=== PATIENT | male | born 1970 | race Caucasian/White ===

== ENCOUNTER 2020-03-15 07:17 | Emergency (ER) | payer OTHER, SELFPAY ==
[2020-03-15 07:25] VITALS: BP 174/87; PULSE 82; RESP 18; TEMP 36.9; O2SAT 99; BMI 28.2
--- NOTE | 2020-03-15 07:31 | ED_ITS ---
HPI - General Adult General Chief complaint: General Medical Stated complaint: rash, flank pain Time Seen by Provider: 03/15/20 07:31 Source: patient Mode of arrival: ambulatory Limitations: other (unsure of actual diagnosis) History of Present Illness HPI narrative: 49 yo male with multiple medical problems has had hemorrhagic blistering rash for the past 3 weeks notes he did improve with steroids but feels he has new blisters - unsure of what he was diagnosed with but was treated at [facility], here stating rash seems to be coming back and he is in pain Location: chest, back, abdomen, left, right, upper extremity and lower extremity Radiation: non-radiation Severity: severe Quality: burning Pain Consistency: constant Relieving factors: none Exacerbating factors: medication (felt like he got better with prednisone) Associated symptoms: denies other symptoms Treatments prior to arrival: other (has mupirocin and betamethasone) Related Data Allergies Allergy/AdvReac Type Severity Reaction Status Date / Time nitroglycerin [NITROGLYCERIN] Allergy Intermediate VOMITING Verified 03/15/20 07:19 cranberry [Cranberry] Allergy Mild RASH Verified 03/15/20 07:19 Penicillins Allergy Mild RASH Verified 03/15/20 07:19 penicillin V Allergy Unknown Rash/vomitt Verified 02/23/13 00:00 ing Review of Systems Review of Systems: Constitutional : No Fever, No Chills ENT/Mouth : No sore throat, No Rhinorrhea Eyes: No Eye Pain, No Swelling, No Redness Cardiovascular : No Chest Pain, No SOB Respiratory : No Cough, No Sputum Gastrointestinal : No Nausea, No Vomiting, No Diarrhea, No abdominal Pain Genitourinary : No Dysuria, No Hematuria Musculoskeletal : No joint pain, No Myalgias, No Joint Swelling Skin : positive Skin Lesions, positive skin rash Neuro : No Weakness, No Numbness, No Headache Psych : No Anxiety, No Depression Heme/Lymph: No Bruising, No Bleeding,No Lymphadenopathy Endocrine : No Polyuria, No Polydipsia All other systems reviewed and are negative [facility] Past Medical History Medical History (Updated 03/15/20 @ 07:33 by Deanna Garibay DO) CHF (congestive heart failure) Diabetes Heart attack HTN (hypertension) Hyperlipidemia Kidney disease Pulmonary emboli PVD (peripheral vascular disease) Surgical History Hx of right BKA S/P triple vessel bypass Social History Social History Smoking Status: Never smoker Use of substances other than those prescribed or required for medical reasons: No Advance Directives: Yes Advance Directives Information Provided: Yes Advance Directives on File: No Physical Exam Vital Signs and I&O and Narrative: Vital Signs and I&O: Vital Signs Temp 98.5 F 03/15/20 07:25 Pulse 82 03/15/20 07:25 Resp 18 03/15/20 07:25 BP 174/87 H 03/15/20 07:25 Pulse Ox 99 03/15/20 07:25 Intake & Output 03/14/20 03/15/20 03/15/20 18:59 06:59 18:59 Weight 99.79 kg Body Mass Index 28.2 Appearance: Alert. Oriented X3. No acute distress. Eyes: Pupils equal, round and reactive to light. ENT: Pharynx normal. Neck: Normal inspection. Neck supple. CVS: Normal heart rate and rhythm. Pulses normal. port a cath site is dirty, tegaderm is falling off, no erythema or drainage, no fluctuance Respiratory: No respiratory distress. Breath sounds normal. Abdomen: Soft and nontender. Skin: Skin warm and dry. Normal skin color. Normal skin turgor. on extremities there are areas that are flat and pink - sites where blisters ruptured, on RUE I see new hemorrhagic blisters but only a handful otherwise similar areas where blisters are ruptures, one area seen on his back, no overt erythema/drainage/signs of cellulitis or abscess Extremities: No lower extremity edema. No lower extremity edema. Neuro: Oriented X 3. No motor deficit. No sensory deficit. 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 Medical Decision Making MDM Narrative Medical decision making narrative: 49 yo male with multiple medical problems here with bullous rash that he states was worked up at [facility] he states more lesions are coming on his R arm and back - they are in various stages, pharynx is normal states he was given oral steroids and it seemed to be better, was told it was a reaction to a medication but he cannot provide any further history, he has a dermatology appointment on Friday, will obtain records from [facility] for a better history, the patient is asking for pain medications I am a burn patient. He also has a port a cath that is very dirty and unkempt RN at bedside to change and clean area. dispo per results and records
--- NOTE | 2020-03-15 07:54 | PC.NURSE ---
pt has dialysis port site right chest as well as another access site in mid chest. no dressing was covering dialysis port and dressing covering access site mid chest visibly soiled, pt states has not been changed in some time. both sites cleaned and new dressings applied. pt educated to contact providers if site not in use. informed dressing should be changed every 7 days.
[2020-03-15] MEDS: oxyCODONE HCl Immed Release 5 MG TABLET 10 MG PO (08:00)
[2020-03-15 10:05] VITALS: BP 149/67; PULSE 88; RESP 14; TEMP 36.6; O2SAT 97
== END 2020-03-15 10:41 | disposition left against medical advice (07) ==
PROVIDERS: Emergency Provider Emergency Medicine; PCP Internal Medicine
DX: L12.0 Bullous pemphigoid (principal); E11.9 Type 2 diabetes mellitus without complications; I11.0 Hypertensive heart disease with heart failure; I50.9 Heart failure, unspecified; Z89.519 Acquired absence of unspecified leg below knee
CPT/HCPCS: 99283; 99284

== ENCOUNTER 2020-05-12 15:15 | Inpatient (IN) | payer OTHER, SELFPAY ==
--- NOTE | 2020-05-12 15:16 | XR_ITS ---
EXAMINATION: XR CHEST CLINICAL INFORMATION: Stroke protocol, weakness COMPARISON: Chest radiographs 01/09/2020, 06/21/2019 TECHNIQUE: Portable upright AP view of the chest was obtained. FINDINGS: There are postoperative changes with mediastinal clips, left atrial appendage clip, sternotomy wires, and zero profile implants lower cervical spine. There is enlarged cardiopericardial silhouette similar to prior studies. The vascularity is normal. There is no airspace consolidation or groundglass opacity or effusion. Right internal jugular central line tip is at distal SVC. XR/XR chest 1V IMPRESSION: No acute intrathoracic disease.
--- NOTE | 2020-05-12 15:16 | ECG_ITS ---
Test Reason : STROKE PROTOCOL Blood Pressure : / mmHG Vent. Rate : 085 BPM Atrial Rate : 085 BPM P-R Int : 160 ms QRS Dur : 086 ms QT Int : 392 ms P-R-T Axes : 059 006 123 degrees QTc Int : 466 ms Sinus rhythm with occasional Premature ventricular complexes Inferior infarct , age undetermined Possible Anterior infarct , age undetermined Abnormal ECG When compared to the previous EKG of No significant changes seen Referred By: Lane Rangel Electronically Signed By:SHARON MENDIOLA MD
--- NOTE | 2020-05-12 15:16 | CT_ITS ---
EXAMINATION: CT HEAD WITHOUT CONTRAST (STROKE PROTOCOL) CLINICAL INFORMATION: Stroke protocol. Weakness COMPARISON: None TECHNIQUE: Contiguous axial imaging was performed from the skull base to vertex without intravenous administration of contrast. This CT examination was performed using dose optimization techniques as appropriate, variously including the following: *Automated exposure control *Adjustment of mA and/or kV according to patient size (this includes techniques or standardized protocols for targeted exams where dose is matched to indication/reason for exam; i.e. extremities or head) *Use of iterative reconstruction technique DLP: 866 mGy-cm FINDINGS: There is no intracranial hemorrhage, hematoma, or extra-axial fluid collection. The lateral ventricles are symmetrical and mildly prominent however there is no hydrocephalus, edema, or mass effect. The cross-white matter differentiation appears symmetric. There is no acute infarct or mass lesion. The calvarium appears intact. There is no pneumocephalus or orbital emphysema. The visualized sinuses and middle ears and mastoid air cells show no significant mucosal thickening. There are no air-fluid levels. CT/CT head for stroke IMPRESSION: No acute intracranial process seen. This critical result was discussed with Dr. Dru Rangel in ER at 3:30 hours . It was ascertained that the content and urgency of the report was understood at the time of direct communication.
--- NOTE | 2020-05-12 15:18 | CT_ITS ---
EXAMINATION: CT ANGIOGRAM NECK WITH CONTRAST CT ANGIOGRAM BRAIN WITH CONTRAST CLINICAL INFORMATION: Question large vessel occlusion. COMPARISON: Head CT performed earlier the same day. TECHNIQUE: Test bolus sequences followed by intravenous administration 70 mL of Omnipaque 350. Helical imaging was performed in the axial plane from the thoracic inlet to the skull vertex. Delayed postcontrast imaging of the head was also performed. The data was processed at the registered vascular technologist (rvt) workstation for generation of MIP sequences. Angled MIPs and volume rendered reformatted images were also generated at an offline 3D workstation under concurrent supervision. Stenoses are assessed in accordance with NASCET criteria unless otherwise indicated. This CT examination was performed using dose optimization techniques as appropriate, variously including the following: *Automated exposure control *Adjustment of mA and/or kV according to patient size (this includes techniques or standardized protocols for targeted exams where dose is matched to indication/reason for exam; i.e. extremities or head) *Use of iterative reconstruction technique FINDINGS: BRAIN: [There is no intracranial hemorrhage, hydrocephalus, extra-axial surface collection, midline shift, or other herniation pattern. Morgan to white matter differentiation is diffusely maintained without evidence of an evolved acute territorial infarct. The basilar cisterns are preserved. No significant soft tissue abnormality. No acute osseous abnormality. The paranasal sinuses and the mastoid air cells are well aerated.] CERVICAL SOFT TISSUES AND LUNG APICES: Operative changes following ACDF at C6-C7 and C7-T1 as well as interbody graft placement at C5-C6. There is multilevel cervical spondylosis. Imaged median sternotomy wires. Imaged upper lungs are clear. No significant soft tissue findings are appreciated within the neck. NECK CTA: [There is a classic 3 vessel configuration of the aortic arch. Proximal arch vessels are non-stenotic. The vertebral arteries are codominant. No significant ostial stenosis is visualized on either side. Both vertebral arteries are widely patent throughout their extracranial cervical course. Both common and internal carotid arteries are normal in course and caliber.] BRAIN CTA: Atherosclerotic calcification results in mild to moderate stenoses of the intradural vertebral arteries bilaterally. There is evidence is chronic calcification throughout the carotid siphons bilaterally without significant stenosis. No focal flow-limiting stenosis nor discrete proximal large artery occlusion. No aneurysm. Timing of the contrast bolus allows assessment of the major dural venous sinuses, which all opacify normally] CT/CT angio head neck stroke IMPRESSION: No acute intracranial findings. No acute arterial occlusions and no significant arterial stenoses within the head or neck. Stroke protocol was discussed with Dr. Rangel at 3:52 PM on 05/12/2020
--- NOTE | 2020-05-12 15:33 | ED.WEAKNESS ---
HPI - Weakness General Chief complaint: Stroke Stated complaint: STROKE ALERT LKWT ABT 1450 Time Seen by Provider: 05/12/20 15:16 Source: patient Mode of arrival: EMS Limitations: no limitations History of Present Illness HPI Narrative: 30 minutes of dense left hemiparesis. Patient without prior strokes Complaint: focal weakness Onset (ago): minute(s) Duration: constant Location: LUE, left hand and LLE Relieving factors: none Exacerbating factors: none Related Data Previous Rx's Medication Instructions Recorded prednisone 40 mg PO DAILY 5 Days #10 tab 03/15/20 Allergies Allergy/AdvReac Type Severity Reaction Status Date / Time nitroglycerin [NITROGLYCERIN] Allergy Intermediate VOMITING Verified 03/15/20 07:19 cranberry [Cranberry] Allergy Mild RASH Verified 03/15/20 07:19 Penicillins Allergy Mild RASH Verified 03/15/20 07:19 penicillin V Allergy Unknown Rash/vomitt Verified 02/23/13 00:00 ing Review of Systems Constitutional: Constitutional: Reports no additional constitutional complaints Eyes: Eyes: Reports no additional eye complaints ENT: Denies dizziness Cardiovascular: Cardiovascular: Reports no additional cardiovascular complaints Respiratory: Respiratory: Reports as per HPI Gastrointestinal: Gastrointestinal: Reports no additional gastrointestinal complaints Musculoskeletal: Musculoskeletal: Reports no additional musculoskeletal complaints Integumentary/Breasts: Skin/Breast: Denies rash Neurologic: Reports system reviewed and no additional complaints, except as documented, Denies dizziness and Denies Sensory deficit (Neuro) Psychiatric: Psychiatric: Denies anxiety [facility] Past Medical History Medical History CHF (congestive heart failure) Diabetes Heart attack HTN (hypertension) Hyperlipidemia Kidney disease Pulmonary emboli PVD (peripheral vascular disease) Surgical History Hx of right BKA S/P triple vessel bypass Social History Social History Smoking Status: Never smoker Advance Directives: No Advance Directives Information Provided: Yes Physical Exam Vital Signs: Vital Signs: Last Vital Signs Temp 97.8 F 05/12/20 15:52 Pulse 85 05/12/20 15:52 Resp 18 05/12/20 15:52 BP 181/79 H 05/12/20 15:52 Pulse Ox 97 05/12/20 15:52 Body Mass Index 35.3 Const: Other: chronically ill male with right BKA Nutritional Appearance: average body habitus Orientation/consciousness: oriented to person and patient oriented x3 Limitations: no limitations HENMT: Head: Yes normal to inspection Ears: external ears normal General nose exam: Normal external nose present Mouth: Normal oral and palatal mucosa present and oropharynx normal Throat: Yes posterior oropharynx normal Eyes: General: appearance normal, both eyes and all related structures Neck: Other: supple Neck: Yes normal visual inspection Chest: Chest palpation & inspection: normal inspection of the chest Resp: Auscultation: clear to auscultation bilaterally Cardio: Jugular venous distension: no JVD Rate: regular rate Rhythm: regular rhythm Heart sounds: S1 normal heart sound present and S2 normal heart sound present GI: Inspection: Yes normal to inspection Palpation (GI): Soft to palpation, nontender and No hepatosplenomegaly present Auscultation: normal bowel sounds : General: Yes no CVA tenderness Back/Spine/Pelvis: Back: no CVA tenderness Skin: General skin exam: no rashes or lesions noted Neuro: Other: left facial, and dense left hemiparesis General: oriented to person and patient oriented x3 Sensory Exam: No Sensory deficit (Neuro) Extrem: General: Yes normal to inspection Psych: Appearance: grossly normal NIH Stroke Scale Level of Consciousness: Alert Level of Consciousness Questions: Answers both questions correctly Level of Consciousness Commands: Performs both tasks correctly Best Gaze: Normal Visual: No visual loss Facial Palsy: Minor paralyis Motor Arm (Right): No drift Motor Arm (Left): Some effort against gravity Motor Leg (Right): No drift Motor Leg (Left): No effort against gravity Limb Ataxia: Absent Sensory: Normal Best Language: No aphasia Dysarthia: Normal Extinction and Inattention: No abnormality Score: 6 Course Course Course Narrative: Head CT noncontrast was negative Reevaluation(s) Reevaluation #1: discussed with Justice, will admit no LVO for intervention MDM - Weakness MDM Narrative Medical decision making narrative: patient with dense left zhane with no LVO will admit Lab Data Labs: Lab Results 05/12/20 Range/Units 15:39 POC Glucose 145 H (60-115) mg/dL Imaging Data CT scan - head: Radiologist's impression: no acute changes ct angio head and neck: Radiologist's impression: No LVO ECG Data Attestation: I personally reviewed and interpreted this ECG as follows: Interpretation: sinus 85, old anterior wall with pvc no acute ischemia Critical Care Time Critical Care Time Critical Care Time: Yes Total Critical Care Time: 35 Attestation: I spent 35 minutes of critical care, with interventions, assessments, speaking to patient, consultants, and family. Discharge Plan Discharge Clinical Impression: Cerebrovascular accident Patient Disposition: Admitted As Inpatient Prescriptions: No Action prednisone 20 mg tablet 40 mg PO DAILY 5 Days Qty: 10 RF: 0
[2020-05-12] MEDS: iohexoL 350 MG/ML 100 ML INFUS..BTL IV (15:46)
[2020-05-12 15:49] LABS: Glucose, Whole Blood 145 mg/dL (60-115)
[2020-05-12 15:52] VITALS: BP 172/84; BP 181/79; PULSE 85; PULSE 88; RESP 18; TEMP 36.6; O2SAT 97; O2SAT 98; BMI 35.3
[2020-05-12 16:12] LABS: Hematocrit 26.8 % (42-52); Imm Gran Abs Auto 0.04 X10*3/uL (0.00-0.03); Imm Gran Pct Auto 0.5 % (0.0-0.4); Lymphocytes Absolute Auto 0.3 X10*3/uL (1.2-4.9); Lymphocytes Percent Auto 3.5 % (20-40); MANUAL DIFF FLAG NO; Mean Corpuscular HGB Conc 33.6 g/dl (31.0-36.0); Mean Corpuscular Volume 89.3 fL (80-98); Mean Platelet Volume 11.1 fL (9.4-12.4); Monocytes Absolute Auto 0.4 X10*3/uL (0.1-1.2); Monocytes Percent Auto 4.5 % (2-11); Neutrophils Absolute Auto 7.7 X10*3/uL (2.0-8.3); Neutrophils Percent Auto 91.5 % (45-73); Platelet Count 188 X10*3/uL (160-400); Red Cell Distribution Width 16.8 % (11.0-16.0); SCAN SMEAR FLAG 1; White Blood Count 8.4 X10*3/uL (4.8-10.8)
[2020-05-12 16:19] LABS: INTERNATIONAL NORM RATIO 1.1 (0.9-1.1)
[2020-05-12 16:21] LABS: Partial Thromboplastin Time 43.9 SEC (24.1-38.0)
[2020-05-12] MEDS: HYDROmorphone HCl 2 MG/ML VIAL IVPUSH (16:23)
[2020-05-12 16:41] LABS: Alanine Aminotransferase 43 U/L (0-40); Alkaline Phosphatase 69 U/L (39-117); Anion Gap 14 (12-20); Aspartate Amino Transferase 33 U/L (5-37); Bilirubin Direct 0.2 mg/dL (0.0-0.5); Bilirubin Total 0.6 mg/dL (0.0-1.0); Blood Urea Nitrogen 113 mg/dL (9-16); Calcium 7.2 mg/dL (8.4-10.2); Carbon Dioxide 21 mmol/L (22-29); Chloride 105 mmol/L (96-108); Creatinine Clr Calc Pharmacy 32.8; Estimated Glomerular Filt Rate 17; Glucose Random 151 mg/dL (60-115); Potassium 4.4 mmol/l (3.3-5.1); Sodium 136 mmol/L (135-145); Total Protein 4.4 g/dL (6.5-8.0)
[2020-05-12 16:43] LABS: Stroke Lab Use COMPLETE
--- NOTE | 2020-05-12 16:45 | MHC.STROKE ---
1509 [facility] PRE-NOTIFIED STROKE ALERT ONSET 1545, LEFT HEMIPARESIS. NIHSS = 6, DIRECT TO CT FOR CT HEAD AND CTA HEAD/NECK. PATIENT ON ELIQUIS THEREFORE EXCLUDED FROM TPA (ALTEPLASE). CTA DID NOT REVEAL A LVO (LARGE VESSEL OCCLUSION). ? HYPERTENSIVE SMALL RIGHT CORTICAL STROKE. HE PASSED SWALLOW SCREEN, HE IS TAKING HIS ELIQUIS AND ASPIRIN. HE HAS MULTIPLE STROKE RISK FACTORS. I DID PROVIDE STROKE EDUCATION AND GAVE HIM THE STROKE BOOKLET, HE IS EXTREMELY DISCOURAGED. MRI, LIPID PANEL, LAST ECHO NOVEMBER 2019 (HE MAY NOT REQUIRE THIS). I WILL CONTINUE TO FOLLOW. NEUROLOGY CONSULT PENDING.
[2020-05-12 16:48] LABS: Troponin-I High Sensitivity 52.2 ng/L (<3.5-35.0)
[2020-05-12] MEDS: HYDROmorphone HCl 0.5 MG/0.5 ML SYRINGE IVPUSH ×2 (18:27→22:34)
--- NOTE | 2020-05-12 18:50 | P.EN_ITS ---
Event Note Date of Service: 05/12/20 Event Note: 49 y o m with significant medical problem presented with left- sided weakness that started around known today, patient was brought to ER,, in the ER CT head was negative, patient was within window. tPA was not given because patient was on Eliquis at home patient seen and examined at bedside on exam alert abdomen soft CVS rate and rhythm regular left upper extremity and left lower extremity weakness admitted left-sided weakness likely acute CVA monitor on telemetry, neuro check MRI brain, neurology consult, will start on aspirin and statin Patient seen and examined with the midlevel agree with H&P assessment and plan
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
[2020-05-12 19:48] LABS: COVID-19 Test Negative (Negative); IDNOW Serial# 9DD0AD1C
[2020-05-12 20:14] LABS: Troponin-I High Sensitivity 49.8 ng/L (<3.5-35.0)
[2020-05-12 20:20] VITALS: BP 166/87; PULSE 79; RESP 13; TEMP 36.6; O2SAT 100
--- NOTE | 2020-05-12 20:57 | PC.NURSE ---
CALLED AND ATTEMPTED TO GIVE REPORT. NURSE WILL CALL BACK FOR REPORT.
[2020-05-12 21:30] VITALS: BP 182/90; PULSE 80; RESP 19; TEMP 36; O2SAT 100
[2020-05-12 22:30] LABS: Glucose, Whole Blood 88 mg/dL (60-115)
[2020-05-12] MEDS: 0.9 % Sodium Chloride Flush 3 ML SYRINGE IVFLUSH (22:35)
[2020-05-12] MEDS: Apixaban 2.5 MG TABLET PO (22:35)
[2020-05-12] MEDS: Bumetanide 1 MG TABLET PO (22:35)
[2020-05-12] MEDS: Atorvastatin Calcium 80 MG TABLET PO (22:35)
[2020-05-12 23:58] VITALS: PULSE 77; RESP 18; TEMP 36.5; O2SAT 100
[2020-05-13] VITALS (8 sets, daily range): BP systolic 135–189; BP diastolic 70–96; PULSE 80–90; RESP 18–20; TEMP 36.3–37.2; O2SAT 99–100
[2020-05-13] MEDS: HYDROmorphone HCl 0.5 MG/0.5 ML SYRINGE IVPUSH ×2 (03:07→08:15)
[2020-05-13] MEDS: Omeprazole 20 MG CAPSULE.DR PO (06:21)
[2020-05-13 07:07] LABS: MANUAL DIFF FLAG NO
[2020-05-13 07:17] LABS: Eosinophils Absolute Auto 0.2 X10*3/uL (0.0-0.4); Eosinophils Percent Auto 1.7 % (0-4); Hematocrit 24.3 % (42-52); Hemoglobin 8.3 g/dl (14.0-18.0); Imm Gran Abs Auto 0.06 X10*3/uL (0.00-0.03); Imm Gran Pct Auto 0.7 % (0.0-0.4); Lymphocytes Absolute Auto 1.5 X10*3/uL (1.2-4.9); Lymphocytes Percent Auto 16.2 % (20-40); Mean Corpuscular HGB Conc 34.2 g/dl (31.0-36.0); Mean Corpuscular Hemoglobin 30.5 pg (27.0-33.0); Mean Corpuscular Volume 89.3 fL (80-98); Mean Platelet Volume 11.5 fL (9.4-12.4); Monocytes Absolute Auto 0.8 X10*3/uL (0.1-1.2); Monocytes Percent Auto 8.4 % (2-11); Neutrophils Absolute Auto 6.7 X10*3/uL (2.0-8.3); Platelet Count 175 X10*3/uL (160-400); Red Blood Count 2.72 X10*6/uL (4.60-5.80); Red Cell Distribution Width 16.7 % (11.0-16.0); White Blood Count 9.2 X10*3/uL (4.8-10.8)
[2020-05-13 07:28] LABS: Glucose, Whole Blood 128 mg/dL (60-115)
[2020-05-13 07:57] LABS: Anion Gap 15 (12-20); Blood Urea Nitrogen 101 mg/dL (9-16); Carbon Dioxide 22 mmol/L (22-29); Chloride 105 mmol/L (96-108); Cholesterol 163 mg/dL; Creatinine Clr Calc Pharmacy 33.1; Estimated Glomerular Filt Rate 17; Glucose Random 146 mg/dL (60-115); HDL Cholesterol 51 mg/dL; LDL Cholesterol Calculated 94 mg/dl; Sodium 138 mmol/L (135-145); Triglycerides 91 mg/dL
[2020-05-13] MEDS: predniSONE 20 MG TABLET 60 MG PO (08:15)
[2020-05-13] MEDS: Apixaban 2.5 MG TABLET PO ×2 (08:16→20:23)
[2020-05-13] MEDS: Bumetanide 1 MG TABLET PO ×2 (08:16→20:25)
[2020-05-13] MEDS: Calcium + Vitamin D 250 MG TABLET 500 MG PO ×2 (08:16→20:23)
[2020-05-13 08:20] LABS: Calcium 7.1 mg/dL (8.4-10.2)
[2020-05-13] MEDS: Multivitamin TABLET 1 TAB PO (08:23)
[2020-05-13] MEDS: Insulin Glargine,Hum.rec.anlog 100 UNIT/ML 10 ML VIAL 30 UNIT SUBCUT ×2 (10:03→21:47)
[2020-05-13] MEDS: 0.9 % Sodium Chloride Flush 3 ML SYRINGE IVFLUSH ×2 (10:05→16:08)
[2020-05-13 11:41] LABS: Glucose, Whole Blood 188 mg/dL (60-115)
[2020-05-13] MEDS: Insulin Lispro 100 UNIT/ML 3 ML VIAL SUBCUT ×3 (11:55→21:48)
[2020-05-13] MEDS: HYDROmorphone HCl 0.5 MG/0.5 ML SYRINGE 1 MG IVPUSH ×3 (12:02→20:18)
--- NOTE | 2020-05-13 12:35 | HO.PM.IMPN ---
Subjective Subjective Date of Service: 05/13/20 Interval History: Patient seen and examined at bedside patient still reporting left-sided weakness Constitutional Constitutional: Denies chills and Denies fever(s) Cardiovascular Cardiovascular: Denies chest pain Respiratory Respiratory: Denies cough Gastrointestinal Gastrointestinal: Denies abdominal pain Physical Exam Vital Signs: Vital Signs: Last Vital Signs Temp 98.9 F 05/13/20 11:21 Pulse 80 05/13/20 11:21 Resp 20 05/13/20 11:21 BP 186/86 H 05/13/20 11:21 Pulse Ox 100 05/13/20 11:21 Body Mass Index 35.3 Const: General: no acute distress, alert, awake and Cushingoid facies Nutritional Appearance: well nourished Orientation/consciousness: patient oriented x3 HENMT: Head: Yes normocephalic and Yes atraumatic Eyes: Sclerae: sclerae normal Pupils: Equal, round and reactive pupils present Chest: Other: port present Chest palpation & inspection: normal inspection of the chest Resp: Effort & Inspection: normal respiratory effort and no respiratory distress Cardio: Rate: regular rate Rhythm: regular rhythm GI: Palpation (GI): Soft to palpation and nontender Skin: General skin exam: no rashes or lesions noted Neuro: Other: hemiparesis left side General: patient oriented x3 Cranial nerves: Yes CN's II-XII intact bilaterally, Yes Equal, round and reactive pupils present and Yes Bilaterally intact EOM present Extrem: Other: s/p Right BKA; left lower extremity edema; skin breakdown -stump right leg; RUE fistula with palpable thrill Objective Data Current Medications Generic Name Dose Route Start Last Admin Trade Name Anaya PRN Reason Stop Dose Admin Acetaminophen 650 mg 05/12/20 21:22 Acetaminophen 325 Mg Tablet PO Q6H PRN Pain, Mild (Pain Scale 1-3) Apixaban 2.5 mg 05/12/20 21:22 05/13/20 08:16 Apixaban 2.5 Mg Tablet PO 2.5 mg BID RENU Administration Atorvastatin Calcium 80 mg 05/12/20 21:22 05/12/20 22:35 Atorvastatin Calcium 80 Mg Tablet PO 80 mg BEDTIME RENU Administration Bumetanide 1 mg 05/12/20 21:22 05/13/20 08:16 Bumetanide 1 Mg Tablet PO 1 mg BID RENU Administration Protocol Calcium Carbonate/Cholecalciferol 500 mg 05/13/20 09:00 05/13/20 08:16 Calcium + Vitamin D 250 Mg Tablet PO 500 mg BID RENU Administration Docusate Sodium 100 mg 05/12/20 21:22 Docusate Sodium 100 Mg Capsule PO DAILY PRN Constipation Doxycycline Hyclate 100 mg 05/13/20 09:00 05/13/20 08:16 Doxycycline Hyclate 100 Mg Tablet PO 100 mg BID RENU Administration Hydromorphone HCl 1 mg 05/13/20 08:19 05/13/20 12:02 Hydromorphone Hcl 0.5 Mg/0.5 Ml Syringe IVPUSH 1 mg Q4H PRN Administration Pain, Severe (Pain Scale 7-10) Insulin Glargine 30 unit 05/12/20 21:22 05/13/20 10:03 Insulin Glargine,Hum.Rec.Anlog 100 Unit/Ml 10 Ml Vial SUBCUT 30 unit BID RENU Administration Insulin Human Lispro 0 unit 05/12/20 21:00 05/13/20 11:55 Insulin Lispro 100 Unit/Ml 3 Ml Vial SUBCUT 2 unit QIDACHS RENU Administration Protocol Multivitamins/Vitamin C 1 tab 05/13/20 09:00 05/13/20 08:23 Multivitamin Tablet PO 1 tab DAILY RENU Administration Omeprazole 20 mg 05/13/20 06:30 05/13/20 06:21 Omeprazole 20 Mg Capsule.Dr PO 20 mg DAILY@0630 RENU Administration Ondansetron HCl 4 mg 05/12/20 21:22 Ondansetron Hcl 4 Mg/2 Ml Vial IVPUSH Q8H PRN Nausea and Vomiting Pharmacy Consult 1 each 05/12/20 16:13 Consult Rx Perform Med Rec MISCELLANE ONCE PRN Consult order Prednisone 60 mg 05/13/20 09:00 05/13/20 08:15 Prednisone 20 Mg Tablet PO 60 mg DAILY RENU Administration Sevelamer HCl 800 mg 05/12/20 21:22 05/13/20 10:05 Sevelamer Hcl 800 Mg Tablet PO 800 mg TID RENU Administration Sodium Chloride 3 ml 05/13/20 00:00 05/13/20 10:05 0.9 % Sodium Chloride Flush 3 Ml Syringe [facility] Administration Labs CBC & Chem 7: 05/13/20 06:31 05/13/20 06:31 Assessment and Plan (1) Cerebrovascular accident: Status: Acute (2) Diabetes: Status: Acute (3) Kidney disease: Problem details: no longer on HD Status: Acute Assessment and Plan: This is a 49-year-old male with history of CAD, CKD, HFpEF, diabetes, anemia, hypertension who presents to the emergency department with left-sided weakness being admitted for probable stroke Left-sided weakness Arrived within the window but anticoagulated with Eliquis therefore excluded from tPA Brain CT, head and neck CTA unremarkable Admit to telemetry for close monitoring, neuro checks Neuro consult pending Brain MRI pending PT/OT evaluation Continue statin Diabetes Continue Lantus continue SSI, monitor POC CKD No longer on dialysis monitor kidney functions GERD Continue PPI HFpEF Continue bumetanide Hypertension Hold Norvasc, BB CAD troponin with flat trend continue statin, start asa, . AC with eliquis Bullous pemphigoid Continue prednisone, doxycycline patient is following extracorporeal circulation specialist as outpatient History of DVT, PE, vascular disease Continue Eliquis DVT prophylaxis-Eliquis
--- NOTE | 2020-05-13 13:35 | MR_ITS ---
MRI OF THE BRAIN WITHOUT IV CONTRAST INDICATION: Left-sided weakness. COMPARISON: CTA head and neck May 12, 2020 TECHNIQUE: Multiplanar multisequence MR imaging of the brain was obtained without IV contrast. FINDINGS: There is no hydrocephalus, extra-axial surface collection, or herniation. There is global cerebral volume loss and there is mild chronic microangiopathy. The major flow voids at the skull base are preserved. There is no acute infarct on diffusion-weighted imaging. There is no intracranial hemorrhage on the gradient recalled echo acquisition. The midline structures are normal. The cerebellar tonsils are normally positioned. The cerebellum and brainstem are normal. The craniocervical junction is normal. Osseous marrow signal intensity is homogenous. The visualized soft tissues are unremarkable. MR/MR head/brain wo con IMPRESSION: - There are no acute territorial infarcts. No definite small infarcts though assessment is limited by artifact. - There is global cerebral volume loss and there is mild chronic microangiopathy.
[2020-05-13] MEDS: Aspirin 81 MG TAB.CHEW PO (13:44)
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
[2020-05-13 15:53] LABS: Glucose, Whole Blood 343 mg/dL (60-115)
--- NOTE | 2020-05-13 16:16 | MHC.CM.PN ---
PT REPORTS HE LIVES AT HOME WITH HIS AND ADULT SON. PT REPORTS HE IS STILL ACTIVE WITH [facility] BUT NO LONGER GOES TO IN [place]. PT REPORTS NAASTASIA SAUNDERS IS HIS PCP AND PT HAS A HCP ON FILE. CURRENT DC PLAN IS HOME WITH RESUMPTION OF SERVICES. TRANSPORT TBD PENDING PT TRISTANAL
[2020-05-13] MEDS: Acetaminophen 325 MG TABLET 650 MG PO (16:20)
--- NOTE | 2020-05-13 16:52 | PC.NURSE ---
pt sitting at the edge of the bed using urinal,able to back to bed by himself, RN assisted pt to get his underwears off. Pt able to turn himself from side to side. Pt able to move himself up in the bed . Pt able to wash his hands with wet cloth. Reported pain to the skin all over his body, c/o headache.
[2020-05-13] MEDS: Atorvastatin Calcium 80 MG TABLET PO (20:23)
[2020-05-13 20:54] LABS: Glucose, Whole Blood 399 mg/dL (60-115)
[2020-05-14] VITALS (10 sets, daily range): BP systolic 174–204; BP diastolic 64–106; PULSE 72–98; RESP 18–20; TEMP 36.3–36.8; O2SAT 98–100
[2020-05-14] MEDS: 0.9 % Sodium Chloride Flush 3 ML SYRINGE IVFLUSH ×3 (00:28→16:55)
[2020-05-14] MEDS: HYDROmorphone HCl 0.5 MG/0.5 ML SYRINGE 1 MG IVPUSH ×6 (00:28→21:10)
[2020-05-14] MEDS: Omeprazole 20 MG CAPSULE.DR PO (05:58)
[2020-05-14 07:04] LABS: Anion Gap 15 (12-20); Blood Urea Nitrogen 102 mg/dL (9-16); Calcium 7.1 mg/dL (8.4-10.2); Carbon Dioxide 20 mmol/L (22-29); Chloride 104 mmol/L (96-108); Estimated Glomerular Filt Rate 17; Glucose Random 241 mg/dL (60-115); Potassium 4.2 mmol/l (3.3-5.1); Sodium 135 mmol/L (135-145)
[2020-05-14 07:42] LABS: Glucose, Whole Blood 223 mg/dL (60-115)
[2020-05-14] MEDS: Insulin Lispro 100 UNIT/ML 3 ML VIAL SUBCUT ×4 (08:10→21:09)
[2020-05-14] MEDS: Insulin Glargine,Hum.rec.anlog 100 UNIT/ML 10 ML VIAL 32 UNIT SUBCUT ×2 (08:10→21:09)
[2020-05-14] MEDS: Bumetanide 1 MG TABLET PO ×2 (08:10→21:07)
[2020-05-14] MEDS: predniSONE 20 MG TABLET 60 MG PO (08:11)
[2020-05-14] MEDS: Aspirin 81 MG TAB.CHEW PO (08:11)
[2020-05-14] MEDS: Apixaban 2.5 MG TABLET PO ×2 (08:11→21:08)
[2020-05-14] MEDS: Calcium + Vitamin D 250 MG TABLET 500 MG PO ×2 (08:11→21:08)
[2020-05-14] MEDS: Multivitamin TABLET 1 TAB PO (08:11)
[2020-05-14 11:41] LABS: Glucose, Whole Blood 234 mg/dL (60-115)
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
--- NOTE | 2020-05-14 13:35 | HO.PM.IMPN ---
Subjective Subjective Date of Service: 05/14/20 Interval History: Ongoing LUE/LLE weakness though somewhat improved C/o severe pain of pemiphoid lesions for which he is on prednisone. States only IV Dilaudid relieves the pain. Denies chest pain/dyspnea/edema Physical Exam Vital Signs: Vital Signs: Last Vital Signs Temp 98.0 F 05/14/20 11:31 Pulse 89 05/14/20 11:31 Resp 20 05/14/20 12:34 BP 176/89 H 05/14/20 11:31 Pulse Ox 100 05/14/20 11:31 Body Mass Index 35.3 Gen: in no acute distress HEENT: sclera anicteric, moist mucus membranes Neck: supple Lungs: clear to auscultation bilaterally Heart: regular rate and rhythm, no murmurs Abd: soft, non-tender, non-distended Ext: s/p RLE BKA; RUE palpable thrill Skin: warm/well-perfused, multiple healing bullae Neuro: alert and oriented x3, LUE 4/5 strength, LLE 3-4/5 strength Psych: appropriate affect Objective Data Current Medications Generic Name Dose Route Start Last Admin Trade Name Freq PRN Reason Stop Dose Admin Acetaminophen 650 mg 05/12/20 21:22 05/13/20 16:20 Acetaminophen 325 Mg Tablet PO 650 mg Q6H PRN Administration Pain, Mild (Pain Scale 1-3) Apixaban 2.5 mg 05/12/20 21:22 05/14/20 08:11 Apixaban 2.5 Mg Tablet PO 2.5 mg BID RENU Administration Aspirin 81 mg 05/13/20 12:35 05/14/20 08:11 Aspirin 81 Mg Tab.Chew PO 81 mg DAILY RENU Administration Atorvastatin Calcium 80 mg 05/12/20 21:22 05/13/20 20:23 Atorvastatin Calcium 80 Mg Tablet PO 80 mg BEDTIME RENU Administration Bumetanide 1 mg 05/12/20 21:22 05/14/20 08:10 Bumetanide 1 Mg Tablet PO 1 mg BID RENU Administration Protocol Calcium Carbonate/Cholecalciferol 500 mg 05/13/20 09:00 05/14/20 08:11 Calcium + Vitamin D 250 Mg Tablet PO 500 mg BID RENU Administration Docusate Sodium 100 mg 05/12/20 21:22 Docusate Sodium 100 Mg Capsule PO DAILY PRN Constipation Doxycycline Hyclate 100 mg 05/13/20 09:00 05/14/20 08:11 Doxycycline Hyclate 100 Mg Tablet PO 100 mg BID RENU Administration Gabapentin 300 mg 05/14/20 21:00 Gabapentin 300 Mg Capsule PO BEDTIME RENU Hydromorphone HCl 1 mg 05/13/20 08:19 05/14/20 12:34 Hydromorphone Hcl 0.5 Mg/0.5 Ml Syringe IVPUSH 1 mg Q4H PRN Administration Pain, Severe (Pain Scale 7-10) Hydromorphone HCl 4 mg 05/14/20 11:29 Hydromorphone Hcl 4 Mg Tablet PO Q6H PRN moderate pain Insulin Glargine 32 unit 05/14/20 09:00 05/14/20 08:10 Insulin Glargine,Hum.Rec.Anlog 100 Unit/Ml 10 Ml Vial SUBCUT 32 unit BID RENU Administration Insulin Human Lispro 0 unit 05/12/20 21:00 05/14/20 11:51 Insulin Lispro 100 Unit/Ml 3 Ml Vial SUBCUT 4 unit QIDACHS [facility] Administration Protocol Multivitamins/Vitamin C 1 tab 05/13/20 09:00 05/14/20 08:11 Multivitamin Tablet PO 1 tab DAILY [facility] Administration Omeprazole 20 mg 05/13/20 06:30 05/14/20 05:58 Omeprazole 20 Mg Capsule.Dr PO 20 mg DAILY@0630 [facility] Administration Ondansetron HCl 4 mg 05/12/20 21:22 Ondansetron Hcl 4 Mg/2 Ml Vial IVPUSH Q8H PRN Nausea and Vomiting Pharmacy Consult 1 each 05/12/20 16:13 Consult Rx Perform Med Rec MISCELLANE ONCE PRN Consult order Prednisone 60 mg 05/13/20 09:00 05/14/20 08:11 Prednisone 20 Mg Tablet PO 60 mg DAILY [facility] Administration Sevelamer HCl 800 mg 05/12/20 21:22 05/14/20 08:11 Sevelamer Hcl 800 Mg Tablet PO 800 mg TID [facility] Administration Sodium Chloride 3 ml 05/13/20 00:00 05/14/20 08:09 0.9 % Sodium Chloride Flush 3 Ml Syringe IVFLUSH 3 ml QSHIFT [facility] Administration Labs CBC & Chem 7: 05/13/20 06:31 05/14/20 05:57 Labs: Laboratory Results - last 24 hr 05/13/20 05/13/20 05/14/20 15:38 20:37 05:57 Sodium 135 Potassium 4.2 Chloride 104 Carbon Dioxide 20 L Anion Gap 15 BUN 102 H* Creatinine 3.83 H Estim Creat Clear Calc 32.0 Estimated GFR 17 POC Glucose 343 H 399 H* Random Glucose 241 H D Calcium 7.1 L 05/14/20 05/14/20 07:39 11:33 Sodium Potassium Chloride Carbon Dioxide Anion Gap BUN Creatinine Estim Creat Clear Calc Estimated GFR POC Glucose 223 H 234 H Random Glucose Calcium Assessment and Plan (1) Cerebrovascular accident: Problem details: Clinical symptoms suggestive of right hemisphere ischemic event, however, MRI shows no acute stroke or chronic stroke and CTA is normal Status: Acute (2) Diabetes: Status: Acute (3) Kidney disease: Problem details: no longer on HD Status: Acute Assessment and Plan: hospital d#3 49yo M with CAD, CKD, HFpEF, DM2, anemia, HTN admitted for L-sided weakness thought to be acute CVA # L-sided weakness, possible R MCA CVA - CT and MRI negative - per Neuro consider increasing Eliquis dose to 5 mg bid; will discuss with Nephrology. ASA started - appreciate PT evaluation, awaiting OT evaluation - continue statin # HFpEF, chronic - continue bumetanide # DM2 - increase Lantus, continue correction-dose Humalog # CKD - Nephrology consult # CAD - continue statin, resume B-elizabet # HTN - resume metoprolol # GERD - continue PPI # bullous pemphigoid - sees Dr Adkins as outpt; continue prednisone + doxycycline. PO + IV hydromorphone for pain, add gabapentin as well to try to decrease opioid requirement # hx of VTE - continue apixaban; consider 5 mg bid dosing as above # dispo - likely STR
[2020-05-14 16:12] LABS: Glucose, Whole Blood 267 mg/dL (60-115)
[2020-05-14 19:55] LABS: Glucose, Whole Blood 259 mg/dL (60-115)
[2020-05-14] MEDS: Atorvastatin Calcium 80 MG TABLET PO (21:08)
[2020-05-14] MEDS: Gabapentin 300 MG CAPSULE PO (21:08)
[2020-05-14] MEDS: hydrALAZINE HCl 20 MG/ML VIAL 5 MG IVPUSH (21:25)
[2020-05-15] VITALS (9 sets, daily range): BP systolic 178–184; BP diastolic 74–98; PULSE 73–102; RESP 18–20; TEMP 36.4–37.3; O2SAT 98–100; BMI 35.3
[2020-05-15] MEDS: 0.9 % Sodium Chloride Flush 3 ML SYRINGE IVFLUSH ×4 (00:14→23:37)
[2020-05-15] MEDS: ondansetron HCL 4 MG/2 ML VIAL IVPUSH ×3 (01:36→18:17)
[2020-05-15] MEDS: HYDROmorphone HCl 0.5 MG/0.5 ML SYRINGE 1 MG IVPUSH ×6 (01:36→22:37)
[2020-05-15] MEDS: Omeprazole 20 MG CAPSULE.DR PO (05:38)
[2020-05-15 06:04] LABS: Basophils Percent Auto 0.1 % (0-2); Eosinophils Percent Auto 0.3 % (0-4); Hematocrit 25.1 % (42-52); Hemoglobin 8.3 g/dl (14.0-18.0); Imm Gran Abs Auto 0.09 X10*3/uL (0.00-0.03); Imm Gran Pct Auto 0.8 % (0.0-0.4); Lymphocytes Absolute Auto 0.6 X10*3/uL (1.2-4.9); Lymphocytes Percent Auto 4.8 % (20-40); MANUAL DIFF FLAG SCAN; Mean Corpuscular HGB Conc 33.1 g/dl (31.0-36.0); Mean Corpuscular Hemoglobin 29.2 pg (27.0-33.0); Mean Corpuscular Volume 88.4 fL (80-98); Mean Platelet Volume 11.7 fL (9.4-12.4); Monocytes Absolute Auto 0.6 X10*3/uL (0.1-1.2); Monocytes Percent Auto 5.3 % (2-11); Neutrophils Absolute Auto 10.1 X10*3/uL (2.0-8.3); Neutrophils Percent Auto 88.7 % (45-73); Platelet Count 179 X10*3/uL (160-400); Red Blood Count 2.84 X10*6/uL (4.60-5.80); Red Cell Distribution Width 15.9 % (11.0-16.0); SCAN SMEAR FLAG 1; White Blood Count 11.4 X10*3/uL (4.8-10.8)
[2020-05-15 06:38] LABS: SLIDE REVIEW VERIFIED
[2020-05-15 07:01] LABS: Anion Gap 16 (12-20); Blood Urea Nitrogen 109 mg/dL (9-16); Calcium 7.8 mg/dL (8.4-10.2); Carbon Dioxide 21 mmol/L (22-29); Chloride 104 mmol/L (96-108); Creatinine Clr Calc Pharmacy 30.6; Estimated Glomerular Filt Rate 16; Glucose Random 174 mg/dL (60-115); Potassium 4.4 mmol/l (3.3-5.1); Sodium 137 mmol/L (135-145)
[2020-05-15 07:43] LABS: Estimated Average Glucose 160 mg/dL; Hemoglobin A1C 130.4467 umol/L; Hemoglobin A1c % 7.2 %
[2020-05-15 07:46] LABS: Glucose, Whole Blood 168 mg/dL (60-115)
[2020-05-15 08:32] LABS: Prothrombin Time Whole Bld POC 12.2 sec (11.1-13.5)
[2020-05-15] MEDS: Multivitamin TABLET 1 TAB PO (09:55)
[2020-05-15] MEDS: predniSONE 20 MG TABLET 60 MG PO (09:55)
[2020-05-15] MEDS: Aspirin 81 MG TAB.CHEW PO (09:55)
[2020-05-15] MEDS: Calcium + Vitamin D 250 MG TABLET 500 MG PO ×2 (09:55→21:15)
[2020-05-15] MEDS: Metoprolol Succinate ER 50 MG TAB.ER.24H 150 MG PO (09:55)
[2020-05-15] MEDS: Apixaban 5 MG TABLET PO (09:55)
[2020-05-15] MEDS: Insulin Glargine,Hum.rec.anlog 100 UNIT/ML 10 ML VIAL 32 UNIT SUBCUT ×2 (09:56→21:13)
[2020-05-15] MEDS: Insulin Lispro 100 UNIT/ML 3 ML VIAL SUBCUT ×4 (09:56→21:14)
--- NOTE | 2020-05-15 11:18 | MHC.CM.PN ---
Goal for dc is home with resumption of [facility] VS STR, pending PT eval. CM will continue to follow for dc planning
[2020-05-15 11:32] LABS: Glucose, Whole Blood 206 mg/dL (60-115)
--- NOTE | 2020-05-15 12:19 | PM.PNNEP ---
Subjective Subjective Date of Service: 05/15/20 Interval history: Says he is doing better Able to move left extremties Physical Exam Vital Signs: Vital Signs: Last Vital Signs Temp 97.9 F 05/15/20 11:53 Pulse 86 05/15/20 11:53 Resp 20 05/15/20 11:53 BP 180/74 H 05/15/20 11:53 Pulse Ox 100 05/15/20 11:53 Body Mass Index 35.3 Const: General: no acute distress HENMT: Head: Yes normal to inspection Neck: Neck: Yes supple Resp: Auscultation: clear to auscultation bilaterally Cardio: Heart sounds: no gallops and no rubs GI: Auscultation: normal bowel sounds Skin: General skin exam: no rashes or lesions noted Neuro: Motor exam (neuro): No Asterixis during motor activity present Assessment & Plan Assessment and plan (1) Chronic kidney disease (CKD) stage G5/A2, glomerular filtration rate (GFR) less than or equal to 15 mL/min/1.73 square meter and albuminuria creatinine ratio between 30-299 mg/g: Problem details: Pt has very borderline GFR, BUN over 100 and creat 3.8. He had CTA as part of workup for new neuro findings which was neg along with an MRI. Would resume [facility] No overt s/s of uremia and no indication to start HD today HTN- resume Norvasc 5 mg Q D PT and DC planning Status: Acute Time Spent With Patient Time: Total time spent is greater than 50% in coordination of care (as documented) at patient's floor/unit and/or counseling patient:
--- NOTE | 2020-05-15 16:15 | P.PNIM_ITS ---
Subjective Subjective Date of Service: 05/15/20 Interval History: L-sided weakness improved Still c/o severe burning pain of pemphigoid lesions, improved with IV hydromorphone Physical Exam Vital Signs: Vital Signs: Last Vital Signs Temp 97.9 F 05/15/20 11:53 Pulse 86 05/15/20 14:46 Resp 20 05/15/20 11:53 BP 180/74 H 05/15/20 14:46 Pulse Ox 100 05/15/20 14:46 Body Mass Index 35.3 Gen: in no acute distress HEENT: sclera anicteric, moist mucus membranes Neck: supple Lungs: clear to auscultation bilaterally Heart: regular rate and rhythm, no murmurs Abd: soft, non-tender, non-distended Ext: s/p RLE BKA; RUE palpable thrill Skin: warm/well-perfused, multiple healing bullae Neuro: alert and oriented x3, LUE 4+/5 strength, LLE 4/5 strength Psych: appropriate affect Objective Data Current Medications Generic Name Dose Route Start Last Admin Trade Name Randolphq PRN Reason Stop Dose Admin Acetaminophen 650 mg 05/12/20 21:22 05/13/20 16:20 Acetaminophen 325 Mg Tablet PO 650 mg Q6H PRN Administration Pain, Mild (Pain Scale 1-3) Apixaban 2.5 mg 05/15/20 21:00 Apixaban 2.5 Mg Tablet PO BEDTIME RENU Apixaban 5 mg 05/15/20 09:00 05/15/20 09:55 Apixaban 5 Mg Tablet PO 5 mg DAILY@0900 RENU Administration Aspirin 81 mg 05/13/20 12:35 05/15/20 09:55 Aspirin 81 Mg Tab.Chew PO 81 mg DAILY RENU Administration Atorvastatin Calcium 80 mg 05/12/20 21:22 05/14/20 21:08 Atorvastatin Calcium 80 Mg Tablet PO 80 mg BEDTIME RENU Administration Bumetanide 1 mg 05/12/20 21:22 05/14/20 21:07 Bumetanide 1 Mg Tablet PO 1 mg BID RENU Administration Protocol Calcium Carbonate/Cholecalciferol 500 mg 05/13/20 09:00 05/15/20 09:55 Calcium + Vitamin D 250 Mg Tablet PO 500 mg BID RENU Administration Docusate Sodium 100 mg 05/12/20 21:22 Docusate Sodium 100 Mg Capsule PO DAILY PRN Constipation Doxycycline Hyclate 100 mg 05/13/20 09:00 05/15/20 09:55 Doxycycline Hyclate 100 Mg Tablet PO 100 mg BID RENU Administration Gabapentin 300 mg 05/14/20 21:00 05/14/20 21:08 Gabapentin 300 Mg Capsule PO 300 mg BEDTIME RENU Administration Hydromorphone HCl 1 mg 05/13/20 08:19 05/15/20 14:18 Hydromorphone Hcl 0.5 Mg/0.5 Ml Syringe IVPUSH 1 mg Q4H PRN Administration Pain, Severe (Pain Scale 7-10) Hydromorphone HCl 4 mg 05/14/20 11:29 Hydromorphone Hcl 4 Mg Tablet PO Q6H PRN moderate pain Insulin Glargine 32 unit 05/14/20 09:00 05/15/20 09:56 Insulin Glargine,Hum.Rec.Anlog 100 Unit/Ml 10 Ml Vial SUBCUT 32 unit BID RENU Administration Insulin Human Lispro 0 unit 05/12/20 21:00 05/15/20 13:15 Insulin Lispro 100 Unit/Ml 3 Ml Vial SUBCUT 5 unit QIDACHS [facility] Administration Protocol Metoprolol Succinate 150 mg 05/15/20 09:00 05/15/20 09:55 Metoprolol Succinate Er 50 Mg Tab.Er.24h PO 150 mg DAILY RENU Administration Protocol Multivitamins/Vitamin C 1 tab 05/13/20 09:00 05/15/20 09:55 Multivitamin Tablet PO 1 tab DAILY RENU Administration Omeprazole 20 mg 05/13/20 06:30 05/15/20 05:38 Omeprazole 20 Mg Capsule.Dr PO 20 mg DAILY@0630 RENU Administration Ondansetron HCl 4 mg 05/12/20 21:22 05/15/20 09:54 Ondansetron Hcl 4 Mg/2 Ml Vial IVPUSH 4 mg Q8H PRN Administration Nausea and Vomiting Pharmacy Consult 1 each 05/12/20 16:13 Consult Rx Perform Med Rec MISCELLANE ONCE PRN Consult order Prednisone 60 mg 05/13/20 09:00 05/15/20 09:55 Prednisone 20 Mg Tablet PO 60 mg DAILY RENU Administration Sevelamer HCl 800 mg 05/12/20 21:22 05/15/20 14:18 Sevelamer Hcl 800 Mg Tablet PO 800 mg TID RENU Administration Sodium Chloride 3 ml 05/13/20 00:00 05/15/20 10:01 0.9 % Sodium Chloride Flush 3 Ml Syringe IVFLUSH 3 ml QSHIFT RENU Administration Labs CBC & Chem 7: 05/15/20 05:38 05/15/20 05:38 Labs: Laboratory Results - last 24 hr 05/12/20 05/14/20 05/15/20 15:38 19:48 05:38 WBC RBC Hgb Hct MCV MCH MCHC RDW Plt Count MPV Immature Gran % (Auto) Neut % (Auto) Lymph % (Auto) Tucker % (Auto) Eos % (Auto) Baso % (Auto) Lymph # (Auto) Tucker # (Auto) Eos # (Auto) Baso # (Auto) Abs Immat Gran (auto) Absolute Neuts (auto) Absolute Nucleated RBC Nucleated RBC % (auto) Smear Tech's Comments Whole Blood PT 12.2 Whole Blood INR 1.0 Sodium 137 Potassium 4.4 Chloride 104 Carbon Dioxide 21 L Anion Gap 16 BUN 109 H* Creatinine 4.00 H* Estim Creat Clear Calc 30.6 Estimated GFR 16 POC Glucose 259 H Random Glucose 174 H Estimat Average Glucose Hemoglobin A1c % Calcium 7.8 L D 05/15/20 05/15/20 05/15/20 05:38 05:38 07:29 WBC 11.4 H RBC 2.84 L Hgb 8.3 L Hct 25.1 L MCV 88.4 MCH 29.2 MCHC 33.1 RDW 15.9 Plt Count 179 MPV 11.7 Immature Gran % (Auto) 0.8 H Neut % (Auto) 88.7 H Lymph % (Auto) 4.8 L Tucker % (Auto) 5.3 Eos % (Auto) 0.3 Baso % (Auto) 0.1 Lymph # (Auto) 0.6 L Tucker # (Auto) 0.6 Eos # (Auto) 0.0 Baso # (Auto) 0.0 Abs Immat Gran (auto) 0.09 H Absolute Neuts (auto) 10.1 H Absolute Nucleated RBC 0.000 Nucleated RBC % (auto) 0.0 Smear Tech's Comments VERIFIED Whole Blood PT Whole Blood INR Sodium Potassium Chloride Carbon Dioxide Anion Gap BUN Creatinine Estim Creat Clear Calc Estimated GFR POC Glucose 168 H Random Glucose Estimat Average Glucose 160 Hemoglobin A1c % 7.2 Calcium 12/07/20 11:20 WBC RBC Hgb Hct MCV MCH MCHC RDW Plt Count MPV Immature Gran % (Auto) Neut % (Auto) Lymph % (Auto) Tucker % (Auto) Eos % (Auto) Baso % (Auto) Lymph # (Auto) Tucker # (Auto) Eos # (Auto) Baso # (Auto) Abs Immat Gran (auto) Absolute Neuts (auto) Absolute Nucleated RBC Nucleated RBC % (auto) Smear Tech's Comments Whole Blood PT Whole Blood INR Sodium Potassium Chloride Carbon Dioxide Anion Gap BUN Creatinine Estim Creat Clear Calc Estimated GFR POC Glucose 206 H Random Glucose Estimat Average Glucose Hemoglobin A1c % Calcium Assessment and Plan (1) Cerebrovascular accident: Problem details: Clinical symptoms suggestive of right hemisphere ischemic event, however, MRI shows no acute stroke or chronic stroke and CTA is normal Status: Acute (2) Diabetes: Status: Acute (3) Kidney disease: Problem details: no longer on HD Status: Acute Assessment and Plan: hospital d#4 49yo M with CAD, CKD, HFpEF, DM2, anemia, HTN admitted for L-sided weakness thought to be acute CVA # L-sided weakness consistent with R MCA CVA though CT/MRI negative - increased apixaban to 5mg qam, 2.5mg qpm; on ASA - high-intensity statin - PT/OT # HFpEF, chronic - continue bumetanide # DM2, A1c 7.2 - Lantus/Humalog, check fructosamine # CKD, near-ESRD - Nephrology following, Cr rising and recently got IV contrast for CTA; monitor # CAD - continue statin, resumed B-elizabet # pAF - continue B-elizabet, apixaban # HTN - resume metoprolol + amlodipine # GERD - continue PPI # bullous pemphigoid - sees Dr Adkins as outpt; continue prednisone + doxycycline. continue gabapentin, hydromorphone for pain contrl # hx of VTE - apixaban # dispo - STR recommended but pt would like to go home with [facility]
[2020-05-15 16:26] LABS: Glucose, Whole Blood 170 mg/dL (60-115)
[2020-05-15] MEDS: amLODIPine Besylate 5 MG TABLET PO (16:34)
[2020-05-15 21:00] LABS: Glucose, Whole Blood 186 mg/dL (60-115)
[2020-05-15] MEDS: Bumetanide 1 MG TABLET PO (21:14)
[2020-05-15] MEDS: Gabapentin 300 MG CAPSULE PO (21:15)
[2020-05-15] MEDS: Atorvastatin Calcium 80 MG TABLET PO (21:15)
[2020-05-15] MEDS: Apixaban 2.5 MG TABLET PO (21:15)
[2020-05-16] VITALS (7 sets, daily range): BP systolic 153–196; BP diastolic 68–86; PULSE 77–88; RESP 18–20; TEMP 36.2–36.8; O2SAT 100
[2020-05-16] MEDS: HYDROmorphone HCl 0.5 MG/0.5 ML SYRINGE 1 MG IVPUSH ×4 (02:43→15:13)
[2020-05-16] MEDS: Omeprazole 20 MG CAPSULE.DR PO (06:16)
[2020-05-16] MEDS: ondansetron HCL 4 MG/2 ML VIAL IVPUSH ×2 (06:46→15:13)
[2020-05-16 07:22] LABS: Anion Gap 13 (12-20); Blood Urea Nitrogen 110 mg/dL (9-16); Calcium 7.7 mg/dL (8.4-10.2); Carbon Dioxide 22 mmol/L (22-29); Chloride 106 mmol/L (96-108); Creatinine Clr Calc Pharmacy 31.6; Estimated Glomerular Filt Rate 17; Glucose Random 107 mg/dL (60-115); Potassium 4.4 mmol/l (3.3-5.1); Sodium 137 mmol/L (135-145)
[2020-05-16 08:03] LABS: Glucose, Whole Blood 100 mg/dL (60-115)
--- NOTE | 2020-05-16 08:09 | P.CDIC_ITS ---
CDI Concurrent Query Service Date: 05/16/20 Documentation Clarification: Please clarify if you are treating a proba ble/suspected/likely or confirmed: Specifics: Chronic kidney disease stage 1 - 5 or other Acute on chronic kidney disease stage 1 - 5 or other Please specify if known Provider Response: Other Other Diagnosis: acute on chronic CKD5 PLEASE DO NOT DELETE/MODIFY EXISTING CONTENT Additional information is needed in order to code to the highest accuracy and appropriate Severity of Illness (SOI). Please clarify the information noted below in your progress notes and discharge summary. Risk Factors/Clinical Indicators/Treatments Nephrology 05/15 -CKD stage G5/A2 BUN 113 - 110 CR. 3.73 - 4.00 GRF 17 16 PN: 05/15 - creatinine is rising recently got IV contrast for CT. no indications to start HD today, near ESRD. CDS: Ivonne Huston CCS, CDIS Contact Number: [phone] Please Review the information above and exercise your independent professional judgment in responding to the query. If you concur, pleas document in the PROGRESS NOTES and DISCHARGE SUMMARY. If you do not agree with the query, please document in the query above. THIS QUERY IS PART OF THE PERMANENT MEDICAL RECORD
[2020-05-16] MEDS: Calcium + Vitamin D 250 MG TABLET 500 MG PO (08:10)
[2020-05-16] MEDS: Metoprolol Succinate ER 50 MG TAB.ER.24H 150 MG PO (08:10)
[2020-05-16] MEDS: predniSONE 20 MG TABLET 60 MG PO (08:11)
[2020-05-16] MEDS: Apixaban 5 MG TABLET PO (08:11)
[2020-05-16] MEDS: Insulin Glargine,Hum.rec.anlog 100 UNIT/ML 10 ML VIAL 32 UNIT SUBCUT (08:11)
[2020-05-16] MEDS: Multivitamin TABLET 1 TAB PO (08:11)
[2020-05-16] MEDS: Bumetanide 1 MG TABLET PO (08:11)
[2020-05-16] MEDS: amLODIPine Besylate 5 MG TABLET PO (08:11)
[2020-05-16] MEDS: Aspirin 81 MG TAB.CHEW PO (08:11)
[2020-05-16] MEDS: 0.9 % Sodium Chloride Flush 3 ML SYRINGE IVFLUSH ×2 (08:13→15:16)
[2020-05-16] MEDS: amLODIPine Besylate 5 MG TABLET 10 MG PO (10:59)
--- NOTE | 2020-05-16 11:00 | MHC.CM.PN ---
Per ROUNDS discussion, Patient is medically cleared for dc. PT is recommending Acute Rehab, but Patient is adamant about returning home (MD aware).Patient was active with [facility], who has been updated and made aware of today's dc. Second IMM addressed. Patient is aware of and pleased with the dc plan to go home with home PT through [facility].
[2020-05-16 11:33] LABS: Glucose, Whole Blood 85 mg/dL (60-115)
--- NOTE | 2020-05-16 15:11 | P.DS_ITS ---
DS: Providers Provider Date of admission: 05/12/20 18:05 Primary care physician: Rahul Chan MD Consults: 05/12/20 21:22 Consult to Neurology Routine Consulting Provider: Kenneth Rendon Reason for consultation: left side weakness 05/14/20 07:36 Consult to Nephrology Routine Consulting Provider: [facility] Reason for consultation: NEGRO/CKD DS: Diagnosis Discharge Diagnosis (1) Cerebrovascular accident: Status: Acute Problem details: Clinical symptoms suggestive of right hemisphere ischemic event, however, MRI shows no acute stroke or chronic stroke and CTA is normal (2) Acute on chronic kidney failure: Status: Acute (3) Chronic kidney disease (CKD) stage G5/A2, glomerular filtration rate (GFR) less than or equal to 15 mL/min/1.73 square meter and albuminuria creatinine ratio between 30-299 mg/g: Status: Acute (4) Hemiparesis: Status: Acute (5) Bullous pemphigoid: Status: Acute DS: Medications Discharge Medications Home Medications: Home Medications Medication Instructions Recorded Confirmed Lantus Solostar U-100 Insulin 30 unit SUBCUT BID 05/12/20 05/12/20 amlodipine 5 mg PO BID 05/12/20 05/12/20 atorvastatin [Lipitor] 80 mg PO BEDTIME 05/12/20 05/12/20 bumetanide 1 mg PO BID 05/12/20 05/12/20 calcium citrate-vitamin D3 2 tab PO BID 05/12/20 05/12/20 [Calcium Citrate + D] docusate sodium [Colace] 100 mg PO DAILY 05/12/20 05/12/20 doxycycline hyclate 100 mg PO BID 05/12/20 05/12/20 insulin aspart U-100 [Novolog 15 unit SUBCUT TID 05/12/20 05/12/20 Flexpen U-100 Insulin] metoprolol succinate 150 mg PO DAILY 05/12/20 05/12/20 multivitamin 1 tab PO DAILY 05/12/20 05/12/20 pantoprazole 40 mg PO DAILY 05/12/20 05/12/20 prednisone 60 mg PO DAILY 05/12/20 05/12/20 sevelamer HCl 800 mg PO TID 05/12/20 05/12/20 Previous Rx's Medication Instructions Recorded apixaban [Eliquis] 2.5 mg PO BEDTIME #30 tab 05/16/20 apixaban [Eliquis] 5 mg PO DAILY@0900 #30 tab 05/16/20 aspirin 81 mg PO DAILY #30 tab 05/16/20 gabapentin 300 mg PO BEDTIME #30 cap 05/16/20 DS: Summary Hospital Course Hospital Course: from admission history and physical by hospitalist BRADLEY Schmitt, 05/12/20: This is a 49-year-old male with history of CAD, diabetes, CKD among others who presents to the emergency department with left-sided weakness. He began having weakness of his left lower extremity and tried to stand up was unable to ambulate and fell. He was unable to get up off the ground. His weakness progressed to include his left upper extremity as well. He called 911 and was brought to the emergency department for evaluation. He was noted to have left-sided hemiparesis. Brain CT and head and neck CTA were unremarkable. Patient visual disturbance, difficulty swallowing, speech difficulty. Because the patient anticoagulated at baseline with Eliquis he was not a candidate for tPA. For this reason the decision was made to admit him to the hospital service for further workup. His left-sided weakness was thought to be consistent with right MCA CVA, though CT and MRI were negative. Neurology was consulted and recommended increasing apixaban dosing in consultation with Nephrology; apixaban was increased to 5 mg qam plus 2.5 mg qpm; he was also started on aspirin. He is already on a high- intensity statin. Left-sided weakness gradually improved during hospitalization. PT and OT were consulted. Acute rehabilitation was recommended but declined by the patient, so he was discharged home with VNA including PT/OT services. He had very mild worsening of his CKD5 in the context of contrast for a CTA study, but his serum creatinine improved to baseline with holding his diuretic; this was restarted and he will follow up closely with his bullet assembly press setter operator upon discharge. Notably, he is on prednisone for bullous pemphigoid and will follow up with his staff internist office based only upon discharge for tapering and consideration of other therapeutics for this condition. He was given gabapentin as an adjunct to hydromorphone previously prescribed from his hosp italization at [facility] for analgesia from the pain associated with the skin lesions. Time Spent with Patient Time attestation: Total time spent providing and/or coordinating discharge services: 35 Quality: Stroke Pt Provided Written Stroke Discharge Instructions: Patient given written information Physical Exam Vital Signs: Vital Signs: Last Vital Signs Temp 97.7 F 05/16/20 12:00 Pulse 78 05/16/20 12:00 Resp 20 05/16/20 12:00 BP 196/86 H 05/16/20 12:00 Pulse Ox 100 05/16/20 12:00 Body Mass Index 35.3 Gen: in no acute distress HEENT: sclera anicteric, moist mucus membranes Neck: supple Lungs: clear to auscultation bilaterally Heart: regular rate and rhythm, no murmurs Abd: soft, non-tender, non-distended Ext: s/p RLE BKA; RUE palpable thrill Skin: warm/well-perfused, multiple healing bullae Neuro: alert and oriented x3, LUE 4+/5 strength, LLE 4/5 strength Psych: appropriate affect DS: Data Data Completed and Pending Labs on day of discharge: Laboratory Results WBC 11.4 X10*3/uL (4.8-10.8) H 05/15/20 05:38 RBC 2.84 X10*6/uL (4.60-5.80) L 05/15/20 05:38 Hgb 8.3 g/dl (14.0-18.0) L 05/15/20 05:38 Hct 25.1 % (42-52) L 05/15/20 05:38 MCV 88.4 fL (80-98) 05/15/20 05:38 MCH 29.2 pg (27.0-33.0) 05/15/20 05:38 MCHC 33.1 g/dl (31.0-36.0) 05/15/20 05:38 RDW 15.9 % (11.0-16.0) 05/15/20 05:38 Plt Count 179 X10*3/uL (160-400) 05/15/20 05:38 MPV 11.7 fL (9.4-12.4) 05/15/20 05:38 Immature Gran % (Auto) 0.8 % (0.0-0.4) H 05/15/20 05:38 Neut % (Auto) 88.7 % (45-73) H 05/15/20 05:38 Lymph % (Auto) 4.8 % (20-40) L 05/15/20 05:38 [place] % (Auto) 5.3 % (2-11) 05/15/20 05:38 Eos % (Auto) 0.3 % (0-4) 05/15/20 05:38 Baso % (Auto) 0.1 % (0-2) 05/15/20 05:38 Lymph # (Auto) 0.6 X10*3/uL (1.2-4.9) L 05/15/20 05:38 [place] # (Auto) 0.6 X10*3/uL (0.1-1.2) 05/15/20 05:38 Eos # (Auto) 0.0 X10*3/uL (0.0-0.4) 05/15/20 05:38 Baso # (Auto) 0.0 X10*3/uL (0.0-0.2) 05/15/20 05:38 Abs Immat Gran (auto) 0.09 X10*3/uL (0.00-0.03) H 05/15/20 05:38 Absolute Neuts (auto) 10.1 X10*3/uL (2.0-8.3) H 05/15/20 05:38 Absolute Nucleated RBC 0.000 X10*3/uL (0.0-0.012) 05/15/20 05:38 Nucleated RBC % (auto) 0.0 /100WBC (0.0-0.2) 05/15/20 05:38 Smear Tech's Comments VERIFIED 05/15/20 05:38 PT 13.0 SEC (10.8-13.0) 05/12/20 16:04 Whole Blood PT 12.2 sec (11.1-13.5) 05/12/20 15:38 INR 1.1 (0.9-1.1) 05/12/20 16:04 Whole Blood INR 1.0 (0.9-1.1) 05/12/20 15:38 APTT 43.9 SEC (24.1-38.0) H 05/12/20 16:04 Sodium 137 mmol/L (135-145) 05/16/20 06:30 Potassium 4.4 mmol/l (3.3-5.1) 05/16/20 06:30 Chloride 106 mmol/L (96-108) 05/16/20 06:30 Carbon Dioxide 22 mmol/L (22-29) 05/16/20 06:30 Anion Gap 13 (12-20) 05/16/20 06:30 BUN 110 mg/dL (9-16) H* 05/16/20 06:30 Creatinine 3.87 mg/dL (0.5-1.4) H 05/16/20 06:30 Estim Creat Clear Calc 31.6 05/16/20 06:30 Estimated GFR 17 05/16/20 06:30 POC Glucose 85 mg/dL (60-115) 05/16/20 11:24 Random Glucose 107 mg/dL (60-115) D 05/16/20 06:30 Estimat Average Glucose 160 mg/dL 05/15/20 05:38 Hemoglobin A1c % 7.2 % 05/15/20 05:38 Calcium 7.7 mg/dL (8.4-10.2) L 05/16/20 06:30 Total Bilirubin 0.6 mg/dL (0.0-1.0) 05/12/20 16:04 Direct Bilirubin 0.2 mg/dL (0.0-0.5) 05/12/20 16:04 AST 33 U/L (5-37) 05/12/20 16:04 ALT 43 U/L (0-40) H 05/12/20 16:04 Alkaline Phosphatase 69 U/L (39-117) 05/12/20 16:04 Total Creatine Kinase 163 U/L (38-174) 05/12/20 16:04 Troponin I High Sens 49.8 ng/L (<3.5-35.0) H 05/12/20 19:26 Total Protein 4.4 g/dL (6.5-8.0) L 05/12/20 16:04 Albumin 3.0 g/dL (3.5-5.0) L 05/12/20 16:04 Triglycerides 91 mg/dL 05/13/20 06:31 Cholesterol 163 mg/dL 05/13/20 06:31 LDL Cholesterol, Calc 94 mg/dl 05/13/20 06:31 HDL Cholesterol 51 mg/dL 12/05/20 06:31 COVID-19 ([facility]ILCAR) Negative (Negative) 05/12/20 19:26 COVID-19 Clin Com See Note 05/12/20 19:26 Impressions Chest X-Ray 05/12/20 15:16 IMPRESSION: No acute intrathoracic disease. Head CT 05/12/20 15:16 IMPRESSION: No acute intracranial process seen. This critical result was discussed with Dr. Dru Rangel in ER at 3:30 hours . It was ascertained that the content and urgency of the report was understood at the time of direct communication. Head/Neck CTA 05/12/20 15:18 IMPRESSION: No acute intracranial findings. No acute arterial occlusions and no significant arterial stenoses within the head or neck. Stroke protocol was discussed with Dr. Rangel at 3:52 PM on 05/12/2020 Brain MRI 05/13/20 13:35 IMPRESSION: - There are no acute territorial infarcts. No definite small infarcts though assessment is limited by artifact. - There is global cerebral volume loss and there is mild chronic microangiopathy. Discharge Plan Discharge Anticipated Discharge Date/Time: 05/16/20 15:04 Patient Disposition: Home Health Service Referrals: [facility] [Outside] Physician,Unknown [Primary Care Provider] - Discharge Medications: New Eliquis 2.5 mg Tablet 2.5 mg PO BEDTIME Qty: 30 RF: 0 Eliquis 5 mg Tablet 5 mg PO DAILY@0900 Qty: 30 RF: 0 gabapentin 300 mg Capsule 300 mg PO BEDTIME Qty: 30 RF: 0 aspirin 81 mg Tablet,Chewable 81 mg PO DAILY Qty: 30 RF: 0 Continued multivitamin Tablet 1 tab PO DAILY RF: 0 atorvastatin [Lipitor] 80 mg Tablet 80 mg PO BEDTIME RF: 0 doxycycline hyclate 100 mg Capsule 100 mg PO BID RF: 0 sevelamer HCl 800 mg Tablet 800 mg PO TID RF: 0 metoprolol succinate 100 mg Tablet Extended Release 24 Hr 150 mg PO DAILY RF: 0 amlodipine 5 mg Tablet 5 mg PO BID RF: 0 pantoprazole 40 mg Tablet,Delayed Release (Dr/Ec) 40 mg PO DAILY RF: 0 docusate sodium [Colace] 100 mg Capsule 100 mg PO DAILY RF: 0 bumetanide 1 mg Tablet 1 mg PO BID RF: 0 insulin aspart U-100 [Novolog Flexpen U-100 Insulin] 100 unit/mL (3 mL) Insulin Pen 15 unit SUBCUT TID RF: 0 calcium citrate-vitamin D3 [Calcium Citrate + D] 315 mg-5 mcg (200 unit) Tablet 2 tab PO BID RF: 0 Lantus Solostar U-100 Insulin 100 unit/mL (3 mL) Insulin Pen 30 unit SUBCUT BID RF: 0 prednisone 20 mg tablet 60 mg PO DAILY RF: 0 Discontinued Eliquis 2.5 mg Tablet 2.5 mg PO BID RF: 0 Discharge Orders: Discharge Order (Routine); Ordered 05/16/20 Ordered By: Gene Maldonado Diet: diabetic diet and other Activity on Discharge: As tolerated Patient Instructions: Ischemic Stroke (IP), Mediterranean Diet (DC), Mediter ranean Diet (GEN) Discharge Date/Time: 05/16/20 17:17 Other Ambulatory Orders: Basic Metabolic Panel (Routine) Timeframe: 1 Week Facility: [facility] - Location: Laboratory Ordered By: Gene Maldonado Visit Report Forms: Patient Portal Discharge page Care Plan Goals: recovery of L arm and leg strength Health Concerns: possible stroke Plan of Treatment: increase Eliquis to 5 mg in the morning, 2.5 mg in the evening start aspirin 81 mg daily healthy Mediterranean diet follow up with your bullet assembly press setter operator in 1 week; check labs [basic metabolic panel] 1 week prior follow up with your staff internist office based only in 1 week
[2020-05-16 16:17] LABS: Glucose, Whole Blood 105 mg/dL (60-115)
[2020-05-22 13:58] LABS: Fructosamine 199 umol/L (205-285)
== END 2020-05-16 17:17 | disposition home health service (06) | DRG 65 ==
LOC: HO.ED 16:15 → HO.IMC 20:37
PROVIDERS: Physician Assistant Medical; Admitting Provider Internal Medicine; Emergency Provider Emergency Medicine; Visit Provider Family Medicine
DX: I63.511 Cerebral infarction due to unspecified occlusion or stenosis of right middle cerebral artery (principal); G81.94 Hemiplegia, unspecified affecting left nondominant side; I50.32 Chronic diastolic (congestive) heart failure; L12.0 Bullous pemphigoid; I13.2 Hypertensive heart and chronic kidney disease with heart failure and with stage 5 chronic kidney disease, or end stage renal disease; N17.9 Acute kidney failure, unspecified; N18.5 Chronic kidney disease, stage 5; I25.10 Atherosclerotic heart disease of native coronary artery without angina pectoris; R29.706 NIHSS score 6; Z89.511 Acquired absence of right leg below knee; Z20.828 Contact with and (suspected) exposure to other viral communicable diseases; E78.5 Hyperlipidemia, unspecified; Z86.711 Personal history of pulmonary embolism; E11.22 Type 2 diabetes mellitus with diabetic chronic kidney disease; N18.30 Chronic kidney disease, stage 3 unspecified; K21.9 Gastro-esophageal reflux disease without esophagitis; Z88.0 Allergy status to penicillin; Z79.4 Long term (current) use of insulin; Z79.01 Long term (current) use of anticoagulants; Z79.52 Long term (current) use of systemic steroids; Z79.82 Long term (current) use of aspirin; Z79.899 Other long term (current) drug therapy
CPT/HCPCS: 36415; 70450; 70496; 70498; 70551; 71045; 80048; 80061; 80076; 82550; 82947; 82985; 83036; 84484; 85025; 85610; 85730; 87635; 93005; 96374; 97162; 97167; 97530; 97535; 99223; 99225; 99285; 99291; J1170; J1642; J2405; Q9967

== ENCOUNTER 2020-06-30 08:42 | Emergency (ER) | payer OTHER, SELFPAY ==
[2020-06-30 08:51] VITALS: BP 187/98; PULSE 96; RESP 18; TEMP 36.8; O2SAT 99; BMI 62.8
--- NOTE | 2020-06-30 08:58 | ED_ITS ---
HPI - Weakness General Chief complaint: General Medical Stated complaint: not feeling well Time Seen by Provider: 06/30/20 08:52 Source: patient Mode of arrival: ambulatory Limitations: no limitations History of Present Illness HPI Narrative: Patient with multiple comorbid condition recently started on dialysis last week missed his dialysis yesterday comes here for feeling weak tired shortness of breath chronic chest pain patient discharged from [facility] 3 days ago patient was saturating 99% at room air asking for pain medication for chronic chest pain had multiple workup done in the past which were negative for any obstructive coronary artery disease had a cardiac bypass surgery also in 2019 and catheterization post CABG was negative for any blockage Related Data Home Medications Medication Instructions Recorded Confirmed Lantus Solostar U-100 Insulin 30 unit SUBCUT BID 05/12/20 05/12/20 amlodipine 5 mg PO BID 05/12/20 05/12/20 atorvastatin [Lipitor] 80 mg PO BEDTIME 05/12/20 05/12/20 bumetanide 1 mg PO BID 05/12/20 05/12/20 calcium citrate-vitamin D3 2 tab PO BID 05/12/20 05/12/20 [Calcium Citrate + D] docusate sodium [Colace] 100 mg PO DAILY 05/12/20 05/12/20 doxycycline hyclate 100 mg PO BID 05/12/20 05/12/20 insulin aspart U-100 [Novolog 15 unit SUBCUT TID 05/12/20 05/12/20 Flexpen U-100 Insulin] metoprolol succinate 150 mg PO DAILY 05/12/20 05/12/20 multivitamin 1 tab PO DAILY 05/12/20 05/12/20 pantoprazole 40 mg PO DAILY 05/12/20 05/12/20 prednisone 60 mg PO DAILY 05/12/20 05/12/20 sevelamer HCl 800 mg PO TID 05/12/20 05/12/20 Previous Rx's Medication Instructions Recorded apixaban [Eliquis] 2.5 mg PO BEDTIME #30 tab 05/16/20 apixaban [Eliquis] 5 mg PO DAILY@0900 #30 tab 05/16/20 aspirin 81 mg PO DAILY #30 tab 05/16/20 gabapentin 300 mg PO BEDTIME #30 cap 05/16/20 Allergies Allergy/AdvReac Type Severity Reaction Status Date / Time nitroglycerin [NITROGLYCERIN] Allergy Intermediate VOMITING Verified 03/15/20 07:19 cranberry [Cranberry] Allergy Mild RASH Verified 03/15/20 07:19 Penicillins Allergy Mild RASH Verified 03/15/20 07:19 penicillin V Allergy Unknown Rash/vomitt Verified 02/23/13 00:00 ing Review of Systems Review of Systems: Constitutional : ++Weight loss, No Fever, No Chills ENT/Mouth : No sore throat, No Rhinorrhea Eyes: No Eye Pain, No Swelling Cardiovascular : No Chest Pain, no palpitations Respiratory : No Cough, No Sputum, no shortness of breath Gastrointestinal : no Nausea, No Vomiting, No Diarrhea, No abdominal Pain, no black stools Genitourinary : No Dysuria, No Urinary Frequency decreased urine output++ Musculoskeletal : No joint pain, No Myalgias, No Joint Swelling Skin : No Skin Lesions, No rash Neuro : No Weakness, No Numbness, No Dizziness, No Headache Psych : No Anxiety/Panic, No Depression Heme/Lymph: No Bruising, No Lymphadenopathy Endocrine : No Polyuria, No Polydipsia All other systems reviewed and are negative [facility] Past Medical History Medical History Acute on chronic kidney failure Bullous pemphigoid CAD (coronary artery disease) CHF (congestive heart failure) Chronic kidney disease (CKD) stage G5/A2, glomerular filtration rate (GFR) less than or equal to 15 mL/min/1.73 square meter and albuminuria creatinine ratio between 30-299 mg/g Diabetes HTN (hypertension) Hyperlipidemia Ischemic colitis Kidney disease Orthostatic hypotension Pulmonary emboli PVD (peripheral vascular disease) Surgical History H/O Spinal surgery Hx of right BKA S/P triple vessel bypass Family History Family History Other Diabetes Social History Social History Household Members: Spouse Housing: House Alcohol intake: never Smoking Status: Never smoker Smoked in Last 30 Days: No Use of substances other than those prescribed or required for medical reasons: No Advance Directives: No Advance Directives Information Provided: No service: No Current occupational status: retired Physical Exam Vital Signs: Vital Signs: Last Vital Signs Temp 98.8 F 06/30/20 11:07 Pulse 91 06/30/20 11:07 Resp 9 L 06/30/20 11:07 BP 155/80 H 06/30/20 11:07 Pulse Ox 95 06/30/20 11:07 Body Mass Index 62.8 Const: General: healthy appearing, comfortable, no acute distress and well developed Nutritional Appearance: average body habitus Orientation/consciousness: patient oriented x3 HENMT: Head: Yes normal to inspection, Yes normocephalic and Yes atraumatic Ears: hearing grossly normal bilaterally General nose exam: Normal external nose present Face and sinus: Yes normal facial exam Mouth: Normal oral and palatal mucosa present Eyes: General: appearance normal, both eyes and all related structures Neck: Neck: Yes normal visual inspection and Yes full ROM Chest: Chest palpation & inspection: normal palpation of entire chest wall Resp: Effort & Inspection: normal respiratory effort and able to speak in complete sentences Auscultation: clear to auscultation bilaterally, no crackles, no rales and no rhonchi Cardio: Jugular venous distension: no JVD Palpation: normal PMI Rate: regular rate Rhythm: regular rhythm Heart sounds: S1 normal heart sound present and S2 normal heart sound present GI: Inspection: Yes normal to inspection Palpation (GI): Soft to palpation and nontender Auscultation: normal bowel sounds : General: Yes no CVA tenderness Back/Spine/Pelvis: Back: no CVA tenderness Thoracic/Lumbar Spine: thoracic and lumbar spine normal to inspection Skin: General skin exam: ecchymosis (Right arm) Neuro: General: patient oriented x3 and no focal motor deficits Extrem: Other: Right BKA General: Yes no calf tenderness and No pedal edema Course Course Course Narrative: Patient with chronic multiple problems came for weakness missing dialysis scheduled for dialysis tomorrow , workup is negative for any urgency for dialysis patient BUN ., sodium and potassium level is normal case discussed with creosoting engineer does not need any dialysis today dialysis for tomorrow as scheduled MDM - Weakness Medical Records Attestation: I reviewed the patient's medical records. Lab Data Attestation: I reviewed the patient's lab results. Result diagrams: 06/30/20 09:38 06/30/20 09:38 Labs: Lab Results 06/30/20 06/30/20 06/30/20 Range/Units 09:38 09:38 09:38 WBC 9.6 (4.8-10.8) X10*3/uL RBC 3.06 L (4.60-5.80) X10*6/uL Hgb 9.4 L (14.0-18.0) g/dl Hct 29.2 L (42-52) % MCV 95.4 (80-98) fL MCH 30.7 (27.0-33.0) pg MCHC 32.2 (31.0-36.0) g/dl RDW 15.2 (11.0-16.0) % Plt Count 218 (160-400) X10*3/uL MPV 10.1 (9.4-12.4) fL Immature Gran % (Auto) 3.7 H (0.0-0.4) % Neut % (Auto) 77.7 H (45-73) % Lymph % (Auto) 11.0 L (20-40) % [place] % (Auto) 5.4 (2-11) % Eos % (Auto) 2.1 (0-4) % Baso % (Auto) 0.1 (0-2) % Lymph # (Auto) 1.1 L (1.2-4.9) X10*3/uL [place] # (Auto) 0.5 (0.1-1.2) X10*3/uL Eos # (Auto) 0.2 (0.0-0.4) X10*3/uL Baso # (Auto) 0.0 (0.0-0.2) X10*3/uL Abs Immat Gran (auto) 0.36 H (0.00-0.03) X10*3/uL Absolute Neuts (auto) 7.5 (2.0-8.3) X10*3/uL Absolute Nucleated RBC 0.060 H (0.0-0.012) X10*3/uL Nucleated RBC % (auto) 0.6 H (0.0-0.2) /100WBC Sodium 139 (135-145) mmol/L Potassium 4.7 (3.3-5.1) mmol/l Chloride 102 (96-108) mmol/L Carbon Dioxide 27 (22-29) mmol/L Anion Gap 15 (12-20) BUN 63 H (9-16) mg/dL Creatinine 3.49 H (0.5-1.4) mg/dL Estim Creat Clear Calc 48.3 Estimated GFR 19 Random Glucose 71 (60-115) mg/dL Calcium 7.8 L (8.4-10.2) mg/dL Troponin I High Sens (<3.5-35.0) ng/L B-Natriuretic Peptide 293 H (<100) pg/mL COVID-19 ([facility]ILCAR) (Negative) COVID-19 Clin Com 06/30/20 06/30/20 Range/Units 09:38 09:38 WBC (4.8-10.8) X10*3/uL RBC (4.60-5.80) X10*6/uL Hgb (14.0-18.0) g/dl Hct (42-52) % MCV (80-98) fL MCH (27.0-33.0) pg MCHC (31.0-36.0) g/dl RDW (11.0-16.0) % Plt Count (160-400) X10*3/uL MPV (9.4-12.4) fL Immature Gran % (Auto) (0.0-0.4) % Neut % (Auto) (45-73) % Lymph % (Auto) (20-40) % [place] % (Auto) (2-11) % Eos % (Auto) (0-4) % Baso % (Auto) (0-2) % Lymph # (Auto) (1.2-4.9) X10*3/uL [place] # (Auto) (0.1-1.2) X10*3/uL Eos # (Auto) (0.0-0.4) X10*3/uL Baso # (Auto) (0.0-0.2) X10*3/uL Abs Immat Gran (auto) (0.00-0.03) X10*3/uL Absolute Neuts (auto) (2.0-8.3) X10*3/uL Absolute Nucleated RBC (0.0-0.012) X10*3/uL Nucleated RBC % (auto) (0.0-0.2) /100WBC Sodium (135-145) mmol/L Potassium (3.3-5.1) mmol/l Chloride (96-108) mmol/L Carbon Dioxide (22-29) mmol/L Anion Gap (12-20) BUN (9-16) mg/dL Creatinine (0.5-1.4) mg/dL Estim Creat Clear Calc Estimated GFR Random Glucose (60-115) mg/dL Calcium (8.4-10.2) mg/dL Troponin I High Sens 38.0 H (<3.5-35.0) ng/L B-Natriuretic Peptide (<100) pg/mL COVID-19 ([facility]ILCAR) Negative (Negative) COVID-19 Clin Com See Note ECG Data Attestation: I personally reviewed and interpreted this ECG as follows: Interpretation: Normal sinus rhythm heart rate 93 beats per minute poor progression of R-waves in anterior leads normal axis no acute ST T wave changes impression no acute ischemia Discharge Plan Discharge Clinical Impression: Weakness Chronic kidney disease Qualifiers: Chronic kidney disease stage: on chronic dialysis Qualified Code(s): N18.6 - End stage renal disease Patient Disposition: Home, Self-Care Instructions: Chronic Kidney Disease (ED), Weakness (ED) Additional Instructions: Have dialysis tomorrow as scheduled. Follow up with creosoting engineer Prescriptions: No Action multivitamin Tablet 1 tab PO DAILY RF: 0 atorvastatin [Lipitor] 80 mg Tablet 80 mg PO BEDTIME RF: 0 doxycycline hyclate 100 mg Capsule 100 mg PO BID RF: 0 sevelamer HCl 800 mg Tablet 800 mg PO TID RF: 0 metoprolol succinate 100 mg Tablet Extended Release 24 Hr 150 mg PO DAILY RF: 0 amlodipine 5 mg Tablet 5 mg PO BID RF: 0 pantoprazole 40 mg Tablet,Delayed Release (Dr/Ec) 40 mg PO DAILY RF: 0 docusate sodium [Colace] 100 mg Capsule 100 mg PO DAILY RF: 0 bumetanide 1 mg Tablet 1 mg PO BID RF: 0 insulin aspart U-100 [Novolog Flexpen U-100 Insulin] 100 unit/mL (3 mL) Insulin Pen 15 unit SUBCUT TID RF: 0 calcium citrate-vitamin D3 [Calcium Citrate + D] 315 mg-5 mcg (200 unit) Tablet 2 tab PO BID RF: 0 Lantus Solostar U-100 Insulin 100 unit/mL (3 mL) Insulin Pen 30 unit SUBCUT BID RF: 0 prednisone 20 mg tablet 60 mg PO DAILY RF: 0 Eliquis 2.5 mg Tablet 2.5 mg PO BEDTIME Qty: 30 RF: 0 Eliquis 5 mg Tablet 5 mg PO DAILY@0900 Qty: 30 RF: 0 gabapentin 300 mg Capsule 300 mg PO BEDTIME Qty: 30 RF: 0 aspirin 81 mg Tablet,Chewable 81 mg PO DAILY Qty: 30 RF: 0
--- NOTE | 2020-06-30 09:11 | ECG_ITS ---
Test Reason : GENERAL MEDICAL Blood Pressure : / mmHG Vent. Rate : 093 BPM Atrial Rate : 093 BPM P-R Int : 164 ms QRS Dur : 082 ms QT Int : 356 ms P-R-T Axes : 052 -11 058 degrees QTc Int : 442 ms Normal sinus rhythm Inferior infarct (cited on or before 09-JAN-2020) Possible Anterior infarct (cited on or before 09-JAN-2020) Abnormal ECG When compared with ECG of 12-MAY-2020 15:49, Premature ventricular complexes are no longer Present Referred By: Kamar Grady Electronically Signed By:WESTLEY MORTON
--- NOTE | 2020-06-30 09:11 | XR_ITS ---
EXAMINATION: XR CHEST CLINICAL INFORMATION: SOB. COMPARISON: 05/12/2020 chest x-ray. TECHNIQUE: Frontal view of the chest was obtained. FINDINGS: The lungs are well-expanded and clear of acute process. Heart size and pulmonary vascularity is normal. There are mediastinal tony and median sternotomy sutures from previous CABG. There is a left atrial appendage clip. No gross bony abnormality seen. XR/XR chest 1V IMPRESSION: No acute process seen in chest. Median sternotomy sutures and mediastinal tony from previous CABG. Left atrial appendage clip is noted
[2020-06-30] MEDS: HYDROmorphone HCl 2 MG/ML VIAL IVPUSH (09:45)
[2020-06-30] MEDS: ondansetron HCL 4 MG/2 ML VIAL IVPUSH (09:45)
[2020-06-30] MEDS: Bumetanide 1 MG/4 ML VIAL 2 MG IVPUSH (09:45)
[2020-06-30 09:49] LABS: MANUAL DIFF FLAG NO
[2020-06-30 09:52] LABS: Basophils Percent Auto 0.1 % (0-2); Eosinophils Absolute Auto 0.2 X10*3/uL (0.0-0.4); Eosinophils Percent Auto 2.1 % (0-4); Hematocrit 29.2 % (42-52); Hemoglobin 9.4 g/dl (14.0-18.0); Imm Gran Abs Auto 0.36 X10*3/uL (0.00-0.03); Imm Gran Pct Auto 3.7 % (0.0-0.4); Lymphocytes Absolute Auto 1.1 X10*3/uL (1.2-4.9); Mean Corpuscular HGB Conc 32.2 g/dl (31.0-36.0); Mean Corpuscular Hemoglobin 30.7 pg (27.0-33.0); Mean Corpuscular Volume 95.4 fL (80-98); Mean Platelet Volume 10.1 fL (9.4-12.4); Monocytes Absolute Auto 0.5 X10*3/uL (0.1-1.2); Monocytes Percent Auto 5.4 % (2-11); NRBC Pct Auto 0.6 /100WBC (0.0-0.2); Neutrophils Absolute Auto 7.5 X10*3/uL (2.0-8.3); Neutrophils Percent Auto 77.7 % (45-73); Platelet Count 218 X10*3/uL (160-400); Red Blood Count 3.06 X10*6/uL (4.60-5.80); Red Cell Distribution Width 15.2 % (11.0-16.0); White Blood Count 9.6 X10*3/uL (4.8-10.8)
[2020-06-30 09:55] VITALS: BP 141/68; PULSE 89; RESP 17; O2SAT 97
[2020-06-30 10:08] LABS: COVID-19 Test Negative (Negative)
[2020-06-30 10:11] LABS: Anion Gap 15 (12-20); Blood Urea Nitrogen 63 mg/dL (9-16); Calcium 7.8 mg/dL (8.4-10.2); Carbon Dioxide 27 mmol/L (22-29); Chloride 102 mmol/L (96-108); Creatinine Clr Calc Pharmacy 48.3; Estimated Glomerular Filt Rate 19; Glucose Random 71 mg/dL (60-115); Potassium 4.7 mmol/l (3.3-5.1); Sodium 139 mmol/L (135-145)
[2020-06-30 10:18] LABS: B Type Natriuretic Peptide 293 pg/mL (<100)
[2020-06-30 11:07] VITALS: BP 155/80; PULSE 91; RESP 9; TEMP 37.1; O2SAT 95
[2020-06-30] MEDS: HYDROmorphone HCl 1 MG/ML SYRINGE IVPUSH (11:07)
== END 2020-06-30 12:10 | disposition home or self-care (01) ==
PROVIDERS: Emergency Provider Internal Medicine; PCP Internal Medicine
DX: R53.1 Weakness (principal); R63.4 Abnormal weight loss; Z20.822 Contact with and (suspected) exposure to COVID-19; E11.22 Type 2 diabetes mellitus with diabetic chronic kidney disease; I13.2 Hypertensive heart and chronic kidney disease with heart failure and with stage 5 chronic kidney disease, or end stage renal disease; N18.6 End stage renal disease; I50.9 Heart failure, unspecified; Z99.2 Dependence on renal dialysis; Z79.4 Long term (current) use of insulin; Z86.711 Personal history of pulmonary embolism; Z79.899 Other long term (current) drug therapy
CPT/HCPCS: 36415; 71045; 80048; 83880; 84484; 85025; 87635; 93005; 96374; 96375; 96376; 99284; J1170; J2405

== ENCOUNTER 2020-12-16 13:42 | Emergency (ER) | payer OTHER, SELFPAY ==
--- NOTE | ~2020-12-16 | CT_ITS ---
EXAMINATION: CT ABDOMEN AND PELVIS WITHOUT CONTRAST CLINICAL INFORMATION: Pain. History of colitis COMPARISON: 05/21/2018 TECHNIQUE: Multidetector volumetric imaging was performed from the superior aspect of the liver through the pubic symphysis. Sagittal and coronal reformatted images were obtained on the technologist's workstation. This CT examination was performed using dose optimization techniques as appropriate, variously including the following: *Automated exposure control *Adjustment of mA and/or kV according to patient size (this includes techniques or standardized protocols for targeted exams where dose is matched to indication/reason for exam; i.e. extremities or head) *Use of iterative reconstruction technique DLP: 770 mGy-cm FINDINGS: LUNG BASES: Somewhat linear density left base partially imaged favoring scarring or discoid atelectasis. This is partially imaged. LIVER, GALLBLADDER, AND BILIARY TREE: The liver is normal in size, shape, and attenuation. No focal hepatic lesion or biliary ductal dilatation is present. Gallbladder surgically absent. PANCREAS: Unremarkable. SPLEEN: Unremarkable. ADRENAL GLANDS: Unremarkable. KIDNEYS AND URETERS: The kidneys are normal in size, shape, and attenuation. No hydronephrosis, hydroureter, or calculi seen. No perinephric stranding. BLADDER: Unremarkable. GASTROINTESTINAL TRACT: The colon is collapsed and difficult to assess. No measurable inflammatory changes to suggest active colitis. Small bowel is grossly normal. No obstruction. ABDOMINAL WALL: No significant hernia is appreciated. LYMPH NODES: Normal. VASCULAR: Unremarkable. PELVIC VISCERA: Unremarkable. OSSEOUS STRUCTURES: Unremarkable. CT/CT abdomen pelvis wo con IMPRESSION: Colon is decompressed and difficult to assess. No specific findings of active colitis. Normal appendix. No small bowel pathology.
[2020-12-16 13:50] VITALS: BP 135/66; PULSE 90; RESP 16; TEMP 36.8; O2SAT 99; BMI 25.7
[2020-12-16 14:42] VITALS: BP 135/68; PULSE 88; RESP 16; TEMP 36.7; O2SAT 100
[2020-12-16 15:18] LABS: Basophils Percent Auto 0.1 % (0-2); Eosinophils Percent Auto 0.1 % (0-4); Hematocrit 32.6 % (42-52); Hemoglobin 10.8 g/dl (14.0-18.0); Imm Gran Abs Auto 0.13 X10*3/uL (0.00-0.03); Imm Gran Pct Auto 1.4 % (0.0-0.4); Lymphocytes Absolute Auto 0.4 X10*3/uL (1.2-4.9); Lymphocytes Percent Auto 4.7 % (20-40); MANUAL DIFF FLAG NO; Mean Corpuscular HGB Conc 33.1 g/dl (31.0-36.0); Mean Corpuscular Hemoglobin 31.9 pg (27.0-33.0); Mean Corpuscular Volume 96.2 fL (80-98); Mean Platelet Volume 9.7 fL (9.4-12.4); Monocytes Absolute Auto 0.4 X10*3/uL (0.1-1.2); Monocytes Percent Auto 4.4 % (2-11); Neutrophils Absolute Auto 8.3 X10*3/uL (2.0-8.3); Neutrophils Percent Auto 89.3 % (45-73); Platelet Count 199 X10*3/uL (160-400); Red Blood Count 3.39 X10*6/uL (4.60-5.80); Red Cell Distribution Width 14.3 % (11.0-16.0); White Blood Count 9.3 X10*3/uL (4.8-10.8)
[2020-12-16 15:28] LABS: OBS Int Ctl Valid YES; OBS1 NEGATIVE (NEGATIVE)
[2020-12-16 15:34] LABS: INTERNATIONAL NORM RATIO 1.1 (0.9-1.1); Prothrombin Time 12.6 SEC (9.9-13.0)
[2020-12-16] MEDS: Morphine Sulfate 2 MG/ML CARTRIDGE 1 MG IVPUSH (15:34)
[2020-12-16 15:41] LABS: Partial Thromboplastin Time 34.5 SEC (24.1-38.0)
--- NOTE | 2020-12-16 15:46 | ED_ITS ---
HPI - GI Bleed General Chief complaint: GI Bleed Stated complaint: ABD PAIN Time Seen by Provider: 12/16/20 14:51 Source: patient Mode of arrival: ambulatory Limitations: no limitations History of Present Illness HPI Narrative: 50-year-old male end-stage renal disease on dialysis, came in for evaluation of abdominal pain and black stools. Symptoms started since yesterday, patient describe it as constant pain and m ultiple black stool bowel movements, pain is a generalized abdominal pain with no radiation, no nausea, no vomiting, no fever, food makes the pain worse (patient ate scrambled eggs in the morning made his symptoms worse), nothing make it better. Patient had similar pain in the past and was diagnosed with colitis. Related Data Home Medications Medication Instructions Recorded Confirmed Lantus Solostar U-100 Insulin 30 unit SUBCUT BID 05/12/20 12/16/20 atorvastatin [Lipitor] 80 mg PO BEDTIME 05/12/20 12/16/20 bumetanide 4 mg PO BID 05/12/20 12/16/20 calcium citrate-vitamin D3 2 tab PO BID 05/12/20 12/16/20 [Calcium Citrate + D] docusate sodium [Colace] 100 mg PO DAILY 05/12/20 12/16/20 insulin aspart U-100 [Novolog 15 unit SUBCUT TID 05/12/20 12/16/20 Flexpen U-100 Insulin] multivitamin 1 tab PO DAILY 05/12/20 12/16/20 pantoprazole 40 mg PO DAILY 05/12/20 12/16/20 prednisone 20 mg PO DAILY 05/12/20 12/16/20 sevelamer HCl 800 mg PO TID 05/12/20 12/16/20 carvedilol 1 tab PO BID 12/16/20 12/16/20 nifedipine [Procardia XL] 1 tab PO DAILY 12/16/20 12/16/20 Previous Rx's Medication Instructions Recorded apixaban [Eliquis] 2.5 mg PO BEDTIME #30 tab 05/16/20 aspirin 81 mg PO DAILY #30 tab 05/16/20 gabapentin 300 mg PO BEDTIME #30 cap 05/16/20 Allergies Allergy/AdvReac Type Severity Reaction Status Date / Time nitroglycerin [NITROGLYCERIN] Allergy Intermediate VOMITING Verified 03/15/20 07:19 cranberry [Cranberry] Allergy Mild RASH Verified 03/15/20 07:19 Penicillins Allergy Mild RASH Verified 03/15/20 07:19 penicillin V Allergy Unknown Rash/vomitt Verified 02/23/13 00:00 ing furosemide [From Lasix] Allergy Rash Verified 12/16/20 13:52 Review of Systems Review of Systems: All other systems are reviewed and are negative Constitutional: Reports as per HPI and Reports no additional constitutional complaints Eyes: Reports as per HPI and Reports no additional eye complaints Reports system reviewed and no additional complaints, except as documented Cardiovascular: Reports as per HPI and Reports no additional cardiovascular complaints Respiratory: Reports as per HPI and Reports no additional respiratory complaints Gastrointestinal: Reports as per HPI and Reports no additional gastrointestinal complaints Genitourinary: Reports no additional female genitourinary complaints Musculoskeletal: Reports no additional musculoskeletal complaints Skin/Breast: Reports system reviewed and no additional complaints, except as docu Psychiatric: Reports no additional psychiatric complaints Endocrine: Reports no additional endocrine complaints Hematologic/Lymphatic: Reports no additional hematologic/lymphatic complaints Allergic/Immunologic: Reports no additional allergic/immunologic complaints Reports system reviewed and no additional complaints, except as documented and Reports Abnormal speech present [facility] Past Medical History Medical History Acute on chronic kidney failure Bullous pemphigoid CAD (coronary artery disease) CHF (congestive heart failure) Chronic kidney disease (CKD) stage G5/A2, glomerular filtration rate (GFR) less than or equal to 15 mL/min/1.73 square meter and albuminuria creatinine ratio between 30-299 mg/g Diabetes HTN (hypertension) Hyperlipidemia Ischemic colitis Kidney disease Orthostatic hypotension Pulmonary emboli PVD (peripheral vascular disease) Surgical History H/O Spinal surgery Hx of right BKA S/P triple vessel bypass Family History Family History Other Diabetes Social History Social History Household Members: Spouse Housing: House Do you presently have visiting nurse or other home services: Yes Alcohol intake: never Patient Tobacco Use Status: Never used Tobacco Use of substances other than those prescribed or required for medical reasons: No Advance Directives: Yes Advance Directives Information Provided: Yes Advance Directives on File: No service: No Current occupational status: retired Physical Exam Vital Signs: Vital Signs: Last Vital Signs Temp 98.1 F 12/16/20 14:42 Pulse 88 12/16/20 14:42 Resp 16 12/16/20 14:42 BP 135/68 12/16/20 14:42 Pulse Ox 100 12/16/20 14:42 Body Mass Index 25.7 Vital signs have been reviewed as appeared to be correct. Blood pressure normal. Heart rate normal. Respiration rate normal. Temperature normal. Oxygen saturation normal. Appearance: Alert. Oriented X3. No acute distress. Head: Normal external exam. Normocephalic. Atraumatic. No [place] signs noted. No raccoon eyes noted Eyes: PERRLA. EOMI. Conjunctiva and sclera normal. Eyelids normal. ENT: TM's Normal. Pharynx normal. Uvula midline. Moist mucous membranes. No trismus noted. No drooling noted. No muffled voice noted. Neck: Normal inspection. Neck supple. FROM. No adenopathy. Thyroid Normal. No meningeal signs. No neck mass noted. CVS: Normal heart rate and rhythm. Heart sound normal. No murmurs noted. Pulses normal throughout. Respiratory: No respiratory distress. Painless inspiration. Breath sounds normal. No wheezes/rales/rhonchi noted. Chest nontender. No accessory muscle usage noted or decreased air movement noted. Abdomen: Soft and nontender. Bowel sounds normal in all 4 quadrants. No distention noted. No organomegaly noted. No visible injury noted. Rectal exam: Stool is brown with no blood. Back: No CVA tenderness. Full range of motion noted. Skin: Skin warm and dry. Normal skin color. Normal skin turgor. No rashes/lesions/lacerations noted. Extremities: No lower extremity edema. Extremities exhibit normal range of motion. Extremities nontender. Neuro: Oriented X 3. No motor deficit. No sensory deficit. Reflexes normal. Course Course Course Narrative: Assessment and plan. 50-year-old male end-stage renal disease on dialysis came in with abdominal pain, had a history of colitis. Pending CT/labs. Case signed out to Dr. Sampson to check on labs/CT dentist spoke with the patient accordingly. MDM - GI Bleed Lab Data Result diagrams: 12/16/20 15:13 12/16/20 15:13 Labs: Lab Results 12/16/20 12/16/20 12/16/20 Range/Units 15:13 15:13 15:13 WBC 9.3 (4.8-10.8) X10*3/uL RBC 3.39 L (4.60-5.80) X10*6/uL Hgb 10.8 L (14.0-18.0) g/dl Hct 32.6 L (42-52) % MCV 96.2 (80-98) fL MCH 31.9 (27.0-33.0) pg MCHC 33.1 (31.0-36.0) g/dl RDW 14.3 (11.0-16.0) % Plt Count 199 (160-400) X10*3/uL MPV 9.7 (9.4-12.4) fL Immature Gran % (Auto) 1.4 H (0.0-0.4) % Neut % (Auto) 89.3 H (45-73) % Lymph % (Auto) 4.7 L (20-40) % [place] % (Auto) 4.4 (2-11) % Eos % (Auto) 0.1 (0-4) % Baso % (Auto) 0.1 (0-2) % Lymph # (Auto) 0.4 L (1.2-4.9) X10*3/uL [place] # (Auto) 0.4 (0.1-1.2) X10*3/uL Eos # (Auto) 0.0 (0.0-0.4) X10*3/uL Baso # (Auto) 0.0 (0.0-0.2) X10*3/uL Abs Immat Gran (auto) 0.13 H (0.00-0.03) X10*3/uL Absolute Neuts (auto) 8.3 (2.0-8.3) X10*3/uL Absolute Nucleated RBC 0.000 (0.0-0.012) X10*3/uL Nucleated RBC % (auto) 0.0 (0.0-0.2) /100WBC PT 12.6 (9.9-13.0) SEC INR 1.1 (0.9-1.1) APTT 34.5 (24.1-38.0) SEC Stool Occult Blood NEGATIVE (NEGATIVE) Discharge Plan Discharge Clinical Impression: Abdominal pain Prescriptions: No Action multivitamin Tablet 1 tab PO DAILY RF: 0 atorvastatin [Lipitor] 80 mg Tablet 80 mg PO BEDTIME RF: 0 sevelamer HCl 800 mg Tablet 800 mg PO TID RF: 0 pantoprazole 40 mg Tablet,Delayed Release (Dr/Ec) 40 mg PO DAILY RF: 0 docusate sodium [Colace] 100 mg Capsule 100 mg PO DAILY RF: 0 bumetanide 1 mg Tablet 4 mg PO BID RF: 0 insulin aspart U-100 [Novolog Flexpen U-100 Insulin] 100 unit/mL (3 mL) Insulin Pen 15 unit SUBCUT TID RF: 0 calcium citrate-vitamin D3 [Calcium Citrate + D] 315 mg-5 mcg (200 unit) Table t 2 tab PO BID RF: 0 Lantus Solostar U-100 Insulin 100 unit/mL (3 mL) Insulin Pen 30 unit SUBCUT BID RF: 0 prednisone 20 mg tablet 20 mg PO DAILY RF: 0 Eliquis 2.5 mg Tablet 2.5 mg PO BEDTIME Qty: 30 RF: 0 gabapentin 300 mg Capsule 300 mg PO BEDTIME Qty: 30 RF: 0 aspirin 81 mg Tablet,Chewable 81 mg PO DAILY Qty: 30 RF: 0 carvedilol 25 mg tablet 1 tab PO BID RF: 0 nifedipine [Procardia XL] 90 mg tablet extended release 24hr 1 tab PO DAILY RF: 0
[2020-12-16] MEDS: Acetaminophen 325 MG TABLET 650 MG PO (17:43)
[2020-12-16 18:32] LABS: Anion Gap 15 (12-20); Blood Urea Nitrogen 37 mg/dL (9-16); Calcium 8.6 mg/dL (8.4-10.2); Carbon Dioxide 27 mmol/L (22-29); Chloride 102 mmol/L (96-108); Creatinine Clr Calc Pharmacy 33.3; Estimated Glomerular Filt Rate 22; Glucose Random 156 mg/dL (60-115); Lipase 40 U/L (8-78); Potassium 4.2 mmol/L (3.3-5.1); Sodium 140 mmol/L (135-145)
== END 2020-12-16 19:14 | disposition home or self-care (01) ==
PROVIDERS: Emergency Medicine; Emergency Provider Emergency Medicine; PCP Internal Medicine
DX: R10.9 Unspecified abdominal pain (principal); I13.2 Hypertensive heart and chronic kidney disease with heart failure and with stage 5 chronic kidney disease, or end stage renal disease; E11.22 Type 2 diabetes mellitus with diabetic chronic kidney disease; N18.6 End stage renal disease; I50.9 Heart failure, unspecified; Z79.4 Long term (current) use of insulin; Z79.82 Long term (current) use of aspirin; Z79.899 Other long term (current) drug therapy; Z99.2 Dependence on renal dialysis
CPT/HCPCS: 36415; 74176; 80048; 82272; 83690; 85025; 85610; 85730; 96374; 99284; J2270

== ENCOUNTER 2021-02-19 17:37 | Emergency (ER) | payer OTHER, SELFPAY ==
--- NOTE | ~2021-02-19 | XR_ITS ---
EXAMINATION: XR CHEST CLINICAL INFORMATION: Chest pain COMPARISON: Chest 06/30/2020 TECHNIQUE: 2 views. FINDINGS: The lungs are well-expanded and clear of acute process. The heart size is borderline normal. Pulmonary vascularity is normal. There are median sternotomy sutures and mediastinal tony from previous CABG. There is atrial appendage clips noted. No gross bony abnormality. XR/XR chest 2V IMPRESSION: No acute cardiopulmonary process.
--- NOTE | 2021-02-19 17:39 | ECG_ITS ---
Test Reason : CP Blood Pressure : / mmHG Vent. Rate : 094 BPM Atrial Rate : 094 BPM P-R Int : 288 ms QRS Dur : 100 ms QT Int : 386 ms P-R-T Axes : -16 -10 148 degrees QTc Int : 482 ms Sinus rhythm with 1st degree A-V block Minimal voltage criteria for LVH, may be normal variant ST & T wave abnormality, consider lateral ischemia Prolonged QT Abnormal ECG When compared with ECG of 30-JUN-2020 09:23, [place] interval has increased T wave inversion now evident in Lateral leads Referred By: Kiana Holloway Electronically Signed By:JOHNNIE ROLDAN
[2021-02-19 17:41] VITALS: BP 149/67; PULSE 99; RESP 16; TEMP 36.6; O2SAT 98; BMI 24.6
--- NOTE | 2021-02-19 17:42 | ED.CHESTPAIN ---
HPI - Chest Pain General Chief Complaint: Chest Pain Stated Complaint: Chest pain Time Seen by Provider: 02/19/21 17:39 Related Data Home Medications Medication Instructions Recorded Confirmed atorvastatin 80 mg tablet (Lipitor) 80 mg PO BEDTIME 05/12/20 12/16/20 bumetanide 1 mg tablet 4 mg PO BID 05/12/20 12/16/20 calcium citrate 315 mg-vitamin D3 2 tab PO BID 05/12/20 12/16/20 5 mcg (200 unit) tablet (Calcium Citrate + D) docusate sodium 100 mg capsule 100 mg PO DAILY 05/12/20 12/16/20 (Colace) insulin aspart U-100 100 unit/mL 15 unit SUBCUT TID 05/12/20 12/16/20 (3 mL) subcutaneous pen (Novolog Flexpen U-100 Insulin aspart) insulin glargine 100 unit/mL (3 30 unit SUBCUT BID 05/12/20 12/16/20 mL) subcutaneous pen (Lantus Solostar U-100 Insulin) multivitamin 1 tab PO DAILY 05/12/20 12/16/20 pantoprazole 40 mg tablet,delayed 40 mg PO DAILY 05/12/20 12/16/20 release prednisone 20 mg tablet 20 mg PO DAILY 05/12/20 12/16/20 sevelamer HCl 800 mg tablet 800 mg PO TID 05/12/20 12/16/20 carvedilol 25 mg tablet 1 tab PO BID 12/16/20 12/16/20 nifedipine 90 mg tablet,extended 1 tab PO DAILY 12/16/20 12/16/20 release 24 hr (Procardia XL) Previous Rx's Medication Instructions Recorded apixaban 2.5 mg tablet (Eliquis) 2.5 mg PO BEDTIME #30 tab 05/16/20 aspirin 81 mg chewable tablet 81 mg PO DAILY #30 tab 05/16/20 gabapentin 300 mg capsule 300 mg PO BEDTIME #30 cap 05/16/20 hyoscyamine sulfate 0.125 mg tablet 0.125 mg PO QID #10 tab 12/16/20 Allergies Allergy/AdvReac Type Severity Reaction Status Date / Time nitroglycerin [NITROGLYCERIN] Allergy Intermediate VOMITING Verified 03/15/20 07:19 cranberry [Cranberry] Allergy Mild RASH Verified 03/15/20 07:19 Penicillins Allergy Mild RASH Verified 03/15/20 07:19 penicillin V Allergy Unknown Rash/vomitt Verified 02/23/13 00:00 ing furosemide [From Lasix] Allergy Rash Verified 12/16/20 13:52 [facility] Past Medical History Medical History Acute on chronic kidney failure Bullous pemphigoid CAD (coronary artery disease) CHF (congestive heart failure) Chronic kidney disease (CKD) stage G5/A2, glomerular filtration rate (GFR) less than or equal to 15 mL/min/1.73 square meter and albuminuria creatinine ratio between 30-299 mg/g Diabetes HTN (hypertension) Hyperlipidemia Ischemic colitis Kidney disease Orthostatic hypotension Pulmonary emboli PVD (peripheral vascular disease) Surgical History H/O Spinal surgery Hx of right BKA S/P triple vessel bypass Family History Family History Other Diabetes Social History Social History Household Members: Spouse Housing: House Do you presently have visiting nurse or other home services: Yes Alcohol intake: never Patient Tobacco Use Status: Never used Tobacco Advance Directives: No Advance Directives Information Provided: No service: No Current occupational status: retired Physical Exam Vital Signs: Vital Signs: Last Vital Signs Temp 98 F 02/19/21 17:41 Pulse 99 02/19/21 17:41 Resp 16 02/19/21 17:41 BP 149/67 H 02/19/21 17:41 Pulse Ox 98 02/19/21 17:41 Body Mass Index 24.6 Course Course Course Narrative: 17:40pm - 50 year olf male with a PMHx of cardiac surgeries and renal failure requiring dialysis on Friday/Friday/Friday presenting to the ED with complaints of chest pain that started approximately 1 hour ago. 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 He called his elementary special education teacher and he was unable to get in contact with him therefore he came here for further evaluation and treatment due to this chest pain. He is concerned due to he has not had dialysis since Friday. And on Friday he did not have a full dialysis they only filtered and they were only able to get less than 1 L in 4 hours. On exam patient is alert and oriented x3. Mildly hypertensive at 149/67 otherwise all other vitals are within normal limits. Patient not in any acute distress. Therefore patient was sent back to the waiting room for further evaluation treatment and EKG ordered at this time along with labs and chest x-ray and patient was given 4 mg of Zofran while in triage. Discharge Plan Discharge Clinical Impression: Chest pain Patient Disposition: Elopement Prescriptions: No Action multivitamin Tablet 1 tab PO DAILY RF: 0 atorvastatin [Lipitor] 80 mg Tablet 80 mg PO BEDTIME RF: 0 sevelamer HCl 800 mg Tablet 800 mg PO TID RF: 0 pantoprazole 40 mg Tablet,Delayed Release (Dr/Ec) 40 mg PO DAILY RF: 0 docusate sodium [Colace] 100 mg Capsule 100 mg PO DAILY RF: 0 bumetanide 1 mg Tablet 4 mg PO BID RF: 0 insulin aspart U-100 [Novolog Flexpen U-100 Insulin] 100 unit/mL (3 mL) Insulin Pen 15 unit SUBCUT TID RF: 0 calcium citrate-vitamin D3 [Calcium Citrate + D] 315 mg-5 mcg (200 unit) Tablet 2 tab PO BID RF: 0 Lantus Solostar U-100 Insulin 100 unit/mL (3 mL) Insulin Pen 30 unit SUBCUT BID RF: 0 prednisone 20 mg tablet 20 mg PO DAILY RF: 0 Eliquis 2.5 mg Tablet 2.5 mg PO BEDTIME Qty: 30 RF: 0 gabapentin 300 mg Capsule 300 mg PO BEDTIME Qty: 30 RF: 0 aspirin 81 mg Tablet,Chewable 81 mg PO DAILY Qty: 30 RF: 0 carvedilol 25 mg tablet 1 tab PO BID RF: 0 nifedipine [Procardia XL] 90 mg tablet extended release 24hr 1 tab PO DAILY RF: 0 hyoscyamine sulfate 0.125 mg tablet 0.125 mg PO QID Qty: 10 RF: 0 Interventions: LWBS Worksheet Last Done: 02/19/21 22:02 Discharge Date/Time: 02/19/21 22:02
[2021-02-19] MEDS: Ondansetron ODT 4 MG TAB.RAPDIS TRANSLINGU (17:52)
== END 2021-02-19 22:02 | disposition left against medical advice (07) ==
PROVIDERS: Emergency Provider Emergency Medicine; PCP Internal Medicine
DX: R07.9 Chest pain, unspecified (principal); E11.9 Type 2 diabetes mellitus without complications; I25.10 Atherosclerotic heart disease of native coronary artery without angina pectoris; I10 Essential (primary) hypertension; Z79.899 Other long term (current) drug therapy; Z99.2 Dependence on renal dialysis
CPT/HCPCS: 71046; 93005; 99283

== ENCOUNTER 2021-02-21 12:05 | Emergency (ER) | payer OTHER, SELFPAY ==
[2021-02-21] VITALS (8 sets, daily range): BP systolic 169–231; BP diastolic 76–115; PULSE 90–102; RESP 13–18; TEMP 36.9–37; O2SAT 97–100; BMI 25.0
--- NOTE | ~2021-02-21 | XR_ITS ---
EXAMINATION: XR CHEST CLINICAL INFORMATION: SOB. COMPARISON: Chest 02/19/2021 TECHNIQUE: Frontal view of the chest was obtained. FINDINGS: The lungs are well-expanded and clear of acute process. The heart size and vascularity is normal. The is atrial appendage clipping noted there are median sternotomy sutures and tony as well. From previous CABG. No gross bony abnormality. XR/XR chest 1V IMPRESSION: Unremarkable chest exam.
--- NOTE | 2021-02-21 12:20 | ECG_ITS ---
Test Reason : CHEST PAIN Blood Pressure : / mmHG Vent. Rate : 092 BPM Atrial Rate : 092 BPM P-R Int : 166 ms QRS Dur : 092 ms QT Int : 374 ms P-R-T Axes : 055 -08 145 degrees QTc Int : 462 ms Normal sinus rhythm Incomplete right bundle branch block Minimal voltage criteria for LVH, may be normal variant Possible Anterior infarct , age undetermined ST & T wave abnormality, consider lateral ischemia Abnormal ECG When compared with ECG of 19-FEB-2021 18:13, [place] interval has decreased Referred By: Cristal Gandhi Electronically Signed By:JOHNNIE ROLDAN
--- NOTE | 2021-02-21 12:24 | ED.SOB ---
HPI - SOB/Dyspnea General Chief Complaint: Chest Pain Stated Complaint: CHEST PRESSURE THIS AM,NO DIALYSIS RECENTLY Time Seen by Provider: 02/21/21 12:19 History of Present Illness HPI Narrative: Patient is a 50-year-old male with a history of end-stage renal disease. Currently on dialysis. Patient's fistula is not working on Friday. Patient was only get filter on Friday. He normally gets dialysis on Friday. He missed dialysis on Friday. He was unable to contact his vascular surgeon to have the fistula 6 and did not get dialysis again today. Presented to the emergency department with increasing generalized malaise. Diffuse body ache. Positive weakness. No coughing or congestion. Positive chest tightness. Patient from home. Related Data Home Medications Medication Instructions Recorded Confirmed atorvastatin 80 mg tablet (Lipitor) 80 mg PO BEDTIME 05/12/20 12/16/20 bumetanide 1 mg tablet 4 mg PO BID 05/12/20 12/16/20 calcium citrate 315 mg-vitamin D3 2 tab PO BID 05/12/20 12/16/20 5 mcg (200 unit) tablet (Calcium Citrate + D) docusate sodium 100 mg capsule 100 mg PO DAILY 05/12/20 12/16/20 (Colace) insulin aspart U-100 100 unit/mL 15 unit SUBCUT TID 05/12/20 12/16/20 (3 mL) subcutaneous pen (Novolog Flexpen U-100 Insulin aspart) insulin glargine 100 unit/mL (3 30 unit SUBCUT BID 05/12/20 12/16/20 mL) subcutaneous pen (Lantus Solostar U-100 Insulin) multivitamin 1 tab PO DAILY 05/12/20 12/16/20 pantoprazole 40 mg tablet,delayed 40 mg PO DAILY 05/12/20 12/16/20 release prednisone 20 mg tablet 20 mg PO DAILY 05/12/20 12/16/20 sevelamer HCl 800 mg tablet 800 mg PO TID 05/12/20 12/16/20 carvedilol 25 mg tablet 1 tab PO BID 12/16/20 12/16/20 nifedipine 90 mg tablet,extended 1 tab PO DAILY 12/16/20 12/16/20 release 24 hr (Procardia XL) Previous Rx's Medication Instructions Recorded apixaban 2.5 mg tablet (Eliquis) 2.5 mg PO BEDTIME #30 tab 05/16/20 aspirin 81 mg chewable tablet 81 mg PO DAILY #30 tab 05/16/20 gabapentin 300 mg capsule 300 mg PO BEDTIME #30 cap 05/16/20 hyoscyamine sulfate 0.125 mg tablet 0.125 mg PO QID #10 tab 12/16/20 Allergies Allergy/AdvReac Type Severity Reaction Status Date / Time nitroglycerin [NITROGLYCERIN] Allergy Intermediate VOMITING Verified 03/15/20 07:19 cranberry [Cranberry] Allergy Mild RASH Verified 03/15/20 07:19 Penicillins Allergy Mild RASH Verified 03/15/20 07:19 penicillin V Allergy Unknown Rash/vomitt Verified 02/23/13 00:00 ing furosemide [From Lasix] Allergy Rash Verified 12/16/20 13:52 Review of Systems Review of Systems: No fever no chills Positive generalized malaise Positive chest tightness All system reviewed otherwise negative Yes all other systems are reviewed and are negative [facility] Past Medical History Attestation statement: The following information was validated with the patient. Medical History Acute on chronic kidney failure Bullous pemphigoid CAD (coronary artery disease) CHF (congestive heart failure) Chronic kidney disease (CKD) stage G5/A2, glomerular filtration rate (GFR) less than or equal to 15 mL/min/1.73 square meter and albuminuria creatinine ratio between 30-299 mg/g Diabetes HTN (hypertension) Hyperlipidemia Ischemic colitis Kidney disease Orthostatic hypotension Pulmonary emboli PVD (peripheral vascular disease) Surgical History H/O Spinal surgery Hx of right BKA S/P triple vessel bypass Family History Family History Other Diabetes Social History Social History Household Members: Spouse Housing: House Do you presently have visiting nurse or other home services: Yes Alcohol intake: former Patient Tobacco Use Status: Never used Tobacco Use of substances other than those prescribed or required for medical reasons: No Advance Directives: Yes Advance Directives Information Provided: No Advance Directives on File: No service: No Current occupational status: retired Physical Exam Vital Signs: Vital Signs: Last Vital Signs Temp 98.6 F 02/21/21 14:26 Pulse 102 H 02/21/21 17:57 Resp 16 02/21/21 17:57 BP 187/88 H 02/21/21 17:57 Pulse Ox 100 02/21/21 17:57 Body Mass Index 25.0 Appearance: Alert. Oriented X3. No acute distress. Eyes: Pupils equal, round and reactive to light. ENT: Pharynx normal. Neck: Normal inspection. Neck supple. No lymph nodes noted. No crepitus CVS: Normal heart rate and rhythm. Pulses normal. Normal S1 and S2 Respiratory: No respiratory distress. Breath sounds normal. No Wheezing. No rales Abdomen: Soft and nontender. No rigidity. No distention. good BS x4 Skin: Skin warm and dry. Normal skin color. Normal skin turgor. Extremities: No lower extremity edema. Neurovascular intact to all extremities. No Lacerations. No Rash Neuro: Oriented X 3. No motor deficit. No sensory deficit. Moving all extermities. No slurred speech MDM - SOB/Dyspnea MDM Narrative Medical decision making narrative: Patient's BUN creatinine elevated expected as patient is an end-stage renal patient. Patient's potassium is 4.7. Chest x-ray showed no overt fluid failure. Patient's electrolytes are otherwise consistent with having end-stage renal disease. Patient's troponin was elevated at over 600. Case was discussed with Cardiology a 2nd car troponin was done 2 hours later. It was over 700. These findings were discussed with Cardiology again. Given patient's history of vascular issue including bypass and peripheral vascular disease status post [id number] amputation. Wants patient to be transferred to [facility] for further care. In addition patient claims his shunt is not working. His vascular surgeons also at [facility]. Case was also discussed with Renal. Discussed with vascular initially. Risk and benefit of transfer discussed with patient. Agreed to plan of transfer. Patient's case was then discussed with [facility]. Patient's case discussed with [facility] excepted by Dr. Kim. Currently awaiting bed being available. Lab Data Result diagrams: 02/21/21 12:38 02/21/21 12:38 Labs: Lab Results 09/15/21 09/15/21 09/15/21 Range/Units 12:38 12:38 12:38 WBC 12.2 H (4.8-10.8) X10*3/uL RBC 2.58 L D (4.60-5.80) X10*6/uL Hgb 7.9 L D (14.0-18.0) g/dl Hct 23.6 L D (42-52) % MCV 91.5 (80-98) fL MCH 30.6 (27.0-33.0) pg MCHC 33.5 (31.0-36.0) g/dl RDW 14.5 (11.0-16.0) % Plt Count 229 (160-400) X10*3/uL MPV 9.7 (9.4-12.4) fL Immature Gran % (Auto) 4.3 H (0.0-0.4) % Neut % (Auto) 86.0 H (45-73) % Lymph % (Auto) 4.8 L (20-40) % [place] % (Auto) 4.1 (2-11) % Eos % (Auto) 0.6 (0-4) % Baso % (Auto) 0.2 (0-2) % Lymph # (Auto) 0.6 L (1.2-4.9) X10*3/uL [place] # (Auto) 0.5 (0.1-1.2) X10*3/uL Eos # (Auto) 0.1 (0.0-0.4) X10*3/uL Baso # (Auto) 0.0 (0.0-0.2) X10*3/uL Abs Immat Gran (auto) 0.53 H (0.00-0.03) X10*3/uL Absolute Neuts (auto) 10.5 H (2.0-8.3) X10*3/uL Absolute Nucleated RBC 0.020 H (0.0-0.012) X10*3/uL Nucleated RBC % (auto) 0.2 (0.0-0.2) /100WBC Sodium 135 (135-145) mmol/L Potassium 4.7 (3.3-5.1) mmol/L Chloride 100 (96-108) mmol/L Carbon Dioxide 20 L (22-29) mmol/L Anion Gap 20 (12-20) BUN 89 H* D (9-16) mg/dL Creatinine 6.25 H* (0.5-1.4) mg/dL Estim Creat Clear Calc 16.0 Estimated GFR 9 Random Glucose 288 H D (60-115) mg/dL Calcium Cancelled 8.7 Phosphorus 4.2 (2.7-4.5) mg/dL Magnesium 2.1 (1.6-2.6) mg/dL Total Bilirubin 0.6 (0.0-1.0) mg/dL Direct Bilirubin < 0.2 (0.0-0.5) mg/dL AST 16 D (5-37) U/L ALT 17 (0-40) U/L Alkaline Phosphatase 67 (39-117) U/L Troponin I High Sens (<3.5-35.0) ng/L B-Natriuretic Peptide (<100) pg/mL Total Protein 5.7 L D (6.5-8.0) g/dL Albumin 3.8 D (3.5-5.0) g/dL COVID-19 (AMILCAR) (Negative) COVID-19 Clin Com 02/21/21 02/21/21 02/21/21 Range/Units 12:38 12:39 14:45 WBC (4.8-10.8) X10*3/uL RBC (4.60-5.80) X10*6/uL Hgb (14.0-18.0) g/dl Hct (42-52) % MCV (80-98) fL MCH (27.0-33.0) pg MCHC (31.0-36.0) g/dl RDW (11.0-16.0) % Plt Count (160-400) X10*3/uL MPV (9.4-12.4) fL Immature Gran % (Auto) (0.0-0.4) % Neut % (Auto) (45-73) % Lymph % (Auto) (20-40) % [place] % (Auto) (2-11) % Eos % (Auto) (0-4) % Baso % (Auto) (0-2) % Lymph # (Auto) (1.2-4.9) X10*3/uL [place] # (Auto) (0.1-1.2) X10*3/uL Eos # (Auto) (0.0-0.4) X10*3/uL Baso # (Auto) (0.0-0.2) X10*3/uL Abs Immat Gran (auto) (0.00-0.03) X10*3/uL Absolute Neuts (auto) (2.0-8.3) X10*3/uL Absolute Nucleated RBC (0.0-0.012) X10*3/uL Nucleated RBC % (auto) (0.0-0.2) /100WBC Sodium (135-145) mmol/L Potassium (3.3-5.1) mmol/L Chloride (96-108) mmol/L Carbon Dioxide (22-29) mmol/L Anion Gap (12-20) BUN (9-16) mg/dL Creatinine (0.5-1.4) mg/dL Estim Creat Clear Calc Estimated GFR Random Glucose (60-115) mg/dL Calcium Phosphorus (2.7-4.5) mg/dL Magnesium (1.6-2.6) mg/dL Total Bilirubin (0.0-1.0) mg/dL Direct Bilirubin (0.0-0.5) mg/dL AST (5-37) U/L ALT (0-40) U/L Alkaline Phosphatase (39-117) U/L Troponin I High Sens 665.0 H* 775.2 H* (<3.5-35.0) ng/L B-Natriuretic Peptide 1422 H (<100) pg/mL Total Protein (6.5-8.0) g/dL Albumin (3.5-5.0) g/dL COVID-19 (AMILCAR) Negative (Negative) COVID-19 Clin Com See Note Critical Care Time Critical Care Time Total Critical Care Time: 40 Attestation: I have personally provided 40 minutes of critical care time exclusive of time spent on separately billable procedures. Time includes review of lab data, radiology results, discussion with consultants, and monitoring for potential decompensation. Interventions were performed as documented above Discharge Plan Discharge Clinical Impression: Chest pain, End-stage renal disease (ESRD) Patient Disposition: Xfer Acute [facility] Prescriptions: No Action multivitamin Tablet 1 tab PO DAILY RF: 0 atorvastatin [Lipitor] 80 mg Tablet 80 mg PO BEDTIME RF: 0 sevelamer HCl 800 mg Tablet 800 mg PO TID RF: 0 pantoprazole 40 mg Tablet,Delayed Release (Dr/Ec) 40 mg PO DAILY RF: 0 docusate sodium [Colace] 100 mg Capsule 100 mg PO DAILY RF: 0 bumetanide 1 mg Tablet 4 mg PO BID RF: 0 insulin aspart U-100 [Novolog Flexpen U-100 Insulin] 100 unit/mL (3 mL) Insulin Pen 15 unit SUBCUT TID RF: 0 calcium citrate-vitamin D3 [Calcium Citrate + D] 315 mg-5 mcg (200 unit) Tablet 2 tab PO BID RF: 0 Lantus Solostar U-100 Insulin 100 unit/mL (3 mL) Insulin Pen 30 unit SUBCUT BID RF: 0 prednisone 20 mg tablet 20 mg PO DAILY RF: 0 Eliquis 2.5 mg Tablet 2.5 mg PO BEDTIME Qty: 30 RF: 0 gabapentin 300 mg Capsule 300 mg PO BEDTIME Qty: 30 RF: 0 aspirin 81 mg Tablet,Chewable 81 mg PO DAILY Qty: 30 RF: 0 carvedilol 25 mg tablet 1 tab PO BID RF: 0 nifedipine [Procardia XL] 90 mg tablet extended release 24hr 1 tab PO DAILY RF: 0 hyoscyamine sulfate 0.125 mg tablet 0.125 mg PO QID Qty: 10 RF: 0
[2021-02-21] MEDS: HYDROmorphone HCl 0.5 MG/0.5 ML SYRINGE IVPUSH ×2 (12:43→15:57)
[2021-02-21 12:46] LABS: MANUAL DIFF FLAG NO
[2021-02-21 12:52] LABS: Basophils Percent Auto 0.2 % (0-2); Eosinophils Absolute Auto 0.1 X10*3/uL (0.0-0.4); Eosinophils Percent Auto 0.6 % (0-4); Hematocrit 23.6 % (42-52); Hemoglobin 7.9 g/dl (14.0-18.0); Imm Gran Abs Auto 0.53 X10*3/uL (0.00-0.03); Imm Gran Pct Auto 4.3 % (0.0-0.4); Lymphocytes Absolute Auto 0.6 X10*3/uL (1.2-4.9); Lymphocytes Percent Auto 4.8 % (20-40); Mean Corpuscular HGB Conc 33.5 g/dl (31.0-36.0); Mean Corpuscular Hemoglobin 30.6 pg (27.0-33.0); Mean Corpuscular Volume 91.5 fL (80-98); Mean Platelet Volume 9.7 fL (9.4-12.4); Monocytes Absolute Auto 0.5 X10*3/uL (0.1-1.2); Monocytes Percent Auto 4.1 % (2-11); NRBC Pct Auto 0.2 /100WBC (0.0-0.2); Neutrophils Absolute Auto 10.5 X10*3/uL (2.0-8.3); Platelet Count 229 X10*3/uL (160-400); Red Blood Count 2.58 X10*6/uL (4.60-5.80); Red Cell Distribution Width 14.5 % (11.0-16.0); White Blood Count 12.2 X10*3/uL (4.8-10.8)
[2021-02-21 13:12] LABS: COVID-19 Test Negative (Negative)
[2021-02-21 13:25] LABS: B Type Natriuretic Peptide 1422 pg/mL (<100)
[2021-02-21 13:36] LABS: Alanine Aminotransferase 17 U/L (0-40); Albumin Level 3.8 g/dL (3.5-5.0); Alkaline Phosphatase 67 U/L (39-117); Anion Gap 20 (12-20); Aspartate Amino Transferase 16 U/L (5-37); Bilirubin Direct < 0.2 mg/dL (0.0-0.5); Bilirubin Total 0.6 mg/dL (0.0-1.0); Blood Urea Nitrogen 89 mg/dL (9-16); Calcium 8.7 mg/dL (8.4-10.2); Carbon Dioxide 20 mmol/L (22-29); Chloride 100 mmol/L (96-108); Estimated Glomerular Filt Rate 9; Glucose Random 288 mg/dL (60-115); Potassium 4.7 mmol/L (3.3-5.1); Sodium 135 mmol/L (135-145); Total Protein 5.7 g/dL (6.5-8.0)
[2021-02-21 13:50] LABS: Magnesium 2.1 mg/dL (1.6-2.6); Phosphorus 4.2 mg/dL (2.7-4.5)
[2021-02-21 15:31] LABS: Troponin-I High Sensitivity 775.2 ng/L (<3.5-35.0)
--- NOTE | 2021-02-21 15:45 | PC.NURSE ---
At 1542 pateint transfer requested and placed call to [facility]
--- NOTE | 2021-02-21 16:01 | PC.NURSE ---
Pt states intermittent chest pain 8/10 with radiation in to the left neck a little bit . right arm pain at the fistula site. pt states sob. no other complaints. speech is clear responds appropriately.
[2021-02-21] MEDS: ondansetron HCL 4 MG/2 ML VIAL IVPUSH (17:50)
--- NOTE | 2021-02-21 17:59 | PC.NURSE ---
Pt medicated for nausea, bp is lower. Pt voided. pain is 6/10 after dilaudid in chest and right arm. Pt states he is more comfortable than before. Pt voided. pt states mild sob. Spoke with doctor x2 about labs and treatment. no other complaints at this time
--- NOTE | 2021-02-21 19:09 | PC.NURSE ---
Attempt at giving report to [facility] RN. Will alert oncoming RN.
--- NOTE | 2021-02-21 19:28 | PC.NURSE ---
Nurse to nurse given to Moni ANGULO at [facility] 7.
[2021-02-26 08:10] LABS: VBG Base Excess -2.9 mmol/L; VBG HCO3 21 mmol/L (22-26); VBG pCO2 35 mmHg; VBG pH 7.38 (7.32-7.43); VBG pO2 66 mmHg
== END 2021-02-21 19:31 | disposition short-term general hospital (02) ==
PROVIDERS: Emergency Provider Emergency Medicine Emergency Medical Services; PCP Internal Medicine
DX: R07.9 Chest pain, unspecified (principal); I13.2 Hypertensive heart and chronic kidney disease with heart failure and with stage 5 chronic kidney disease, or end stage renal disease; E11.22 Type 2 diabetes mellitus with diabetic chronic kidney disease; N18.6 End stage renal disease; Z79.4 Long term (current) use of insulin; Z99.81 Dependence on supplemental oxygen; Z79.899 Other long term (current) drug therapy; Z20.822 Contact with and (suspected) exposure to COVID-19
CPT/HCPCS: 36415; 71045; 80048; 80076; 82310; 82803; 83735; 83880; 84100; 84484; 85025; 87635; 93005; 96374; 96375; 96376; 99285; 99291; J1170; J2405

== ENCOUNTER 2021-07-16 03:40 | Emergency (ER) | payer OTHER, SELFPAY ==
--- NOTE | ~2021-07-16 | XR_ITS ---
EXAMINATION: XR CHEST CLINICAL INFORMATION: History of Covid +13 days ago COMPARISON: 02/21/2021 TECHNIQUE: Frontal view of the chest was obtained. FINDINGS: Lung volumes are symmetric. No focal consolidation is seen. Central vasculature appears somewhat prominent. No evidence of pneumothorax or significant pleural effusion. Cardiac silhouette remains enlarged. Redemonstrated sternal wires and left atrial appendage clip. No acute osseous findings are seen. XR/XR chest 1V IMPRESSION: No focal consolidation identified. Cardiac silhouette remains enlarged.
--- NOTE | 2021-07-16 03:53 | ED_ITS ---
HPI - URI/Sore Throat General Chief Complaint: Dyspnea Stated Complaint: covid+/cough Time Seen by Provider: 07/16/21 03:51 Source: patient Mode of arrival: EMS History of Present Illness HPI Narrative: Patient with history of end-stage renal disease on dialysis missed a dialysis 2 days ago also has history of COVID on diagnosed 07/03 [facility] for cough after coming to the ER patient asking for pain medication for old pemphig oid lesions patient not seen coughing after arrival to the ER saturating 100% at room air MD elicited complaint: nasal congestion Related Data Home Medications Medication Instructions Recorded Confirmed atorvastatin 80 mg tablet (Lipitor) 80 mg PO BEDTIME 05/12/20 12/16/20 bumetanide 1 mg tablet 4 mg PO BID 05/12/20 12/16/20 calcium citrate 315 mg-vitamin D3 2 tab PO BID 05/12/20 12/16/20 5 mcg (200 unit) tablet (Calcium Citrate + D) docusate sodium 100 mg capsule 100 mg PO DAILY 05/12/20 12/16/20 (Colace) insulin aspart U-100 100 unit/mL 15 unit SUBCUT TID 05/12/20 12/16/20 (3 mL) subcutaneous pen (Novolog Flexpen U-100 Insulin aspart) insulin glargine 100 unit/mL (3 30 unit SUBCUT BID 05/12/20 12/16/20 mL) subcutaneous pen (Lantus Solostar U-100 Insulin) multivitamin 1 tab PO DAILY 05/12/20 12/16/20 pantoprazole 40 mg tablet,delayed 40 mg PO DAILY 05/12/20 12/16/20 release prednisone 20 mg tablet 20 mg PO DAILY 05/12/20 12/16/20 sevelamer HCl 800 mg tablet 800 mg PO TID 05/12/20 12/16/20 carvedilol 25 mg tablet 1 tab PO BID 12/16/20 12/16/20 nifedipine 90 mg tablet,extended 1 tab PO DAILY 12/16/20 12/16/20 release 24 hr (Procardia XL) Previous Rx's Medication Instructions Recorded apixaban 2.5 mg tablet (Eliquis) 2.5 mg PO BEDTIME #30 tab 05/16/20 aspirin 81 mg chewable tablet 81 mg PO DAILY #30 tab 05/16/20 gabapentin 300 mg capsule 300 mg PO BEDTIME #30 cap 05/16/20 hyoscyamine sulfate 0.125 mg tablet 0.125 mg PO QID #10 tab 12/16/20 Allergies Allergy/AdvReac Type Severity Reaction Status Date / Time nitroglycerin Allergy Intermediate VOMITING Verified 03/15/20 07:19 [NITROGLYCERIN] cranberry Allergy Mild RASH Verified 03/15/20 07:19 [Cranberry] Penicillins Allergy Mild RASH Verified 03/15/20 07:19 penicillin V Allergy Unknown Rash/vomitt Verified 02/23/13 00:00 ing furosemide [From Allergy Rash Verified 12/16/20 13:52 Lasix] Review of Systems Verdana 4l Review of Systems: Yes all other systems are reviewed and Verdana 4d are negative [facility] Past Medical History Medical History Acute on chronic kidney failure Bullous pemphigoid CAD (coronary artery disease) CHF (congestive heart failure) Chronic kidney disease (CKD) stage G5/A2, glomerular filtration rate (GFR) less than or equal to 15 mL/min/1.73 square meter and albuminuria creatinine ratio between 30-299 mg/g Diabetes HTN (hypertension) Hyperlipidemia Ischemic colitis Kidney disease Orthostatic hypotension Pulmonary emboli PVD (peripheral vascular disease) Surgical History H/O Spinal surgery Hx of right BKA S/P triple vessel bypass Family History Family History Other Diabetes Social History Social History Household Members: Spouse Housing: House Do you presently have visiting nurse or other home services: Yes Alcohol intake: former Patient Tobacco Use Status: Never used Tobacco Advance Directives: No service: No Current occupational status: retired Physical Exam Verdana 4l Vital Signs: Verdana 4d Verdana 4d Vital Signs: Verdana 4d Verdana 4Bd Last Vital Signs Verdana 4d System Administrator New 4d System Administrator New 4d Temp 98.6 F 07/16/21 03:55 System Administrator New 4d Pulse 79 07/16/21 05:23 System Administrator New 4d Resp 14 07/16/21 05:23 BP 193/85 H 07/16/21 05:23 Pulse Ox 98 07/16/21 05:23 BMI result Body Mass Index 27.7 Appearance: Alert. Oriented X3. No acute distress. ENT: Pharynx normal. Oral Mucosa moist Neck: Normal inspection. Neck supple. CVS: Normal heart rate and rhythm. Pulses normal. Respiratory: No respiratory distress. Equal air entry bilateral, no wheezing/rales/rhonchi Abdomen: Soft and nontender. Bowel sounds are present, no mass palpable, no CVA tenderness Skin: Skin warm and dry. Normal skin color. Normal skin turgor. Old rupture pemphigoid lesions Extremities: No lower extremity edema. No calf tenderness right BKA Neuro: Oriented X 3. No motor deficit. No sensory deficit.No cerebellar signs , cranial nerves II-XII intact MDM - URI/Sore Throat MDM Narrative Medical decision making narrative: Patient with multiple complaints of not coughing that much in the ER chest x-ray without any acute infiltrate or fluid overload COVID still positive discharge pa tient home cough syrup and pain medication patient is saturating 100% at room air Lab Data Attestation: I reviewed the patient's lab results. Labs: Lab Results 07/16/21 Range/Units 04:37 Influenza Type A (PCR) NEGATIVE (Negative) Influenza Type B (PCR) NEGATIVE (Negative) RSV RNA Qual (PCR) NEGATIVE (Negative) SARS-CoV-2 RNA (RT-PCR) POSITIVE A (Negative) Discharge Plan Discharge Clinical Impression: Chronic bronchitis, COVID-19 Patient Disposition: Home, Self-Care Instructions: Chronic Bronchitis (DC), COVID-19 (Coronavirus Disease 2019) (ED) Additional Instructions: Have your dialysis as scheduled today Continue your pain medication and follow with PCP Prescriptions: No Action multivitamin Tablet 1 tab PO DAILY 0RF atorvastatin [Lipitor] 80 mg Tablet 80 mg PO BEDTIME 0RF sevelamer HCl 800 mg Tablet 800 mg PO TID 0RF pantoprazole 40 mg Tablet,Delayed Release (Dr/Ec) 40 mg PO DAILY 0RF docusate sodium [Colace] 100 mg Capsule 100 mg PO DAILY 0RF bumetanide 1 mg Tablet 4 mg PO BID 0RF insulin aspart U-100 [Novolog Flexpen U-100 Insulin] 100 unit/mL (3 mL) Insulin Pen 15 unit SUBCUT TID 0RF calcium citrate-vitamin D3 [Calcium Citrate + D] 315 mg-5 mcg (200 unit) Tablet 2 tab PO BID 0RF Lantus Solostar U-100 Insulin 100 unit/mL (3 mL) Insulin Pen 30 unit SUBCUT BID 0RF prednisone 20 mg tablet 20 mg PO DAILY 0RF Eliquis 2.5 mg Tablet 2.5 mg PO BEDTIME Qty: 30 0RF gabapentin 300 mg Capsule 300 mg PO BEDTIME Qty: 30 0RF aspirin 81 mg Tablet,Chewable 81 mg PO DAILY Qty: 30 0RF carvedilol 25 mg tablet 1 tab PO BID 0RF nifedipine [Procardia XL] 90 mg tablet extended release 24hr 1 tab PO DAILY 0RF hyoscyamine sulfate 0.125 mg tablet 0.125 mg PO QID Qty: 10 0RF Interventions: ED Discharge Assessment Last Done: 07/16/21 05:54 Discharge Date/Time: 07/16/21 05:54
[2021-07-16 03:55] VITALS: BP 139/88; BP 200/80; PULSE 78; PULSE 81; RESP 15; TEMP 37; O2SAT 98; O2SAT 99; BMI 27.7
[2021-07-16] MEDS: dexAMETHasone 6 MG TABLET PO (04:35)
[2021-07-16] MEDS: guaiFEN/Codeine SF 200/20/10ML 10 ML LIQUID PO (04:36)
[2021-07-16] MEDS: HYDROmorphone HCl 2 MG TABLET PO (05:22)
[2021-07-16 05:23] VITALS: BP 193/85; PULSE 79; RESP 14; O2SAT 98
[2021-07-16 05:25] LABS: Influenza A PCR NEGATIVE (Negative); Influenza B PCR NEGATIVE (Negative); Resp Syncy Virus RNA Qual PCR NEGATIVE (Negative); SARS COV2 PCR INHOUSE POSITIVE (Negative)
--- NOTE | 2021-07-16 05:52 | PC.NURSE ---
Pt in no distress, SPO2 remained 98% for the duration of time in ER. Pt understands that there was no evidence of pneumonia on his chest xray today. Pt plans to attend dialysis today at noontime.
== END 2021-07-16 05:54 | disposition home or self-care (01) ==
PROVIDERS: Emergency Provider Internal Medicine
DX: U07.1 COVID-19 (principal); J42 Unspecified chronic bronchitis; E11.22 Type 2 diabetes mellitus with diabetic chronic kidney disease; I13.2 Hypertensive heart and chronic kidney disease with heart failure and with stage 5 chronic kidney disease, or end stage renal disease; I50.9 Heart failure, unspecified; N18.6 End stage renal disease; Z99.2 Dependence on renal dialysis; Z79.4 Long term (current) use of insulin
CPT/HCPCS: 0241U; 71045; 99283; 99284; J8540

== ENCOUNTER 2023-07-03 17:45 | Emergency (ER) | payer OTHER, SELFPAY ==
--- NOTE | ~2023-07-03 | XR_ITS ---
EXAMINATION: XR CHEST CLINICAL INFORMATION: Chest pain COMPARISON: Chest 07/16/2021 TECHNIQUE: Frontal view of the chest was obtained. FINDINGS: The lungs are hypoexpanded but liver acute process. Heart size is enlarged. Pulmonary vascularity is prominent question mild congestion. No gross bony abnormality seen. There is C6-C7 and C7-T1 disc prosthesis. XR/XR chest 1V IMPRESSION: 1. Cardiomegaly with mild pulmonary vascular congestion suspected. 2. Hypoexpanded lungs without acute process.
[2023-07-03 18:08] VITALS: BP 123/58; BP 158/61; PULSE 45; PULSE 83; RESP 12; TEMP 36.8; O2SAT 95; O2SAT 97; BMI 34.8
--- NOTE | 2023-07-03 18:16 | ECG_ITS ---
Test Reason : CX PAIN Blood Pressure : / mmHG Vent. Rate : 078 BPM Atrial Rate : 078 BPM P-R Int : 184 ms QRS Dur : 102 ms QT Int : 340 ms P-R-T Axes : 055 -28 162 degrees QTc Int : 387 ms Sinus rhythm with frequent Premature ventricular complexes in a pattern of bigeminy Minimal voltage criteria for LVH, may be normal variant ( [place] product ) Possible Anterior infarct (cited on or before 21-FEB-2021) Marked ST abnormality, possible lateral subendocardial injury Abnormal ECG When compared with ECG of 21-FEB-2021 12:46, Premature ventricular complexes are now Present QT has shortened Referred By: Mimi Garibay Electronically Signed By:Misbah Marquis
--- NOTE | 2023-07-03 18:37 | ED_ITS ---
HPI - Chest Pain General Chief Complaint: Dizziness Stated Complaint: Bradycardia, CP, general weakness, dizziness Time Seen by Provider: 07/03/23 18:00 Source: patient and old records reviewed Mode of arrival: EMS Limitations: no limitations History of Present Illness HPI narrative: 53 yo male with PMH of CAD s/p CABG in 2019 MURO to LAD and SVG to RPL and radial graft to OM1, chronic elevated troponin, DM, CKD on HD MWF with reported compliance, HTN, PE, CHF, PVD he states he is anticoagulated on eliquis 5mg BID due to PVD he comes in with c/o dizziness, HR and BP off since HD session yesterday. His HR was as low as 40s today with BP as low as 110. He notes he had a similar issue during HD yesterday so they slowed it down. He notes he also developed left sided chest pain and had a cardiac cath 3 months ago through [facility] cardiology and is now due for a stress test which is slightly confusing - records requested. His chest pain is pressure L sided. He was given 4 baby aspirin and 100mcg of fentanyl by EMS [facility] [employer] OPERATIONS STAFF OFFICER. He denies changes in medications. He has frequent admissions to [facility] for chest pain most recently in April of 2023 - at that time EF was 30 to 40%, had cardiac cath has diffuse [place] disease with all patent grafts - medical management after interventional cardiology felt there was nothing to intervene on. On repeat admission in april was seen and observed in ER - cardiology felt no more work up needed and patient to be DC home. He continued to ask for IV dilaudid while in ED and they felt there was drug seeking behaviors per note troponins at [facility] were [phone] during last visit at [facility] complaint: chest pain Pertinent past history: coronary artery disease Onset (ago): hour(s) (few) Timing of current episode: constant Prior episodes: Yes Onset: during rest Pain location: substernal Pain radiation: none Severity: moderate Quality: other (pressure) Relieving factors: medication-other Exacerbating factors: nothing Associated symptoms: other (dizziness, reported low HR and low BP) Treatment prior to arrival: aspirin and other Related Data Home Medications Medication Instructions Recorded Confirmed atorvastatin 80 mg tablet (Lipitor) 80 mg PO BEDTIME 05/12/20 12/16/20 bumetanide 1 mg tablet 4 mg PO BID 05/12/20 12/16/20 calcium citrate 315 mg-vitamin D3 2 tab PO BID 05/12/20 12/16/20 5 mcg (200 unit) tablet (Calcium Citrate + D) docusate sodium 100 mg capsule 100 mg PO DAILY 05/12/20 12/16/20 (Colace) insulin aspart U-100 100 unit/mL 15 unit subcut TID 05/12/20 12/16/20 (3 mL) subcutaneous pen (Novolog FlexPen U-100 Insulin aspart) insulin glargine 100 unit/mL (3 30 unit subcut BID 05/12/20 12/16/20 mL) subcutaneous pen (Lantus Solostar U-100 Insulin) multivitamin 1 tab PO DAILY 05/12/20 12/16/20 pantoprazole 40 mg tablet,delayed 40 mg PO DAILY 05/12/20 12/16/20 release prednisone 20 mg tablet 20 mg PO DAILY 05/12/20 12/16/20 sevelamer HCl 800 mg tablet 800 mg PO TID 05/12/20 12/16/20 carvedilol 25 mg tablet 1 tab PO BID 12/16/20 12/16/20 nifedipine 90 mg tablet,extended 1 tab PO DAILY 12/16/20 12/16/20 release 24 hr (Procardia XL) Previous Rx's Medication Instructions Recorded apixaban 2.5 mg tablet (Eliquis) 2.5 mg PO BEDTIME #30 tabs 05/16/20 aspirin 81 mg chewable tablet 81 mg PO DAILY #30 tabs 05/16/20 gabapentin 300 mg capsule 300 mg PO BEDTIME #30 caps 05/16/20 hyoscyamine sulfate 0.125 mg tablet 0.125 mg PO QID #10 tabs 12/16/20 Allergies Allergy/AdvReac Type Severity Reaction Status Date / Time nitroglycerin [NITROGLYCERIN] Allergy Intermediate VOMITING Verified 03/15/20 07:19 cranberry [Cranberry] Allergy Mild RASH Verified 03/15/20 07:19 Penicillins Allergy Mild RASH Verified 03/15/20 07:19 penicillin V Allergy Unknown Rash/vomitt Verified 02/23/13 00:00 ing furosemide [From Lasix] Allergy Rash Verified 12/16/20 13:52 Review of Systems 2 Review of Systems: Constitutional : No Weight loss, No Fever, No Chills ENT/Mouth : No sore throat, No Rhinorrhea Eyes: No Eye Pain, No Swelling Cardiovascular : pos Chest Pain, no SOB, no Dyspnea on Exertion, No Orthopnea, No Edema, No Palpitations Respiratory : No Cough, No Sputum Gastrointestinal : pos Nausea, No Vomiting, No Diarrhea, No abdominal Pain, No Hematochezia, No Melena Genitourinary : No Dysuria, No Urinary Frequency Musculoskeletal : No joint pain, No Myalgias, No Joint Swelling Skin : No Skin Lesions, No rash Neuro : No Weakness, No Numbness, pos Dizziness, No Headache Psych : No Anxiety/Panic, No Depression All other systems reviewed and are negative [facility] Past Medical History Attestation statement: The following information was validated with the patient. Source: old records reviewed Medical History Bullous pemphigoid Acute on chronic kidney failure Chronic kidney disease (CKD) stage G5/A2, glomerular filtration rate (GFR) less than or equal to 15 mL/min/1.73 square meter and albuminuria creatinine ratio between 30-299 mg/g Ischemic colitis Orthostatic hypotension CAD (coronary artery disease) Hyperlipidemia HTN (hypertension) Pulmonary emboli PVD (peripheral vascular disease) CHF (congestive heart failure) Kidney disease Diabetes Surgical History H/O Spinal surgery Hx of right BKA S/P triple vessel bypass Family History Family History Other Diabetes Social History Social History Household Members: Spouse Housing: House Do you presently have visiting nurse or other home services: Yes Alcohol intake: former Comment: sleeping Patient Tobacco Use Status: Never used Tobacco Smoked in Last 30 Days: No Use of substances other than those prescribed or required for medical reasons: No Advance Directives: Yes Advance Directives Information Provided: No Advance Directives on File: No service: No Current occupational status: retired Physical Exam 2 Vital Signs: Vital Signs: Last Vital Signs Temp 98.3 F 07/03/23 18:08 Pulse 83 07/03/23 18:08 Resp 12 07/03/23 18:08 BP 158/61 H 07/03/23 18:08 Pulse Ox 95 07/03/23 18:08 O2 Del Method Room Air 07/03/23 18:08 BMI result Body Mass Index 34.8 Appearance: Alert. Oriented X3. No acute distress. Eyes: Pupils equal, round and reactive to light. ENT: Pharynx normal. Neck: Normal inspection. Neck supple. CVS: Normal heart rate and rhythm. Pulses normal. Respiratory: No respiratory distress. Breath sounds normal. Abdomen: Soft and nontender. Skin: Skin warm and dry. Normal skin color. Normal skin turgor. Extremities: No lower extremity edema. R BKA noted Neuro: Oriented X 3. No motor deficit. No sensory deficit. Course Course Course Narrative: asking for pain medications again but his HR is down to 40 with PVCs though he has normal BP I told him he would receive no more narcotics here given his HR goes down to the 30s and this is a safety issue with his BP he is aware. he is on carvedilol and nifedipine Reevaluation(s) Reevaluation #1: patient is having episodes of bradycardia with bigeminy down into the high 30s then he will go up to the 70s briefly. He was told due to the dizziness and PVCs he will not be getting dilaudid. He is irate that we are not giving him dilaudid and states we have done nothing for him. I explained we want to monitor his HR overnight and cardiology was consulted he now states he is leaving AMA since he cannot get IV dilaudid and will not sit here having chest pain all night. he is alert and oriented x 3, answering questions appropriately. Aware of risks of leaving including . Medications Administered Discontinued Medications Generic Name Dose Route Start Last Admin Trade Name Anaya PRN Reason Stop Dose Admin Calcium Gluconate 2 gm in 100 mls @ 50 mls/hr 07/03/23 18:49 07/03/23 19:27 Calcium Gluconate IV 07/03/23 20:48 50 mls/hr ONCE ONE Administration Morphine Sulfate 4 mg 07/03/23 18:17 07/03/23 19:18 Morphine Sulfate 4 Mg/Ml Cartridge IVPUSH 07/03/23 18:18 4 mg ONCE ONE Administration Protocol Ondansetron HCl 4 mg 07/03/23 19:21 07/03/23 19:27 Ondansetron Hcl 4 Mg/2 Ml Vial IVPUSH 07/03/23 19:22 4 mg ONCE ONE Administration Medical Decision Making Medical Decision Making [facility] Narrative: 53 yo male with PMH of CAD s/p CABG, DM, CKD on HD MWF with reported compliance, HTN, PE, CHF, PVD he states he is anticoagulated on eliquis 5mg BID due to PVD chronic chest pain now here with chest pain asking for IV pain medications and found to be in bigeminy though BP is stable. He just had extensive work up at [facility] and no further interventions to be done. At this time will obtain lytes and troponin which is expected to be elevated. His main concern would be dizziness in setting of bigeminy not ischemic heart disease. He is on eliquis doubt VTE. He refuses orthostatic VS (sitting on edge of bed) Differential Diagnosis Differential Diagnoses: The differential diagnosis associated with the presentation includes lyte abnormality, chest pain, bigeminy Admission/Observation Consideration of admission/observation: Escalation of care including admission/observation considered admit for overnight monitoring refuses admission at this time and wants to leave AMA Consult Healthcare Provider Management of the patient was discussed with: Support Merchandiser (Dr. Marquis admit) Lab Data [facility] Lab Attestation statement: I reviewed the patient's lab results. 07/03/23 18:58 07/03/23 18:58 Labs: Lab Results 07/03/23 07/03/23 Range/Units 18:58 21:08 WBC 9.1 (4.8-10.8) X10*3/uL RBC 3.38 L (4.60-5.80) X10*6/uL Hgb 10.9 L (14.0-18.0) g/dl Hct 32.7 L (42.0-52.0) % MCV 96.7 (80.0-98.0) fL MCH 32.2 (27.0-33.0) pg MCHC 33.3 (31.0-36.0) g/dl RDW 13.3 (11.0-16.0) % Plt Count 212 (160-400) X10*3/uL MPV 9.4 (9.4-12.4) fL Immature Gran % (Auto) 0.4 (0.0-0.4) % Neut % (Auto) 60.9 (45-73) % Lymph % (Auto) 19.5 L (20-40) % [place] % (Auto) 9.0 (2-11) % Eos % (Auto) 9.2 H (0-4) % Baso % (Auto) 1.0 (0-2) % Lymph # (Auto) 1.8 (1.2-4.9) X10*3/uL [place] # (Auto) 0.8 (0.1-1.2) X10*3/uL Eos # (Auto) 0.8 H (0.0-0.4) X10*3/uL Baso # (Auto) 0.1 (0.0-0.2) X10*3/uL Abs Immat Gran (auto) 0.04 H (0.00-0.03) X10*3/uL Absolute Neuts (auto) 5.5 (2.0-8.3) x10*3/uL Absolute Nucleated RBC 0.000 (0.0-0.012) X10*3/uL Nucleated RBC % (auto) 0.0 (0.0-0.2) /100WBC PT 18.0 H (11.1-13.3) SEC INR 1.5 H (0.9-1.1) Sodium 136 (135-145) mmol/L Potassium 4.3 (3.3-5.1) mmol/L Chloride 94 L (96-108) mmol/L Carbon Dioxide 28 (22-29) mmol/L Anion Gap 18 (12-20) BUN 25 H (9-16) mg/dL Creatinine 4.99 H* (0.5-1.4) mg/dL Estim Creat Clear Calc 19.5 Estimated GFR 12 Random Glucose 123 H (60-115) mg/dL Calcium 9.5 D (8.4-10.2) mg/dL Magnesium 2.1 (1.6-2.6) mg/dL Total Bilirubin 0.5 (0.0-1.0) mg/dL Direct Bilirubin 0.3 (0.0-0.5) mg/dL AST 16 (5-37) U/L ALT 11 (0-40) U/L Alkaline Phosphatase 81 (39-117) U/L Total Creatine Kinase 51 (38-174) U/L Troponin I High Sens 290.0 H* Cancelled (<3.5-35.0) ng/L Total Protein 6.8 (6.5-8.0) g/dL Albumin 4.2 (3.5-5.0) g/dL COVID-19 (AMILCAR) Negative (Negative) COVID-19 Clin Com See Note Independent Interpretation I performed an independent interpretation of an: EKG and Plain X-Ray (cardiomegaly) Interpretation: Rate: 78 Rhythm: NSR with ventricular bigeminy [place]: left Normal P waves. Normal KEISHA. Normal QRS complex. ST T wave : no LUAN qTC: 387 prior studies: changed from prior The study has been interpreted contemporaneously by me. . Radiology Impression Discussion of test interpretation with radiology: I have reviewed the radiologist's reading. Independent Historian Clinical information obtained from an independent historian. History obtained from or confirmed by: EMS External Record Review External record reviewed: Inpatient record, Outpatient record and Prior outpatient labs Critical Care Time Critical Care Time Critical Care Time: Yes Total Critical Care Time: 45 Attestation: tele review, medical consult, IV morphine given with some improvement in pain I attest to this time spent taking care of the patient Discharge Plan Discharge Clinical Impression: Bradycardia, Ventricular bigeminy Chest pain Qualifiers: Chest pain type: unspecified Qualified Code(s): R07.9 - Chest pain, unspecified Patient Disposition: Left Against Medical Advice Instructions: Chest Pain (ED), Bradycardia (ED), Dizziness (ED), Against Medical Advice (ED), Premature Ventricular Contractions (ED) Additional Instructions: you were offered admission for monitoring of your heart rate as discussed with cardiology - you are leaving against medical advice at this time as we recommend you stay overnight to monitor for any life threatening rhythm changes to your heart. please follow up with your knitter operator as you discussed you have a plan in place with them. go to dialysis as planned. you are welcome to return at any time Prescriptions: No Action multivitamin Tablet 1 tab PO DAILY atorvastatin [Lipitor] 80 mg Tablet 80 mg PO BEDTIME sevelamer HCl 800 mg Tablet 800 mg PO TID pantoprazole 40 mg Tablet,Delayed Release (Dr/Ec) 40 mg PO DAILY docusate sodium [Colace] 100 mg Capsule 100 mg PO DAILY bumetanide 1 mg Tablet 4 mg PO BID insulin aspart U-100 [Novolog FlexPen U-100 Insulin] 100 unit/mL (3 mL) Insulin Pen 15 unit SUBCUT TID calcium citrate-vitamin D3 [Calcium Citrate + D] 315 mg-5 mcg (200 unit) Tablet 2 tab PO BID Lantus Solostar U-100 Insulin 100 unit/mL (3 mL) Insulin Pen 30 unit SUBCUT BID prednisone 20 mg tablet 20 mg PO DAILY Eliquis 2.5 mg Tablet 2.5 mg PO BEDTIME Qty: 30 0RF gabapentin 300 mg Capsule 300 mg PO BEDTIME Qty: 30 0RF aspirin 81 mg Tablet,Chewable 81 mg PO DAILY Qty: 30 0RF carvedilol 25 mg tablet 1 tab PO BID nifedipine [Procardia XL] 90 mg tablet extended release 24hr 1 tab PO DAILY hyoscyamine sulfate 0.125 mg tablet 0.125 mg PO QID Qty: 10 0RF
[2023-07-03 19:02] LABS: MANUAL DIFF FLAG NO
[2023-07-03 19:04] LABS: Basophils Absolute Auto 0.1 X10*3/uL (0.0-0.2); Eosinophils Absolute Auto 0.8 X10*3/uL (0.0-0.4); Eosinophils Percent Auto 9.2 % (0-4); Hematocrit 32.7 % (42.0-52.0); Hemoglobin 10.9 g/dl (14.0-18.0); Imm Gran Abs Auto 0.04 X10*3/uL (0.00-0.03); Imm Gran Pct Auto 0.4 % (0.0-0.4); Lymphocytes Absolute Auto 1.8 X10*3/uL (1.2-4.9); Lymphocytes Percent Auto 19.5 % (20-40); Mean Corpuscular HGB Conc 33.3 g/dl (31.0-36.0); Mean Corpuscular Hemoglobin 32.2 pg (27.0-33.0); Mean Corpuscular Volume 96.7 fL (80.0-98.0); Mean Platelet Volume 9.4 fL (9.4-12.4); Monocytes Absolute Auto 0.8 X10*3/uL (0.1-1.2); Neutrophils Absolute Auto 5.5 x10*3/uL (2.0-8.3); Neutrophils Percent Auto 60.9 % (45-73); Platelet Count 212 X10*3/uL (160-400); Red Blood Count 3.38 X10*6/uL (4.60-5.80); Red Cell Distribution Width 13.3 % (11.0-16.0); White Blood Count 9.1 X10*3/uL (4.8-10.8)
[2023-07-03 19:09] LABS: INTERNATIONAL NORM RATIO 1.5 (0.9-1.1)
[2023-07-03] MEDS: Morphine Sulfate 4 MG/ML CARTRIDGE IVPUSH (19:18)
--- NOTE | 2023-07-03 19:18 | PC.NURSE ---
Pt to be medicated per MAR with morphine states how much morphine am I getting? Pt informed of dose and requesting something for nausea as well at this time.
[2023-07-03 19:25] LABS: Alanine Aminotransferase 11 U/L (0-40); Albumin Level 4.2 g/dL (3.5-5.0); Alkaline Phosphatase 81 U/L (39-117); Anion Gap 18 (12-20); Aspartate Amino Transferase 16 U/L (5-37); Bilirubin Direct 0.3 mg/dL (0.0-0.5); Bilirubin Total 0.5 mg/dL (0.0-1.0); Blood Urea Nitrogen 25 mg/dL (9-16); Calcium 9.5 mg/dL (8.4-10.2); Carbon Dioxide 28 mmol/L (22-29); Chloride 94 mmol/L (96-108); Creatinine Clr Calc Pharmacy 19.5; Estimated Glomerular Filt Rate 12; Glucose Random 123 mg/dL (60-115); Magnesium 2.1 mg/dL (1.6-2.6); Potassium 4.3 mmol/L (3.3-5.1); Sodium 136 mmol/L (135-145); Total Protein 6.8 g/dL (6.5-8.0)
[2023-07-03] MEDS: ondansetron HCL 4 MG/2 ML VIAL IVPUSH (19:27)
[2023-07-03] MEDS: Calcium Gluconate/NaCl,Iso-Osm 2 GM/100 ML PLAST..BAG IV (19:27)
[2023-07-03 19:34] LABS: COVID-19 Test Negative (Negative); IDNOW Serial# 58CA691E
[2023-07-03 21:52] VITALS: BP 137/49; PULSE 78; RESP 17
--- NOTE | 2023-07-03 22:09 | PC.NURSE ---
Ambulance transport arranged for pt per manager community development
== END 2023-07-04 00:40 | disposition left against medical advice (07) ==
PROVIDERS: Emergency Provider Emergency Medicine; PCP Internal Medicine
DX: R00.1 Bradycardia, unspecified (principal); R00.8 Other abnormalities of heart beat; R42 Dizziness and giddiness; Z11.52 Encounter for screening for COVID-19; E11.22 Type 2 diabetes mellitus with diabetic chronic kidney disease; I13.2 Hypertensive heart and chronic kidney disease with heart failure and with stage 5 chronic kidney disease, or end stage renal disease; N18.5 Chronic kidney disease, stage 5; I50.9 Heart failure, unspecified; N17.9 Acute kidney failure, unspecified; Z99.2 Dependence on renal dialysis; Z95.1 Presence of aortocoronary bypass graft; Z79.4 Long term (current) use of insulin; Z79.01 Long term (current) use of anticoagulants; Z79.82 Long term (current) use of aspirin; Z79.899 Other long term (current) drug therapy; Z79.02 Long term (current) use of antithrombotics/antiplatelets
CPT/HCPCS: 36415; 71045; 80048; 80076; 82550; 83735; 84484; 85025; 85610; 87635; 93005; 96365; 96366; 96375; 99284; 99285; J0613; J2270; J2405

== ENCOUNTER → 2023-07-03 18:16 | Outpatient (BNV) | payer OTHER, SELFPAY | PROVIDERS: Emergency Provider Emergency Medicine; PCP Internal Medicine; Visit Provider Internal Medicine Cardiovascular Disease | DX: I49.3 Ventricular premature depolarization (principal); R94.31 Abnormal electrocardiogram [ECG] [EKG] | CPT/HCPCS: 93010 ==

== ENCOUNTER 2024-09-10 09:03 | Outpatient (REF) | payer OTHER, SELFPAY ==
--- OUTSIDE RECORDS SUMMARY | 2024-09-10 09:46 | XMS_ITS | Clinical Summary ---
Author Organization [facility] Address [address] [place] [address] Care Team Providers Care Manager Department Name Role Phone Unavailable Primary Care Provider Unavailabl e Social History Tobacco Use Types Packs/Day Years Used Date Smoking Tobacco: Never Assessed Sex and Gender Information Value Date Recorded Sex Assigned at Not on file Gender Identity Not on file Sexual Orientation Not on file Plan of Treatment Health Maintenance Due Date Last Done Comments Hepatitis C Virus Screening 1968 HIV Screening 1981 DTaP/Tdap/Td Vaccines (1 - Tdap) 1987 Hepatitis B Vaccines (1 of 3 - 19+ 3-dose series) 1987 Pneumococcal Vaccines 50+ (1 of 1 - PCV) 2018 Zoster (Shingles) Vaccine (1 of 2) 2018 COVID-19 Vaccine (2023-2 5 season) 2024 Pneumococcal Vaccine: Pediat stefan (0-5 Years) and At-Risk Patients (6 to 49 Years) Aged Out No longer eligible b ased on patient's age to complete this topic
--- OUTSIDE RECORDS SUMMARY | 2024-09-10 09:46 | XMS_ITS | Clinical Summary ---
Author Organization [facility] Address [address] [place] [phone] Phone Care Team Providers Care Extension Service Agent Name Role Phone Rahul Chan MD Primary Care Provider [phone]- [phone] Medications hydrALAZINE (APRESOLINE) 25 MG tablet Take 3 tablets (75 mg total) by mouth twice a day 180 tablet 11 09/18/2020 Active gabapentin (NEURONTIN) 300 MG capsule Take 1 capsule (300 mg total) by mouth in the morning and 1 capsule (300 mg total) in the evening. 180 capsule 3 03/18/2022 Active ondansetron (ZOFRAN) 4 MG tablet TAKE 2 TABLET BY MOUTH TWICE DAILY 120 tablet 1 02/25/2023 Active atorvastatin (LIPITOR) 80 MG tablet Take 1 tablet (80 mg total) by mouth 1 (one) time each day 90 tablet 3 05/02/2023 Active bumetanide (BUMEX) 1 MG tablet TAKE 1 TABLET BY MOUTH TWICE DAILY 90 tablet 1 05/19/2024 Active Active Problems Problem Noted Date Diagnosed Date End stage renal failure on dialysis 06/09/2019 Overview (04/24/2021): Last Assessment & Plan: Patient with a past medical history of end-stage renal disease likely secondary to diabetic nephrosclerosis who follows with Dr. Crockett from [facility]. Patient also receiving intermittent hemodialysis. He had been off of HD for several months. However he was recently admitted to the outside hospital with a complaint of shortness of breath and leg swelling with a 12 pound weight gain in the last week. His dry weight is around 225 pounds. His lower extremity edema was resistant to increasing doses of diuretics at home-his diuretic dose was recently increased from 120 mg daily to IV 120 mg daily along with added Zaroxolyn. Patient still produces urine however his urine output continued to decline. Therefore patient was made to resume hemodialysis on admission and a Lasix drip was initiated at the outside hospital. Patient has since been maintained on 80 mg IV twice daily of Lasix. He has an AV fistula on his right arm with previous bullae covering his fistula site. A Juarez catheter is in place. His last HD was on 02/19. At discharge from [facility] on 02/21, he had a Hb of 8.8, HCT of 26.5, Phosphate of 4.7, Mg of 2.3 and Cr of 5.6. Since admission on 02/22, Lasix has been discontinued due to Bullous Pemphigoid as per Derm. His CXR on admission did not show signs of pleural effusion. On 02/23 he had Cr of 6.68, Phosphate of 7.0, Mg of 2.3, Hb of 9.0 and Hct of 26.2, consistent with renal failure. He had wheezing on exam, likely secondary to ESRD. He was started on Sevelamer 800mg 3x daily on 02/23. On 02/24, he was started on [id number] Q12H for diuresis while awaiting HD on 02/27. He was dialysed 500mL on 02/27. Today, 02/28 he has Cr of 7.55, Mg of 2.2, Phos of 6.1, Hb of 7.8 and Hct of 23.1. He denies SOB. On exam, no pitting edema was noted on his left lower extremity. He has gained 4lbs compared to admission for a weight of 242lbs, but this has stayed the same since 02/24. In terms of uremia, asterixis was noted on 02/27 before HD, but is not preset today. He was AOx3 and did not have signs of pericarditis or pleuritis. In terms of the anemia, as per Nephrology, Epogen was given with HD. Nephrology will give Epogen and Venofer with HD. As per Nephrology, Sevelamer was increased to 1600mg 3x daily on 02/27. - Tunneled catheter placement at 1200 on 02/27 - HD at 1300 on 9/21 with Epogen, HD on 02/28 at 0730 - Continue Sevelamer 1600mg 3x daily - Venofer and Epogen will be given with HD - Daily weights - Strict I/Os Encounters Date Type Department Care Team Description 09/08/2024 Orders Only [facility] [address] [address] Juan Crockett MD 09/08/2024 TCM in Dialysis Clinic [facility] [address] [address] Juan Crockett MD 09/08/2024 Treatment [facility] [address] [address] Juan Crockett MD End stage renal disease; Dependence on renal dialysis 09/01/2024 Orders Only [facility] [address] [address] Juan Crockett MD 08/30/2024 Treatment [facility] [address] [address] Juan Crockett MD End stage renal disease; Dependence on renal dialysis 08/25/2024 Orders Only [facility] [address] [address] Juan Crockett MD 08/23/2024 Treatment [facility] [address] [address] Juan Crockett MD End stage renal disease; Dependence on renal dialysis 08/18/2024 Orders Only [facility] [address] [address] Juan Crockett MD 08/11/2024 Orders Only [facility] [address] [address] Juan Crockett MD 08/09/2024 Treatment [facility] [address] [address] Juan Crockett MD End stage renal disease; Dependence on renal dialysis 08/06/2024 Treatment [facility] [address] [address] Juan Crockett MD End stage renal disease; Dependence on renal dialysis 08/04/2024 Orders Only [facility] [address] [address] Juan Crockett MD 08/02/2024 Treatment [facility] [address] [address] Juan Crockett MD 07/28/2024 Orders Only [facility] [address] [address] Juan rCockett MD 07/21/2024 Orders Only [facility] [address] [address] Juan Crockett MD 07/19/2024 Treatment [facility] [address] [address] Juan Crockett MD End stage renal disease; Dependence on renal dialysis 07/14/2024 Orders Only [facility] [address] [address] Juan Crockett MD 07/12/2024 Treatment [facility] [address] [address] Juan Crockett MD 07/07/2024 Orders Only [facility] [address] [address] Juan Crockett MD 06/30/2024 Treatment [facility] [address] [address] Juan Crockett MD 06/30/2024 Orders Only [facility] [address] [address] Juan Crockett MD 06/25/2024 Orders Only [facility] [address] [address] Juan Crockett MD 06/18/2024 Treatment [facility] [address] [address] Juan Crockett MD 06/18/2024 Orders Only [facility] [address] [address] Juan Crockett MD 06/16/2024 Orders Only [facility] [address] [address] Juan Crockett MD from Last 3 Months Family History Medical History Relation Comments Diabetes Father Type 1 Dementia Mother grandfather Heart disease Mother grandmother Hypertension Mother grandmother Stroke Mother grandmother Relation Status Comments Father Alive Mother Alive Social History Tobacco Use Types Packs/Day Years Used Date Smoking Tobacco: Never Sex and Gender Information Value Date Recorded Sex Assigned at Not on file Legal Sex Male 4:42 PM EST Gender Identity Not on file Sexual Orientation Not on file Last Filed Vital Signs Vital Sign Reading Time Taken Comments Blood Pressure 138/72 07/09/2019 12:00 PM EST Pulse 82 07/09/2019 12:00 PM EST Temperature - - Respiratory Rate - - Oxygen Saturation 99% 07/09/2019 12:00 PM EST Inhaled Oxygen Concentration - - Weight 110 kg (242 lb) 07/09/2019 12:00 PM EST Height 188 cm (6' 2 ) 07/09/2019 12:00 PM EST Body Mass Index 31.07 07/09/2019 12:00 PM EST Plan of Treatment Health Maintenance Due Date Last Done Comments Hepatitis B Vaccine (1 of 5 - Risk Dialysis 4-dose series) 1988 Colorectal Cancer Screening: Annual FOBT 2017 Colorectal Cancer Screening: Colonoscopy 2017 Colorectal Cancer Screening: Sigmoidoscopy 2017 Diabetes: Ophthalmology Exam 07/07/2020 Diabetes: Pedal Pulse Checked 07/07/2020 Diabetes: Sensory Foot Exam 07/07/2020 Diabetes: Visual Foot Exam 07/07/2020 Diabetes: Hemoglobin A1C 09/23/2024 025, 03/24/2024, 12/24/2023, Additional history exists Pneumococcal Vaccine: Pediat rics (0 to 5 Years) and At-Risk Patients (6 to 64 Years) (4 of 4 - PPSV23 or PCV20) 2033 06/25/2021, 04/29/2021, 06/09/2014, Additional history exists Influenza Vaccine Completed 03/26/2024, , 04/02/2021 Procedures Procedure Name Priority Date/Time Associated Diagnosis Comments HD KINETICS Routine 09/08/2024 POST CHEMISTRY Routine 09/08/2024 CHEMISTRY Routine 09/08/2024 HEMATOLOGY Routine 09/08/2024 CHEMISTRY Routine 09/01/2024 HEMATOLOGY Routine 09/01/2024 IMMUNO CHEMISTRY Routine 08/25/2024 CHEMISTRY Routine 08/25/2024 CHEMISTRY Routine 08/25/2024 HEMATOLOGY Routine 08/25/2024 CHEMISTRY Routine 08/18/2024 HEMATOLOGY Routine 08/18/2024 [facility] LAB RESULTS Routine 08/11/2024 HD KINETICS Routine 08/11/2024 POST CHEMISTRY Routine 08/11/2024 CHEMISTRY Routine 08/11/2024 HEMATOLOGY Routine 08/11/2024 HEMATOLOGY Routine 08/04/2024 CHEMISTRY Routine 08/04/2024 IMMUNO CHEMISTRY Routine 07/28/2024 CHEMISTRY Routine 07/28/2024 HEMATOLOGY Routine 07/28/2024 CHEMISTRY Routine 07/28/2024 CHEMISTRY Routine 07/21/2024 HEMATOLOGY Routine 07/21/2024 SPECTRA CB LAB RESULTS Routine 07/14/2024 HD KINETICS Routine 07/14/2024 POST CHEMISTRY Routine 07/14/2024 CHEMISTRY Routine 07/14/2024 HEMATOLOGY Routine 07/14/2024 HEMATOLOGY Routine 07/07/2024 CHEMISTRY Routine 07/07/2024 HEMATOLOGY Routine 06/30/2024 CHEMISTRY Routine 06/30/2024 TRACE ELEMENTS Routine 06/25/2024 IMMUNO CHEMISTRY Routine 06/25/2024 SPECIAL CHEMISTRY Routine 06/25/2024 CHEMISTRY Routine 06/25/2024 SPECIAL CHEMISTRY Routine 06/25/2024 HEMATOLOGY Routine 06/25/2024 CHEMISTRY Routine 06/25/2024 SPECTRA CB LAB RESULTS Routine 06/18/2024 HD KINETICS Routine 06/18/2024 CHEMISTRY Routine 06/18/2024 POST CHEMISTRY Routine 06/18/2024 CHEMISTRY Routine 06/16/2024 HEMATOLOGY Routine 06/16/2024 from Last 3 Months Results * HD KINETICS (09/08/2024) Only the most recent of4 resultswithin the time period is included. % Urea Reduction 73 65 - 80 % [facility] 09/08/2024 09/09/2024 9:5 5 AM EDT Narrative Resulting Agency Comment Specimen source: Plasma us Juan Crockett MD LAB BLOOD ORDERABLES Final Re sult [facility] See order comments or contact performing lab Unknown, [place] * POST CHEMISTRY (09/08/2024) Only the most recent of4 resultswithin the time period is included. BUN Post Dialysis 16 6 - 19 mg/dL [facility] 09/08/2024 09/09/2024 9:5 5 AM EDT Narrative [facility] - 09/09/2024 Unless otherwise specified, test(s) performed at: [facility], [address] [place] [id number] BASIN OPERATOR: Jigar Ross M.D. For any questions, please call customer service at FREQUENCY:OTHER Resulting Agency Comment Specimen source: Plasma Juan Crockett MD LAB BLOOD ORDERABLES Final Re sult Performing Organization Address [facility] Co de Phone Number [facility] See order comments or contact performing lab Unknown, [place] * (ABNORMAL) HEMATOLOGY (09/08/2024) Only the most recent of13 resultswithin the time period is included. Hemoglobin 11.4(L) 14.0 - 18.0 g/dL [facility] Hemoglobin x 3 34.2(L) 42.0 - 54.0 % [facility] 09/08/2024 09/09/2024 9:3 7 AM EDT Narrative [facility] - 09/09/2024 Unless otherwise specified, test(s) performed at: [facility], [address] [place], [place] [id number] BASIN OPERATOR: Jigar Ross M.D. For any questions, please call customer service at FREQUENCY:OTHER Resulting Agency Comment Specimen source: Blood Juan Crockett MD LAB BLOOD ORDERABLES Final Re sult Performing Organization Address [facility] de Phone Number [facility] See order comments or contact performing lab Unknown, [place] * (ABNORMAL) [facility] Chemistry (09/08/2024) Only the most recent of17 resultswithin the time period is included. BUN 59(H) 6 - 19 mg/dL [facility] Calcium 8.8 8.4 - 10.2 mg/dL [facility] 09/08/2024 09/09/2024 8:5 5 AM EDT Narrative [facility] - 09/09/2024 Unless otherwise specified, test(s) performed at: [facility], [address] [place], [place] [id number] BASIN OPERATOR: Jigar Ross M.D. For any questions, please call customer service at FREQUENCY:OTHER Resulting Agency Comment Specimen source: Serum Juan Crockett MD LAB BLOOD ORDERABLES Final Re sult Performing Organization Address [facility] Co de Phone Number [facility] See order comments or contact performing lab Unknown, [place] * IMMUNO CHEMISTRY (08/25/2024) Only the most recent of3 resultswithin the time period is included. Pathologist [facility] Hep B Surface Ag Negative Negative [facility] 08/25/2024 08/26/2024 9:1 3 AM EDT Narrative Resulting Agency Comment Specimen source: Serum Juan Crockett MD LAB BLOOD ORDERABLES Final Re sult Performing Organization Address [facility] Co de Phone Number [facility] See order comments or contact performing lab Unknown, [place] * [facility] Lab Results (08/11/2024) Only the most recent of3 resultswithin the time period is included. Pathologist [facility] eKdrt/V 1.55 [facility] eKt/V ([place]) 1.50 [facility] spKt/V Gotch 1.80 [facility] nPCR_HD 1.07 [facility] PCR 74.06 [facility] spKt/V (Daugirdas II) 1.72 [facility] eKt/V Gotch 1.55 [facility] WSTDKT/V 2.6 [facility] eNPCR 1.01 [facility] 08/11/2024 08/11/2024 [facility] Ordering Provider LAB BLOOD ORDERABLES Final Result Performing Organization Address [facility] Co de Phone Number [facility] Contact Performing lab Unknown, [place] * SPECIAL CHEMISTRY (06/25/2024) Only the most recent of2 resultswithin the time period is included. Pathologist [facility] Vitamin D, 25-OH, Total 48.9 30.0 - 100.0 ng/mL [facility] Comment: Please Note:? Effective April 07, 2023, the methodology for this test has changed to the [facility]. Creatine Kinase (CK/CPK) 91 30 - 223 U/L [facility] 06/25/2024 06/26/2024 10: 51 AM EST Narrative [facility] - 06/26/2024 Unless otherwise specified, test(s) performed at: [facility], [address] [place] [id number] BASIN OPERATOR: Jigar Ross M.D. For any questions, please call customer service at FREQUENCY:MONTHLY Resulting Agency Comment Specimen source: Serum Juan Crockett MD LAB BLOOD BANK TEST ORDERABLE S Edited Result - Final Performing Organization Address [facility] Co de Phone Number [facility] See order comments or contact performing lab Unknown, [place] * TRACE ELEMENTS (06/25/2024) Aluminum <5 0 - 10 mcg/L [facility] Comment: This test was developed and its performance characteristics determined by [facility]. It has not been cleared or approved by the FDA. The laboratory is regulated under CLIA as qualified to perform high complexity testing. This test is used for clinical purposes. It should not be regarded as investigational or for research. 06/25/2024 06/26/2024 10: 25 AM EST Narrative [facility] - 06/28/2024 Unless otherwise specified, test(s) performed at: [facility], [address] [place] [id number] BASIN OPERATOR: Jigar Ross M.D. For any questions, please call customer service at FREQUENCY:MONTHLY Resulting Agency Comment Specimen source: Serum Juan Crockett MD LAB BLOOD ORDERABLES Final Re sult Performing Organization Address [facility] Co de Phone Number [facility] See order comments or contact performing lab Unknown, [place] from Last 3 Months Insurance [facility] ([id number]) [facility] ([id number]) Care Teams Extension Service Agent Relationship Specialty Start Date End Date Rahul Chan MD [address] [place] [address] [address] [place], [place] PCP - General 06/19/20
--- OUTSIDE RECORDS SUMMARY | 2024-09-10 09:46 | XMS_ITS | Encounter Summary ---
Author Organization [facility]. Address [address] [address] Phone Care Team Providers Care Associate Relations Specialist Name Role Phone Rahul Chan MD Primary Care Provider +1- [phone] Encounter Details Date Type Department Care Team (Late st Contact Info) Description 09/08/2024 Orders Only [facility]. [address] [address] Juan Crockett MD [address] [address] Social History Tobacco Use Types Packs/Day Years Used Date Smoking Tobacco: Never Sex and Gender Information Value Date Recorded Sex Assigned at Not on file Legal Sex Male 4:42 PM EST Gender Identity Not on file Sexual Orientation Not on file documented as of this encounter Plan of Treatment Not on file documented as of this encounter Procedures Procedure Name Priority Date/Time Associated Diagnosis Comments HD KINETICS Routine 09/08/2024 POST CHEMISTRY Routine 09/08/2024 HEMATOLOGY Routine 09/08/2024 CHEMISTRY Routine 09/08/2024 documented in this encounter Results * HD KINETICS (09/08/2024) % Urea Reduction 73 65 - 80 % [facility] 09/08/2024 09/09/2024 9:5 5 AM EDT Narrative Resulting Agency Comment Specimen source: Plasma us Juan Crockett MD LAB BLOOD ORDERABLES Final Re sult Performing Organization Address [facility] de Phone Number [facility] See order comments or contact performing lab Unknown, [place] * POST CHEMISTRY (09/08/2024) BUN Post Dialysis 16 6 - 19 mg/dL [facility] 09/08/2024 09/09/2024 9:5 5 AM EDT Narrative [facility] - 09/09/2024 Unless otherwise specified, test(s) performed at: [facility], [address] [place] [address] RDA: Jigar Ross M.D. For any questions, please call customer service at FREQUENCY:OTHER Resulting Agency Comment Specimen source: Plasma Juan Crockett MD LAB BLOOD ORDERABLES Final Re sult Performing Organization Address [facility] de Phone Number [facility] See order comments or contact performing lab Unknown, [place] * (ABNORMAL) [facility] Chemistry (09/08/2024) BUN 59(H) 6 - 19 mg/dL [facility] Calcium 8.8 8.4 - 10.2 mg/dL [facility] 09/08/2024 09/09/2024 8:5 5 AM EDT Narrative [facility] - 09/09/2024 Unless otherwise specified, test(s) performed at: [facility], [address] [place] [address] RDA: Jigar Ross M.D. For any questions, please call customer service at FREQUENCY:OTHER Resulting Agency Comment Specimen source: Serum Juan Crockett MD LAB BLOOD ORDERABLES Final Re sult Performing Organization Address [facility] de Phone Number [facility] See order comments or contact performing lab Unknown, [place] * (ABNORMAL) HEMATOLOGY (09/08/2024) Hemoglobin 11.4(L) 14.0 - 18.0 g/dL [facility] Hemoglobin x 3 34.2(L) 42.0 - 54.0 % [facility] 09/08/2024 09/09/2024 9:3 7 AM EDT Narrative [facility] - 09/09/2024 Unless otherwise specified, test(s) performed at: [facility], [address] [place] [address] RDA: Jigar Ross M.D. For any questions, please call customer service at FREQUENCY:OTHER Resulting Agency Comment Specimen source: Blood us Juan Crockett MD LAB BLOOD ORDERABLES Final Re sult [facility] See order comments or contact performing lab Unknown, [place] documented in this encounter Visit Diagnoses Not on filedocumented in this encounter Care Teams Associate Relations Specialist Relationship Specialty Start Date End Date Rahul Chan MD [address] [place] [address] [address] [place] [address] [place] PCP - General 06/19/20 documented as of this encounter
--- OUTSIDE RECORDS SUMMARY | 2024-09-10 09:46 | XMS_ITS | Encounter Summary ---
Author Organization [facility] Address [address] [address] Phone Care Team Providers Care Top Cleaner Name Role Phone Rahul Chan MD Primary Care Provider [phone]- [phone] Encounter Details Date Type Department Care Team (Late st Contact Info) Description 09/08/2024 TCM in Dialysis Clinic [facility] [address] [address] Darwin Chew MD [address] [address] Social History Tobacco Use Types Packs/Day Years Used Date Smoking Tobacco: Never Sex and Gender Information Value Date Recorded Sex Assigned at Not on file Legal Sex Male 4:42 PM EST Gender Identity Not on file Sexual Orientation Not on file documented as of this encounter Progress Notes * Darwin Chew MD - 09/08/2024 12:00 AM EDT Patient: Castro Tate : 1970 Note Type: Dialysis TCM Service Date: 09/08/2024 The patient was seen for a [id number] visit as part of Transitional Care Management services. Attending Consulting Application Engineer: DARWIN CHEW Dialysis Location: [facility] Schedule: Shift: 1 INTERACTIVE CONTACT Contact with the patient or caregiver was made or attempted within 2 business days of discharge - details in the medical record. HOSPITALIZATION SUMMARY Patient transitioned from: Hospital Patient transitioned to: Home Admit Date: 09/02/2024 Discharge Date: 09/04/2024 Discharged info reviewed: Followed-up on or reviewed need for pending tests/treatments as noted COMMENTS: cont f/u with cards HOME MEDICATIONS Discharge med list reviewed - changes reconciled and discussed with patient. Active treatment medication orders reviewed - no changes. TREATMENT MEDICATIONS ORDERS Iron Sucrose (Venofer) 50 mg IVP 1X Week During Dialysis 08/04/2024 - 08/03/2025 Vitamin D (Calcitriol) Oral 0.25 mcg ORAL Every Treatment 09/03/2024 - 09/02/2025 PHYSICAL EXAM Exam not performed. DIALYSIS PRESCRIPTION Dry weight during admission reviewed - no change to EDW. Treatment Data Treatment Date: 09/08/2024 started at: 5:18 AM Dialysate / Machine Temp (prescribed): 36.5*C Dialysate / Machine Temp (actual): 37.0*C BFR (prescribed): 450 BFR (average delivered): 450 DFR (prescribed): Manual 800 DFR (average delivered): 500 Prescribed Time: 04:00 Actual Time: 03:59 EDW (kg): 94.0 Dialyzer: 160NRe Optiflux Dialysate: 2.0 K, 2.50 Ca, 1.0 Mg, 100 Dextrose ([id number]) Sodium: 130 Bicarb: 35 Pre Dialysis Vitals Pre BP Sit: 115/73 Pre Wt (kg): 96.7 EDW Deviation (kg): 2.7 Temp: 97.3*F Post Dialysis Vitals Post BP Sit: 146/88 Post Wt (kg): 94.8 CARE COORDINATION Post-discharge follow-up appointments reviewed with the patient. Established or re-established referrals. VISIT DIAGNOSES CPT Code 94962 - High complexity, seen within 7 days of discharge. N18.6, Z99.2 End stage renal disease;Dependence on renal dialysis Signed by: DARWIN CHEW MD on 09/08/2024 at 09:55:28 PM Transcribed by: DARWIN CHEW MD on 09/08/2024 at 09:55:28 PM documented in this encounter Plan of Treatment Not on file documented as of this encounter Visit Diagnoses Not on filedocumented in this encounter Care Teams Top Cleaner Relationship Specialty Start Date End Date Rahul Chan MD [address] [place] [address] [address] [place] PCP - General 06/19/20 documented as of this encounter
--- OUTSIDE RECORDS SUMMARY | 2024-09-10 09:46 | XMS_ITS ---
Author Name Katelynn, Clinic Address [address] [place] [id number] Phone [phone] Organization [facility] e, NA DOCUMENT DISCLAIMER Multiple document versions may exist, please be sure you review the latest version. The information in the [facility] Continuity of Care Document represents a summary of certain health and medical information. It may not contain the complete medical history for the patient and should be independently verified. The represented time in the document is Eastern Time. 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 April 09, 2024 Hyperkalemia E87.5 Active February 02, 2024 Bradycardia, unspecified R00.1 Active October 17, 2023 Pain, unspecified R52 Active October 16 24 Chest pain, unspecified R07.9 Active Apri l 2023 Other specified abnormal fin dings of blood chemistry R79.89 Active September 12, 2023 Hypertensive emergency I16.1 Active September 12, 2023 Chest pain, unspecified R07.9 Active Tish singh 2022 Chest pain, unspecified R07.9 Active Tish singh 2022 Unspecified atrial fibrillation I48.91 Active April 14, 2023 Urinary tract infection, site not specified N39.0 Active November 25, 2022 Displacement of surgically c reated arteriovenous fistula, initial encounter T82.520A Active November 11, 2022 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, implants and grafts, initial encounter T82.858A Active F ebruary 2022 Pain in left leg M79.605 Active April Allergy, unspecified, initial encounter T78.40XA A ctive June 16, 2021 Anaphylactic shock, unspecified, initial encounter T78 .2XXA Active June 16, 2021 Hypokalemia E87.6 Active May 23 Fluid overload, unspecified E87.70 Active March 19, 2021 Nausea R11.0 Active March 17 Chest pain, unspecified R07.9 Active Feb Diarrhea, unspecified R19.7 Active December Encounter for immunization Z23 Active 2020 Encounter for screening for respiratory tuberculosis Z11.1 Active November 04, 2020 Shortness of breath R06.02 Active November 02, 2020 Secondary hyperparathyroidism of renal origin N25.81 Active November 02, 2020 Hypotension, unspecified I95.9 Active November 02, 2020 End stage renal disease N18.6 Active November 02, 2020 Peripheral vascular disease, unspecified I73.9 Active October 31, 2020 Obesity, unspecified E66.9 Active October 31, 2020 Type 1 diabetes mellitus wit h diabetic neuropathy, unspecified E10.40 Active October 31, 2020 Secondary pulmonary arterial hypertension I27.21 Active October 31, 2020 Hyperlipidemia, unspecified E78.5 Active October 31, 2020 Secondary hypertension, unspecified I15.9 Activ e October 31, 2020 Chronic pain syndrome G89.4 Active October Chronic systolic (congestive) heart failure I50.22 Active October 31, 2020 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 Active October 31 Anemia in chronic kidney disease D63.1 Active October 31, 2020 Iron deficiency anemia, unspecified D50.9 Activ e October 31, 2020 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 Active October 31, 2020 Bullous pemphigoid L12.0 Active October 31 ALLERGIES AND ADVERSE REACTIONS Substance Reaction Severity Status nitroglycerin Nausea/Vomiting Moderate Active Penicillins Hives Mild Active furosemide blisters Active cranberry Dyspnea Active Keflex blisters Active LISINOPRIL Hives Active SOCIAL HISTORY Tobacco Use Status Tobacco Type Unknown if ever consumed tobacco - Caregiver Characteristics No Information Available Characteristics of Home environment No Information Available Gender and Sex Information Gender Identity Sexual Orientation No Information Available No Information Available MEDICATIONS Prescribed Medications for Dialysis Treatments Medication Instructions Dosage Route Start Date End Date Stat Iron Sucrose (Venofer) During Dialysis, 1X Week 50 mg Intravenous - push August 04, 2024 August 03, 2025 Active Vitamin D (Calcitriol) Oral Every Treatment 0.25 mcg Oral September 03, 2024 September 02, 2025 Active Vitamin D (Calcitriol) Oral Every Treatment 0.25 mcg Oral September 03, 2023 September 01, 2024 Active Acetaminophen During Dialysis, PRN 650 mg Oral October 17, 2023 October 15, 2024 Discontinued Loperamide PRN-october repeat x1 2 mg Oral October 17, 2023 October 15, 2024 Discontinued Mircera Every 4 weeks 75 mcg Intravenous - push July 07, 2024 July 06, 2025 Discontinued Home Medications Medication Instructions Dosage Route Start Date End Date [facility] albuterol sulfate 90 mcg/actuation Inhale using inhaler every four to six hours as needed 2 puff INHALATION September 06, 2020 Active aspirin 81 mg Take by mouth once a day 1 tablet ORAL September 06, 2020 Active atorvastatin 80 mg Take by mouth once a day 1 tablet ORAL September 06, 2020 Active betamethasone dipropionate 0.05% Apply to skin TOPICAL June 04, 2023 Active bumetanide 1 mg Take by mouth twice a day 1 tablet ORAL August 09, 2024 Active carvedilol 25 mg Take by mouth twice a day 1 tablet ORAL November 21, 2021 Active Eliquis 5 mg Take twice a day 1 tablet ORAL 2022 Active gabapentin 300 mg Take by mouth twice a day as directed 1 capsule ORAL August 09, 2024 Active hydralazine 25 mg Take by mouth twice a day 3 tablet ORAL September 15, 2023 Active ipratropium bromide 0.02% Inhale as directed every six to eight hours 1 vial INHALATION September 06, 2020 Active Lantus U-100 Insulin 100 unit/mL Inject subcutaneously twice a day 20 unit SUBCUTANEOUS September 15, 2023 Active multivitamin Take by mouth every night 1 capsule ORAL September 06, 2020 Active Novolog FlexPen U-100 Insulin 100 unit/mL (3 mL) Inject subcutaneously three times a day with meals 10 unit SUBCUTANEOUS June 26, 2022 Active pantoprazole 40 mg Take by mouth every night 1 tablet ORAL September 15, 2023 Active Zofran 4 mg Take by mouth every eight hours as needed 2 tablet by mouth July 14, 2024 Active VITAL SIGNS Post-Treatment Vital Signs Vital Sign Value Date / Time Blood Pressure-sitting 146/88 mmHg September 08, 2024 05:18 AM Heart Rate 74 beats per minute September 08 05:18 AM Respiratory Rate 16 breaths per minute September 08, 2024 05:18 AM Temperature 96.6 deg. F September 08, 2024 0 5:18 AM Weight Vital Sign Value Date / Time Estimated Dry Weight 94 kg September 03 025 11:59 PM Pre-Dialysis 96.70 kg September 08, 2024 0 5:18 AM Post-Dialysis 94.80 kg September 08, 2024 0 5:18 AM Other Other Value Date / Time Height 188 cm June 27, 2022 12:00 AM Body Mass Index 26.60 kg/m2 September 06, 2024 1 0:32 AM HEALTH CONCERNS Tuberculosis Testing TST Date Administered TST Date Read TST Result 11/27/2020 11/29/2020 Negative (<5) mm LAB RESULTS Hematology Result Type Result Value Relevant Referen ce Range Interpretation Date Transferrin Sat. (Calc) 40 % 20 - 55 % - March 24, 2024 Ferritin 1534 ng/mL 22 - 322 ng/mL High March TIBC (Calc) 202 mcg/dL 185 - 515 mcg/dL - March 24, 2024 UIBC/TIBC 122 mcg/dL 155 - 355 mcg/dL Low March 24, 2024 WBC (No Diff) 6.29 1000/mcL 4.80 - 10.80 1000/mcL - March 24, 2024 Ferritin 1569 ng/mL 22 - 322 ng/mL High April 102023 Transferrin Sat. (Calc) 43 % 20 - 55 % - April 28 TIBC (Calc) 231 mcg/dL 185 - 515 mcg/dL - Novem2023 UIBC/TIBC 131 mcg/dL 155 - 355 mcg/dL Low April 28, 2024 Ferritin 1009 ng/mL 22 - 322 ng/mL High May 102023 TIBC (Calc) 212 mcg/dL 185 - 515 mcg/dL - 2023 UIBC/TIBC 122 mcg/dL 155 - 355 mcg/dL Low May 28, 2024 Transferrin Sat. (Calc) 42 % 20 - 55 % - May 28 Hemoglobin x 3 28.5 % 42.0 - 54.0 % Low June 16, 2024 Iron 91 mcg/dL 45 - 160 mcg/dL - June 092024 TIBC (Calc) 227 mcg/dL 185 - 515 mcg/dL - June 25, 2024 UIBC/TIBC 136 mcg/dL 155 - 355 mcg/dL Low June 25, 2024 Transferrin Sat. (Calc) 40 % 20 - 55 % - June 25, 2024 RDW 14.3 % 11.5 - 14.5 % - June 25, 2024 MCH 32.0 pg 27.0 - 31.0 pg High June MCHC 31.7 g/dL 30.0 - 36.0 g/dL - June 25, 2024 WBC (No Diff) 6.58 1000/mcL 4.80 - 10.80 1000/mcL - June 25, 2024 Hemoglobin x 3 27.6 % 42.0 - 54.0 % Low June 25, 2024 Ferritin 1423 ng/mL 22 - 322 ng/mL High June Hemoglobin x 3 31.8 % 42.0 - 54.0 % Low June 30, 2024 Hemoglobin x 3 28.8 % 42.0 - 54.0 % Low July 07, 2024 Hemoglobin x 3 31.8 % 42.0 - 54.0 % Low Februar 2024 Hemoglobin x 3 32.7 % 42.0 - 54.0 % Low Februar 2024 Ferritin 1088 ng/mL 22 - 322 ng/mL High July 102024 Hemoglobin x 3 31.2 % 42.0 - 54.0 % Low Februar y 2024 Transferrin Sat. (Calc) 35 % 20 - 55 % - July 28 TIBC (Calc) 227 mcg/dL 185 - 515 mcg/dL - uar 2024 UIBC/TIBC 148 mcg/dL 155 - 355 mcg/dL Low July 28, 2024 Iron 79 mcg/dL 45 - 160 mcg/dL - July 28, 2024 Hemoglobin x 3 29.7 % 42.0 - 54.0 % Low Februar 2024 HGB 10.5 g/dL 14.0 - 18.0 g/dL Low August Hemoglobin x 3 31.5 % 42.0 - 54.0 % Low August Hemoglobin x 3 30.9 % 42.0 - 54.0 % Low August 072024 HGB 10.3 g/dL 14.0 - 18.0 g/dL Low August UIBC/TIBC 127 mcg/dL 155 - 355 mcg/dL Low August Iron 91 mcg/dL 45 - 160 mcg/dL - August 25, 2024 Transferrin Sat. (Calc) 42 % 20 - 55 % - August 25, 2024 TIBC (Calc) 218 mcg/dL 185 - 515 mcg/dL - August 072024 Ferritin 905 ng/mL 22 - 322 ng/mL High August 25, 2024 HGB 10.5 g/dL 14.0 - 18.0 g/dL Low August Hemoglobin x 3 31.5 % 42.0 - 54.0 % Low August 072024 HGB 11.4 g/dL 14.0 - 18.0 g/dL Low August Hemoglobin x 3 34.2 % 42.0 - 54.0 % Low August 082024 Hemoglobin x 3 34.2 % 42.0 - 54.0 % Low September HGB 11.4 g/dL 14.0 - 18.0 g/dL Low September Metabolic/Renal Result Type Result Value Relevant Referen ce Range Interpretation Date Hemoglobin A1c 5.9 % 4.8 - 5.9 % - March 092023 URR, Calc 75 % 65 - 80 % - June 18 25 BUN, Post 14 mg/dL 6 - 19 mg/dL - June 18, 2024 BUN 57 mg/dL 6 - 19 mg/dL High June 18, 2024 Sodium 141 mEq/L 136 - 145 mEq/L - June 092024 Creatinine, Serum 7.61 mg/dL 0.60 - 1.30 mg/dL High June 25, 2024 Bicarbonate 26 mEq/L 22 - 29 mEq/L - June Potassium 5.8 mEq/L 3.5 - 5.1 mEq/L High June 092024 Hemoglobin A1c 6.7 % 4.8 - 5.9 % High June 092024 BUN 45 mg/dL 6 - 19 mg/dL High July 14, 2024 BUN, Post 11 mg/dL 6 - 19 mg/dL - July 14, 2024 URR, Calc 76 % 65 - 80 % - July 14 025 Creatinine, Serum 5.97 mg/dL 0.60 - 1.30 mg/dL High July 28, 2024 Bicarbonate 27 mEq/L 22 - 29 mEq/L - July 102024 Potassium 5.6 mEq/L 3.5 - 5.1 mEq/L High July 28, 2024 Sodium 138 mEq/L 136 - 145 mEq/L - July 28, 2024 BUN 55 mg/dL 6 - 19 mg/dL High August 11 URR, Calc 76 % 65 - 80 % - August 11, 2024 BUN, Post 13 mg/dL 6 - 19 mg/dL - August 11 Bicarbonate 27 mEq/L 22 - 29 mEq/L - August 25, 2024 Sodium 137 mEq/L 136 - 145 mEq/L - August 25, 2024 Creatinine, Serum 6.05 mg/dL 0.60 - 1.30 mg/dL High August 25, 2024 Potassium 4.7 mEq/L 3.5 - 5.1 mEq/L - August 25, 2024 URR, Calc 73 % 65 - 80 % - September 08, 2024 BUN, Post 16 mg/dL 6 - 19 mg/dL - September 08 BUN 59 mg/dL 6 - 19 mg/dL High September 08 HD Adequacy Result Type Result Value Relevant Referen ce Range Interpretation Date Krt/V 0.00 No Reference Ran ge Provided - April 14, 2024 Krt/V 0.00 No Reference Ran ge Provided - May 12, 2024 Krt/V 0.00 No Reference Ran ge Provided - June 11, 2024 wstdKt/V without residual 1.6 No Reference Range Provided - June 18, 2024 wstdKt/V, residual 0.0 No Reference Range Provided - June 18, 2024 spKt/V (Daugirdas II) 1.61 No Reference Range Provided - June 18, 2024 wstdKt/V 1.6 No Reference Ran ge Provided - June 18, 2024 Krt/V 0.00 No Reference Ran ge Provided - June 18, 2024 spKt/V Gotch 1.65 No Reference Ran ge Provided - June 18, 2024 eKt/V ([place]) 1.41 No Reference Range Provided - June 18, 2024 spKt/V Gotch 1.54 No Reference Ran ge Provided - July 14, 2024 eKt/V ([place]) 1.35 No Reference Range Provided - July 14, 2024 wstdKt/V without residual 2.4 No Reference Range Provided - July 14, 2024 wstdKt/V 2.4 No Reference Ran ge Provided - July 14, 2024 wstdKt/V, residual 0.0 No Reference Range Provided - July 14, 2024 spKt/V (Daugirdas II) 1.54 No Reference Range Provided - July 14, 2024 Krt/V 0.00 No Reference Ran ge Provided - July 14, 2024 spKt/V Gotch 1.80 No Reference Ran ge Provided - August 11, 2024 eKt/V ([place]) 1.50 No Reference Range Provided - August 11, 2024 wstdKt/V, residual 0.0 No Reference Range Provided - August 11, 2024 spKt/V (Daugirdas II) 1.72 No Reference Range Provided - August 11, 2024 wstdKt/V 2.6 No Reference Ran ge Provided - August 11, 2024 wstdKt/V without residual 2.6 No Reference Range Provided - August 11, 2024 Krt/V 0.00 No Reference Ran ge Provided - August 11, 2024 wstdKt/V, residual 0.0 No Reference Range Provided - September 08, 2024 wstdKt/V 1.6 No Reference Ran ge Provided - September 08, 2024 eKt/V ([place]) 1.32 No Reference Range Provided - September 08, 2024 Krt/V 0.00 No Reference Ran ge Provided - September 08, 2024 spKt/V Got 1.55 No Reference Ran ge Provided - September 08, 2024 spKt/V (Daugirdas II) 1.51 No Reference Range Provided - September 08, 2024 wstdKt/V without residual 1.6 No Reference Range Provided - September 08, 2024 Bone/Mineral Result Type Result Value Relevant Referen ce Range Interpretation Date PTH-Intact, Plasma 253 pg/mL 16 - 80 pg/mL High Oct radha2023 PTH-Intact, Plasma 196 pg/mL 16 - 80 pg/mL High Nov emb2023 PTH-Intact, Plasma 221 pg/mL 16 - 80 pg/mL High Dec emb2023 Calcium, Total 8.6 mg/dL 8.4 - 10.2 mg/dL - 2024 Phosphorus 6.8 mg/dL 2.6 - 4.5 mg/dL High June 092024 Calcium, Total 8.9 mg/dL 8.4 - 10.2 mg/dL - 2024 Alkaline Phosphatase 98 U/L 40 - 129 U/L - [facility]2024 Ca x P Product 61 0 - 54 High June Corrected Ca x P Product 61 0 - 54 High June 25, 2024 PTH-Intact, Plasma 205 pg/mL 16 - 80 pg/mL High Jun Vitamin D 25 Hydroxy 48.9 ng/mL 30.0 - 100.0 ng/mL - June 25, 2024 Calcium, Total 9.1 mg/dL 8.4 - 10.2 mg/dL - 2024 Calcium, Total 8.4 mg/dL 8.4 - 10.2 mg/dL - 2024 Ca x P Product 50 0 - 54 - June Phosphorus 6.0 mg/dL 2.6 - 4.5 mg/dL [facility] June 102024 Calcium, Total 9.2 mg/dL 8.4 - 10.2 mg/dL - 2024 Calcium, Total 8.5 mg/dL 8.4 - 10.2 mg/dL - 2024 Ca x P Product 62 0 - 54 [facility] July 102024 Phosphorus 6.9 mg/dL 2.6 - 4.5 mg/dL High July 28, 2024 Calcium, Total 9.0 mg/dL 8.4 - 10.2 mg/dL - 2024 Corrected Ca x P Product 61 0 - 54 [facility] July 28 PTH-Intact, Plasma 290 pg/mL 16 - 80 pg/mL High [facility]2024 Calcium, Total 8.8 mg/dL 8.4 - 10.2 mg/dL - 2024 Calcium, Total 9.1 mg/dL 8.4 - 10.2 mg/dL - [facility] 2024 Calcium, Total 8.3 mg/dL 8.4 - 10.2 mg/dL Low [facility] 2024 Calcium, Total 8.6 mg/dL 8.4 - 10.2 mg/dL - [facility] 2024 Ca x P Product 61 0 - 54 High August 25, 2024 Phosphorus 7.1 mg/dL 2.6 - 4.5 mg/dL High August 25, 2024 Corrected Ca x P Product 60 0 - 54 High August 25, 2024 PTH-Intact, Plasma 291 pg/mL 16 - 80 pg/mL High [facility] 2024 Calcium, Total 9.2 mg/dL 8.4 - 10.2 mg/dL - [facility] 2024 Calcium, Total 8.8 mg/dL 8.4 - 10.2 mg/dL - Apri l 2024 Liver/Nutrition Result Type Result Value Relevant Referen ce Range Interpretation Date Direct Bilirubin 0.14 mg/dL 0.00 - 0.25 mg/dL - N ovember 2023 Amylase 49 U/L 28 - 100 U/L - April 28, 2024 Lipase 18 U/L 11 - 82 U/L - April 28, 2024 eNPCR 1.03 No Reference Ran ge Provided - June 18, 2024 Albumin (BCG) 4.0 g/dL 3.5 - 5.2 g/dL - June 25, 2024 LDH 136 U/L 118 - 273 U/L - June 25, 2024 SGPT (ALT) 11 U/L 7 - 52 U/L - June 25 eNPCR 0.75 No Reference Ran ge Provided - July 14, 2024 SGPT (ALT) 10 U/L 7 - 52 U/L - July 28 Albumin (BCG) 4.2 g/dL 3.5 - 5.2 g/dL - 2024 eNPCR 1.01 No Reference Ran ge Provided - August 11, 2024 Albumin (BCG) 4.1 g/dL 3.5 - 5.2 g/dL - August 072024 SGPT (ALT) 11 U/L 7 - 52 U/L - August 25, 2024 eNPCR 0.97 No Reference Ran ge Provided - September 08, 2024 Cardiovascular Result Type Result Value Relevant Reference Range Interpre tation Date Creatine Kinase 91 U/L 30 - 223 U/L - June 25, 2024 Lipid Result Type Result Value Relevant Referen ce Range Interpretation Date Cholesterol, Total 100 mg/dL 0 - 199 mg/dL - Jun Triglycerides 130 mg/dL 0 - 149 mg/dL - June 25, 2024 Immunochemistry Result Type Result Value Relevant Reference Range Interpre tation Date HCV s/co ratio 0.02 0.00 - 0.79 - December 24, 2023 HCV s/co ratio < 0.02 0.00 - 0.79 - June 092024 Trace Elements Result Type Result Value Relevant Reference Range Interpre tation Date Aluminum < 5 mcg/L 0 - 10 mcg/L - June 25, 2024 Infectious Diseases Result Type Result Value Relevant Referen ce Range Interpretation Date HCV Ab (anti-HCV) Nonreactive No Reference R emil Provided - June 25, 2024 Hep B Surface Ab (anti-HBs) 34 mIU/mL No Reference Range Provided - June 25, 2024 Hep B Surface Ag (HBsAg) Negative No Reference Range Provided - August 25, 2024 DIALYSIS PRESCRIPTION Conventional Hemodialysis Data Element Value Order Date/Time September 03, 2024 Frequency 3X Week Treatment Days MonWedFri Dialyzer [id number] Optiflux Treatment Time (Total Minutes) 240 min Blood Flow Rate (mL/min) 450 mL/min Dialysate Flow Rate Manual 800 Estimated Dry Weight 94 kg Dialysate Concentrate 2.0 K, 2.50 Ca, 1. 0 Mg, 100 Dextrose ([id number]) Sodium (mEq/L) 130 mEq/L Bicarb Machine Setting (mEq/L) 35 mEq/L Dialysis Access Hemodialysis-AV Fist lulu-Standard, Left Upper Arm, Brachial Artery to Basilic Vein Access Placed on October 09, 2023 Arterial Needle Size 15g1 Venous Needle Size 15g1 IMMUNIZATIONS Vaccine Date Dose Route Status Flu Vaccine - Flucelvax Trivalent March 26, 2024 0.5 mL Intramuscular Completed Flu Vaccine - Flublok Quadrivalent March 26, 2023 0.5 mL Intramuscular Completed HEPLISAV-B August 24, 2021 20.0 mcg Intramuscular Complet ed PREVNAR June 25, 2021 0.5 mL Intramuscular Compl eted HEPLISAV-B May 23, 2021 20.0 mcg Intramuscular Comp leted PNEUMOVAX April 29, 2021 0.5 mL Intramuscular Co mpleted HEPLISAV-B April 25, 2021 20.0 mcg Intramuscular Comp leted HEPLISAV-B April 02, 2021 20.0 mcg Intramuscular Compl eted TRANSPLANT WAITLIST STATUS No Information on Transplant Waitlist Status ADVANCE DIRECTIVES Directive Description Ordered By Effective Date Resuscitation status Full Code Juan Crockett Apr 06, 2024 DIALYSIS TREATMENTS Conventional Hemodialysis Date Pre-Treatment Vitals Post-Treatment Nathalia ls Duration (hr) BFR (mL/min) Dialysate Dialyzer Dialysis Access Meds Admin September 01, 2024 Weight 96.50 kg Weight 95.00 kg 02:58:00 460 2.0 K, 3.0 Ca, 1.0 Mg, 100 Dextrose ([id number]) 160nre Optifl ux Blood Pressure-sitting 154/85 mmHg Blood Pressure-sit ting 151/69 mmHg Heart Rate 81 beats per minute Heart Rate 81 beats per minute Respiratory Rate 18 breaths per minute Respiratory Rate 18 breaths per minute Temperature 97.2 deg. F Temperature 99.1 deg. F September 06, 2024 Weight 96.60 kg Weight 94.00 kg 03:56:00 460 2.0 K, 2.50 Ca, 1.0 Mg, 100 Dextrose ([id number]) 160nre Optiflux Hemodialysis-AV Fistula-Standard, Left Upper Arm, Brachial Artery to Basilic Vein Access Placed on October 09, 2023 Vitamin D (Calcitriol) Oral; 0.25mcg,Oral Blood Pressure-sitting 161/83 mmHg Blood Pressure-sit ting 125/79 mmHg Heart Rate 77 beats per minute Heart Rate 78 beats per minute Respiratory Rate 16 breaths per minute Respiratory Rate 16 breaths per minute Temperature 97.8 deg. F Temperature 96.0 deg. F September 08, 2024 Weight 96.70 kg Weight 94.80 kg 03:59:00 450 2.0 K, 2.50 Ca, 1.0 Mg, 100 Dextrose ([id number]) 160nre Optiflux Hemodialysis-AV Fistula-Standard, Left Upper Arm, Brachial Artery to Basilic Vein Access Placed on October 09, 2023 Iron Sucrose (Venofer); 50mg,Intravenous - push Vitamin D (Calcitriol) Oral; 0.25mcg,Oral Blood Pressure-sitting 115/73 mmHg Blood Pressure-sit ting 146/88 mmHg Heart Rate 81 beats per minute Heart Rate 74 beats per minute Respiratory Rate 18 breaths per minute Respiratory Rate 16 breaths per minute Temperature 97.3 deg. F Temperature 96.6 deg. F
--- OUTSIDE RECORDS SUMMARY | 2024-09-10 09:46 | XMS_ITS | Clinical Summary ---
Author Organization [facility] Address [address] [place] [address] Phone Care Team Providers Care Spray Machine Loader Name Role Phone Rahul Chan MD Primary Care Provider [phone] Allergies Active Allergy Reactions Criticality Noted Date Comments Cephalexin 03/27/2021 Cranberry 03/27/2021 Furosemide 03/27/2021 Morphine 2024 Nitroglycerin Nausea And Vomiting 03/27/2021 Penicillins 03/27/2021 Other Reaction(s): Hives/Urticaria Medications carvediloL (COREG) 25 mg tablet TAKE 1 TABLET BY MOUTH TWICE DAILY WITH MEALS 180 tablet 4 Active apixaban (Eliquis) 5 mg tablet TAKE 1 TABLET BY MOUTH TWICE DAILY 180 tablet 4 Active acetaminophen (TYLENOL) 500 mg tablet Take 2 Tablets by mouth 4 times daily as needed. Active betamethasone dipropionate (DIPROSONE) 0.05 % ointment Apply topically 2 times daily. Active MULTIVITAMIN ORAL Take 1 tablet by mouth 1 (one) time each day. Active sevelamer (RENAGEL) 800 mg tablet Take 1 Tablet by mouth 3 times daily (with meals). Active ondansetron (ZOFRAN) 4 mg tablet Take 2 tablets (8 mg total) by mouth 2 (two) times a day. Active insulin glargine,hum.rec. anlog (LANTUS U-100 INSULIN SUBQ) Inject into the skin daily. Active UNABLE TO FIND Insulin Aspart (NOVOLOG SC), Inject 10 Units into the skin 3 times daily. Active bumetanide (BUMEX) 2 mg tablet Take 0.5 Tablets by mouth 2 times daily. Active albuterol sulfate (ProAir RespiClick) 90 mcg/actuation aerosol powdr breath activated Inhale 2 Puffs into the lungs 4 times daily as needed for Wheezing. Active aspirin 81 mg EC tablet Take 1 tablet (81 mg total) by mouth 1 (one) time each day. Active atorvastatin (LIPITOR) 80 mg tablet Take 1 tablet (80 mg total) by mouth at bedtime. Active calcitrioL (ROCALTROL) 0.25 mcg capsule Take 1 Capsule by mouth. Friday, Friday, Friday Active UNABLE TO FIND Take 1 tablet by mouth 2 (two) times a day. calcium citrate-vitami n D (CITRACAL+D) 315-200 MG-UNIT per table Active gabapentin (NEURONTIN) 300 mg capsule Take 1 capsule (300 mg total) by mouth 2 (two) times a day. Active IPRATROPIUM BROMIDE INHL Inhale 2.5 mL into the lungs. Active pantoprazole (PROTONIX) 40 mg EC tablet Take 1 tablet (40 mg total) by mouth 1 (one) time each day. Active amLODIPine (NORVASC) 10 mg tablet Take 1 tablet (10 mg total) by mouth 1 (one) time each day. 30 each 4 Active hydrALAZINE (APRESOLINE) 25 mg tablet TAKE 3 TABLETS BY MOUTH 2 TIMES DAILY 540 tablet 1 5 Active Active Problems Problem Noted Date Diagnosed Date RSV infection 08/30/2024 Chest pain 08/30/2024 Cardiomyopathy 06/25/2023 CAD (coronary artery disease) 06/17/2023 Chronic stable angina 06/17/2023 ESRD (end stage renal disease) on dialysis 01/22 CHF (congestive heart failure) 12/27/2021 Overview (05/20/2024): Pef 55-60% Moderate pulmonary arterial systolic hypertensio n 12/27/2021 Orthostatic hypotension 12/27/2021 Diabetes type 1, controlled 03/27/2021 Elevated troponin 03/27/2021 Hyperlipidemia 03/27/2021 Hypertension 03/27/2021 NSTEMI (non-ST elevated myocardial infarction) 1 Paroxysmal atrial fibrillation 03/27/2021 Overview (05/20/2024): [id number] ASHD (arteriosclerotic heart disease) 05/09/2019 Overview (05/20/2024): CABG X3 Resolved Problems Problem Noted Date Diagnosed Date Resolved Date Chest pain 06/17/2023 06/03/2024 Surgical History Surgery Date Site/Laterality Comments OTHER SURGICAL HISTORY 02/06/2021 PROCEDURE: HISTORY OTHER; COMMENT: Radioisotope myocardial perfusion stress study OTHER SURGICAL HISTORY 11/19/2020 PROCEDURE: HISTORY OTHER; COMMENT: MRI of cervical spine OTHER SURGICAL HISTORY 10/14/2020 PROCEDURE: HISTORY OTHER; COMMENT: MRI of cervical spine -S/P discectomy. no further disc herniation. underlying disc osteophyte somplex rstuls in moderate stenosis. small focus chronic myomalacia at C4-5, multilevel neuroforaminal narrowing C7-T1 OTHER SURGICAL HISTORY 2020 PROCEDURE: HISTORY OTHER; COMMENT: Chest X-ray no pneumonia OTHER SURGICAL HISTORY 06/01/2020 PROCEDURE: HISTORY OTHER; COMMENT: Chest X-ray left pneumonia OTHER SURGICAL HISTORY 05/29/2020 PROCEDURE: HISTORY OTHER; COMMENT: Chest X-ray nad OTHER SURGICAL HISTORY PROCEDURE: OK ECHO TRANSTHORAC R-T 2D W/WO M-MODE REC COMP; COMMENT: Echocardiogram EF 60-65% CORONARY ARTERY BYPASS GRAFT 05/10/2019 PROCEDURE: HISTORICAL CABG; COMMENT: CABG X3 -Garcia lad OTHER SURGICAL HISTORY 04/17/2019 PROCEDURE: HISTORY OTHER; COMMENT: Chest X-ray nad OTHER SURGICAL HISTORY 04/17/2019 PROCEDURE: HISTORY OTHER; COMMENT: CT of abdomen and pelvis abnormal refer report CARDIAC CATHETERIZATION 01/29/2019 PROCEDURE: HISTORICAL CARDIAC CATH OTHER SURGICAL HISTORY 11/19/2018 PROCEDURE: HISTORY OTHER; COMMENT: Chest X-ray OTHER SURGICAL HISTORY 11/19/2018 PROCEDURE: OUTSIDE EKG ANGIOPLASTY 10/13/2018 PROCEDURE: HISTORICAL ANGIOPLASTY; COMMENT: EVAN placed to D1 ANGIOPLASTY 10/09/2018 PROCEDURE: HISTORICAL ANGIOPLASTY; COMMENT: Angioplasty with EVAN to left circ OTHER SURGICAL HISTORY 10/06/2018 PROCEDURE: OK ECHO TRANSTHORAC R-T 2D W/WO M-MODE REC COMP OTHER SURGICAL HISTORY 09/24/2018 PROCEDURE: HISTORY OTHER; COMMENT: CT angiography of thorax OTHER SURGICAL HISTORY 08/23/2018 PROCEDURE: OUTSIDE EKG OTHER SURGICAL HISTORY 08/13/2018 PROCEDURE: OUTSIDE EKG OTHER SURGICAL HISTORY 08/07/2018 PROCEDURE: RADIOLOGIC EXAM CHEST SINGLE VIEW OTHER SURGICAL HISTORY 08/07/2018 PROCEDURE: CAT SCAN OF HEAD/BRAIN NO CONTRAST CARDIOVASCULAR STRESS TEST 06/24/2018 PROCEDURE: OK CV STRS TST XERS&/OR RX CONT ECG W/O I&R OTHER SURGICAL HISTORY 05/08/2018 PROCEDURE: BINA DOCUMENTED; COMMENT: BINA - Arterial pressure index OTHER SURGICAL HISTORY 12/17/2017 PROCEDURE: OK ECHO TRANSTHORAC R-T 2D W/WO M-MODE REC COMP OTHER SURGICAL HISTORY 11/09/2017 PROCEDURE: OUTSIDE CT; COMMENT: CT of abdomen and pelvis CARDIAC CATHETERIZATION 07/18/2017 PROCEDURE: HISTORICAL CARDIAC CATH OTHER SURGICAL HISTORY 06/19/2017 PROCEDURE: CAT SCAN OF CHEST NO CONTRAST OTHER SURGICAL HISTORY 03/06/2017 PROCEDURE: OK DOPPLER ECHOCARD PULSE WAVE W/SPECTRAL DISPLAY; COMMENT: of renal artery OTHER SURGICAL HISTORY 08/27/2016 PROCEDURE: OK INCISION & DRAINAGE ABSCESS SIMPLE/SINGLE; COMMENT: left dorsal foot OTHER SURGICAL HISTORY 12/31/2015 PROCEDURE: OUTSIDE CT; COMMENT: CT of lower leg OTHER SURGICAL HISTORY 05/24/2015 PROCEDURE: HISTORY OTHER; COMMENT: Ultrasound scan of upper arm: OTHER SURGICAL HISTORY 11/21/2014 PROCEDURE: CONTRAST CAT SCAN OF LEG OTHER SURGICAL HISTORY 08/26/2014 PROCEDURE: OK AMPUTATION FOOT TRANSMETARSAL; COMMENT: R2, R3 Transmetatarsal amputation COLONOSCOPY 10/01/2013 PROCEDURE: HISTORICAL COLONOSCOPY OTHER SURGICAL HISTORY 05/31/2013 PROCEDURE: OUTSIDE EMG; COMMENT: EMG finding OTHER SURGICAL HISTORY 10/01/2011 PROCEDURE: HISTORY OTHER; COMMENT: X-ray of cervical spine OTHER SURGICAL HISTORY 04/05/2010 PROCEDURE: HISTORY OTHER; COMMENT: Ultrasound scan of carotid OTHER SURGICAL HISTORY 02/18/2010 PROCEDURE: CONTRAST MRI OF BRAIN OTHER SURGICAL HISTORY 06/20/2009 PROCEDURE: UPPER GI ENDOSCOPY, REMOVE LESION OTHER SURGICAL HISTORY PROCEDURE: BU SKIN PUNCH BIOPSY CARDIAC CATHETERIZATION 02/16/2021 PROCEDURE: HISTORICAL CARDIAC CATH Medical History Medical History Date Comments Allergic rhinitis DX:Allergic rh initis Amputation of right lower ex tremity below knee DX: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) Anemia due to stage 3 chroni c kidney disease DX:Anemia due to stage 3 chr onic kidney disease (HCC) Asthma, mild intermittent DX:Ast hma, mild intermittent Atherosclerosis DX:Atheroscleros is Bullous pemphigoid DX:Bullous pe mphigoid; COMMENT: gx forearm Bullous pemphigus ([facility]/HCC) DX:B ullous pemphigus CHF (congestive heart failure) ([facility]/HCC) DX:CHF (congestive heart failure) ([facility]); COMMENT: Pef 55-60% Chronic cervical pain DX:Chronic cervical pain ESRD (end stage renal disease) ([facility]/HCC) DX:ESRD (end stage renal disease) (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) Obesity (BMI 30-39.9) DX:Obesity (BMI 30-39.9) Orthostatic hypotension DX:Ortho static hypotension Peripheral vascular disease ([facility]/HCC) 2016 DX:Peripheral vascular disease ([facility]); COMMENT: RT BKA 2014 left lie bypass 2016 Pulmonary nodule DX:Pulmonary no dule Venous embolism DX:Venous emboli sm Chest pain DX:Chest pain Covid-19 DX:COVID-19 Diabetes type 1, controlled ([facility]) DX:Diabetes type 1, controlled ([facility]) Acute chest pain DX:Acute chest pain Chronic kidney disease (CKD) , stage V (CMS/HCC) DX:Chronic kidney disease (C KD), stage V ([facility]) Foot pain, right DX:Foot pain, r ight Hyperglycemia due to diabete s mellitus (CMS/HCC) DX:Hyperglycemia due to diab etes mellitus ([facility]) Soft tissue infection of foot DX :Soft tissue infection of foot Stage 4 chronic kidney disease (CMS/HCC) DX:Stage 4 chronic kidney disease (HCC) Ischemic cardiomyopathy Paroxysmal A-fib ([facility]) Hypertension Family History Medical History Relation Name Comments Coronary artery disease Father Diabetes Father mellitus type 2 Coronary artery disease Maternal Grandmother Hyperlipidemia Maternal Grandmother Hypertension Maternal Grandmother Osteoporosis Mother Other: Epilepsy Mother Diabetes Paternal Grandfather mellitu s type 1 Diabetes Paternal Grandmother Type II Hypertension Paternal Grandmother Relation Name Status Comments Father Other Maternal Grandmother Mother Paternal Grandfather Paternal Grandmother Social History Tobacco Use Types Packs/Day Years Used Date Smoking Tobacco: Never Smokeless Tobacco: Never Alcohol Use Standard Drinks/Week Comments Not Currently 0 (1 standard drink = 0.6 oz pur e alcohol) Housing Instability Answer Date Recorde d Are you worried that in the next 2 months you may not have stable housing? No 2024 Food Access & Nutrition Answer Date Rec orded Do you have access to a vari ety of food including fruits and vegetables? Yes 2024 Access to Healthcare Answer Date Record ed Within the last 3 months, ho w many times did you visit the emergency department for your medical care? 2 2024 Health Literacy Answer Date Recorded How often do you need to hav e someone help you when you read instructions, pamphlets, or other written material from your doctor or pharmacy? Never 2024 Caregiver: How often do you need to have someone help you when you read instructions, pamphlets, or other written material from your doctor or pharmacy? Not on file 2024 Financial Risk Answer Date Recorded How hard is it for you to pa y for the very basics like food, housing, medical care, and air conditioning / heating? Not very hard 2024 Transportation Answer Date Recorded Has the lack of transportati on kept you from meetings, work, or from getting things needed for daily living? No Has the lack of transportati on kept you from medical appointments or from getting medications? No 2024 Social Isolation Answer Date Recorded How often do you feel lonely or isolated from th ose around you? Never 2024 Food Risk Answer Date Recorded Within the past 12 months we worried whether our food would run out before we got money to buy more. Never true 2024 Within the past 12 months th e food we bought just didn't last and we didn't have money to get more. Never true 2024 Dependent Care Answer Date Recorded Do you need help finding or paying for care for your loved ones. For example, childcare worker or elderly care for an older adult? No 2024 Education Answer Date Recorded Do you think completing more education or training, like finishing a GED, going to college, or learning a trade, would be helpful for you? No 2024 Employment and Income Answer Date Recor ded During the last four weeks, have you been actively looking for work? No 2024 Living Situation Answer Date Recorded What is your living situation? 1 08/03/2023 Interpersonal Safety Answer Date Record ed Physical Abuse 2024 Verbal Abuse 2024 Sex and Gender Information Value Date Recorded Sex Assigned at Male 2024 4:22 AM EST Legal Sex Male 12:47 PM EST Gender Identity Male 2024 4:22 AM EST Sexual Orientation Straight 2024 1: 27 PM EST Obstetrics History Last Filed Vital Signs Vital Sign Reading Time Taken Comments Blood Pressure 125/63 06/03/2024 3:45 PM EST Pulse 81 06/03/2024 3:45 PM EST Temperature 36.8 ??C (98.2 ??F) 06/03/2024 3:45 PM ES T Respiratory Rate 16 06/03/2024 3:45 PM EST Oxygen Saturation 97% 06/03/2024 3:45 PM EST Inhaled Oxygen Concentration - - Weight 94 kg (207 lb 3.7 oz) 2024 2:44 AM EST Height 188 cm (6' 2 ) 2024 2:44 AM EST Body Mass Index 26.61 2024 2:44 AM EST Plan of Treatment Health Maintenance Due Date Last Done Comments Diabetes: Annual Foot Exam 1978 Diabetes: Annual Retina Eye Exam 1978 DTaP,Tdap,and Td Vaccines (1 - Tdap) 1987 08/24/2024 Zoster Vaccines (1 of 2) 2018 COVID-19 Vaccine (2 - Henok risk series) 11/06/2020 10/09/2020 Cholesterol Screening (Lipid Panel) 05/18/2022 Colorectal Cancer Screening: Colonoscopy 05/18/2022 Depression Screening 05/18/2022 HIV Screening 05/18/2022 Hepatitis C Screening 05/18/2022 Medicare Annual Wellness Visit 05/18/2022 Diabetes: Annual Urine Albumin-Creatinine Ratio (uACR) 05/25/2022 Diabetes: Blood Sugar Control Test (HGBA1C) 05/25/2022 Social Influencers of Health Screening 2025 2024 Diabetes: Annual GFR (Glomerular Filtration Rate) 06/03/2025 06/03/2024, 2024 Hypertension/CHF/CAD Annual BMP Blood Test 06/03/2025 06/03/2024, 2024 Pneumococcal Vaccine: 50+ Years (3 of 3 - PCV20 or PCV21) 06/25/2026 06/25/2021, 04/29/2021, 06/09/2014, Additional history exists Pneumococcal Vaccine: Pediatrics (0 to 5 Years) and At-Risk Patients (6 to 64 Years) (3 of 3 - PCV20 or PCV21) 06/25/2026 06/25/2021, 04/29/2021, 06/09/2014, Additional history exists Hepatitis B Vaccines Completed 08/24/2021, 05/23/2021, 04/25/2021, Additional history exists Influenza Vaccine Completed 03/26/2024, , 03/22/2022, Additional history exists HIB Vaccines Aged Out No longer eligi ble based on patient's age to complete this topic HPV Vaccines Aged Out No longer eligi ble based on patient's age to complete this topic Hepatitis A Vaccines Aged Out No long er eligible based on patient's age to complete this topic IPV Vaccines Aged Out No longer eligi ble based on patient's age to complete this topic MMR Vaccines Aged Out No longer eligi ble based on patient's age to complete this topic Meningococcal ACWY Vaccine Aged Out N o longer eligible based on patient's age to complete this topic Meningococcal B Vacine Aged Out No lo nger eligible based on patient's age to complete this topic RSV Immunization Patients Under 20 months Aged Out No longer eligible based on patient's age to complete this topic Varicella Vaccines Aged Out No longer eligible based on patient's age to complete this topic Procedures Procedure Name Priority Date/Time Associated Diagnosis Comments COMPREHENSIVE METABOLIC PANEL Routine 06/03/2024 6:13 AM EST from Last 3 Months or Most Recently Relevant to Health Maintenance Results * (ABNORMAL) Comprehensive metabolic panel (06/03/2024 6:13 AM EST) Sodium 130(L) 133 - 145 mmol/L LAB CHEMISTRY METHOD 06/03/2024 7:53 AM [facility] Potassium 4.8 3.5 - 5.5 mmol/L LAB CHEMISTRY METHOD 06/03/2024 7:53 AM [facility] Chloride 92(L) 96 - 110 mmol/L LAB CHEMISTRY METHOD 06/03/2024 7:53 AM [facility] CO2 26 21 - 32 mmol/L LAB CHEMISTRY METHOD 06/03/2024 7:53 AM [facility] Anion Gap 12(H) 3 - 11 LAB CHEMISTRY METHOD 06/03/2024 7:53 AM [facility] Glucose 71 70 - 100 mg/dL LAB CHEMISTRY METHOD 06/03/2024 7:53 AM [facility] BUN 58(H) 5 - 25 mg/dL LAB CHEMISTRY METHOD 06/03/2024 7:53 AM [facility] Creatinine 6.37(H) 0.70 - 1.30 mg/dL LAB CHEMISTRY METHOD 06/03/2024 7:53 AM [facility] eGFR 10(L) >=60 mL/min/1. 73m2 LAB CHEMISTRY METHOD 06/03/2024 7:53 AM [facility] Comment:Calculation based on the??Chronic Kidney Disease Epidemiology Collaboration (CKD-EPI) equation refit??without adjustment for race. BUN/Creatinine Ratio 9.1 LAB CHEMISTRY METHOD 06/03/2024 7:53 AM [facility] Calcium 8.9 8.5 - 10.5 mg/dL LAB CHEMISTRY METHOD 06/03/2024 7:53 AM [facility] AST (SGOT) 20 10 - 42 unit/L LAB CHEMISTRY METHOD 06/03/2024 7:53 AM [facility] ALT (SGPT) 28 10 - 60 unit/L LAB CHEMISTRY METHOD 06/03/2024 7:[address] [facility] Alkaline Phosphatase 143(H) 42 - 121 unit/L LAB CHEMISTRY METHOD 06/03/2024 7:53 AM [facility] Total Protein 6.4 6.0 - 8.0 g/dL LAB CHEMISTRY METHOD 06/03/2024 7:[address] [facility] Albumin 3.7 3.2 - 5.0 g/dL LAB CHEMISTRY METHOD 06/03/2024 7:53 AM [facility] Total Bilirubin 0.9 0.0 - 1.4 mg/dL LAB CHEMISTRY METHOD 06/03/2024 7:53 AM [facility] Blood Venous blood specimen / Unknown Venipuncture / Unknown 06/03/2024 6:13 AM EST 06/03/2024 6:57 AM EST us Sakshi Pompa MD LAB BLOOD ORDERABLES Final Res ult [facility] [address] [place] [address], from Last 3 Months or Most Recently Relevant to Health Maintenance Insurance [facility] MEDIC[facility] Member Subscriber Plan / Payer (Ef fective 2018-Present) Name:Castro Tate Relation to Subscriber:Self Name:Castro Tate Payer ID:[id number] Group ID:[id number] Type:Not on file Address: [facility] [address] [id number] Advance Directives Documents on File Type Date Recorded Patient Equal Opportunity Specialist Expl anation Health Care Decision (hx) 08/25/2020 AD OLIVEIRA DIRECTIVE Health Care Decision (hx) 08/25/2020 AD OLIVEIRA DIRECTIVE Health Care Decision (hx) 08/25/2020 AD OLIVEIRA DIRECTIVE Health Care Decision (hx) 08/25/2020 AD OLIVEIRA DIRECTIVE Health Care Decision (hx) 08/25/2020 AD OLIVEIRA DIRECTIVE Health Care Decision (hx) 08/25/2020 AD OLIVEIRA DIRECTIVE Health Care Decision (hx) 08/25/2020 AD OLIVEIRA DIRECTIVE Health Care Decision (hx) 08/25/2020 AD OLIVEIRA DIRECTIVE Health Care Decision (hx) 08/25/2020 AD OLIVEIRA DIRECTIVE Health Care Decision (hx) 08/25/2020 AD OLIVEIRA DIRECTIVE Health Care Decision (hx) 08/25/2020 AD OLIVEIRA DIRECTIVE * Full Code - Confirmed (Latest Code Status on File) Date Activated Date Inactivated Comments 2024 2:12 PM 06/03/2024 7:03 PM This code status was ascertained in the following way: Code status discussion: discussion with patient To update the patient's code status, place a code status order. Do not modify or discontinue any currently active code status orders. * Full Code - Default Date Activated Date Inactivated Comments 2024 12:13 PM 2024 2:12 PM This is o rder is used when code status has not been discussed with the patient, or code status is otherwise unknown/unconfirmed To update the patient's code status, place a code status order. Do not modify or discontinue any currently active code status orders. Healthcare Agents on File Name Relationship Healthcare Agent [facility] Communication Jo Tate Spouse Health Care Agent Care Teams Spray Machine Loader Relationship Specialty Start Date End Date Rahul Chan MD [address] [place] [address] [address] [place], [place] PCP - General Internal Medicine 05/16/21
--- OUTSIDE RECORDS SUMMARY | 2024-09-10 09:46 | XMS_ITS | Continuity of Care Document ---
Author Organization [facility] ter Address [address] [place] [address]- Support Name Relationship Address Phone JOLEEN CHANDRA Personal Relationship Unknown Candy vailable CHANDRA, JOLEEN Personal Relationship Unknown Candy vailable CHANDRA, JOLEEN Personal Relationship Unknown Candy vailable CHANDRA, DIANA Personal Relationship Unknown Candy vailable CHANDRA, DIANA Personal Relationship Unknown Candy vailable CHANDRA, DIANA Personal Relationship Unknown Candy vailable CHANDRA, DIANA Personal Relationship Unknown Candy vailable CHANDRA, DIANA Personal Relationship Unknown Candy vailable CHANDRA, DIANA Personal Relationship Unknown Candy vailable CHANDRA, DIANA Personal Relationship Unknown Candy vailable CHANDRA, DIANA Personal Relationship Unknown Candy vailable CHANDRA, DIANA Personal Relationship Unknown Candy vailable CHANDRA, DIANA Personal Relationship Unknown Candy vailable CHANDRA, DIANA spouse Unknown Unavailable CHANDRA, DIANA Personal Relationship Unknown Candy vailable CHANDRA, DIANA spouse Unknown Unavailable CHANDRA, DIANA Personal Relationship Unknown Candy vailable CHANDRA, DIANA Personal Relationship Unknown Candy vailable CHANDRA, DIANA Personal Relationship Unknown Candy vailable CHANDRA, JOLEEN Personal Relationship Unknown Candy vailable CHANDRA, DIANA Personal Relationship Unknown Candy vailable CHANDRA, DIANA Personal Relationship Unknown Candy vailable CHANDRA, JOLEEN Personal Relationship Unknown Candy vailable CHANDRA, DIANA Personal Relationship Unknown Candy vailable CHANDRA, DIANA Personal Relationship Unknown Candy vailable CHANDRA, DIANA Personal Relationship Unknown Candy vailable CHANDRA, DIANA Personal Relationship Unknown Candy vailable Care Team Providers Care Banquet Waiter/Waitress Name Role Phone Simona SAWYER, Shun Post Primary Care Physician [phone] Encounter 09/07/24 - 09/08/[address] [id number] Attending Physician: Not on Staff, Attending MD Referring Physician: Not on Staff, Referring MD Encounter Type: SMRI Allergies, Adverse Reactions, Alerts Substance Criticality Severity Reaction Reaction Severity Status furosemide High criticality Severe BP - Bullou s pemphigoid Active morphine rash/vomiting Active Keflex 1 High criticality Severe bleeding bl isters in mouth Active penicillin 2 High criticality Moderate trouble glo athing Hives Active nitroglycerin Unable to assess criticality Unknown Acute vomiting Active cranberry High criticality Moderate SOB; rash Act margy 1Has previously tolerated cefepime and ceftriaxone 2Has previously tolerated cefepime and ceftriaxone Immunizations Given and Recorded Vaccine Date Status Refusal Reason tetanus/diphtheria/pertussis, acel(Tdap) 08/24/24 Given influenza virus vaccine, inactivated 03/26/24 Nadeem rded influenza virus vaccine, inactivated 03/22/22 Nadeem rded influenza virus vaccine, inactivated 1 04/02/20 Gi lori influenza virus vaccine, inactivated 03/27/19 Give n influenza virus vaccine, inactivated 03/24/17 Nadeem rded influenza virus vaccine, inactivated 04/04/16 Give n influenza virus vaccine, inactivated 05/08/15 Give n influenza virus vaccine, inactivated 04/05/10 Give n influenza virus vaccine, inactivated 2 06/10/06 Gi lori SARS-CoV-2 (COVID-19) Ad26 vaccine 10/09/20 Record ed pneumococcal 23-valent vaccine 3 06/09/14 Given Pneumococcal Vacc (oldterm) 4 11/28/05 Given 1Early/Late Reason: Other : seen medication not given so will give now 2Result Comment: lot nbr [id number] exp 06/11/2006 3Early/Late Reason: Wan to Standard Admin Times 4Admin Note: pt states he got the pneumovax in about 2005 [facility] Medications albuterol CFC free 90 mcg/inh inhalation aerosol 2, puffs, Inhalation, Every 6 hours, PRN, Maintenance, 11/01/22 3:24:00 PM EDT Start Date: 11/01/22 Status: Ordered Repeat number: 1 apixaban 5 mg oral tablet 1 tablet = 5 mg, By Mouth, 2 times a day, 0 Refills, Maintenance, 04/29/22 9:55:00 AM EST, Tablet Start Date: 04/29/22 Status: Ordered Repeat number: 1 aspirin 81 mg oral delayed release tablet 1 tablet = 81 mg, By Mouth, Daily, # 30 tablet, 0 Refills, Maintenance, 05/31/19 12:51:00 PM EST, EC Tablet, [facility] #[id number], 188, cm, 05/31/19 11:25:00 EST, Height, 124.1, kg, 05/22/19 23:24:00 EST, Dry Weight Start Date: 05/31/19 Stop Date: 06/30/19 Status: Ordered Quantity: 30.0 Unit: tablet Repeat number: 1 atorvastatin 80 mg oral tablet 1 tablet, By Mouth, Daily at bedtime, # 30 tablet, 5 Refills, 10/22/21 10:51:00 AM EDT, [facility] #[id number], 190, cm, 07/16/21 14:44:00 EST, Height, 98, kg, 09/24/21 12:44:00 EDT, Dry Weight Start Date: 10/22/21 Status: Ordered Quantity: 30.0 Unit: tablet Repeat number: 6 betamethasone topical dipropionate 0.05% ointment Apply, Topically, Daily, small amount to affected area as directed Start Date: 04/16/23 Status: Ordered Repeat number: 1 bumetanide 2 mg oral tablet 0.5 tablet = 1 mg, By Mouth, 2 times a day, # 60 tablet, 11 Refills, Maintenance, 05/15/22 1:40:00 PM EST, Tablet, [facility] #[id number], Partial fill upon patient request if the prescription isfor a schedule II opioid drug., 187.96, cm, 05/15/22 13:26:00 EST, Height, 98, kg, 11/16/21 21:43:00 EDT, Dry Weight Start Date: 05/15/22 Status: Ordered Quantity: 60.0 Unit: tablet Repeat number: 12 calcitriol 0.25 mcg oral capsule 1 capsule = 0.25 mcg, By Mouth, Every Friday, Friday and Friday, # 13 capsule, 0 Refills, Maintenance, 07/20/22 10:24:00 AM EST, Capsule, [facility] 3, Partial fill upon patient requestif the prescription is for a schedule II opioid drug., 187.96, cm, 07/17/22 10:58:00 EST, Height, 98, kg, 11/16/21 21:43:00 EDT, Dry Weight Start Date: 07/20/22 Status: Ordered Quantity: 13.0 Unit: capsule Repeat number: 1 carvedilol 25 mg oral tablet 25 mg, 1, tablet, By Mouth, 2 times a day, # 180 tablet, Refills 0, Maintenance, 01/28/24 10:24:00 AM EDT, Partial fill upon patient request if the prescription is for a schedule II opioid drug. Start Date: 01/28/24 Status: Ordered Quantity: 180.0 Unit: tablet Repeat number: 1 Centrum Adults 1 tablet, By Mouth, Daily, 0 Refills, Maintenance, 04/29/22 9:59:00 AM EST Start Date: 04/29/22 Status: Ordered Repeat number: 1 gabapentin 300 mg oral capsule 300 mg, 1, capsule, By Mouth, 3 times a day, Refills 0, Maintenance, 09/06/23 2:59:00 AM EDT, Partial fill upon patient request if the prescription is for a schedule II opioid drug. Start Date: 09/06/23 Status: Ordered Repeat number: 1 hydrALAZINE 25 mg oral tablet 75 mg, By Mouth, 2 times a day, # 180 tablet, Refills 0, Tot. Refills 0, Maintenance, 09/11/23 10:02:00 AM EDT, Route to Pharmacy Electronically, [facility] #[id number], Partial fill upon patient request if the prescription is for a schedule II opioid drug., 188, cm, 09/11/23 4:26:00 EDT, Height, 99, kg, 09/06/23 12:31:00 EDT, Dry Weight Start Date: 09/11/23 Stop Date: 10/11/23 Status: Ordered Quantity: 180.0 Unit: tablet Repeat number: 1 HYDROmorphone 4 mg oral tablet 0.5 tablet = 2 mg, By Mouth, Every 4 hours, PRN as needed for pain, for 7 days, # 21 tablet, 0 Refills, Acute 09/10/24 3:41:00 PM EDT, 09/03/24 3:41:00 PM EDT, Tablet, [facility] 3, Partial fill upon patient request if the prescription is for a schedule II opioid drug., 187, cm, 09/03/24 14:11:00 EDT, Height, 100.4, kg, 09/01/24 19:29:00 EDT, Dry Weight Start Date: 09/03/24 Stop Date: 09/10/24 Status: Ordered Quantity: 21.0 Unit: tablet Repeat number: 1 Lantus Inj 0.08 mL = 8 units, Subcutaneous Injection, 2 times a day, 0 Refills, Maintenance, 09/03/24 3:25:00 PM EDT, Injection, Partial fill upon patient request if the prescription is for a schedule II opioid drug. Start Date: 09/03/24 Status: Ordered Repeat number: 1 NovoLOG FlexPen 100 units/mL injectable solution = 10 units, Subcutaneous Injection, 3 times a day before meals, # 10 mL, 0 Refills, Maintenance, 09/03/24 3:38:00 PM EDT, Partial fill upon patient request if the prescription is for a schedule II opioid drug. Start Date: 09/03/24 Status: Ordered Quantity: 10.0 Unit: mL Repeat number: 1 One Touch Delica Lancets See Instructions, # 100 each, Refills 11, Tot. Refills 11, Maintenance, 1 box = 100 lancets dm 2 e11.9 check blood sugar twice a day, 11/02/21 3:43:00 PM EDT, Supply, 190, cm, 07/16/21 14:44:00 EST, Height, 98, kg, 09/24/21 12:44:00 EDT, Dry Weight Start Date: 11/02/21 Status: Ordered Quantity: 100.0 Unit: each Repeat number: 12 One Touch Ultra 2 Glucose Meter See Instructions, # 1 each, Maintenance, E11.9 dm 2 check blood sugar twice a day, 11/02/21 3:43:00 PM EDT, Supply, 190, cm, 07/16/21 14:44:00 EST, Height, 98, kg, 09/24/21 12:44:00 EDT, Dry Weight Start Date: 11/02/21 Status: Ordered Quantity: 1.0 Unit: each Repeat number: 1 One Touch Ultra Test Strips See Instructions, # 100 each, Refills 11, Tot. Refills 11, Maintenance, check blood sugar twice a day e11.9 DM 2, 11/02/21 3:43:00 PM EDT, Supply, 190, cm, 07/16/21 14:44:00 EST, Height, 98, kg, 09/24/21 12:44:00 EDT, Dry Weight Start Date: 11/02/21 Status: Ordered Quantity: 100.0 Unit: each Repeat number: 12 OneTouch Verio Glucose Meter See Instructions, # 1 each, Refills 0, Tot. Refills 0, Maintenance, E11.9 PARI- lifetime to test BS TID, 07/03/21 1:56:00 PM EST, Supply, 190, cm, 04/06/21 6:30:00 EDT, Height, 91, kg, 04/06/21 6:30:00EDT, Dry Weight Start Date: 07/03/21 Status: Ordered Quantity: 1.0 Unit: each Repeat number: 1 OneTouch Verio Test Strips See Instructions, # 100 each, Refills 3, Tot. Refills 3, Maintenance, E11.9 to test BS TID PARI- lifetime, 07/03/21 1:56:00 PM EST, Supply, 190, cm, 04/06/21 6:30:00 EDT, Height, 91, kg, 04/06/21 6:30:00 EDT, Dry Weight Start Date: 07/03/21 Status: Ordered Quantity: 100.0 Unit: each Repeat number: 4 pantoprazole 40 mg oral delayed release tablet 1 tablet, By Mouth, Daily, # 90 tablet, 3 Refills, Maintenance, 01/23/24 3:52:00 PM EDT, 188, cm, 10/09/23 9:19:00 EDT, Height, 99, kg, 10/09/23 9:19:00 EDT, Dry Weight Start Date: 01/23/24 Status: Ordered Quantity: 90.0 Unit: tablet Repeat number: 1 Pen [place], 31 G x 5 mm BD Ultra Fine III See Instructions, # 100 each, Refills 0, Tot. Refills 0, Maintenance, use as directed for Type 2 Diabetes Mellitus E11.9 PARI-lifetime, 07/02/21 9:01:00 PM EST, Supply, 190, cm, 04/06/21 6:30:00 EDT, Height, 91, kg, 04/06/21 6:30:00 EDT, Dry Weight Start Date: 07/02/21 Stop Date: 08/01/21 Status: Ordered Quantity: 100.0 Unit: each Repeat number: 1 seat cushion for new wheelchair seat cushion for new wheelchair, See Instructions, # 1 each, Refills 0, Tot. Refills 0, Maintenance, [facility] fax number [phone] DX:[id number] LIFETIME NEED WEIGHT- 242LBS HEIGHT - 6'2, 05/19/20 9:07:00 AM EST, Supply Start Date: 05/19/20 Status: Ordered Quantity: 1.0 Unit: each Repeat number: 1 sevelamer carbonate 800 mg oral tablet = 800 mg, By Mouth, 3 times a day with meals, # 90 tablet, 0 Refills, Maintenance, 09/03/24 3:34:00 PM EDT, Tablet, [facility] 3, Partial fill upon patient request if the prescription is for a schedule II opioid drug., 187, cm, 09/03/24 14:11:00 EDT, Height, 100.4, kg, 09/01/24 19:29:00 EDT, Dry Weight Start Date: 09/03/24 Status: Ordered Quantity: 90.0 Unit: tablet Repeat number: 1 shower chair with a back shower chair with a back, See Instructions, # 1 each, Refills 0, Tot. Refills 0, Maintenance, [facility] fax number [phone] DX:[id number] LIFETIME NEED WEIGHT- 242LBS HEIGHT - 6'2, 05/19/20 9:07:00 AM EST,Supply Start Date: 05/19/20 Status: Ordered Quantity: 1.0 Unit: each Repeat number: 1 Tylenol Extra Strength 500 mg oral tablet 2 tablet = 1,000 mg, By Mouth, 4 times a day, PRN Pain , Severe, scheduled, Maintenance, 11/01/22 3:13:00 PM EDT Start Date: 11/01/22 Status: Ordered Repeat number: 1 Zofran ODT 4 mg oral tablet, disintegrating = 8 mg, By Mouth, 2 times a day, PRN Nausea & Vomiting, 0 Refills, Maintenance, 04/29/22 9:57:00 AM EST Start Date: 04/29/22 Status: Ordered Repeat number: 1 Problem List Condition Confirmation Course Effective Dates Status H ealth Status Informant Allergic rhinitis Confirmed Active Atherosclerosis Confirmed Active Obesity (BMI 30-39.9) Confirmed Active Bullous pemphigoid gx foreram Confirmed 02/22/20 Active Chest pain Confirmed Active Chronic cervical pain Confirmed Active CHF (congestive heart failure) Pef 55-60% Confirmed Active ASHD CABG X3 MAY 2019 1 Confirmed Active CAD (coronary artery disease) cabg x3 may 2019 Confirmed Active ESRD (end stage renal disease) 2, 3 Confirmed Active Fistula Confirmed Active GERD (gastroesophageal reflux disease) Confirmed Active Hernia, hiatal Confirmed Active Amputation of right lower extremity below knee Confirmed Active Hx of CABG x 3;2018 Confirmed 05/11/19 Active History of IA (myocardial infarction) Confirmed Active Hyperlipidemia Confirmed Active HTN (hypertension) Confirmed Active retirement systemic steroid user pemphigus Confirmed 08/09/20 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 Active Pulmonary nodule Confirmed Active Asthma, mild intermittent Confirmed Active NSTEMI (non-ST elevated myocardial infarction) Confirmed Active Orthostatic hypotension Confirmed Active Paroxysmal A-fib [id number] 4 Confirmed Active Bullous pemphigus Confirmed Active Peripheral vascular disease RT BKA 2014 left lle bypass 2016 Confirmed Active Elevated troponin Confirmed Active Moderate pulmonary arterial systolic hypertension Confirmed Active Diabetes type 1, controlled Confirmed Active Venous embolism Confirmed 05/22/19 Active 1Multiple PCIs [facility] # [phone] Social History Social History Type Response Smoking Status Never (less than 100 in lifetime) entered on: 02/21/21 Sex Sex Representation Male (finding) Patient Care team information Care Team Personnel Name: Selene Mark RN Position: S RN Member Role: Primary Care Nurse Name: Marcela Nuñez CNM Position: Reference Physician Member Role: Primary Care Nurse Address: [address] [place] [address] Telecom: Name: Harika Dennison RN Position: [facility] RN Member Role: Primary Care Nurse Name: Briana Joy RN Position: S RN Member Role: Primary Care Nurse Name: Francisco Brian RN Position: S RN Member Role: Primary Care Nurse Name: Deanna Tillman Position: [facility] Associate Professional Member Role: Lifetime Consulting Provider Address: [address] [facility] [place] [address]- Telecom: Name: Diana Chaney RN Position: [facility] RN Member Role: Primary Care Nurse Name: Martha Mckeon RN Position: [facility] RN Member Role: Primary Care Nurse Name: Yazmin Otto RN Position: [facility] Hospital Medical Clinic Manager Member Role: Primary Care Nurse Name: Socorro Ruiz RN Position: [facility] RN Member Role: Primary Care Nurse Name: Alejandra Espino RN Position: [facility] RN Member Role: Primary Care Nurse Name: Rossy Monroe Position: [facility] RN Supv Member Role: Primary Care Nurse Name: aCthy Frost RN Position: [facility] SN RN Member Role: Primary Care Nurse Name: Chelsie Martinez RN Position: [facility] RN Member Role: Primary Care Nurse Name: Masha De Guzman RN Position: [facility] RN Member Role: Primary Care Nurse Name: Kenya Smith RN Position: [facility] RN Member Role: Primary Care Nurse Name: Ene Simon RN Position: [facility] AMB Nurse Member Role: Primary Care Nurse Name: Bharti Miller RN Position: [facility] RN Member Role: Primary Care Nurse Name: Olivia Andrew RN Position: [facility] RN Member Role: Primary Care Nurse Name: Vikki Cifuentes RN Position: [facility] RN Member Role: Primary Care Nurse Name: Beth Musa RN Position: [facility] RN Member Role: Primary Care Nurse Name: Mandie Ivy RN Position: [facility] RN Member Role: Primary Care Nurse Name: Renata Carvalho NP Position: [facility] Associate Professional Member Role: Primary Care Nurse Name: Clinton RNMargret Position: [facility] SN RN Member Role: Primary Care Nurse Name: Alina Bennett RN Position: [facility] RN Member Role: Primary Care Nurse Name: Janet Hansen Position: [facility] Associate Professional Member Role: Lifetime Consulting Provider Address: [address] [facility] [place] [address]- Telecom: Name: Jean Paul Lopez MD Position: [facility] Renal MD Member Role: Lifetime Consulting Physician Address: [address] [place] [address] [address] [place] [address]- [place] Telecom: Name: Keren Sherman RN Position: [facility] RN Member Role: Primary Care Nurse Name: Tami Alonso RN Position: [facility] Onco RN Member Role: Primary Care Nurse Name: Alfonso Boggs RN Position: [facility] RN Member Role: Primary Care Nurse Name: Lion Murray RN Position: [facility] RN Member Role: Primary Care Nurse Name: Hero Gotti LPN Position: [facility] RN Member Role: Primary Care Nurse Name: Jewels Alex RN Position: [facility] RN Member Role: Primary Care Nurse Name: Alisha Deshpande RN Position: [facility] Manager Member Role: Primary Care Nurse Name: Charlene Hopper RN Position: [facility] SN RN Member Role: Primary Care Nurse Name: Janay Moore RN Position: [facility] RN Member Role: Primary Care Nurse Name: Andreina Griffin RN Position: [facility] Manager Member Role: Primary Care Nurse Name: Za Boyle MD Position: [facility] Renal MD Member Role: Lifetime Consulting Physician Address: [address] [place] [address] [address] [facility] [place] [address]- [place] Telecom: Name: Terry Doran RN Position: [facility] RN Member Role: Primary Care Nurse Name: Shun Jarvis MD Position: [facility] Physician - Primary Care Member Role: PCP Address: [address] [place] [address] [place] Telecom: Name: Becca Schulz RN Position: [facility] Onco RN Member Role: Primary Care Nurse Name: Aide Marquez RN Position: [facility] RN Member Role: Primary Care Nurse Name: Reyna Carvalho RN Position: [facility] RN Member Role: Primary Care Nurse Name: Jose Elias Loyd RN Position: [facility] Outreach Member Role: Primary Care Nurse Name: Kathy Chi RN Position: [facility] RN Member Role: Primary Care Nurse Name: Patito Davila RN Position: [facility] RN Member Role: Primary Care Nurse Name: Monica Ramirez RN Position: [facility] SN RN Member Role: Primary Care Nurse Name: Jovanna Chavis RN Position: [facility] RN Member Role: Primary Care Nurse Name: Kimberly Cervantes RN Position: [facility] RN Member Role: Primary Care Nurse Name: Martha Willard RN Position: [facility] AMB Nurse Member Role: Primary Care Nurse Name: Marcelo Shipman RN Position: [facility] RN Member Role: Primary Care Nurse Name: Ora Camp NP Position: [facility] PCO Associate Professional Member Role: Primary Care Nurse Address: [address] [place] [address]- Telecom: Name: Meera Carreno RN Position: [facility] RN Member Role: Primary Care Nurse Name: Morenita Velázquez RN Position: [facility] RN Member Role: Primary Care Nurse Name: Rupal Stanton RN Position: [facility] RN Member Role: Primary Care Nurse Name: Hernan De La Cruz RN Position: [facility] ED RN W/OE and Tasks Member Role: Primary Care Nurse Name: Traci Golden RN Position: [facility] RN Member Role: Primary Care Nurse Name: Aide Olvera RN Position: [facility] ED RN W/OE and Tasks Member Role: Primary Care Nurse Name: Jacy Irvin RN Position: [facility] RN Member Role: Primary Care Nurse Name: Carissa Cardenas RN Position: [facility] RN Member Role: Primary Care Nurse Name: Francoise Escalera RN Position: [facility] SN RN Member Role: Primary Care Nurse Name: John Irizarry DO Position: [facility] Renal MD Member Role: Lifetime Consulting Physician Address: [address] [place], [place] [address] [place] [place] [address]- Telecom: Name: Martha Kaur RN Position: [facility] RN Member Role: Primary Care Nurse Name: Rita Robison RN Position: [facility] RN Member Role: Primary Care Nurse Name: Erin Aguilar RN Position: [facility] RN Member Role: Primary Care Nurse Name: Mayela Sosa RN Position: [facility] RN Member Role: Primary Care Nurse Name: Wesley Ojeda III, RN Position: [facility] RN Member Role: Primary Care Nurse Name: Yue Sanchez RN Position: [facility] RN Member Role: Primary Care Nurse Name: Josefina Cain RN Position: [facility] RN Member Role: Primary Care Nurse Name: Joleen Siddiqui Jr, RN Position: [facility] ED RN W/OE and Tasks Member Role: Primary Care Nurse Name: Patience García RN Position: [facility] RN Member Role: Primary Care Nurse Name: Yesy Christianson Position: [facility] Outreach Member Role: Lifetime Consulting Physician Name: Melissa Lee RN Position: [facility] ED RN W/OE and Tasks Member Role: Primary Care Nurse Name: Cheri Dennis RN Position: [facility] RN Member Role: Primary Care Nurse Name: Mayela Curiel RN Position: [facility] RN Member Role: Primary Care Nurse Name: Harika Julian NP Position: [facility] PCO Associate Professional Member Role: Primary Care Nurse Address: [address] [place] [address]- Telecom: Name: Darlin Samaniego RN Position: [facility] RN Member Role: Primary Care Nurse Name: Emilio Cunningham RN Position: [facility] RN Member Role: Primary Care Nurse Name: Angelita Bo RN Position: [facility] RN Member Role: Primary Care Nurse Name: Kathe Hester RN Position: [facility] RN Member Role: Primary Care Nurse Name: Emmett Gale MD Position: [facility] Outreach Member Role: Lifetime Consulting Physician Address: [address] [facility] [address] [facility] [facility] [place], [place] [address]- Telecom: Name: Sobeida Lomeli RN Position: [facility] RN Member Role: Primary Care Nurse Name: Alisha Huston RN Position: [facility] RN Member Role: Primary Care Nurse Name: Bebo Jordan RN Position: [facility] RN Member Role: Primary Care Nurse Name: Reagan Morin RN Position: [facility] RN Member Role: Primary Care Nurse Name: Nini Jones RN Position: [facility] ANALISA Nurse Member Role: Primary Care Nurse Name: Anna Medellin RN Position: [facility] SN RN Member Role: Primary Care Nurse Name: Eugenia Abdalla RN Position: [facility] SN RN Member Role: Primary Care Nurse Name: Dorothy Meadows RN Position: [facility] SN RN Member Role: Primary Care Nurse Name: Martha Shell RN Position: [facility] AMB Nurse Member Role: Primary Care Nurse Name: Juan Crockett MD Position: [facility] Renal MD Member Role: Lifetime Consulting Physician Address: [address] [place] [address] [address] [facility] [address] Telecom: Name: Salina Hickman RN Position: [facility] RN Member Role: Primary Care Nurse Name: Francoise Alvarez RN Position: [facility] RN Member Role: Primary Care Nurse Name: Brenda Lovelace RN Position: [facility] Manager Member Role: Primary Care Nurse Name: Kelli Barillas RN Position: [facility] RN Member Role: Primary Care Nurse Name: Martha Barillas RN Position: [facility] OB RN Member Role: Primary Care Nurse Name: Bharti Willingham RN Position: [facility] ED RN W/OE and Tasks Member Role: Primary Care Nurse Name: Mirna Coelho RN Position: [facility] RN Member Role: Primary Care Nurse Name: Ellen Roman RN Position: [facility] RN Member Role: Primary Care Nurse Name: Hayley Tyler RN Position: [facility] RN Member Role: Primary Care Nurse Name: Charlene Cates RN Position: [facility] RN Member Role: Primary Care Nurse Name: Elder Carver RN Position: [facility] ED RN W/OE and Tasks Member Role: Primary Care Nurse Name: Aidan Nieto Position: [facility] RN Member Role: Primary Care Nurse Name: Shelly Guo RN Position: [facility] RN Member Role: Primary Care Nurse Name: Aide Mills RN Position: [facility] RN Member Role: Primary Care Nurse Name: Lidia Laboy RN Position: [facility] RN Member Role: Primary Care Nurse Name: Savannah Torres RN Position: [facility] RN Member Role: Primary Care Nurse Name: Sheila Moncada RN Position: [facility] Manager Member Role: Primary Care Nurse Name: Yaneli Jenkins RN Position: [facility] Manager Member Role: Primary Care Nurse Name: Niels Haji RN Position: [facility] SN RN Member Role: Primary Care Nurse Name: Eros Doe RN Position: S RN Member Role: Primary Care Nurse Name: Hayley Longo RN Position: S RN Member Role: Primary Care Nurse Care Team Related Persons Name: DIANA CHANDRA Insurance Providers Guarantor name: JOLEEN CHANDRA [facility] Plan Information #: 1 Payer: [facility] Member Number: NA Policy Number: NA Group Number: NA
--- OUTSIDE RECORDS SUMMARY | 2024-09-10 09:46 | XMS_ITS | Encounter Summary ---
Author Organization [facility] Address [address] [address] Phone Care Team Providers Care General Worker Name Role Phone Rahul Chan MD Primary Care Provider [phone]- [phone] Encounter Details Date Type Department Care Team (Late st Contact Info) Description 09/08/2024 Treatment [facility] [address] [address] Darwin Chew MD [address] [address] End stage renal disease; Dependence on renal dialysis Social History Tobacco Use Types Packs/Day Years Used Date Smoking Tobacco: Never Sex and Gender Information Value Date Recorded Sex Assigned at Not on file Legal Sex Male 4:42 PM EST Gender Identity Not on file Sexual Orientation Not on file documented as of this encounter Miscellaneous Notes * Dialysis Note - Darwin Chew MD - 09/08/2024 12:00 AM EDT Patient: Castro Tate : 1970 Note Type: Dialysis Rounds-Comp Service Date: 09/08/2024 This patient was personally seen for a complete visit as part of routine monthly dialysis care for end stage renal disease. Attending Residential Direct Support Professional: DARWIN CHEW Dialysis Location: [facility] Schedule: Shift: 1 OVERVIEW Patient is stable. DIALYSIS PRESCRIPTION Treatment Data Treatment Date: 09/08/2024 started at: 5:18 AM Dialysate / Machine Temp (prescribed): 36.5*C Dialysate / Machine Temp (actual): 37.0*C BFR (prescribed): 450 BFR (average delivered): 450 DFR (prescribed): Manual 800 DFR (average delivered): 500 Prescribed Time: 04:00 Actual Time: 03:59 EDW (kg): 94.0 Dialyzer: 160NRe Optiflux Dialysate: 2.0 K, 2.50 Ca, 1.0 Mg, 100 Dextrose ([id number]) Sodium: 130 Bicarb: 35 Pre Dialysis Vitals Pre BP Sit: 115/73 Pre Wt (kg): 96.7 EDW Deviation (kg): 2.7 Temp: 97.3*F Post Dialysis Vitals Post BP Sit: 146/88 Post Wt (kg): 94.8 TREATMENT MEDICATIONS ORDERS Iron Sucrose (Venofer) 50 mg IVP 1X Week During Dialysis 08/04/2024 - 08/03/2025 Vitamin D (Calcitriol) Oral 0.25 mcg ORAL Every Treatment 09/03/2024 - 09/02/2025 BP AND FLUID ASSESSMENT Post BP Sit 146/88 - 09/08/2024 125/79 - 09/06/2024 151/69 - 09/01/2024 Post Wt (kg) 94.8 - 09/08/2024 94.0 - 09/06/2024 95.0 - 09/01/2024 EDW (kg) 94.0 - 09/08/2024 94.0 - 09/06/2024 94.0 - 09/01/2024 Deviation (kg) 0.8 - 09/08/2024 0.0 - 09/06/2024 1.0 - 09/01/2024 ADEQUACY ASSESSMENT spKt/V (Daugirdas II) 1.72 (08/11/24) 1.54 (07/14/24) 1.61 (06/18/24) eKdrt/V 1.55 (08/11/24) 1.34 (07/14/24) 1.43 (06/18/24) % Urea Reduction 76 (08/11/24) 76 (07/14/24) 75 (06/18/24) BUN 55 (08/11/24) 45 (07/14/24) 57 (06/18/24) BUN Post Dialysis 13 (08/11/24) 11 (07/14/24) 14 (06/18/24) Creatinine 6.05 (08/25/24) 5.97 (07/28/24) 7.61 (06/25/24) Bicarbonate (CO2) 27 (08/25/24) 27 (07/28/24) 26 (06/25/24) Sodium 137 (08/25/24) 138 (07/28/24) 141 (06/25/24) Missed Treatments 2 - Last 30 days 4 - Last 60 days Most recently missed on 09/03/2024 ACCESS ASSESSMENT AVFistula Standard Left Upper Arm Active (In Use) - 12/03/2023 Placed - 10/09/2023 Access Flow 1021 (08/09/24) 1327 (07/12/24) 1316 (05/10/24) ANEMIA ASSESSMENT Hemoglobin 11.4 (09/01/24) 10.5 (08/25/24) 10.3 (08/18/24) Iron Saturation (TSat) 42 (08/25/24) 35 (07/28/24) 40 (06/25/24) Ferritin 905 (08/25/24) 1,088 (07/28/24) 1,423 (06/25/24) Iron 91 (08/25/24) 79 (07/28/24) 91 (06/25/24) TIBC 218 (08/25/24) 227 (07/28/24) 227 (06/25/24) Reticulocyte Hemoglobin 33.0 (03/24/24) MCV 101 (06/25/24) 104 (03/24/24) BMM ASSESSMENT Calcium 9.2 09/01/24 8.6 08/25/24 8.3 08/18/24 Corrected Calcium 8.5 08/25/24 8.8 07/28/24 8.9 06/25/24 Phosphorus 7.1 08/25/24 6.9 07/28/24 6.0 07/07/24 Calcium Phosphorus Product 61 08/25/24 62 07/28/24 50 07/07/24 PTH 291 08/25/24 290 07/28/24 205 06/25/24 Vitamin D, 25-OH, Total 48.9 06/25/24 Alkaline Phosphatase 98 06/25/24 112 04/28/24 108 03/24/24 Aluminum <5 06/25/24 NUTRITION ASSESSMENT Albumin 4.1 08/25/24 4.2 07/28/24 4.0 06/25/24 Potassium 4.7 08/25/24 5.6 07/28/24 5.8 06/25/24 eNPCR 1.01 08/11/24 0.75 07/14/24 1.03 06/18/24 Hemoglobin A1C 6.7 06/25/24 5.9 03/24/24 6.2 12/24/23 ADDITIONAL LABS INR 1.75 (05/14/24) 1.70 (04/28/24) WBC 6.58 (06/25/24) 6.29 (03/24/24) Cholesterol 100 (06/25/24) 90 (12/24/23) Triglycerides 130 (06/25/24) 98 (12/24/23) Hepatitis B Surface Ab 34 (06/25/24) ADDITIONAL COMMENT COMMENTS: 08/09/24 stable 08/30/24 stable 09/08/24 doing better; recent [facility] eopsiode 05/12/24 c/o cp-- [facility] eval 06/01/24: stable 06/08/24 recent RSV w cont resp sxms, start zpack 07/12/24 doing well 07/19/24 stable 07/2424 stable stable 02/25/24 stable 07/12/24 doing well 03/15/24 stable 03/31/24 stable 04/26/24 c/o gi upset despite zofranso will try reglan, cont f/u vasc re recent LUE avf ligation cb wound-- refusing abx 05/04/24 saw vasc, noninfection, doing ok except bp running high 06/11/24 URT sums --started zpack 06/18/24 improved 06/30/24 stable Signed by: DARWIN CHEW MD on 09/08/2024 at 09:52:34 PM Transcribed by: DARWIN CHEW MD on 09/08/2024 at 09:52:34 PM documented in this encounter Plan of Treatment Not on file documented as of this encounter Visit Diagnoses Diagnosis End stage renal disease Dependence on renal dialysis documented in this encounter Care Teams General Worker Relationship Specialty Start Date End Date Rahul Chan MD [address] [place] [address] [address] [facility] - [facility] 06/19/20 documented as of this encounter
== END 2024-09-10 09:04 | disposition home or self-care (01) ==
LOC: HO.HOSX 09:03
PROVIDERS: Visit Provider Physician Assistant
DX: Z13.89 Encounter for screening for other disorder (principal)

== ENCOUNTER 2024-10-13 12:47 | Outpatient (REF) | payer OTHER, SELFPAY ==
--- NOTE | ~2024-10-13 | XR_ITS ---
EXAMINATION: XR CERVICAL SPINE CLINICAL INFORMATION: M50.90 - Cervical disc disorder, unspecified, unspecified cervical region COMPARISON: None available. TECHNIQUE: 6 views of the cervical spine, inclusive of flexion and extension views, were obtained. FINDINGS: Craniocervical junction is intact. Intervertebral disc spacer placement at C4-5 and C6-7 and C7-T1 levels. There is a grade 1 retrolisthesis C4-5 vein neutral position which persists during flexion and extension position. Sternal wires. Upper airways patent. No lytic or blastic lesions. Patient's large body habitus. XR/XR cervical spine 4V IMPRESSION: Multilevel cervical spondylosis and status post intervertebral disc spacer placement C4-5, C5-6 and C6-7 levels. Grade 1 retrolisthesis C4-5 without instability. Electronically signed by: Yasmany Singletary MD 10/13/2024 02:34 PM EDT
== END 2024-10-13 12:48 | disposition home or self-care (01) ==
LOC: HO.HOSX 12:47
PROVIDERS: PCP Internal Medicine; Visit Provider Physician Assistant
DX: M50.90 Cervical disc disorder, unspecified, unspecified cervical region (principal)
CPT/HCPCS: 72050; 99212

== ENCOUNTER 2024-10-13 12:47 | Outpatient (AMB) | payer OTHER, SELFPAY ==
--- NOTE | 2024-10-13 13:32 | HO.SPINEOV ---
Intake Visit Reasons: discuss possible surgery with Xray Intake Note: Mr. Tate is here today to discuss surgery and x-ray. Permit Review Assistant Required: No Allergies nitroglycerin [NITROGLYCERIN] Allergy (Intermediate, Verified 03/15/20 07:19) VOMITING cranberry [Cranberry] Allergy (Mild, Verified 03/15/20 07:19) RASH Penicillins Allergy (Mild, Verified 03/15/20 07:19) RASH penicillin V Allergy (Unknown, Verified 02/23/13 00:00) Rash/vomitting furosemide [From Lasix] Allergy (Verified 12/16/20 13:52) Rash Assessment & Plan Assessment & Plan (1) Cervical disc disorder: Code(s): M50.90 - Cervical disc disorder, unspecified, unspecified cervical region Category: Medical Plan Mr Tate is a gentleman known to us from previous surgery at [facility]. He has advanced diabetes with end-stage renal disease, advanced vascular disease, CAD, followed by Dr. Nails at [facility], on aspirin and Eliquis, previous history of anterior cervical fusion at C4-5, C5-6 and C6-7. The patient reports that he was using his wheelchair to get around the house a few months back and fell backwards and hit his head on the back of the floor. He also broke a few ribs at the time. He did not want to go to the hospital at the time, but did notice over the ensuing few days that he has developed severe neck pain, weakness and numbness of his arms with inability to lift his elbows up and use his hands. It felt very similar to when he has had previous spinal cord compression. He ultimately contacted Dr. 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 He finally came in today for a follow-up visit. The symptoms have not progressed significantly, however they have not gotten better. He remains for the most part unable to use his arms or his hands for any meaningful activity. The patient reports that since the last time we operated on him, he has had advanced to chronic kidney disease to end-stage renal disease on dialysis Friday. He brings with him a new medication list including baby aspirin, Eliquis, carvedilol, hydralazine, Bumex, Lipitor, pantoprazole, gabapentin, NovoLog, Lantus, calcitriol, vitamin-D and centrum. On exam, he is on a stretcher, he has diffuse weakness of the upper extremities. I would rate this as 1- 2/5 in the deltoids, biceps, triceps, palmar grasp, finger extensors and finger intrinsics. He has a right BKA but does have some hip flexion which I would rate as 4-5 on that side. Diffusely 4-5 in the left lower extremity. Reflexes absent. Patient had MRI done at [place], and this shows evidence of moderate stenosis at C4-5, x-rays done today and I compared these to ones done in 2020 at [facility] and this shows that he has what looks like a broken anterior osteophyte at C4-5 with some retropulsion of the C4 vertebral body in flexion movements. Impression: 54-year-old male presents with traumatic neck pain and what sounds like myelopathic symptoms after fall backwards where he hit his head and broke some ribs. He did not go seek out care at the time of the fall, but now for the last few months he has had myelopathic complaints with weakness and numbness of the arms. It looks to me like he broken anterior osteophyte at C4-5 and there some retropulsion of the C4 body back toward the spinal canal. the interbody cage is also slightly more anterior compared to the x-rays done at [facility] as well. There also appears to be lucency around the screw in the C4 body. We would like to get a noncontrast CT scan urgently to evaluate for potential fracture and also for surgical planning as he does have moderate to severe stenosis at C4-5. If we need to do posterior instrumentation alone versus posteriorand anterior instrumentation. he will need to come off his Eliquis in his aspirin. , he understands there some risk involved with this. Likely we will need a preoperative note as well. We are going to try to get this done urgently as he does have spinal cord compression and a potential fracture. Dr. Mejía saw the patient with me and agrees with the plan. Total amount of time spent in this visit was 30 minutes in discussion of symptoms, cervical imaging results and subsequent plan of care Castro Mejía MD,PhD [facility] Orders: Orders CT cervical spine wo IV con Today M50.90 - Cervical disc disorder, unspecified, unspecified cervical region Coding Level of Care Code Est Pt Level 4 (92129) Diagnoses Cervical disc disorder M50.90
--- OUTSIDE RECORDS SUMMARY | 2024-10-13 13:50 | XMS_ITS ---
Author Name Katelynn, Clinic Address [address] [place] [address] Phone [phone] Organization [facility] e, NA DOCUMENT DISCLAIMER Multiple document versions may exist, please be sure you review the latest version. The information in the [facility] Continuity of Care Document represents a summary [...] 31, 2020 Atherosclerotic heart diseas e of [place] coronary artery without angina pectoris I25.10 Active [...] Dosage Route Start Date End Date Stat Loperamide PRN-october repeat x1 2 mg Oral September 08, 2024 September 07, 2025 Active Vitamin D (Calcitriol) Oral Every Treatment 0.25 mcg Oral September 03, 2024 September 02, 2025 Active Iron Sucrose (Venofer) During Dialysis, 1X Week 50 mg Intravenous - push August 04, 2024 August 03, 2025 Discontinued Home Medications Medication Instructions Dosage Route Start Date End Date [facility] albuterol sulfate 90 mcg/actuation Inhale using inhaler [...] Sign Value Date / Time Blood Pressure-sitting 155/85 mmHg October 11 05:20 AM Heart Rate 77 beats per minute October 11, 2024 05:20 AM Respiratory Rate 16 breaths per minute October 11 05:20 AM Temperature 98.1 deg. F October 11, 2024 05: 20 AM Weight Vital Sign Value Date / Time Estimated Dry Weight 94 kg Latrice 09, 2 025 11:59 PM Pre-Dialysis 97.80 kg October 11, 2024 05: 20 AM Post-Dialysis 95.50 kg October 11, 2024 05: 20 AM Other Other Value Date / Time Height 188 cm June 27, 2022 12:00 AM Body Mass Index 26.60 kg/m2 October 04, 2024 0 2:37 PM [facility] Tuberculosis Testing TST Date Administered TST Date Read TST Result 11/27/2020 11/29/2020 Negative (<5) mm LAB RESULTS Hematology Result Type Result Value Relevant Referen ce Range Interpretation Date Ferritin 1569 ng/mL 22 - 322 ng/mL High April 102023 Transferrin Sat. (Calc) 43 % 20 - 55 % - April 28 TIBC (Calc) 231 mcg/dL 185 - 515 mcg/dL - 2023 UIBC/TIBC 131 mcg/dL 155 - 355 mcg/dL Low April 28, 2024 Ferritin 1009 ng/mL 22 - 322 ng/mL High May 102023 TIBC (Calc) 212 mcg/dL 185 - 515 mcg/dL - 2023 UIBC/TIBC 122 mcg/dL 155 - 355 mcg/dL Low May 28, 2024 Transferrin Sat. (Calc) 42 % 20 - 55 % - May 28 TIBC (Calc) 227 mcg/dL 185 - 515 mcg/dL - June 25, 2024 UIBC/TIBC 136 mcg/dL 155 - 355 mcg/dL Low June 25, 2024 Transferrin Sat. (Calc) 40 % 20 - 55 % - June 25, 2024 WBC (No Diff) 6.58 1000/mcL 4.80 - 10.80 1000/mcL - June 25, 2024 Ferritin 1423 ng/mL 22 - 322 ng/mL High June Hemoglobin x 3 32.7 % 42.0 - 54.0 % Low Februar 2024 Ferritin 1088 ng/mL 22 - 322 ng/mL High July 102024 Hemoglobin x 3 31.2 % 42.0 - 54.0 % Low Februar y 2024 Transferrin Sat. (Calc) 35 % 20 - 55 % - July 28 TIBC (Calc) 227 mcg/dL 185 - 515 mcg/dL - Februar 2024 UIBC/TIBC 148 mcg/dL 155 - 355 mcg/dL Low July 28, 2024 Iron 79 mcg/dL 45 - 160 mcg/dL - July 28, 2024 Hemoglobin x 3 29.7 % 42.0 - 54.0 % Low Februar y 2024 Hemoglobin x 3 31.5 % 42.0 - 54.0 % Low August Hemoglobin x 3 30.9 % 42.0 - 54.0 % Low August 072024 UIBC/TIBC 127 mcg/dL 155 - 355 mcg/dL Low August Iron 91 mcg/dL 45 - 160 mcg/dL - August 25, 2024 Transferrin Sat. (Calc) 42 % 20 - 55 % - August 25, 2024 TIBC (Calc) 218 mcg/dL 185 - 515 mcg/dL - August 072024 Ferritin 905 ng/mL 22 - 322 ng/mL High August 25, 2024 Hemoglobin x 3 31.5 % 42.0 - 54.0 % Low August 072024 Hemoglobin x 3 34.2 % 42.0 - 54.0 % Low August 082024 Hemoglobin x 3 34.2 % 42.0 - 54.0 % Low September HGB 11.9 g/dL 14.0 - 18.0 g/dL Low September Hemoglobin x 3 35.7 % 42.0 - 54.0 % Low September RBC 3.68 mill/mcL 4.70 - 6.10 mill/mcL Low September 22, 2024 WBC (No Diff) 8.13 1000/mcL 4.80 - 10.80 1000/mcL - September 22, 2024 Ferritin 1057 ng/mL 22 - 322 ng/mL High September 22, 2024 Transferrin Sat. (Calc) 50 % 20 - 55 % - September 22, 2024 TIBC (Calc) 222 mcg/dL 185 - 515 mcg/dL - September 072024 UIBC/TIBC 111 mcg/dL 155 - 355 mcg/dL Low September Iron 111 mcg/dL 45 - 160 mcg/dL - September 22, 2024 MCHC 32.6 g/dL 30.0 - 36.0 g/dL - September MCH 32.9 pg 27.0 - 31.0 pg High September 22, 2024 HGB 12.1 g/dL 14.0 - 18.0 g/dL Low September RDW 13.6 % 11.5 - 14.5 % - September 22 Hemoglobin x 3 36.3 % 42.0 - 54.0 % Low September 072024 HCT 37.2 % 42.0 - 52.0 % Low September 22 025 HGB 11.2 g/dL 14.0 - 18.0 g/dL Low September Hemoglobin x 3 33.6 % 42.0 - 54.0 % Low September 082024 Hemoglobin x 3 33.9 % 42.0 - 54.0 % Low September 092024 HGB 11.3 g/dL 14.0 - 18.0 g/dL Low September Metabolic/Renal Result Type Result Value Relevant Referen ce Range Interpretation Date Hemoglobin A1c 6.7 % 4.8 - 5.9 % High June 092024 Creatinine, Serum 5.97 mg/dL 0.60 - 1.30 [...] 6 - 19 mg/dL High September 08 Creatinine, Serum 6.20 mg/dL 0.60 - 1.30 mg/dL High September 22, 2024 Hemoglobin A1c 6.0 % 4.8 - 5.9 % High September 22, 2024 Bicarbonate 28 mEq/L 22 - 29 mEq/L - September 22, 2024 Potassium 5.0 mEq/L 3.5 - 5.1 mEq/L - September 22, 2024 Sodium 139 mEq/L 136 - 145 mEq/L - September 22, 2024 HD Adequacy Result Type Result Value Relevant Referen ce Range Interpretation Date Krt/V 0.00 No Reference Ran ge Provided - May 12, 2024 Krt/V 0.00 No Reference Ran ge Provided - June 11, 2024 Krt/V 0.00 No Reference Ran [...] ge Provided - September 08, 2024 spKt/V Gotch 1.55 No Reference Ran ge Provided - September 08, 2024 spKt/V (Daugirdas II) 1.51 No Reference Range Provided - September 08, 2024 wstdKt/V without residual 1.6 No Reference Range Provided - September 08, 2024 Bone/Mineral Result Type Result Value Relevant Referen ce Range Interpretation Date PTH-Intact, Plasma 196 pg/mL 16 - 80 pg/mL High Nov 2023 PTH-Intact, Plasma 221 pg/mL 16 - 80 pg/mL High May PTH-Intact, Plasma 205 pg/mL 16 - 80 pg/mL High Jun uary 2024 Vitamin D 25 Hydroxy 48.9 ng/mL 30.0 - 100.0 ng/mL - June 25, 2024 Calcium, Total 8.5 mg/dL 8.4 - 10.2 mg/dL - uary 2024 Ca x P Product 62 0 - 54 High July 102024 Phosphorus 6.9 mg/dL 2.6 - 4.5 mg/dL High July 28, 2024 Calcium, Total 9.0 mg/dL 8.4 - 10.2 mg/dL - uary 2024 Corrected Ca x P Product 61 0 - 54 High July 28 PTH-Intact, Plasma 290 pg/mL 16 - 80 pg/mL High Jul ruary 2024 Calcium, Total 8.8 mg/dL 8.4 - 10.2 mg/dL - uary 2024 Calcium, Total 9.1 mg/dL 8.4 - [...] 291 pg/mL 16 - 80 pg/mL High Mar ch 2024 Calcium, Total 9.2 mg/dL 8.4 - 10.2 mg/dL - Kelvin h 2024 Calcium, Total 8.8 mg/dL 8.4 - 10.2 mg/dL - Apri l 2024 Calcium, Total 8.9 mg/dL 8.4 - 10.2 mg/dL - Apri l 2024 PTH-Intact, Plasma 257 pg/mL 16 - 80 pg/mL High Apr il 2024 Calcium, Total 8.9 mg/dL 8.4 - 10.2 mg/dL - Apri l 2024 Alkaline Phosphatase 93 U/L 40 - 129 U/L - Ap ril 2024 Ca x P Product 48 0 - 54 - September 22, 2024 Phosphorus 5.4 mg/dL 2.6 - 4.5 mg/dL High September 22, 2024 Corrected Ca x P Product 47 0 - 54 - September 22, 2024 Calcium, Total 8.9 mg/dL 8.4 - 10.2 mg/dL - Apri l 2024 Calcium, Total 8.8 mg/dL 8.4 - 10.2 mg/dL - Apri l 2024 Liver/Nutrition Result Type Result Value Relevant Referen ce Range Interpretation Date Direct Bilirubin 0.14 mg/dL 0.00 - 0.25 mg/dL - N ov2023 Amylase 49 U/L 28 - 100 U/L - April 28, 2024 Lipase 18 U/L 11 - 82 U/L - April 28, 2024 LDH 136 U/L 118 - 273 U/L - June 25, 2024 SGPT (ALT) 10 U/L 7 - [...] Ran ge Provided - September 08, 2024 Albumin (BCG) 4.3 g/dL 3.5 - 5.2 g/dL - September 072024 SGPT (ALT) 11 U/L 7 - 52 U/L - September 22, 2024 Lipid Result Type Result Value Relevant [...] (HBsAg) Negative No Reference Range Provided - September 22, 2024 DIALYSIS PRESCRIPTION Conventional Hemodialysis Data Element Value Order Date/Time September 15, 2024 Frequency 3X Week Treatment Days MonWedFri Dialyzer 160NRe Optiflux Treatment Time (Total Minutes) 240 min Blood Flow Rate (mL/min) 450 mL/min Dialysate Flow Rate Manual 800 Estimated Dry Weight 94 kg Dialysate Concentrate 2.0 K, 3.0 Ca, 1.0 Mg, 100 Dextrose ([id number]) Sodium (mEq/L) 130 mEq/L Bicarb Machine Setting [...] (mL/min) Dialysate Dialyzer Dialysis Access Meds Admin October 06, 2024 Weight 96.20 kg Weight 94.10 kg 04:06:00 450 2.0 K, 3.0 Ca, 1.0 Mg, 100 Dextrose ([id number]) 160nre Optifl ux Blood Pressure-sitting 176/98 mmHg Blood Pressure-sit ting 166/90 mmHg Heart Rate 79 beats per minute Heart Rate 77 beats per minute Respiratory Rate 16 breaths per minute Respiratory Rate 16 breaths per minute Temperature 97.2 deg. F Temperature 97.2 deg. F October 08, 2024 Weight 98.80 kg Weight 94.30 kg 04:01:00 440 2.0 K, 3.0 Ca, 1.0 Mg, 100 Dextrose ([id number]) 160nre Optiflux Hemodialysis-AV Fistula-Standard, Left Upper Arm, Brachial Artery to Basilic Vein Access Placed on October 09, 2023 Vitamin D (Calcitriol) Oral; 0.25mcg,Oral Blood Pressure-sitting 199/94 mmHg Blood Pressure-sit ting 175/72 mmHg Heart Rate 77 beats per minute Heart Rate 70 beats per minute Respiratory Rate 18 breaths per minute Respiratory Rate 18 breaths per minute Temperature 97.8 deg. F Temperature 97.8 deg. F October 11, 2024 Weight 97.80 kg Weight 95.50 kg 04:04:00 450 2.0 K, 3.0 Ca, 1.0 Mg, 100 Dextrose ([id number]) 160nre Optiflux Hemodialysis-AV Fistula-Standard, Left Upper Arm, Brachial Artery to Basilic Vein Access Placed on October 09, 2023 Loperamide; 2mg,Oral Vitamin D (Calcitriol) Oral; 0.25mcg,Oral Blood Pressure-sitting 189/79 mmHg Blood Pressure-sit ting 155/85 mmHg Heart Rate 77 beats per minute Heart Rate 77 beats per minute Respiratory Rate 16 breaths per minute Respiratory Rate 16 breaths per minute Temperature 97.4 deg. F Temperature 98.1 deg. F
--- OUTSIDE RECORDS SUMMARY | 2024-10-13 13:50 | XMS_ITS | Clinical Summary ---
Author Organization [facility] Address [address] [place] [address] Care Team Providers Care Mental Health Worker Name Role Phone Unavailable Primary Care Provider Unavailabl e Social History Tobacco Use Types Packs/Day Years Used Date Smoking Tobacco: Never Assessed Sex and Gender Information Value Date Recorded Sex Assigned at Not on file Legal Sex Male 12:16 PM EDT Gender Identity Not on file Sexual Orientation Not on file Plan of Treatment Health Maintenance Due Date Last Done Comments Hepatitis C Virus Screening 1968 HIV Screening 1981 DTaP/Tdap/Td Vaccines (1 - Tdap) 1987 Hepatitis B Vaccines (1 of 3 - 19+ 3-dose series) 05/10 Pneumococcal Vaccines 50+ (1 of 1 - PCV) 2018 Zoster (Shingles) Vaccine (1 of 2) 2018 COVID-19 Vaccine ( - 2023- season) 2024
--- OUTSIDE RECORDS SUMMARY | 2024-10-13 13:50 | XMS_ITS | Encounter Summary ---
Author Organization [facility] Address [address] [address] Phone Care Team Providers Care Sports Management Internship Name Role Phone Rahul Chan MD Primary Care Provider +1- [phone] Encounter Details Date Type Department Care Team (Late st Contact Info) Description 09/08/2024 TCM in Dialysis Clinic [facility]. [address] [address] Darwin Chew MD [address] [address] Social History Tobacco Use Types [...] 09/08/2024 The patient was seen for a [id number] visit as part of Transitional Care Management services. Attending Control Systems Engineer: DARWIN CHEW Dialysis Location: [facility] Schedule: Shift: 1 INTERACTIVE CONTACT Contact [...] K, 2.50 Ca, 1.0 Mg, 100 Dextrose ([id number]) Sodium: 130 Bicarb: 35 Pre Dialysis Vitals Pre BP Sit: 115/73 Pre Wt (kg): 96.7 EDW Deviation (kg): 2.7 Temp: 97.3*F Post Dialysis Vitals Post BP Sit: 146/88 Post Wt (kg): 94.8 CARE COORDINATION Post-discharge follow-up appointments reviewed with the patient. Established or re-established referrals. VISIT DIAGNOSES CPT Code 46730 - High complexity, seen within 7 days of discharge. N18.6, Z99.2 End stage renal disease;Dependence on renal dialysis Signed by: DARWIN CHEW MD on 09/08/2024 at 09:55:28 PM Transcribed by: DARWIN CHEW MD on 09/08/2024 at 09:55:28 PM documented in this encounter Plan of Treatment Not on file documented as of this encounter Visit Diagnoses Not on filedocumented in this encounter Care Teams Sports Management Internship Relationship Specialty Start Date End Date Rahul Chan MD [address] [place] [address] [address] PCP - General 06/19/20 documented as of this encounter
--- OUTSIDE RECORDS SUMMARY | 2024-10-13 13:50 | XMS_ITS | Clinical Summary ---
Author Organization [facility] Address [address] [place] [phone] Phone Care Team Providers Care Typesetting Supervisor Name Role Phone Rahul Chan MD Primary Care Provider [phone]- [phone] Medications hydrALAZINE (APRESOLINE) 25 MG tablet Take [...] nephrosclerosis who follows with Dr. Crockett from [facility]. Patient also receiving intermittent hemodialysis. He [...] HD was on 02/19. At discharge from [facility] on 02/21, he had a Hb [...] 02/23. On 02/24, he was started on [id number] Q12H for diuresis while awaiting HD on [...] Encounters Date Type Department Care Team Description 10/06/2024 Orders Only [facility] [address] [address] Juan Crockett MD 10/04/2024 Treatment [facility] [address] [address] Juan Crockett MD End stage renal disease; Dependence on renal dialysis 09/29/2024 Orders Only [facility] [address] [address] Juan Crockett MD 09/29/2024 Treatment [facility] [address] [address] Juan Crockett MD End stage renal disease; Dependence on renal dialysis 09/22/2024 Orders Only [facility] [address] [address] Juan Crockett MD 09/20/2024 Treatment [facility] [address] [address] Juan Crockett MD End stage renal disease; Dependence on renal dialysis 09/15/2024 Orders Only [facility] [address] [address] Juan Crockett MD 09/08/2024 Orders Only [facility] [address] [address] Juan Crockett MD 09/08/2024 TCM in Dialysis Clinic [facility] [address] [address] Juan Crockett MD 09/08/2024 Treatment [facility] [address] [address] Juan Crockett MD End stage renal disease; Dependence on renal dialysis 09/01/2024 Orders Only [facility] [address] [address] Juan Crockett MD 08/30/2024 Treatment [facility] [address] [address] Juan Crockett MD End stage renal disease; Dependence on renal dialysis 08/25/2024 Orders Only [facility] [address] [address] Juan Crockett MD 08/23/2024 Treatment [facility] [address] [address] Juan Crockett MD End stage renal disease; Dependence on renal dialysis 08/18/2024 Orders Only [facility] [address] [address] Juan Crockett MD 08/11/2024 Orders Only [facility] [address] [address] Juan Crockett MD 08/09/2024 Treatment [facility] [address] [address] Juan Crockett MD End stage renal disease; Dependence on renal dialysis 08/06/2024 Treatment [facility] [address] [address] Juan Crocktet MD End stage renal disease; Dependence on renal dialysis 08/04/2024 Orders Only [facility] [address] [address] Juan Crockett MD 08/02/2024 Treatment [facility] [address] [address] Juan Crockett MD 07/28/2024 Orders Only [facility] [address] [address] Juan Crockett MD 07/21/2024 Orders Only [facility] [address] [address] Juan Crockett MD 07/19/2024 Treatment [facility] [address] [address] Juan Crockett MD End stage renal disease; Dependence on renal dialysis from Last 3 Months Family History Medical [...] Visual Foot Exam 07/07/2020 Diabetes: Hemoglobin A1C 12/22/2024 025, 06/25/2024, 03/24/2024, Additional history exists Pneumococcal Vaccine: 50+ Ye ars (4 of 4 - PCV20 or PCV21) 06/25/2026 06/25/2021, 04/29/2021, 06/09/2014, Additional history exists Pneumococcal Vaccine: Peds ( 0 to 5 Years) and At-Risk Patients (6 to 49 Years) Discontinued 06/25/2021, 04/29/2021, 06/09/2014, Additional history exists Influenza Vaccine Completed 03/26/2024, , 04/02/2021 Procedures Procedure Name Priority Date/Time Associated Diagnosis Comments CHEMISTRY Routine 10/06/2024 HEMATOLOGY Routine 10/06/2024 HEMATOLOGY Routine 09/29/2024 CHEMISTRY Routine 09/29/2024 IMMUNO CHEMISTRY Routine 09/22/2024 CHEMISTRY Routine 09/22/2024 SPECIAL CHEMISTRY Routine 09/22/2024 CHEMISTRY Routine 09/22/2024 HEMATOLOGY Routine 09/22/2024 CHEMISTRY Routine 09/15/2024 HEMATOLOGY Routine 09/15/2024 [facility] LAB RESULTS Routine 09/08/2024 HD KINETICS Routine 09/08/2024 POST CHEMISTRY Routine [...] 07/28/2024 CHEMISTRY Routine 07/21/2024 HEMATOLOGY Routine 07/21/2024 from Last 3 Months Results * (ABNORMAL) HEMATOLOGY (10/06/2024) Only the most recent of12 resultswithin the time period is included. Hemoglobin 11.3(L) 14.0 - 18.0 g/dL [facility] Hemoglobin x 3 33.9(L) 42.0 - 54.0 % [facility] 10/06/2024 10/07/2024 8:2 8 AM EDT Narrative [facility] - 10/07/2024 Unless otherwise specified, test(s) performed at: [facility], [address] [place], [place] [id number] COMPUTER REPAIR TECHNICIAN: Jigar Ross M.D. For any questions, please call customer service at FREQUENCY:OTHER Resulting Agency Comment Specimen source: Blood Juan Crockett MD LAB BLOOD ORDERABLES Final Re sult Performing Organization Address [facility] Co de Phone Number [facility] See order comments or contact performing lab Unknown, [place] * [facility] Chemistry (10/06/2024) Only the most recent of15 resultswithin the time period is included. Calcium 8.8 8.4 - 10.2 mg/dL [facility] 10/06/2024 10/07/2024 8:1 5 AM EDT Narrative [facility] - 10/07/2024 Unless otherwise specified, test(s) performed at: [facility], [address] [place] [address] COMPUTER REPAIR TECHNICIAN: Jigar Ross M.D. For any questions, please call customer service at FREQUENCY:OTHER Resulting Agency Comment Specimen source: Serum Juan Crockett MD LAB BLOOD ORDERABLES Final Re sult [facility] See order comments or contact performing lab Unknown, [place] * (ABNORMAL) SPECIAL CHEMISTRY (09/22/2024) Pathologist [facility] Hemoglobin A1C 6.0(H) 4.8 - 5.9 % [facility] 09/22/2024 09/23/2024 8:4 3 AM EDT Narrative [facility] - 09/23/2024 Unless otherwise specified, test(s) performed at: [facility], [address] [place] [address] COMPUTER REPAIR TECHNICIAN: Jigar Ross M.D. For any questions, please call customer service at FREQUENCY:MONTHLY Resulting Agency Comment Specimen source: Blood Juan Crockett MD LAB BLOOD BANK TEST ORDERABLE S Final Result Performing Organization Address [facility] de Phone Number [facility] See order comments or contact performing lab Unknown, [place] * IMMUNO CHEMISTRY (09/22/2024) Only the most recent of3 resultswithin the time period is included. Hep B Surface Ag Negative Negative [facility] 09/22/2024 09/23/2024 9:1 7 AM EDT Narrative Resulting Agency Comment Specimen source: Serum Juan Crockett MD LAB BLOOD ORDERABLES Final Re sult Performing Organization Address [facility] de Phone Number [facility] See order comments or contact performing lab Unknown, [place] * HD KINETICS (09/08/2024) Only the most recent of2 resultswithin the time period is included. % Urea Reduction 73 65 - 80 % [facility] 09/08/2024 09/09/2024 9:5 5 AM EDT Narrative Resulting Agency Comment Specimen source: Plasma Juan Crockett MD LAB BLOOD ORDERABLES Final Re sult Performing Organization Address [facility] de Phone Number [facility] See order comments or contact performing lab Unknown, [place] * POST CHEMISTRY (09/08/2024) Only the most recent of2 resultswithin the time period is included. BUN Post Dialysis 16 6 - 19 mg/dL [facility] 09/08/2024 09/09/2024 9:5 5 AM EDT Narrative [facility] - 09/09/2024 Unless otherwise specified, test(s) performed at: [facility], [address] [place] [address] COMPUTER REPAIR TECHNICIAN: Jigar Ross M.D. For any questions, please call customer service at FREQUENCY:OTHER Resulting Agency Comment Specimen source: Plasma us Juan Crockett MD LAB BLOOD ORDERABLES Final Re sult [facility] See order comments or contact performing lab Unknown, [place] * [facility] CB Lab Results (09/08/2024) Only the most recent of2 resultswithin the time period is included. eNPCR 0.97 [facility] spKt/V Gotch 1.55 [facility] ge Center spKt/V (Daugirdas II) 1.51 [facility] WSTDKT/V 1.6 [facility] nPCR_HD 1.04 [facility] eKt/V Gotch 1.34 [facility] e Center PCR 70.86 [facility] eKdrt/V 1.34 [facility] eKt/V (Tattersall) 1.32 [facility] 09/08/2024 09/08/2024 us Cb Ordering Provider LAB BLOOD ORDERABLES Final Result Performing Organization Address City/[facility]/ZIP Co de Phone Number [facility] Contact Performing lab Unknown, [place] from Last 3 Months Insurance ([id number]) [place] [phone] [facility] ([id number]) Care Teams Typesetting Supervisor Relationship Specialty Start Date End Date Rahul Chan MD [address] [place] [address] [address] [place], [place] PCP - General 06/19/20
--- OUTSIDE RECORDS SUMMARY | 2024-10-13 13:50 | XMS_ITS | Clinical Summary ---
Author Organization [facility] Address [address] [place] [address] Phone Care Team Providers Care Cutting Department Supervisor Name Role Phone Rahul Chan MD Primary Care Provider +1- [phone] Allergies Active Allergy Reactions Criticality Noted Date [...] RSV infection 08/30/2024 Chest pain 08/30/2024 Cardiomyopathy ([facility] V24, [facility] V28) 2023 CAD (coronary artery disease) 06/17/2023 Chronic stable angina ([facility] V24) 06/17/2023 ESRD (end stage renal diseas e) on dialysis [place] [place], [facility] V28) 01/22/2022 CHF (congestive heart failure) ([facility] [place]24, [facility] V28) 12/27/2021 Overview (05/20/2024): Pef 55-60% Moderate pulmonary arterial systolic hypertension ([facility] V24, [facility] V28) 12/27/2021 Orthostatic hypotension 12/27/2021 Diabetes type 1, controlled ([facility] V24, [facility] V28) 03/27/2021 Elevated troponin 03/27/2021 Hyperlipidemia 03/27/2021 Hypertension 03/27/2021 NSTEMI (non-ST elevated myoc ardial infarction) ([facility] V24, [facility] V28) 03/27/2021 Paroxysmal atrial fibrillation ([facility] V24, [facility] V28) 03/27/2021 Overview (05/20/2024): [id number] ASHD (arteriosclerotic heart disease) 05/09/2019 Overview (05/20/2024): CABG X3 Resolved Problems Problem Noted Date Diagnosed Date Resolved Date Chest pain 06/17/2023 06/03/2024 Encounters Date Type Department Care Team Description 09/20/2024 Telephone [facility] [address] [place] [address] Eddie Goff NP No Call No Show (Letter sent) from Last 3 Months Surgical History Surgery Date Site/Laterality Comments OTHER [...] Chest X-ray nad OTHER SURGICAL HISTORY PROCEDURE: ME ECHO TRANSTHORAC R-T 2D W/WO M-MODE REC [...] left circ OTHER SURGICAL HISTORY 10/06/2018 PROCEDURE: ME ECHO TRANSTHORAC R-T 2D W/WO M-MODE REC COMP OTHER SURGICAL HISTORY 09/24/2018 PROCEDURE: HISTORY OTHER; COMMENT: CT angiography of thorax OTHER SURGICAL HISTORY 08/23/2018 PROCEDURE: OUTSIDE EKG OTHER SURGICAL HISTORY 08/13/2018 PROCEDURE: OUTSIDE EKG OTHER SURGICAL HISTORY 08/07/2018 PROCEDURE: RADIOLOGIC EXAM CHEST SINGLE VIEW OTHER SURGICAL HISTORY 08/07/2018 PROCEDURE: CAT SCAN OF HEAD/BRAIN NO CONTRAST CARDIOVASCULAR STRESS TEST 06/24/2018 PROCEDURE: ME CV STRS TST XERS&/OR RX CONT ECG W/O I&R OTHER SURGICAL HISTORY 05/08/2018 PROCEDURE: BINA DOCUMENTED; COMMENT: BINA - Arterial pressure index OTHER SURGICAL HISTORY 12/17/2017 PROCEDURE: ME ECHO TRANSTHORAC R-T 2D W/WO M-MODE REC COMP OTHER SURGICAL HISTORY 11/09/2017 PROCEDURE: OUTSIDE CT; COMMENT: CT of abdomen and pelvis CARDIAC CATHETERIZATION 07/18/2017 PROCEDURE: HISTORICAL CARDIAC CATH OTHER SURGICAL HISTORY 06/19/2017 PROCEDURE: CAT SCAN OF CHEST NO CONTRAST OTHER SURGICAL HISTORY 03/06/2017 PROCEDURE: ME DOPPLER ECHOCARD PULSE WAVE W/SPECTRAL DISPLAY; COMMENT: of renal artery OTHER SURGICAL HISTORY 08/27/2016 PROCEDURE: ME INCISION & DRAINAGE ABSCESS SIMPLE/SINGLE; COMMENT: left dorsal foot OTHER SURGICAL HISTORY 12/31/2015 PROCEDURE: OUTSIDE CT; COMMENT: CT of lower leg OTHER SURGICAL HISTORY 05/24/2015 PROCEDURE: HISTORY OTHER; COMMENT: Ultrasound scan of upper arm: OTHER SURGICAL HISTORY 11/21/2014 PROCEDURE: CONTRAST CAT SCAN OF LEG OTHER SURGICAL HISTORY 08/26/2014 PROCEDURE: ME AMPUTATION FOOT TRANSMETARSAL; COMMENT: R2, R3 Transmetatarsal [...] of right lower ex tremity below knee ([facility] [place], [facility] V28) DX:Amputation of right lower extremity below knee ([facility]) Anemia due to stage 3 chroni c kidney disease ([facility] [place], [facility] V28) DX:Anemia due to st age 1 chronic kidney disease ([facility]) Asthma, mild intermittent DX:Ast hma, mild intermittent Atherosclerosis DX:Atheroscleros is Bullous pemphigoid ([facility] V28) DX:Bullous pemphigoid; COMMENT: gx forearm Bullous pemphigus ([facility] V28) DX:Bullous pemphigus CHF (congestive heart failur e) ([facility] [place]24, [facility] V28) DX:CHF (congestive heart zaheer lure) ([facility]); COMMENT: Pef 55-60% Chronic cervical pain DX:Chronic cervical pain ESRD (end stage renal diseas e) ([facility] [place], 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 [place], [facility] V28) DX:Moderate pu lmonary arterial systolic hypertension ([facility]) Obesity (BMI 30-39.9) DX:Obesity (BMI 30-39.9) Orthostatic hypotension DX:Ortho static hypotension Peripheral vascular disease ([facility]24) 2016 DX:Peripheral vascular disease ([facility]); COMMENT: RT BKA 2015 left lie bypass 2016 Pulmonary nodule DX:Pulmonary no dule Venous embolism DX:Venous emboli sm Chest pain DX:Chest pain Covid-19 DX:COVID-19 Diabetes type 1, controlled ([facility] [place], [facility] V28) DX:Diabetes type 1, controll ed ([facility]) Acute chest pain DX:Acute chest pain Chronic kidney disease (CKD) , stage V ([facility] [place], [facility] V28) DX:Chronic kidney disease ( CKD), stage V ([facility]) Foot pain, right DX:Foot pain, r ight Hyperglycemia due to diabete s mellitus ([facility] [place], [facility] V28) DX:Hyperglycemia due to laverne betes mellitus ([facility]) Soft tissue infection of foot DX :Soft tissue infection of foot Stage 4 chronic kidney disea se ([facility] [place]24, [facility] V28) DX:Stage 4 chronic kidney di sease ([facility]) Ischemic cardiomyopathy Paroxysmal A-fib ([facility] V2 4, [facility] V28) Hypertension Family History Medical History Relation Name [...] Record ed Within the last 3 months, robert w many times did you visit the [...] care for your loved ones. For example, director of early childhood or elderly care for an older adult? [...] 2024 2:44 AM EST Plan of Treatment Upcoming Encounters Date Type Department Care Team (Late st Contact Info) Description 10/28/2024 8:40 AM EDT Office Visit [facility] [address] [place] [address] Eddie Goff NP [address] [place] [address] [address] [place] [address] Health Maintenance Due Date Last Done Comments Diabetes: Annual Foot Exam 1978 Diabetes: Annual Retina Eye Exam 1978 Zoster Vaccines (1 of 2) 2018 COVID-19 [...] 06/25/2026 06/25/2021, 04/29/2021, 06/09/2014, Additional history exists DTaP,Tdap,and Td Vaccines (2 - Td or Tdap) 08/24/2034 08/24/2024 Hepatitis B Vaccines Completed 08/24/2021, 05/23/2021, 04/25/2021, [...] age to complete this topic Meningococcal B Vaccine Aged Out No l onger eligible based on patient's age to complete [...] mmol/L LAB CHEMISTRY METHOD 06/03/2024 7:[address] [facility] Potassium 4.8 3.5 - 5.5 mmol/L LAB CHEMISTRY METHOD 06/03/2024 7:[address] [facility] Chloride 92(L) 96 - 110 mmol/L LAB CHEMISTRY METHOD 06/03/2024 7:53 AM [facility] CO2 26 21 - 32 mmol/L LAB CHEMISTRY METHOD 06/03/2024 7:53 AM [facility] Anion Gap 12(H) 3 - 11 LAB CHEMISTRY METHOD 06/03/2024 7:53 AM [facility] Glucose 71 70 - 100 mg/dL LAB CHEMISTRY METHOD 06/03/2024 7:53 AM [facility] BUN 58(H) 5 - 25 mg/dL LAB CHEMISTRY METHOD 06/03/2024 7:53 AM [facility] Creatinine 6.37(H) 0.70 - 1.30 mg/dL LAB CHEMISTRY METHOD 06/03/2024 7:53 AM [facility] eGFR 10(L) >=60 mL/min/1. 73m2 LAB CHEMISTRY METHOD 06/03/2024 7:53 AM [facility] Comment:Calculation based on the??Chronic Kidney Disease Epidemiology Collaboration (CKD-EPI) equation refit??without adjustment for race. BUN/Creatinine Ratio 9.1 LAB CHEMISTRY METHOD 06/03/2024 7:53 AM [facility] Calcium 8.9 8.5 - 10.5 mg/dL LAB CHEMISTRY METHOD 06/03/2024 7:53 AM [facility] AST (SGOT) 20 10 - 42 unit/L LAB CHEMISTRY METHOD 06/03/2024 7:53 AM [facility] ALT (SGPT) 28 10 - 60 unit/L LAB CHEMISTRY METHOD 06/03/2024 7:53 AM [facility] Alkaline Phosphatase 143(H) 42 - 121 unit/L LAB CHEMISTRY METHOD 06/03/2024 7:53 AM [facility] Total Protein 6.4 6.0 - 8.0 g/dL LAB CHEMISTRY METHOD 06/03/2024 7:53 AM [facility] Albumin 3.7 3.2 - 5.0 g/dL LAB CHEMISTRY METHOD 06/03/2024 7:[address] [facility] Total Bilirubin 0.9 0.0 - 1.4 mg/dL LAB CHEMISTRY METHOD 06/03/2024 7:[address] [facility] Blood Venous blood specimen / Unknown Venipuncture / Unknown 06/03/2024 6:13 AM EST 06/03/2024 6:57 AM EST us Sakshi Pompa MD LAB BLOOD ORDERABLES Final Res ult [facility] [address] [place] [address], from Last 3 Months or Most Recently Relevant to Health Maintenance Insurance MEDICARE Member Subscriber Plan / Payer (Ef fective 2018-Present) Name:Castro Tate Relation to Subscriber:Self Name:Castro Tate Payer ID:[id number] Group ID:[id number] Type:Not on file Address: [place] [address] [place] [id number] Advance Directives Documents on File Type Date Recorded Patient Shot Lighter Expl anation Health Care Decision (hx) 08/25/2020 [...] Agents on File Name Relationship Healthcare Agent [facility] Communication Jo Tate Spouse Health Care Agent Care Teams Cutting Department Supervisor Relationship Specialty Start Date End Date Rahul Chan MD [facility] [address] [place], [place] PCP - General Internal Medicine 05/16/21
== END 2024-10-13 15:21 | disposition home or self-care (01) ==
PROVIDERS: PCP Internal Medicine; Visit Provider Physician Assistant
DX: M50.90 Cervical disc disorder, unspecified, unspecified cervical region (principal)
CPT/HCPCS: 99214

== ENCOUNTER → 2024-10-13 13:14 | Outpatient (BNV) | payer OTHER, SELFPAY | PROVIDERS: PCP Internal Medicine; Visit Provider Radiology Diagnostic Radiology | DX: M47.812 Spondylosis without myelopathy or radiculopathy, cervical region (principal) | CPT/HCPCS: 72050 ==

== ENCOUNTER 2024-10-15 11:28 | Outpatient (REF) | payer OTHER, SELFPAY ==
--- NOTE | ~2024-10-15 | CT_ITS ---
EXAMINATION: CT CERVICAL SPINE WITHOUT CONTRAST CLINICAL INFORMATION: Cervical disc disorder, unspecified. Questionable of fracture at C4-5. COMPARISON: September 11, 2013. Correlated to x-ray dated October 13, 2024. TECHNIQUE: Contiguous axial images through the cervical spine using 3 mm collimation with bone and soft tissue algorithm. Sagittal and coronal reformatted images with bone algorithm. DLP: [address] examination was performed using dose optimization techniques as appropriate, variously including the following: *Automated exposure control *Adjustment of mA and/or kV according to patient size (this includes techniques or standardized protocols for targeted exams where dose is matched to indication/reason for exam; i.e. extremities or head) *Use of iterative reconstruction technique FINDINGS: Status post anterior intervertebral disc prosthesis placement at C4-5, C5-6, C6-7 and C7-T1 level. There is an anterior position of the prevertebral compartment of the intervertebral disc prosthesis of C4 and to a lesser extent C6-7 and C7-T1 retained beneath a marginal osteophyte formation sac dose level. There is a reverse curvature apex at C4-5. There is a grade 1 retrolisthesis C4-5. There is subchondral cyst formation at the left C4-5 facet joint, and to a lesser extent on the right side Craniocervical junction is intact with normal alignment. C1 is intact. C2 is intact. C3 is intact with facet joint hypertrophy bilaterally. No gross prevertebral compartment hematoma. Multiple vascular calcifications within the neck, extracranial and intracranial no fully included in the exam. Tympanic cavities and mastoid cells are aerated. CT/CT cervical spine wo IV con IMPRESSION: Concerning failed/fractures intervertebral disc spacers at C4-5. Acute to subacute degenerative changes in the left facet joint C4-5. Slight anterior migration of the intervertebral disc spacers at C6-7 and C7-T1 Fleischner guidelines were followed. Electronically signed by: Yasmany Singletary MD 10/15/2024 12:29 PM EDT
--- OUTSIDE RECORDS SUMMARY | 2024-10-15 11:57 | XMS_ITS | Encounter Summary ---
Author Organization [facility] Address [address] [address] Phone Care Team Providers Care Wheel And Pinion Inspector Name Role Phone Rahul Chan MD Primary Care Provider [phone]- [phone] Encounter Details Date Type Department Care Team (Late st Contact Info) Description 10/13/2024 Orders Only [facility]. [address] [address] Juan Crockett MD [address] [address] Social History Tobacco Use Types [...] Procedure Name Priority Date/Time Associated Diagnosis Comments HEMATOLOGY Routine 10/13/2024 CHEMISTRY Routine 10/13/2024 documented in this encounter Results * (ABNORMAL) [facility] (10/13/2024) BUN 60(H) 6 - 19 mg/dL [facility] Calcium 8.9 8.4 - 10.2 mg/dL [facility] 10/13/2024 10/14/2024 10: 40 AM EDT Narrative [facility] - 10/14/2024 Unless otherwise specified, test(s) performed at: [facility], [address] [place] [address] UNDERWRITING SERVICE REPRESENTATIVE: Jigar Ross M.D. For any questions, please call customer service at FREQUENCY:OTHER Resulting Agency Comment Specimen source: Serum Juan Crockett MD LAB BLOOD ORDERABLES Final Re sult Performing Organization Address [facility] de Phone Number [facility] See order comments or contact performing lab Unknown, [place] * (ABNORMAL) HEMATOLOGY (10/13/2024) Hemoglobin 11.2(L) 14.0 - 18.0 g/dL [facility] Hemoglobin x 3 33.6(L) 42.0 - 54.0 % [facility] 10/13/2024 10/14/2024 12: 41 PM EDT Narrative [facility] - 10/14/2024 Unless otherwise specified, test(s) performed at: [facility], [address] [place] [address] UNDERWRITING SERVICE REPRESENTATIVE: Jigar Ross M.D. For any questions, please call customer service at FREQUENCY:OTHER Resulting Agency Comment Specimen source: Blood Juan Crockett MD LAB BLOOD ORDERABLES Final Re sult Performing Organization Address [facility] de Phone Number [facility] See order comments or contact performing lab Unknown, [place] documented in this encounter Visit Diagnoses Not on filedocumented in this encounter Care Teams Wheel And Pinion Inspector Relationship Specialty Start Date End Date Rahul Chan MD [address] [place] [address] [address] [place], [place] PCP - General 06/19/20 documented as of this encounter
--- OUTSIDE RECORDS SUMMARY | 2024-10-15 11:57 | XMS_ITS ---
Author Name K[facility]nn, [facility] Address [address] [place] [id number] Phone [phone] Organization [facility] e, NA DOCUMENT DISCLAIMER Multiple document versions may exist, please be sure you review the latest version. The information in the [facility] Continuity of Care Document represents a summary [...] 31, 2020 Atherosclerotic heart diseas e of [place] coronary artery without angina pectoris I25.10 Active [...] Instructions Dosage Route Start Date End Date [facility] albuterol sulfate 90 mcg/actuation Inhale using [...] Sign Value Date / Time Blood Pressure-sitting 122/80 mmHg October 13 05:28 AM Heart Rate 76 beats per minute October 13, 2024 05:28 AM Respiratory Rate 16 breaths per minute October 13 05:28 AM Temperature 98.3 deg. F October 13, 2024 05: 28 AM Weight Vital Sign Value Date / Time Estimated Dry Weight 94 kg Latrice 09, 2 025 11:59 PM Pre-Dialysis 98.10 kg October 13, 2024 05: 28 AM Post-Dialysis 94.20 kg October 13, 2024 05: 28 AM Other Other Value Date / Time [...] 11.5 - 14.5 % - September 22 025 Hemoglobin x 3 36.3 % 42.0 - [...] g/dL 14.0 - 18.0 g/dL Low September HGB 11.2 g/dL 14.0 - 18.0 g/dL Low October 13, 2024 Hemoglobin x 3 33.6 % 42.0 - 54.0 % Low October 13, 2024 Metabolic/Renal Result Type Result Value Relevant Referen [...] 6 - 19 mg/dL High August 11 25 URR, Calc 76 % 65 - 80 [...] - 145 mEq/L - September 22, 2024 URR, Calc 73 % 65 - 80 % - October 13, 2024 BUN, Post 16 mg/dL 6 - 19 mg/dL - October 13, 2024 BUN 60 mg/dL 6 - 19 mg/dL High October 13, 2024 HD Adequacy Result Type Result Value [...] Reference Range Provided - September 08, 2024 spKt/V Gotch 1.68 No Reference Ran ge Provided - October 13, 2024 eKt/V ([place]) 1.39 No Reference Range Provided - October 13, 2024 wstdKt/V without residual 2.5 No Reference Range Provided - October 13, 2024 wstdKt/V 2.5 No Reference Ran ge Provided - October 13, 2024 Krt/V 0.00 No Reference Ran ge Provided - October 13, 2024 wstdKt/V, residual 0.0 No Reference Range Provided - October 13, 2024 spKt/V (Daugirdas II) 1.59 No Reference Range Provided - October 13, 2024 Bone/Mineral Result Type Result Value Relevant Referen ce Range Interpretation Date PTH-Intact, Plasma 196 pg/mL 16 - 80 pg/mL High Apr PTH-Intact, Plasma 221 pg/mL 16 - 80 [...] 290 pg/mL 16 - 80 pg/mL High b ruary 2024 Calcium, Total 8.8 mg/dL 8.4 [...] 8.9 mg/dL 8.4 - 10.2 mg/dL - October 13, 2024 Liver/Nutrition Result Type Result Value Relevant [...] - 52 U/L - September 22, 2024 eNPCR 1.05 No Reference Ran ge Provided - October 13, 2024 Lipid Result Type Result Value Relevant [...] K, 3.0 Ca, 1.0 Mg, 100 Dextrose ([id number]) Sodium (mEq/L) 130 mEq/L Bicarb Machine Setting [...] Dialysate Dialyzer Dialysis Access Meds Admin October 08, 2024 Weight 98.80 kg Weight 94.30 kg 04:01:00 440 2.0 K, 3.0 Ca, 1.0 Mg, 100 Dextrose ([id number]) 160nre Opt[facility]x Blood Pressure-sitting 199/94 mmHg Blood Pressure-sit ting 175/72 mmHg Heart Rate 77 beats per minute Heart Rate 70 beats per minute Respiratory Rate 18 breaths per minute Respiratory Rate 18 breaths per minute Temperature 97.8 deg. F Temperature 97.8 deg. F October 11, 2024 Weight 97.80 kg Weight 95.50 kg 04:04:00 450 2.0 K, 3.0 Ca, 1.0 Mg, 100 Dextrose ([id number]) 160nre [facility] Hemodialysis-AV Fistula-Standard, Left Upper Arm, [...] 97.4 deg. F Temperature 98.1 deg. F October 13, 2024 Weight 98.10 kg Weight 94.20 kg 03:58:00 450 2.0 K, 3.0 Ca, 1.0 Mg, 100 Dextrose ([id number]) 160nre [facility] Hemodialysis-AV Fistula-Standard, Left Upper Arm, Brachial Artery to Basilic Vein Access Placed on October 09, 2023 Vitamin D (Calcitriol) Oral; 0.25mcg,Oral Blood Pressure-sitting 148/46 mmHg Blood Pressure-sit ting 122/80 mmHg Heart Rate 80 beats per minute Heart Rate 76 beats per minute Respiratory Rate 16 breaths per minute Respiratory Rate 16 breaths per minute Temperature 98.1 deg. F Temperature 98.3 deg. F
--- OUTSIDE RECORDS SUMMARY | 2024-10-15 11:57 | XMS_ITS | Clinical Summary ---
Author Organization [facility] Address [address] [place] [address] Phone Care Team Providers Care Academic Support Director Name Role Phone Rahul Chan MD Primary Care Provider [phone]- [phone] Allergies Active Allergy Reactions Criticality Noted Date [...] RSV infection 08/30/2024 Chest pain 08/30/2024 Cardiomyopathy ([facility] V24, [facility] V28) 2023 CAD (coronary artery disease) 06/17/2023 Chronic stable angina ([facility] V24) 06/17/2023 ESRD (end stage renal diseas e) on dialysis [place] [place], [facility] V28) 01/22/2022 CHF (congestive heart failure) ([facility] [place], [facility] V28) 12/27/2021 Overview (05/20/2024): Pef 55-60% Moderate pulmonary arterial systolic hypertension ([facility] V24, [facility] V28) 12/27/2021 Orthostatic hypotension 12/27/2021 Diabetes type 1, controlled ([facility] V24, [facility] V28) 03/27/2021 Elevated troponin 03/27/2021 Hyperlipidemia 03/27/2021 Hypertension 03/27/2021 NSTEMI (non-ST elevated myoc ardial infarction) ([facility] V24, [facility] V28) 03/27/2021 Paroxysmal atrial fibrillation ([facility] V24, [facility] V28) 03/27/2021 Overview (05/20/2024): [id number] ASHD (arteriosclerotic heart disease) 05/09/2019 Overview (05/20/2024): CABG X3 Resolved Problems Problem Noted Date Diagnosed Date Resolved Date Chest pain 06/17/2023 06/03/2024 Encounters Date Type Department Care Team Description 09/20/2024 Telephone [facility] [address] [place] [address] Eddie Goff NP No Call [...] Chest X-ray nad OTHER SURGICAL HISTORY PROCEDURE: [place] ECHO TRANSTHORAC R-T 2D W/WO M-MODE REC [...] left circ OTHER SURGICAL HISTORY 10/06/2018 PROCEDURE: [place] ECHO TRANSTHORAC R-T 2D W/WO M-MODE REC COMP OTHER SURGICAL HISTORY 09/24/2018 PROCEDURE: HISTORY OTHER; COMMENT: CT angiography of thorax OTHER SURGICAL HISTORY 08/23/2018 PROCEDURE: OUTSIDE EKG OTHER SURGICAL HISTORY 08/13/2018 PROCEDURE: OUTSIDE EKG OTHER SURGICAL HISTORY 08/07/2018 PROCEDURE: RADIOLOGIC EXAM CHEST SINGLE VIEW OTHER SURGICAL HISTORY 08/07/2018 PROCEDURE: CAT SCAN OF HEAD/BRAIN NO CONTRAST CARDIOVASCULAR STRESS TEST 06/24/2018 PROCEDURE: [place] CV STRS TST XERS&/OR RX CONT ECG W/O I&R OTHER SURGICAL HISTORY 05/08/2018 PROCEDURE: BINA DOCUMENTED; COMMENT: BINA - Arterial pressure index OTHER SURGICAL HISTORY 12/17/2017 PROCEDURE: [place] ECHO TRANSTHORAC R-T 2D W/WO M-MODE REC COMP OTHER SURGICAL HISTORY 11/09/2017 PROCEDURE: OUTSIDE CT; COMMENT: CT of abdomen and pelvis CARDIAC CATHETERIZATION 07/18/2017 PROCEDURE: HISTORICAL CARDIAC CATH OTHER SURGICAL HISTORY 06/19/2017 PROCEDURE: CAT SCAN OF CHEST NO CONTRAST OTHER SURGICAL HISTORY 03/06/2017 PROCEDURE: NY DOPPLER ECHOCARD PULSE WAVE W/SPECTRAL DISPLAY; COMMENT: of renal artery OTHER SURGICAL HISTORY 08/27/2016 PROCEDURE: NY INCISION & DRAINAGE ABSCESS SIMPLE/SINGLE; COMMENT: left dorsal foot OTHER SURGICAL HISTORY 12/31/2015 PROCEDURE: OUTSIDE CT; COMMENT: CT of lower leg OTHER SURGICAL HISTORY 05/24/2015 PROCEDURE: HISTORY OTHER; COMMENT: Ultrasound scan of upper arm: OTHER SURGICAL HISTORY 11/21/2014 PROCEDURE: CONTRAST CAT SCAN OF LEG OTHER SURGICAL HISTORY 08/26/2014 PROCEDURE: [place] AMPUTATION FOOT TRANSMETARSAL; COMMENT: R2, R3 Transmetatarsal [...] of right lower ex tremity below knee ([facility] [place], [facility] V28) DX:Amputation of right lower extremity below knee ([facility]) Anemia due to stage 3 chroni c kidney disease ([facility] [place], [facility] V28) DX:Anemia due to st age 1 chronic kidney disease ([facility]) Asthma, mild intermittent DX:Ast hma, mild intermittent Atherosclerosis DX:Atheroscleros is Bullous pemphigoid ([facility] [place]) DX:Bullous pemphigoid; COMMENT: gx forearm Bullous pemphigus ([facility] [place]) DX:Bullous pemphigus CHF (congestive heart failur e) ([facility] [place], [facility] V28) DX:CHF (congestive heart zaheer lure) ([facility]); COMMENT: Pef 55-60% Chronic cervical pain DX:Chronic cervical pain ESRD (end stage renal diseas e) ([facility] [place], [facility] V28) DX:ESRD (end stage renal dis ease) ([facility]) GERD (gastroesophageal reflux disease) DX:GERD (gastroesophageal reflux disease) Groin pain DX:Groin pain Hernia, hiatal DX:Hernia, hiata l History of bacteremia DX:History of bacteremia History of ischemic colitis DX:H istory of ischemic colitis History of OR (myocardial infarction) DX:History of OR (myocardial infarction) penitentiary current use of anticoagulant DX: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; COMMENT: pemphigus Moderate pulmonary arterial systolic hypertension ([facility] [place], [facility] V28) DX:Moderate pu lmonary arterial systolic hypertension ([facility]) Obesity (BMI 30-39.9) DX:Obesity (BMI 30-39.9) Orthostatic hypotension DX:Ortho static hypotension Peripheral vascular disease ([facility] [place]) 2016 DX:Peripheral vascular disease ([facility]); COMMENT: RT BKA 2015 left lie bypass 2016 Pulmonary nodule DX:Pulmonary no dule Venous embolism DX:Venous emboli sm Chest pain DX:Chest pain Covid-19 DX:COVID-19 Diabetes type 1, controlled ([facility] [place], [facility] V28) DX:Diabetes type 1, controll ed ([facility]) Acute chest pain DX:Acute chest pain Chronic kidney disease (CKD) , stage V ([facility] [place], [facility] V28) DX:Chronic kidney disease ( CKD), stage V ([facility]) Foot pain, right DX:Foot pain, r ight Hyperglycemia due to diabete s mellitus ([facility] [place], [facility] V28) DX:Hyperglycemia due to laverne betes mellitus ([facility]) Soft tissue infection of foot DX :Soft tissue infection of foot Stage 4 chronic kidney disea se ([facility] [place], [facility] V28) DX:Stage 4 chronic kidney di sease ([facility]) Ischemic cardiomyopathy Paroxysmal A-fib ([facility] V2 4, [facility] V28) Hypertension Family History Medical History Relation [...] care for your loved ones. For example, child care associate or elderly care for an older adult? [...] Description 10/28/2024 8:40 AM EDT Office Visit [facility] [address] [place] [address] Eddie Goff NP [address] [place] [address] [address] [place] [address] Health Maintenance Due Date Last Done Comments [...] LAB CHEMISTRY METHOD 06/03/2024 7:53 AM EST [facility] Potassium 4.8 3.5 - 5.5 mmol/L LAB CHEMISTRY METHOD 06/03/2024 7:53 AM EST [facility] Chloride 92(L) 96 - 110 mmol/L LAB CHEMISTRY METHOD 06/03/2024 7:53 AM [facility] CO2 26 21 - 32 mmol/L LAB CHEMISTRY METHOD 06/03/2024 7:53 AM [facility] Anion Gap 12(H) 3 - 11 LAB CHEMISTRY METHOD 06/03/2024 7:53 AM [facility] Glucose 71 70 - 100 mg/dL LAB CHEMISTRY METHOD 06/03/2024 7:53 AM [facility] BUN 58(H) 5 - 25 mg/dL LAB CHEMISTRY METHOD 06/03/2024 7:53 AM [facility] Creatinine 6.37(H) 0.70 - 1.30 mg/dL LAB CHEMISTRY METHOD 06/03/2024 7:53 AM [facility] eGFR 10(L) >=60 mL/min/1. 73m2 LAB CHEMISTRY METHOD 06/03/2024 7:53 AM [facility] Comment:Calculation based on the??Chronic Kidney Disease Epidemiology Collaboration (CKD-EPI) equation refit??without adjustment for race. BUN/Creatinine Ratio 9.1 LAB CHEMISTRY METHOD 06/03/2024 7:53 AM [facility] Calcium 8.9 8.5 - 10.5 mg/dL LAB CHEMISTRY METHOD 06/03/2024 7:53 AM [facility] AST (SGOT) 20 10 - 42 unit/L LAB CHEMISTRY METHOD 06/03/2024 7:53 AM [facility] ALT (SGPT) 28 10 - 60 unit/L LAB CHEMISTRY METHOD 06/03/2024 7:53 AM [facility] Alkaline Phosphatase 143(H) 42 - 121 unit/L LAB CHEMISTRY METHOD 06/03/2024 7:53 AM [facility] Total Protein 6.4 6.0 - 8.0 g/dL LAB CHEMISTRY METHOD 06/03/2024 7:53 AM [facility] Albumin 3.7 3.2 - 5.0 g/dL LAB CHEMISTRY METHOD 06/03/2024 7:53 AM EST [facility] Total Bilirubin 0.9 0.0 - 1.4 mg/dL LAB CHEMISTRY METHOD 06/03/2024 7:53 AM EST [facility] Blood Venous blood specimen / Unknown Venipuncture / Unknown 06/03/2024 6:13 AM EST 06/03/2024 6:57 AM EST us Sakshi Pompa MD LAB BLOOD ORDERABLES Final Res ult [facility] ([facility] [address] [place] [address], from Last 3 Months or Most Recently Relevant to Health Maintenance Insurance MEDICARE Member Subscriber Plan / Payer (Ef fective 2018-Present) Name:Castro Tate Relation to Subscriber:Self Name:Castro Tate Payer ID:[id number] Group ID:[id number] Type:Not on file Address: [place] [address] [address] [id number] Advance Directives Documents on File Type Date Recorded Patient Explosives Truck Driver Expl anation Health Care Decision (hx) 08/25/2020 [...] Agents on File Name Relationship Healthcare Agent [facility] Communication Jo Tate Spouse Health Care Agent Care Teams Academic Support Director Relationship Specialty Start Date End Date Rahul Chan MD [facility] [address] [place], [place] PCP - General Internal Medicine 05/16/21
--- OUTSIDE RECORDS SUMMARY | 2024-10-15 11:58 | XMS_ITS | Clinical Summary ---
Author Organization [facility] Address [address] [place] [address] Care Team Providers Care Manager Paid Name Role Phone Unavailable Primary Care Provider [...]
--- OUTSIDE RECORDS SUMMARY | 2024-10-15 11:58 | XMS_ITS | Clinical Summary ---
Author Organization [facility] Address [address] [place] [phone] Phone Care Team Providers Care [employer] Finisher Name Role Phone Rahul Chan MD Primary Care Provider [phone]- [phone] Medications hydrALAZINE (APRESOLINE) 25 MG tablet Take [...] nephrosclerosis who follows with Dr. Crockett from [facility]. Patient also receiving intermittent hemodialysis. He had [...] HD was on 02/19. At discharge from [facility] on 02/21, he had a Hb of [...] 02/23. On 02/24, he was started on [id number] Q12H for diuresis while awaiting HD on [...] Encounters Date Type Department Care Team Description 10/13/2024 Orders Only [facility] [address] [phone] Juan Crockett MD 10/06/2024 Orders Only [facility] [address] [phone] Juan Crockett MD 10/04/2024 Treatment [facility] [address] [phone] Juan Crockett MD End stage renal disease; Dependence on renal dialysis 09/29/2024 Orders Only [facility] [address] [phone] Juan Crockett MD 09/29/2024 Treatment [facility] [address] [phone] Juan Crockett MD End stage renal disease; Dependence on renal dialysis 09/22/2024 Orders Only [facility] [address] [phone] Juan Crockett MD 09/20/2024 Treatment [facility] [address] [phone] Juan Crockett MD End stage renal disease; Dependence on renal dialysis 09/15/2024 Orders Only [facility] [address] [phone] Juan Crockett MD 09/08/2024 Orders Only [facility] [address] [phone] Juan Crockett MD 09/08/2024 [facility] in Dialysis Clinic [facility] [address] [phone] Juan Crockett MD 09/08/2024 Treatment [facility] [address] [phone] Juan Crockett MD End stage renal disease; Dependence on renal dialysis 09/01/2024 Orders Only [facility] [address] [phone] Juan Crockett MD 08/30/2024 Treatment [facility] [address] [phone] Juan Crockett MD End stage renal disease; Dependence on renal dialysis 08/25/2024 Orders Only [facility] [address] [phone] Juan Crockett MD 08/23/2024 Treatment [facility] [address] [phone] Juan Crockett MD End stage renal disease; Dependence on renal dialysis 08/18/2024 Orders Only [facility] [address] [phone] Juan Crockett MD 08/11/2024 Orders Only [facility] [address] [phone] Juan Crockett MD 08/09/2024 Treatment [facility] [address] [address] Juan Crockett MD End stage renal disease; Dependence on renal dialysis 08/06/2024 Treatment [facility] [address] [phone] Juan Crockett MD End stage renal disease; Dependence on renal dialysis 08/04/2024 Orders Only [facility] [address] [phone] Juan Crockett MD 08/02/2024 [facility] [address] [phone] Juan Crockett MD 07/28/2024 Orders [facility] [address] [phone] Juan Crockett MD 07/21/2024 Orders [facility] [address] [phone] Juan Crockett MD 07/19/2024 Treatment [facility] [address] [phone] Juan Crockett MD End stage renal disease; [...] Priority Date/Time Associated Diagnosis Comments CHEMISTRY Routine 10/13/2024 HEMATOLOGY Routine 10/13/2024 CHEMISTRY Routine 10/06/2024 HEMATOLOGY Routine 10/06/2024 HEMATOLOGY [...] Last 3 Months Results * (ABNORMAL) HEMATOLOGY (10/13/2024) Only the most recent of13 resultswithin the time period is included. Hemoglobin 11.2(L) 14.0 - 18.0 g/dL [facility] Hemoglobin x 3 33.6(L) 42.0 - 54.0 % [facility] 10/13/2024 10/14/2024 12: 41 PM EDT Narrative [facility] - 10/14/2024 Unless otherwise specified, test(s) performed at: [place] [address] PRINTER ASSISTANT: Jigar Ross M.D. For any questions, please call customer service at FREQUENCY:OTHER Resulting Agency Comment Specimen source: Blood Juan Crockett MD LAB BLOOD ORDERABLES Final Re sult Performing Organization Address [facility] de Phone Number [facility] See order comments or contact performing lab Unknown, [place] * (ABNORMAL) [facility] (10/13/2024) Only the most recent of16 resultswithin the time period is included. BUN 60(H) 6 - 19 mg/dL [facility] Calcium 8.9 8.4 - 10.2 mg/dL [facility] 10/13/2024 10/14/2024 10: 40 AM EDT Narrative [facility] - 10/14/2024 Unless otherwise specified, test(s) performed at: [facility] [address] PRINTER ASSISTANT: Jigar Ross M.D. For any questions, please call customer service at FREQUENCY:OTHER Resulting Agency Comment Specimen source: Serum Juan Crockett MD LAB BLOOD ORDERABLES Final Re sult Performing Organization Address [facility] de Phone Number [facility] See order comments or contact performing lab Unknown, [place] * (ABNORMAL) SPECIAL CHEMISTRY (09/22/2024) Hemoglobin A1C 6.0(H) 4.8 - 5.9 % [facility] 09/22/2024 09/23/2024 8:4 3 AM EDT Narrative [facility] - 09/23/2024 Unless otherwise specified, test(s) performed at: [facility], [address] [place] [address] PRINTER ASSISTANT: Jigar Ross M.D. For any questions, please call customer service at FREQUENCY:MONTHLY Resulting Agency Comment Specimen source: Blood Juan Crockett MD LAB BLOOD BANK TEST ORDERABLE S Final Result Performing Organization Address [facility] de Phone Number [facility] See order comments or contact performing lab Unknown, [place] * IMMUNO CHEMISTRY (09/22/2024) Only the most recent of3 resultswithin the time period is included. Hep B Surface Ag Negative Negative [facility] 09/22/2024 09/23/2024 9:1 7 AM EDT Narrative Resulting Agency Comment Specimen source: Serum Juan Crockett MD LAB BLOOD ORDERABLES Final Re sult Performing Organization Address [facility] de Phone Number [facility] See order comments or contact performing lab Unknown, [place] * HD KINETICS (09/08/2024) Only the most recent of2 resultswithin the time period is included. % Urea Reduction 73 65 - 80 % [facility] 09/08/2024 09/09/2024 9:5 5 AM EDT Narrative Resulting Agency Comment Specimen source: Plasma Juan Crockett MD LAB BLOOD ORDERABLES Final Re sult Performing Organization Address [facility] de Phone Number ([facility] See order comments or contact performing lab Unknown, [place] * POST CHEMISTRY (09/08/2024) Only the most recent of2 resultswithin the time period is included. BUN Post Dialysis 16 6 - 19 mg/dL [facility] 09/08/2024 09/09/2024 9:5 5 AM EDT Narrative [facility] - 09/09/2024 Unless otherwise specified, test(s) performed at: [facility], [address] [place] [address] PRINTER ASSISTANT: Jigar Ross M.D. For any questions, please call customer service at FREQUENCY:OTHER Resulting Agency Comment Specimen source: Plasma Juan Crockett MD LAB BLOOD ORDERABLES Final Re sult [facility] See order comments or contact performing lab Unknown, [place] * [facility] Results (09/08/2024) Only the most recent of2 resultswithin the time period is included. eNPCR 0.97 [facility] spKt/V Gotch 1.55 [facility] spKt/V (Daugirdas II) 1.51 [facility] WSTDKT/V 1.6 [facility] nPCR_HD 1.04 [facility] eKt/V Gotch 1.34 [facility] e Center PCR 70.86 [facility] eKdrt/V 1.34 [facility] eKt/V ([place]) 1.32 [facility] 09/08/2024 09/08/2024 us Cb Ordering Provider LAB BLOOD ORDERABLES Final Result [facility] Contact Performing lab Unknown, [place] from Last 3 Months Insurance [facility] ([id number]) [facility] ([id number]) Care Teams [employer] Finisher Relationship Specialty Start Date End Date Rahul Chan MD [address] [place], [place] [address] [place], [place] PCP - General 06/19/20
--- OUTSIDE RECORDS SUMMARY | 2024-10-15 11:58 | XMS_ITS | Encounter Summary ---
Author Organization [facility] Address [address] [address] Phone Care Team Providers Care Senior Compensation Consultant Name Role Phone Rahul Chan MD Primary Care Provider [phone]- [phone] Encounter Details Date Type Department Care Team (Late st Contact Info) Description 09/08/2024 TCM in Dialysis Clinic [facility]. [address] [phone] Darwin Chew MD [address] [address] Social History Tobacco Use Types [...] 09/08/2024 The patient was seen for a suoc-fk-zwij visit as part of Transitional Care Management services. Attending Feed Inspection Supervisor: DARWIN CHEW Dialysis Location: [facility] Schedule: Shift: 1 INTERACTIVE CONTACT Contact [...] K, 2.50 Ca, 1.0 Mg, 100 Dextrose ([id number]) Sodium: 130 Bicarb: 35 Pre Dialysis Vitals Pre BP Sit: 115/73 Pre Wt (kg): 96.7 EDW Deviation (kg): 2.7 Temp: 97.3*F Post Dialysis Vitals Post BP Sit: 146/88 Post Wt (kg): 94.8 CARE COORDINATION Post-discharge follow-up appointments reviewed with the patient. Established or re-established referrals. VISIT DIAGNOSES CPT Code 01878 - High complexity, seen within 7 days of discharge. N18.6, Z99.2 End stage renal disease;Dependence on renal dialysis Signed by: DARWIN CHEW MD on 09/08/2024 at 09:55:28 PM Transcribed by: DARWIN CHEW MD on 09/08/2024 at 09:55:28 PM documented in this encounter Plan of Treatment Not on file documented as of this encounter Visit Diagnoses Not on filedocumented in this encounter Care Teams Senior Compensation Consultant Relationship Specialty Start Date End Date Rahul Chan MD [address] [place] [address] [address] [place] PCP - General 06/19/20 documented as of this encounter
== END 2024-10-15 11:29 | disposition home or self-care (01) ==
LOC: HO.CT 11:28
PROVIDERS: PCP Internal Medicine; Visit Provider Physician Assistant
DX: M50.90 Cervical disc disorder, unspecified, unspecified cervical region (principal)
CPT/HCPCS: 72125

== ENCOUNTER → 2024-10-15 11:28 | Outpatient (BNV) | payer OTHER, SELFPAY | PROVIDERS: PCP Internal Medicine; Visit Provider Physician Assistant | DX: M50.021 Cervical disc disorder at C4-C5 level with myelopathy (principal) | CPT/HCPCS: G0180 ==

== ENCOUNTER → 2024-10-15 11:32 | Outpatient (BNV) | payer OTHER, SELFPAY | PROVIDERS: PCP Internal Medicine; Visit Provider Radiology Diagnostic Radiology | DX: M50.90 Cervical disc disorder, unspecified, unspecified cervical region (principal) | CPT/HCPCS: 72125 ==

== ENCOUNTER 2024-10-19 07:13 | Outpatient (BNV) | payer OTHER, SELFPAY | END 2024-10-20 08:41 | PROVIDERS: Admitting Provider Neurological Surgery; PCP Internal Medicine; Visit Provider Internal Medicine Cardiovascular Disease | DX: I49.1 Atrial premature depolarization (principal) | CPT/HCPCS: 93010 ==

== ENCOUNTER 2024-10-19 07:13 | Outpatient (BNV) | payer OTHER, SELFPAY | END 2024-10-19 12:00 | PROVIDERS: Admitting Provider Neurological Surgery; PCP Internal Medicine; Visit Provider Internal Medicine Cardiovascular Disease | DX: I42.8 Other cardiomyopathies (principal); I46.9 Cardiac arrest, cause unspecified | CPT/HCPCS: 93306 ==

== ENCOUNTER 2024-10-19 07:13 | Outpatient (BNV) | payer OTHER, SELFPAY | END 2024-10-19 08:57 | PROVIDERS: Admitting Provider Neurological Surgery; PCP Internal Medicine; Visit Provider Radiology Diagnostic Radiology | DX: J98.4 Other disorders of lung (principal) | CPT/HCPCS: 71045 ==

== ENCOUNTER 2024-10-19 07:13 | Inpatient (IN) | payer OTHER, SELFPAY ==
[2024-10-19] VITALS (25 sets, daily range): BP systolic 82–159; BP diastolic 45–75; PULSE 75–98; RESP 16–20; TEMP 32–36.9; O2SAT 96–100; BMI 27.1
--- NOTE | ~2024-10-19 | FL_ITS ---
EXAMINATION: FL GUIDANCE ONLY HISTORY: c4-5 cervical decompression COMPARISON: Correlation is made to plain films of the cervical spine dated 10/13/2024. TECHNIQUE: Fluoroscopy time: 1 seconds. Cumulative Dose: 0.2448 mGy. DAP: 0.0879 mGym2 Images: 1. FINDINGS: A single fluoroscopic spot film of the cervical spine in the lateral projection was obtained. FL/FL guidance in OR IMPRESSION: Fluoroscopy during procedure. Please see procedure report for additional information. Electronically signed by: Wesley Ingram MD 10/19/2024 09:46 AM EDT
--- NOTE | ~2024-10-19 | XR_ITS ---
EXAMINATION: XR CHEST CLINICAL INFORMATION: s/p ett placement COMPARISON: Chest x-ray 07/03/2023 TECHNIQUE: Frontal view of the chest was obtained. FINDINGS: The lungs are hypoexpanded but clear. The heart size is enlarged. The pulmonary vascularity is normal. Tip of enteric tube is in stomach. Tip of endotracheal tube is 5.1 cm above the julia. There is no pleural effusion or pneumothorax. There are median sternotomy sutures from previous CABG. No gross bony abnormality seen. XR/XR chest 1V IMPRESSION: Satisfactory position of endotracheal tube and enteric tube. Hypoexpanded lungs without acute process. No major change from 07/03/2023 Electronically signed by: Onel Jackson MD 10/19/2024 01:12 PM EDT
[2024-10-19] MEDS: 0.9 % Sodium Chloride 1,000 ML 50 ML IVCONT (06:57)
--- NOTE | 2024-10-19 07:03 | MHC.SHP ---
Pre-Procedural Eval Section A - 24 Hr Update-Section A only Date of Service: 10/19/24 The patient is an INPATIENT: No Changes since office visit: No Cold of Flu in the past 2 weeks, No New Medical Problems, No Changes in Medication and No Patient answered all questions The patient has been examined within 24 hours of the surgical procedure. The History & Physical has been completed within 30 days and I have reviewed it.: No Section B - Complete if H&P > 30 days Chief Complaint: Fracture of neck,Spinal stenosis, cervical region Allergies: Allergies Allergy/AdvReac Type Severity Reaction Status Date / Time nitroglycerin [NITROGLYCERIN] Allergy Intermediate VOMITING Verified 03/15/20 07:19 cranberry [Cranberry] Allergy Mild RASH Verified 03/15/20 07:19 Penicillins Allergy Mild RASH Verified 03/15/20 07:19 penicillin V Allergy Unknown Rash/vomitt Verified 02/23/13 00:00 ing furosemide [From Lasix] Allergy Rash Verified 12/16/20 13:52 morphine AdvReac Severe Nausea and Verified 10/19/24 06:25 Vomiting Review of Systems Sugical H&P ROS: Negative: Constitution, Cardiovascular, Respiratory, Neurological, Psychiatric, Hem-Onc, Allergic/Immunologic, Gastrointestinal, Genitourinary, Musculoskeletal, Integumentary, Endocrine and Eyes/Ears/Nose/Throat Exam Surgical H&P Exam: Normal: HEENT, Normal: Heart, Normal: Lungs, Normal: Extremities, Normal: Abdomen, Normal: Skin and Normal: Neurological (awake, alert,oriented x 3 ) Plan Diagnosis/Plan: Unchanged C4-5 laminectomy with lateral mass screws Time Spent With Patient Time: Total time managing care of this patient today __5__ minutes.
[2024-10-19 07:13] LABS: Anion Gap 20 (12-20); Carbon Dioxide 29 mmol/L (22-29); Chloride 94 mmol/L (96-108); Potassium 5.1 mmol/L (3.3-5.1); Sodium 138 mmol/L (135-145)
--- OUTSIDE RECORDS SUMMARY | 2024-10-19 07:16 | XMS_ITS | Clinical Summary ---
Author Organization [facility] Address [address] [place] [phone] Phone Care Team Providers Care Daycare Director Name Role Phone Rahul Chan MD Primary Care Provider +1- [phone] Medications hydrALAZINE (APRESOLINE) 25 MG tablet Take [...] nephrosclerosis who follows with Dr. Crockett from [facility]. Patient also receiving intermittent hemodialysis. [...] HD was on 02/19. At discharge from [facility] on 02/21, he had a [...] 02/23. On 02/24, he was started on [id number] Q12H for diuresis while awaiting HD on [...] Encounters Date Type Department Care Team Description 10/18/2024 Treatment [facility] [address] [phone] Juan Crockett MD End stage renal disease; Dependence on renal dialysis 10/13/2024 Treatment [facility] [address] [phone] Juan Crockett MD End stage renal disease; Dependence on renal dialysis 10/13/2024 Orders Only [facility] [address] [phone] Juan Crockett MD 10/06/2024 Orders Only [facility] [address] [phone] Juan Crockett MD 10/04/2024 Treatment [facility] [address] [address] Juan Crockett MD End stage renal disease; Dependence on renal dialysis 09/29/2024 Orders Only [facility] [address] [phone] Juan Crockett MD 09/29/2024 Treatment [facility] [address] [phone] Juan Crockett MD End stage renal disease; Dependence on renal dialysis 09/22/2024 Orders Only [facility] [address] [phone] Juan Crockett MD 09/20/2024 Treatment [facility] [address] [address] Juan Crockett MD End stage renal disease; Dependence on renal dialysis 09/15/2024 Orders Only [facility] [address] [phone] Juan Crockett MD 09/08/2024 Orders Only [facility] [address] [phone] Juna Crockett MD 09/08/2024 [facility] in Dialysis Clinic [facility] the [address] [address] Juan Crockett MD 09/08/2024 Treatment [facility] [address] [phone] Juan Crockett MD End stage renal disease; Dependence on renal dialysis 09/01/2024 Orders Only [facility] the [address] [address] Juan Crockett MD 08/30/2024 Treatment [facility] [address] [phone] Juan Crockett MD End stage renal disease; Dependence on renal dialysis 08/25/2024 Orders Only [facility] [address] [phone] Juan Crockett MD 08/23/2024 Treatment [facility] [address] [address] Juan Crockett MD End stage renal disease; Dependence on renal dialysis 08/18/2024 Orders Only [facility] [address] [address] Juan Crockett MD 08/11/2024 Orders Only [facility] [address] [address] Juan Crockett MD 08/09/2024 Treatment [facility] [address] [address] Juan Crockett MD End stage renal disease; Dependence on renal dialysis 08/06/2024 Treatment [facility] [address] [address] Juan Crockett MD End stage renal disease; Dependence on renal dialysis 08/04/2024 Orders [facility] [address] [phone] Juan Crockett MD 08/02/2024 Treatment [facility] [address] [address] Juan Crockett MD 07/28/2024 Orders Only [facility] [address] [address] Juan Crockett MD from Last 3 Months [...] Procedure Name Priority Date/Time Associated Diagnosis Comments [facility] LAB RESULTS Routine 10/13/2024 HD KINETICS Routine 10/13/2024 POST CHEMISTRY Routine 10/13/2024 CHEMISTRY Routine 10/13/2024 HEMATOLOGY Routine 10/13/2024 CHEMISTRY [...] 07/28/2024 HEMATOLOGY Routine 07/28/2024 CHEMISTRY Routine 07/28/2024 from Last 3 Months Results * HD KINETICS (10/13/2024) Only the most recent of3 resultswithin the time period is included. % Urea Reduction 73 65 - 80 % [facility] 10/13/2024 10/14/2024 10: 47 AM EDT Narrative Resulting Agency Comment Specimen source: Plasma Juan Crockett MD LAB BLOOD ORDERABLES Final Re sult Performing Organization Address City/[facility]/ZIP Co de Phone Number [facility] See order comments or contact performing lab Unknown, [place] * POST CHEMISTRY (10/13/2024) Only the most recent of3 resultswithin the time period is included. BUN Post Dialysis 16 6 - 19 mg/dL [facility] 10/13/2024 10/14/2024 10: 47 AM EDT Narrative [facility] - 10/15/2024 Unless otherwise specified, test(s) performed at: [facility], [address] [place] [id number] QUALITY COMPLIANCE MANAGER: Jigar Ross M.D. For any questions, please call customer service at FREQUENCY:OTHER Resulting Agency Comment Specimen source: Plasma Juan Crockett MD LAB BLOOD ORDERABLES Final Re sult [facility] See order comments or contact performing lab Unknown, [place] * (ABNORMAL) HEMATOLOGY (10/13/2024) Only the most recent of12 resultswithin the time period is included. Hemoglobin 11.2(L) 14.0 - 18.0 g/dL [facility] Hemoglobin x 3 33.6(L) 42.0 - 54.0 % [facility] 10/13/2024 10/14/2024 12: 41 PM EDT Narrative [facility] - 10/14/2024 Unless otherwise specified, test(s) performed at: [facility], [address] [place], [place] [id number] QUALITY COMPLIANCE MANAGER: Jigar Ross M.D. For any questions, please call customer service at FREQUENCY:OTHER Resulting Agency Comment Specimen source: Blood Juan Crockett MD LAB BLOOD ORDERABLES Final Re sult Performing Organization Address [facility] de Phone Number [facility] See order comments or contact performing lab Unknown, [place] * (ABNORMAL) [facility] (10/13/2024) Only the most recent of15 resultswithin the time period is included. BUN 60(H) 6 - 19 mg/dL [facility] Calcium 8.9 8.4 - 10.2 mg/dL [facility] 10/13/2024 10/14/2024 10: 40 AM EDT Narrative [facility] - 10/14/2024 Unless otherwise specified, test(s) performed at: [facility], [address] [place], [place] [id number] QUALITY COMPLIANCE MANAGER: Jigar Ross M.D. For any questions, please call customer service at FREQUENCY:OTHER Resulting Agency Comment Specimen source: Serum Juan Crockett MD LAB BLOOD ORDERABLES Final Re sult Performing Organization Address [facility] de Phone Number [facility] See order comments or contact performing lab Unknown, [place] * [facility] Results (10/13/2024) Only the most recent of3 resultswithin the time period is included. spKt/V Gotch 1.68 [facility] spKt/V (Daugirdas II) 1.59 [facility] PCR 74.21 [facility] eNPCR 1.05 [facility] eKt/V Gotch 1.45 [facility] eKt/V ([place]) 1.39 [facility] nPCR_HD 1.13 [facility] WSTDKT/V 2.5 [facility] eKdrt/V 1.45 [facility] 10/13/2024 10/13/2024 Cb Ordering Provider LAB BLOOD ORDERABLES Final Result [facility] Contact Performing lab Unknown, [place] * (ABNORMAL) SPECIAL CHEMISTRY (09/22/2024) Hemoglobin A1C 6.0(H) 4.8 - 5.9 % [facility] 09/22/2024 09/23/2024 8:4 3 AM EDT Narrative [facility] - 09/23/2024 Unless otherwise specified, test(s) performed at: [facility], [address] [place] [address] QUALITY COMPLIANCE MANAGER: Jigar Ross M.D. For any questions, please call customer service at FREQUENCY:MONTHLY Resulting Agency Comment Specimen source: Blood Juan Crockett MD LAB BLOOD BANK TEST ORDERABLE S Final Result [facility] See order comments or contact performing lab Unknown, [place] * IMMUNO CHEMISTRY (09/22/2024) Only the most recent of3 resultswithin the time period is included. Hep B Surface Ag Negative Negative [facility] 09/22/2024 09/23/2024 9:1 7 AM EDT Narrative Resulting Agency Comment Specimen source: Serum Juan Crockett MD LAB BLOOD ORDERABLES Final Re sult [facility] See order comments or contact performing lab Unknown, [place] from Last 3 Months Insurance [facility] ([id number]) [facility] ([id number]) Care Teams Daycare Director Relationship Specialty Start Date End Date Rahul Chan MD [address] [place] [address] [address] [place] PCP - General 06/19/20
--- OUTSIDE RECORDS SUMMARY | 2024-10-19 07:16 | XMS_ITS | Encounter Summary ---
Author Organization [facility] Address [address] [address] Phone Care Team Providers Care Director Of Clinical Services Name Role Phone Rauhl Chan MD Primary Care Provider [phone]- [phone] Encounter Details Date Type Department Care Team (Late st Contact Info) Description 10/18/2024 Treatment [facility] [address] [address] Darwin Chew MD [address] [address] End stage renal disease; Dependence [...] Dialysis Note - Darwin Chew MD - 10/18/2024 12:00 AM EDT Patient: Castro Tate : 1970 Note Type: Dialysis Rounds-Comp Service Date: 10/18/2024 This patient was personally seen for a complete visit as part of routine monthly dialysis care for end stage renal disease. Attending Wood Tool Maker: DARWIN CHEW MD Dialysis Location: [facility] Schedule: Shift: 1 DIALYSIS PRESCRIPTION Treatment Data Treatment Date: 10/18/2024 started at: 5:19 AM Dialysate / Machine Temp (prescribed): 36.5*C Dialysate / Machine Temp (actual): 36.1*C BFR (prescribed): 450 BFR (actual): 450 DFR (prescribed): Manual 800 DFR (actual): 800 Prescribed Time: 04:00 EDW (kg): 94.0 Dialyzer: 160NRe Optiflux Dialysate: 2.0 K, 3.0 Ca, 1.0 Mg, 100 Dextrose ([id number]) Sodium: 130 Bicarb: 35 Pre Dialysis Vitals Pre BP Sit: 117/48 Pre Wt (kg): 97.6 EDW Deviation (kg): 3.6 Temp: 98.0*F Current Dialysis Vitals BP Sit: 104/88 AP/RODENT CONTROL WORKER: -- Pulse: 78 TREATMENT MEDICATIONS ORDERS Vitamin D (Calcitriol) Oral 0.25 mcg ORAL Every Treatment 09/03/2024 - 09/02/2025 BP AND FLUID ASSESSMENT Post BP Sit 136/57 - 10/15/2024 122/80 - 10/13/2024 155/85 - 10/11/2024 Post Wt (kg) 94.1 - 10/15/2024 94.2 - 10/13/2024 95.5 - 10/11/2024 EDW (kg) 94.0 - 10/15/2024 94.0 - 10/13/2024 94.0 - 10/11/2024 Deviation (kg) 0.1 - 10/15/2024 0.2 - 10/13/2024 1.5 - 10/11/2024 ADEQUACY ASSESSMENT spKt/V (Daugirdas II) 1.59 (10/13/24) 1.51 (09/08/24) 1.72 (08/11/24) eKdrt/V 1.45 (10/13/24) 1.34 (09/08/24) 1.55 (08/11/24) % Urea Reduction 73 (10/13/24) 73 (09/08/24) 76 (08/11/24) BUN 60 (10/13/24) 59 (09/08/24) 55 (08/11/24) BUN Post Dialysis 16 (10/13/24) 16 (09/08/24) 13 (08/11/24) Creatinine 6.20 (09/22/24) 6.05 (08/25/24) 5.97 (07/28/24) Bicarbonate (CO2) 28 (09/22/24) 27 (08/25/24) 27 (07/28/24) Sodium 139 (09/22/24) 137 (08/25/24) 138 (07/28/24) Missed Treatments 1 - Last 30 days 2 - Last 60 days Most recently missed on 09/24/2024 ACCESS ASSESSMENT AVFistula Standard Left Upper Arm Active (In Use) - 12/03/2023 Placed - 10/09/2023 Access Flow 1404 (10/08/24) 1511 (09/13/24) 1021 (08/09/24) ANEMIA ASSESSMENT Hemoglobin 11.2 (10/13/24) 11.3 (10/06/24) 11.2 (09/29/24) Iron Saturation (TSat) 50 (09/22/24) 42 (08/25/24) 35 (07/28/24) Ferritin 1,057 (09/22/24) 905 (08/25/24) 1,088 (07/28/24) Iron 111 (09/22/24) 91 (08/25/24) 79 (07/28/24) TIBC 222 (09/22/24) 218 (08/25/24) 227 (07/28/24) Reticulocyte Hemoglobin 33.0 (03/24/24) MCV 101 (09/22/24) 101 (06/25/24) 104 (03/24/24) BMM ASSESSMENT Calcium 8.9 10/13/24 8.8 10/06/24 8.9 09/29/24 Corrected Calcium 8.7 09/22/24 8.5 08/25/24 8.8 07/28/24 Phosphorus 5.4 09/22/24 7.1 08/25/24 6.9 07/28/24 Calcium Phosphorus Product 48 09/22/24 61 08/25/24 62 07/28/24 PTH 257 09/22/24 291 08/25/24 290 07/28/24 Vitamin D, 25-OH, Total 48.9 06/25/24 Alkaline Phosphatase 93 09/22/24 98 06/25/24 112 04/28/24 Aluminum <5 06/25/24 NUTRITION ASSESSMENT Albumin 4.3 09/22/24 4.1 08/25/24 4.2 07/28/24 Potassium 5.0 09/22/24 4.7 08/25/24 5.6 07/28/24 eNPCR 1.05 10/13/24 0.97 09/08/24 1.01 08/11/24 Hemoglobin A1C 6.0 09/22/24 6.7 06/25/24 5.9 03/24/24 ADDITIONAL LABS INR 1.75 (05/14/24) 1.70 (04/28/24) WBC 8.13 (09/22/24) 6.58 (06/25/24) 6.29 (03/24/24) Cholesterol 100 (06/25/24) 90 (12/24/23) Triglycerides 130 (06/25/24) 98 (12/24/23) Hepatitis B Surface Ab 34 (06/25/24) ADDITIONAL COMMENT COMMENTS: 08/09/24 stable 08/30/24 stable 09/08/24 doing better; recent [facility] eopsiode 09/20/24 s/p MRI of neck and now has appt with Neurosurgeon ( Hhosp) 10/04/24 same issues 09/29/24 doing ok, has f/u with NS re Moshe MRI neck and sums 10/13/24 stable 10/18/24 neck surg armand tomorrow 05/12/24 c/o cp-- xfer to [facility] [...] stable Signed by: DARWIN CHEW MD on 10/18/2024 at 08:58:00 AM Transcribed by: DARWIN CHEW MD on 10/18/2024 at 08:58:00 AM documented in this encounter Plan of Treatment Not on file documented as of this encounter Visit Diagnoses Diagnosis End stage renal disease Dependence on renal dialysis documented in this encounter Care Teams Director Of Clinical Services Relationship Specialty Start Date End Date Rhaul Chan MD [address] [place] [address] [address] [facility] PCP - General 06/19/20 documented as of this encounter
--- OUTSIDE RECORDS SUMMARY | 2024-10-19 07:16 | XMS_ITS ---
Author Name Katelynn, Clinic Address [address] [place] [address] Phone [phone] Organization [facility] e, NA DOCUMENT DISCLAIMER Multiple document versions may exist, please be sure you review the latest version. 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 [...] Instructions Dosage Route Start Date End Date [facility] Loperamide PRN-october repeat x1 2 mg Oral SeptemberSeptember 07, 2025 Active Vitamin D (Calcitriol) Oral Every Treatment 0.25 mcg Oral September 03, 2024 September 02, 2025 Active Home Medications Medication Instructions Dosage Route Start Date End Date [facility] albuterol sulfate 90 mcg/actuation Inhale using [...] Sign Value Date / Time Blood Pressure-sitting 132/84 mmHg October 18 05:19 AM Heart Rate 79 beats per minute October 18, 2024 05:19 AM Respiratory Rate 18 breaths per minute October 18 05:19 AM Temperature 97.6 deg. F October 18, 2024 05: 19 AM Weight Vital Sign Value Date / Time Estimated Dry Weight 94 kg September 15 11:59 PM Pre-Dialysis 97.60 kg October 18, 2024 05: 19 AM Post-Dialysis 95.50 kg October 18, 2024 05: 19 AM Other Other Value Date / Time [...] 231 mcg/dL 185 - 515 mcg/dL - [facility]2023 UIBC/TIBC 131 mcg/dL 155 - 355 mcg/dL Low April 28, 2024 Ferritin 1009 ng/mL 22 - 322 ng/mL High May 102023 TIBC (Calc) 212 mcg/dL 185 - 515 mcg/dL - [facility]2023 UIBC/TIBC 122 mcg/dL 155 - 355 mcg/dL [...] 42.0 - 54.0 % Low Februar 2024 Transferrin Sat. (Calc) 35 % 20 [...] % 42.0 - 54.0 % Low September Hemoglobin x 3 35.7 % [...] 42.0 - 52.0 % Low September 22 HGB 11.2 g/dL 14.0 - 18.0 g/dL [...] 8.5 mg/dL 8.4 - 10.2 mg/dL - ua2024 Ca x P Product 62 0 - [...] 8.8 mg/dL 8.4 - 10.2 mg/dL - Febr uary 2024 Calcium, Total 9.1 mg/dL 8.4 [...] 7 - 52 U/L - July 28 025 Albumin (BCG) 4.2 g/dL 3.5 - 5.2 g/dL - ua2024 eNPCR 1.01 No Reference Ran ge Provided [...] K, 3.0 Ca, 1.0 Mg, 100 Dextrose ([id number]) Sodium (mEq/L) 130 mEq/L Bicarb Machine Setting [...] Dialysate Dialyzer Dialysis Access Meds Admin October 13, 2024 Weight 98.10 kg Weight 94.20 kg 03:58:00 450 2.0 K, 3.0 Ca, 1.0 Mg, 100 Dextrose ([id number]) 160nre Optifl ux Blood Pressure-sitting 148/46 mmHg Blood Pressure-sit ting 122/80 mmHg Heart Rate 80 beats per minute Heart Rate 76 beats per minute Respiratory Rate 16 breaths per minute Respiratory Rate 16 breaths per minute Temperature 98.1 deg. F Temperature 98.3 deg. F October 15, 2024 Weight 96.70 kg Weight 94.10 kg 04:02:00 450 2.0 K, 3.0 Ca, 1.0 Mg, 100 Dextrose ([id number]) 160nre Optiflux Hemodialysis-AV Fistula-Standard, Left Upper Arm, Brachial Artery to Basilic Vein Access Placed on October 09, 2023 Vitamin D (Calcitriol) Oral; 0.25mcg,Oral Blood Pressure-sitting 156/98 mmHg Blood Pressure-sit ting 136/57 mmHg Heart Rate 78 beats per minute Heart Rate 78 beats per minute Respiratory Rate 18 breaths per minute Respiratory Rate 18 breaths per minute Temperature 96.8 deg. F Temperature 97.2 deg. F October 18, 2024 Weight 97.60 kg Weight 95.50 kg 04:00:00 450 2.0 K, 3.0 Ca, 1.0 Mg, 100 Dextrose ([id number]) 160nre Optiflux Hemodialysis-AV Fistula-Standard, Left Upper Arm, Brachial Artery to Basilic Vein Access Placed on October 09, 2023 Vitamin D (Calcitriol) Oral; 0.25mcg,Oral Blood Pressure-sitting 117/48 mmHg Blood Pressure-sit ting 132/84 mmHg Heart Rate 78 beats per minute Heart Rate 79 beats per minute Respiratory Rate 18 breaths per minute Respiratory Rate 18 breaths per minute Temperature 98.0 deg. F Temperature 97.6 deg. F
--- OUTSIDE RECORDS SUMMARY | 2024-10-19 07:16 | XMS_ITS | Clinical Summary ---
Author Organization [facility] [employer] [facility] Address [address] [place] [address] Phone Care Team Providers Care Advanced Practice Psychiatric Nurse Name Role Phone Rahul Chan MD Primary Care Provider +1- [phone] Allergies Active Allergy Reactions Criticality Noted Date [...] RSV infection 08/30/2024 Chest pain 08/30/2024 Cardiomyopathy ([facility] V24, [facility] V28) 2023 CAD (coronary artery disease) 06/17/2023 Chronic stable angina ([facility] V24) 06/17/2023 ESRD (end stage renal diseas e) on dialysis ([facility] V24, [facility] V28) 01/22/2022 CHF (congestive heart failure) ([facility] V24, [facility] V28) 12/27/2021 Overview (05/20/2024): Pef 55-60% Moderate pulmonary arterial systolic hypertension ([facility] V24, [facility] V28) 12/27/2021 Orthostatic hypotension 12/27/2021 Diabetes type 1, controlled ([facility] V24, [facility] V28) 03/27/2021 Elevated troponin 03/27/2021 Hyperlipidemia 03/27/2021 Hypertension 03/27/2021 NSTEMI (non-ST elevated myoc ardial infarction) ([facility] V24, [facility] V28) 03/27/2021 Paroxysmal atrial fibrillation ([facility] V24, [facility] V28) 03/27/2021 Overview (05/20/2024): [id number] ASHD (arteriosclerotic heart disease) 05/09/2019 Overview (05/20/2024): CABG X3 Resolved Problems Problem Noted Date Diagnosed Date Resolved Date Chest pain 06/17/2023 06/03/2024 Encounters Date Type Department Care Team Description 09/20/2024 Telephone [facility] [address] [place] [address] Eddie Goff NP No Call [...] Chest X-ray nad OTHER SURGICAL HISTORY PROCEDURE: CA ECHO TRANSTHORAC R-T 2D W/WO M-MODE REC [...] left circ OTHER SURGICAL HISTORY 10/06/2018 PROCEDURE: CA ECHO TRANSTHORAC R-T 2D W/WO M-MODE REC COMP OTHER SURGICAL HISTORY 09/24/2018 PROCEDURE: HISTORY OTHER; COMMENT: CT angiography of thorax OTHER SURGICAL HISTORY 08/23/2018 PROCEDURE: OUTSIDE EKG OTHER SURGICAL HISTORY 08/13/2018 PROCEDURE: OUTSIDE EKG OTHER SURGICAL HISTORY 08/07/2018 PROCEDURE: RADIOLOGIC EXAM CHEST SINGLE VIEW OTHER SURGICAL HISTORY 08/07/2018 PROCEDURE: CAT SCAN OF HEAD/BRAIN NO CONTRAST CARDIOVASCULAR STRESS TEST 06/24/2018 PROCEDURE: CA CV STRS TST XERS&/OR RX CONT ECG W/O I&R OTHER SURGICAL HISTORY 05/08/2018 PROCEDURE: BINA DOCUMENTED; COMMENT: BINA - Arterial pressure index OTHER SURGICAL HISTORY 12/17/2017 PROCEDURE: CA ECHO TRANSTHORAC R-T 2D W/WO M-MODE REC COMP OTHER SURGICAL HISTORY 11/09/2017 PROCEDURE: OUTSIDE CT; COMMENT: CT of abdomen and pelvis CARDIAC CATHETERIZATION 07/18/2017 PROCEDURE: HISTORICAL CARDIAC CATH OTHER SURGICAL HISTORY 06/19/2017 PROCEDURE: CAT SCAN OF CHEST NO CONTRAST OTHER SURGICAL HISTORY 03/06/2017 PROCEDURE: CA DOPPLER ECHOCARD PULSE WAVE W/SPECTRAL DISPLAY; COMMENT: of renal artery OTHER SURGICAL HISTORY 08/27/2016 PROCEDURE: CA INCISION & DRAINAGE ABSCESS SIMPLE/SINGLE; COMMENT: left dorsal foot OTHER SURGICAL HISTORY 12/31/2015 PROCEDURE: OUTSIDE CT; COMMENT: CT of lower leg OTHER SURGICAL HISTORY 05/24/2015 PROCEDURE: HISTORY OTHER; COMMENT: Ultrasound scan of upper arm: OTHER SURGICAL HISTORY 11/21/2014 PROCEDURE: CONTRAST CAT SCAN OF LEG OTHER SURGICAL HISTORY 08/26/2014 PROCEDURE: CA AMPUTATION FOOT TRANSMETARSAL; COMMENT: R2, R3 Transmetatarsal [...] of right lower ex tremity below knee ([facility] V24, [facility] V28) DX:Amputation of right lower extremity below knee ([facility]) Anemia due to stage 3 chroni c kidney disease ([facility] V24, [facility] V28) DX:Anemia due to st age 1 chronic kidney disease ([facility]) Asthma, mild intermittent DX:Ast hma, mild intermittent Atherosclerosis DX:Atheroscleros is Bullous pemphigoid ([facility] V28) DX:Bullous pemphigoid; COMMENT: gx forearm Bullous pemphigus ([facility] V28) DX:Bullous pemphigus CHF (congestive heart failur e) ([facility] V24, [facility] V28) DX:CHF (congestive heart zaheer lure) ([facility]); COMMENT: Pef 55-60% Chronic cervical pain DX:Chronic cervical pain ESRD (end stage renal diseas e) ([facility] V24, [facility] V28) DX:ESRD (end stage renal dis ease) ([facility]) GERD (gastroesophageal reflux disease) DX:GERD (gastroesophageal reflux disease) Groin pain DX:Groin pain Hernia, hiatal DX:Hernia, hiata l History of bacteremia DX:History of bacteremia History of ischemic colitis DX:H istory of ischemic colitis History of OR (myocardial infarction) DX:History of OR (myocardial infarction) 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: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 alf systemic steroid user DX:alf systemic steroid user; COMMENT: pemphigus Moderate pulmonary arterial systolic hypertension ([facility] V24, [facility] V28) DX:Moderate pu lmonary arterial systolic hypertension ([facility]) Obesity (BMI 30-39.9) DX:Obesity (BMI 30-39.9) Orthostatic hypotension DX:Ortho static hypotension Peripheral vascular disease ([facility] V24) 2016 DX:Peripheral vascular disease ([facility]); COMMENT: RT BKA 2015 left lie bypass 2016 Pulmonary nodule DX:Pulmonary no dule Venous embolism DX:Venous emboli sm Chest pain DX:Chest pain Covid-19 DX:COVID-19 Diabetes type 1, controlled ([facility] V24, [facility] V28) DX:Diabetes type 1, controll ed ([facility]) Acute chest pain DX:Acute chest pain Chronic kidney disease (CKD) , stage V ([facility] V24, [facility] V28) DX:Chronic kidney disease ( CKD), stage V ([facility]) Foot pain, right DX:Foot pain, r ight Hyperglycemia due to diabete s mellitus ([facility] V24, [facility] V28) DX:Hyperglycemia due to laverne betes mellitus ([facility]) Soft tissue infection of foot DX :Soft tissue infection of foot Stage 4 chronic kidney disea se ([facility] V24, [facility] V28) DX:Stage 4 chronic kidney di sease ([facility]) Ischemic cardiomyopathy Paroxysmal A-fib ([facility] V2 4, [facility] V28) Hypertension Family History Medical [...] your loved ones. For example, child care team lead or elderly care for an older adult? [...] Description 10/28/2024 8:40 AM EDT Office Visit [facility] [address] [place] [address] Eddie Goff NP [address] [place] [address] [address] [place] [address] Health Maintenance Due Date Last Done Comments [...] 7:[address] [facility] Potassium 4.8 3.5 - 5.5 mmol/L LAB CHEMISTRY METHOD 06/03/2024 7:[address] [facility] Chloride 92(L) 96 - 110 mmol/L LAB CHEMISTRY METHOD 06/03/2024 7:[address] [facility] CO2 26 21 - 32 mmol/L LAB CHEMISTRY METHOD 06/03/2024 7:[address] [facility] Anion Gap 12(H) 3 - 11 LAB CHEMISTRY METHOD 06/03/2024 7:[address] [facility] Glucose 71 70 - 100 mg/dL LAB CHEMISTRY METHOD 06/03/2024 7:[address] [facility] BUN 58(H) 5 - 25 mg/dL LAB CHEMISTRY METHOD 06/03/2024 7:[address] [facility] Creatinine 6.37(H) 0.70 - 1.30 mg/dL LAB CHEMISTRY METHOD 06/03/2024 7:[address] [facility] eGFR 10(L) >=60 mL/min/1. 73m2 LAB CHEMISTRY METHOD 06/03/2024 7:[address] [facility] Comment:Calculation based on the??Chronic Kidney Disease Epidemiology Collaboration (CKD-EPI) equation refit??without adjustment for race. BUN/Creatinine Ratio 9.1 LAB CHEMISTRY METHOD 06/03/2024 7:[address] [facility] Calcium 8.9 8.5 - 10.5 mg/dL LAB CHEMISTRY METHOD 06/03/2024 7:[address] [facility] AST (SGOT) 20 10 - 42 unit/L LAB CHEMISTRY METHOD 06/03/2024 7:[address] [facility] ALT (SGPT) 28 10 - 60 unit/L LAB CHEMISTRY METHOD 06/03/2024 7:[address] [facility] Alkaline Phosphatase 143(H) 42 - 121 unit/L LAB CHEMISTRY METHOD 06/03/2024 7:[address] [facility] Total Protein 6.4 6.0 - 8.0 g/dL LAB CHEMISTRY METHOD 06/03/2024 7:[address] [facility] Albumin 3.7 3.2 - 5.0 g/dL LAB CHEMISTRY METHOD 06/03/2024 7:[address] [facility] Total Bilirubin 0.9 0.0 - 1.4 mg/dL LAB CHEMISTRY METHOD 06/03/2024 7:[address] [facility] Blood Venous blood specimen / Unknown Venipuncture / Unknown 06/03/2024 6:13 AM EST 06/03/2024 6:57 AM EST us Sakshi Pompa MD LAB BLOOD ORDERABLES Final Res ult [facility] ([facility] [address] [place] [address], from Last 3 Months or Most Recently Relevant to Health Maintenance Insurance MEDICARE Member Subscriber Plan / Payer (Ef fective 2018-Present) Name:Castro Tate Relation to Subscriber:Self Name:Castro Tate Payer ID:[id number] Group ID:[id number] Type:Not on file Address: [place] [address] [address] [id number] Advance Directives Documents on File Type Date Recorded Patient Prep Person Expl anation Health Care Decision (hx) 08/25/2020 [...] Agents on File Name Relationship Healthcare Agent [facility] Communication Jo Tate Spouse Health Care Agent Care Teams Advanced Practice Psychiatric Nurse Relationship Specialty Start Date End Date Rahul Chan MD [facility] [address] [place], [place] PCP - General Internal Medicine 05/16/21
--- OUTSIDE RECORDS SUMMARY | 2024-10-19 07:16 | XMS_ITS | Encounter Summary ---
Author Organization [facility] Address [address] [address] Phone Care Team Providers Care Business Services Coordinator Name Role Phone Rahul Chan MD Primary Care Provider [phone]- [phone] Encounter Details Date Type Department Care Team (Late st Contact Info) Description 10/13/2024 Orders Only [facility]. [address] [address] Juan Crockett MD [address] [address] Social History Tobacco Use Types [...] Date/Time Associated Diagnosis Comments HD KINETICS Routine 10/13/2024 POST CHEMISTRY Routine 10/13/2024 HEMATOLOGY Routine 10/13/2024 CHEMISTRY Routine 10/13/2024 [facility] LAB RESULTS Routine 10/13/2024 documented in this encounter Results * [facility] Lab Results (10/13/2024) spKt/V Gotch 1.68 [facility] spKt/V (Daugirdas II) 1.59 [facility] PCR 74.21 [facility] eNPCR 1.05 [facility] eKt/V Gotch 1.45 [facility] [place] eKt/V ([place]) 1.39 [facility] nPCR_HD 1.13 [facility] WSTDKT/V 2.5 [facility] eKdrt/V 1.45 [facility] 10/13/2024 10/13/2024 [facility] Ordering Provider LAB BLOOD ORDERABLES Final Result [facility] Contact Performing lab Unknown, [place] * HD KINETICS (10/13/2024) Pathologist [facility] % Urea Reduction 73 65 - 80 % [facility] 10/13/2024 10/14/2024 10: 47 AM EDT Narrative Resulting Agency Comment Specimen source: Plasma Juan Crockett MD LAB BLOOD ORDERABLES Final Re sult Performing Organization Address City/[facility]/ZIP Co de Phone Number [facility] See order comments or contact performing lab Unknown, [place] * POST CHEMISTRY (10/13/2024) BUN Post Dialysis 16 6 - 19 mg/dL [facility] 10/13/2024 10/14/2024 10: 47 AM EDT Narrative [facility] - 10/15/2024 Unless otherwise specified, test(s) performed at: [facility], [address] [place] [address] AUTO BODY SERVICE MECHANIC: Jigar Ross M.D. For any questions, please call customer service at FREQUENCY:OTHER Resulting Agency Comment Specimen source: Plasma Juan Crockett MD LAB BLOOD ORDERABLES Final Re sult [facility] See order comments or contact performing lab Unknown, [place] * (ABNORMAL) [facility] (10/13/2024) BUN 60(H) 6 - 19 mg/dL [facility] Calcium 8.9 8.4 - 10.2 mg/dL [facility] 10/13/2024 10/14/2024 10: 40 AM EDT Narrative [facility] - 10/14/2024 Unless otherwise specified, test(s) performed at: [facility], [address] [place] [address] [employer] B[employer] SERVICE MECHANIC: Jigar Ross M.D. For any questions, please call customer service at FREQUENCY:OTHER Resulting Agency Comment Specimen source: Serum Juan Crockett MD LAB BLOOD ORDERABLES Final Re sult Performing Organization Address [facility] Co de Phone Number [employer] [facility] See order comments or contact performing lab Unknown, [place] * (ABNORMAL) HEMATOLOGY (10/13/2024) Hemoglobin 11.2(L) 14.0 - 18.0 g/dL [facility] Hemoglobin x 3 33.6(L) 42.0 - 54.0 % [email or web address] 10/13/2024 10/14/2024 12: 41 PM EDT Narrative [facility] - 10/14/2024 Unless otherwise specified, test(s) performed at: [facility], [address] [place] [address] [employer] SERVICE MECHANIC: Jigar Ross M.D. For any questions, please call customer service at FREQUENCY:OTHER Resulting Agency Comment Specimen source: Blood Juan Crockett MD LAB BLOOD ORDERABLES Final Re sult Performing Organization Address [facility] Co de Phone Number [employer] [facility] See order comments or contact performing lab Unknown, [place] documented in this encounter Visit Diagnoses Not on filedocumented in this encounter Care Teams Business Services Coordinator Relationship Specialty Start Date End Date Rahul Chan MD [address] [place] [address] [address] [place], [place] PCP - General 06/19/20 documented as of this encounter
--- OUTSIDE RECORDS SUMMARY | 2024-10-19 07:16 | XMS_ITS | Encounter Summary ---
Author Organization [facility] Address [address] [address] Phone Care Team Providers Care Counter Waitress/Waiter Name Role Phone Rahul Chan MD Primary Care Provider [phone]- [phone] Encounter Details Date Type Department Care Team (Late st Contact Info) Description 10/13/2024 Treatment [facility] [address] [address] Darwin Chew MD [address] [address] End stage renal disease; Dependence [...] Dialysis Note - Darwin Chew MD - 10/13/2024 12:00 AM EDT BASIC NOTE Patient: Castro Tate : 1970 Note Author: DARWIN CHEW MD Service Date: 10/13/2024 Telehealth encounter using audiovisual technology, performed according to state requirements. Appropriate patient consent obtained. This patient was personally seen for a basic visit as part of routine monthly dialysis care for end stage renal disease. Attending Technician Submarine Cable Equipment: DARWIN CHEW Dialysis Location: [facility] Schedule: Shift: DIALYSIS PRESCRIPTION Treatment Data Treatment Date: 10/15/2024 started at: 5:22 AM Dialysate / Machine Temp (prescribed): 36.5*C Dialysate / Machine Temp (actual): 36.5*C BFR (prescribed): 450 BFR (average delivered): 450 DFR (prescribed): Manual 800 DFR (average delivered): 800 Prescribed Time: 04:00 Actual Time: 04:02 EDW (kg): 94.0 Dialyzer: 160NRe Optiflux Dialysate: 2.0 K, 3.0 Ca, 1.0 Mg, 100 Dextrose ([id number]) Sodium: 130 Bicarb: 35 Pre Dialysis Vitals Pre BP Sit: 156/98 Pre Wt (kg): 96.7 EDW Deviation (kg): 2.7 Temp: 96.8*F Post Dialysis Vitals Post BP Sit: 136/57 Post Wt (kg): 94.1 TREATMENT MEDICATIONS ORDERS Vitamin D (Calcitriol) Oral [...] and now has appt with Neurosurgeon ( osp) 10/04/24 same issues 09/29/24 doing ok, has f/u with NS re Moshe MRI neck and sums 10/13/24 stable 05/12/24 c/o cp-- [facility] [place] [facility] for eval 06/01/24: stable 06/08/24 recent [...] stable Signed by: DARWIN CHEW MD on 10/17/2024 at 08:51:02 PM Transcribed by: DARWIN CHEW MD on 10/17/2024 at 08:51:02 PM documented in this encounter Plan of Treatment Not on file documented as of this encounter Visit Diagnoses Diagnosis End stage renal disease Dependence on renal dialysis documented in this encounter Care Teams Counter Waitress/Waiter Relationship Specialty Start Date End Date Rahul Chan MD [address] [place] [address] [address] [place], [place] PCP - General 06/19/20 documented as of this encounter
--- OUTSIDE RECORDS SUMMARY | 2024-10-19 07:16 | XMS_ITS | Encounter Summary ---
Author Organization [facility] Address [address] [address] Phone Care Team Providers Care Ballast Regulator Operator Name Role Phone Rahul Chan MD Primary Care Provider [phone]- [phone] Encounter Details Date Type Department Care Team (Late st Contact Info) Description 09/08/2024 TCM in Dialysis Clinic [facility]. [address] [address] Darwin Chew MD [address] [address] Social History Tobacco Use Types [...] 09/08/2024 The patient was seen for a midg-ys-egos visit as part of Transitional Care Management services. Attending Hearing Impaired Teacher: DARWIN CHEW Dialysis Location: [facility] Schedule: Shift: 1 INTERACTIVE CONTACT Contact [...] K, 2.50 Ca, 1.0 Mg, 100 Dextrose ([id number]) Sodium: 130 Bicarb: 35 Pre Dialysis Vitals Pre BP Sit: 115/73 Pre Wt (kg): 96.7 EDW Deviation (kg): 2.7 Temp: 97.3*F Post Dialysis Vitals Post BP Sit: 146/88 Post Wt (kg): 94.8 CARE COORDINATION Post-discharge follow-up appointments reviewed with the patient. Established or re-established referrals. VISIT DIAGNOSES CPT Code 21280 - High complexity, seen within 7 days of discharge. N18.6, Z99.2 End stage renal disease;Dependence on renal dialysis Signed by: DARWIN CHEW MD on 09/08/2024 at 09:55:28 PM Transcribed by: DARWIN CHEW MD on 09/08/2024 at 09:55:28 PM documented in this encounter Plan of Treatment Not on file documented as of this encounter Visit Diagnoses Not on filedocumented in this encounter Care Teams Ballast Regulator Operator Relationship Specialty Start Date End Date Rahul Chan MD [address] [place] [address] [address] [place] PCP - General 06/19/20 documented as of this encounter
--- OUTSIDE RECORDS SUMMARY | 2024-10-19 07:16 | XMS_ITS | Clinical Summary ---
Author Organization [facility] Address [address] [place] [address] Care Team Providers Care Meter Tester Name Role Phone Unavailable Primary Care Provider [...]
[2024-10-19] MEDS: methocarbamoL 750 MG TABLET PO (07:18)
[2024-10-19] MEDS: Gabapentin 300 MG CAPSULE PO (07:18)
--- NOTE | 2024-10-19 07:30 | P.CONAN_ITS ---
Documented by User: Myaela Payne NP 10/18/24 12:26 HPI - Anesthesia Eval Consult details Narrative: 54yo M for C4-5 Posterior Cervical Decompression with Lateral mass screws Follows [facility] for CAD s/p CABG x 3 2018, HFrEF (40-50%), afib (eliquis), chronic elevated high-sensitivity trop d/t ESRD. Last eval 08/2024 during inpatient at [facility] with atypical CP during dialysis. No recurrence, no further work up required. ESRD with HD on MWF PAD s/p R BKA Telephone eval with pt 10/18/24: No CP/SOB with very limited activity d/t wheelchair bound/bka. No recurrence of CP with dialysis since 08/2024 [facility] admission. DM well controlled with A1C 5.9%. Last dose eliquis/asa 10/14/24 PMFSH Active Problems Active Problems: All Active Problems Cervical disc disorder (Acute) COVID-19 (Acute) Bullous pemphigoid (Acute) Acute on chronic kidney failure (Acute) Hemiparesis (Acute) Cerebrovascular accident (Acute) Past Medical History Medical History (Updated 09/10/24 @ 09:04 by BRADLEY Cardenas) Bullous pemphigoid Acute on chronic kidney failure Chronic kidney disease (CKD) stage G5/A2, glomerular filtration rate (GFR) less than or equal to 15 mL/min/1.73 square meter and albuminuria creatinine ratio between 30-299 mg/g Ischemic colitis Orthostatic hypotension CAD (coronary artery disease) Hyperlipidemia HTN (hypertension) Pulmonary emboli PVD (peripheral vascular disease) CHF (congestive heart failure) Kidney disease Diabetes Family History Family History Other Diabetes Surgical History Surgical History (Updated 10/19/24 @ 06:27 by Angelita Sullivan RN) Hx of tonsillectomy S/P cholecystectomy H/O Spinal surgery Hx of right BKA S/P triple vessel bypass Social History Social History Household Members: Spouse Housing: House Do you presently have visiting nurse or other home services: Yes Alcohol intake: former Comment: sleeping Patient Tobacco Use Status: Never used Tobacco Use of substances other than those prescribed or required for medical reasons: No Are you DNR?: No Advance Directives: No Advance Directives Information Provided: No Poor oral hygiene: No service: No Current occupational status: retired Meds Allergies Allergy/AdvReac Type Severity Reaction Status Date / Time nitroglycerin [NITROGLYCERIN] Allergy Intermediate VOMITING Verified 03/15/20 07:19 cranberry [Cranberry] Allergy Mild RASH Verified 03/15/20 07:19 Penicillins Allergy Mild RASH Verified 03/15/20 07:19 penicillin V Allergy Unknown Rash/vomitt Verified 02/23/13 00:00 ing furosemide [From Lasix] Allergy Rash Verified 12/16/20 13:52 morphine AdvReac Severe Nausea and Verified 10/19/24 06:25 Vomiting Home Medications ?Medication ?Instructions ?Recorded ?Confirmed ?Last Taken ?Type atorvastatin 80 mg tablet (Lipitor) 80 mg PO BEDTIME 05/12/20 12/16/20 12/15/20 History bumetanide 1 mg tablet 4 mg PO BID 05/12/20 12/16/20 12/16/20 History calcium 315 mg (as 2 tab PO BID 05/12/20 12/16/20 12/16/20 History citrate)-vitamin D3 5 mcg (200 unit) tablet (Calcium Citrate + D) docusate sodium 100 mg capsule 100 mg PO DAILY 05/12/20 12/16/20 05/12/20 History (Colace) insulin aspart U-100 100 unit/mL 15 unit subcut TID 05/12/20 12/16/20 12/16/20 History (3 mL) subcutaneous pen (Novolog FlexPen U-100 Insulin aspart) insulin glargine 100 unit/mL (3 30 unit subcut BID 05/12/20 12/16/20 10/19/24 History mL) subcutaneous pen (Lantus Solostar U-100 Insulin) multivitamin 1 tab PO DAILY 05/12/20 12/16/20 12/16/20 History pantoprazole 40 mg tablet,delayed 40 mg PO DAILY 05/12/20 12/16/20 12/15/20 History release carvedilol 25 mg tablet 1 tab PO BID 12/16/20 12/16/20 12/16/20 History nifedipine 90 mg tablet,extended 1 tab PO DAILY 12/16/20 12/16/20 12/16/20 History release 24 hr (Procardia XL) Exam Narrative Narrative: EKG 08/2024 [id number] Ventricular Rate: 80 BPM Atrial Rate: 80 BPM P-R Interval: 222 ms QRS Duration: 108 ms Q-T Interval: 404 ms QTC Calculation(Bazett): 465 ms P [place]: 68 degrees R [place]: -36 degrees T [place]: 159 degrees Poor data quality, interpretation may be adversely affected Sinus rhythm with 1st degree A-V block Left axis deviation Minimal voltage criteria for LVH, may be normal variant ( [place] product ) Septal infarct , age undetermined ST and T wave abnormality, consider inferolateral ischemia Abnormal ECG When compared with ECG of 01-Sep-2024 09:01, MANUAL COMPARISON REQUIRED DATA IS UNCONFIRMED Confirmed by ANUJA ALMANZAR MD ([id number]) on 09/01/2024 12:08:11 PM Nuclear stress test (09/09/2023): Myocardial perfusion imaging showed a predominantly fixed defect involving the anterolateral wall with minimal reversibility in the basal to mid anterolateral wall suggestive of a scar with loli-infarct ischemia. ?LVEF of 46% at rest. ? Echocardiogram (09/07/2023): Mildly reduced left ventricular systolic function with a left ventricular ejection fraction of 40 to 50%. ?Mild global hypokinesis of the left ventricle with akinesis of the anterior wall and severe hypokinesis of the basal to mid anteroseptal wall. ?No evidence of LV thrombus. ?The LV is moderately to severely dilated. ?Normal RV size with preserved RV function. ?No significant valvular disease.? Chest Xray 08/2024 IMPRESSION: No acute abnormality. CT cervical spine wo IV con 10/15/24 IMPRESSION: Concerning failed/fractures intervertebral disc spacers at C4-5. Acute to subacute degenerative changes in the left facet joint C4-5. Slight anterior migration of the intervertebral disc spacers at C6-7 and C7-T1 Assessment and Plan Assessment Anesthesia Assessment: Chart Reviewed Documented by User: Susan Arias DO 10/19/24 08:05 HPI - Anesthesia Eval Consult details Narrative: 54yo M for C4-5 Posterior Cervical Decompression with Lateral mass screws [facility] for CAD s/p CABG x 3 2018, HFrEF (40-50%), afib (eliquis), chronic elevated high-sensitivity trop d/t ESRD. Last eval 08/2024 during inpatient at [facility] with atypical CP during dialysis. No recurrence, no further work up required. ESRD with HD on MWF - last HD on Friday10/18/24 PAD s/p R BKA Hx of CVA [facility] residual [facility]ided [facility] Past Medical History Medical History (Updated 09/10/24 @ 09:04 by BRADLEY Cardenas) Bullous pemphigoid Acute on chronic kidney failure Chronic kidney disease (CKD) stage G5/A2, glomerular filtration rate (GFR) less than or equal to 15 mL/min/1.73 square meter and albuminuria creatinine ratio between 30-299 mg/g Ischemic colitis Orthostatic hypotension CAD (coronary artery disease) Hyperlipidemia HTN (hypertension) Pulmonary emboli PVD (peripheral vascular disease) CHF (congestive heart failure) Kidney disease Diabetes Family History Family History Other Diabetes Family history of problems with anesthesia: No Surgical History Surgical History (Updated 10/19/24 @ 06:27 by Angelita Sullivan RN) Hx of tonsillectomy S/P cholecystectomy H/O Spinal surgery Hx of right BKA S/P triple vessel bypass History of Problems with Anesthesia: No Social History Social History Household Members: Spouse Housing: House Do you presently have visiting nurse or other home services: Yes Alcohol intake: former Comment: sleeping Patient Tobacco Use Status: Never used Tobacco Use of substances other than those prescribed or required for medical reasons: No Are you DNR?: No Advance Directives: No Advance Directives Information Provided: No Poor oral hygiene: No service: No Current occupational status: retired Meds Allergies Allergy/AdvReac Type Severity Reaction Status Date / Time nitroglycerin [NITROGLYCERIN] Allergy Intermediate VOMITING Verified 03/15/20 07:19 cranberry [Cranberry] Allergy Mild RASH Verified 03/15/20 07:19 Penicillins Allergy Mild RASH Verified 03/15/20 07:19 penicillin V Allergy Unknown Rash/vomitt Verified 02/23/13 00:00 ing furosemide [From Lasix] Allergy Rash Verified 12/16/20 13:52 morphine AdvReac Severe Nausea and Verified 10/19/24 06:25 Vomiting Home Medications ?Medication ?Instructions ?Recorded ?Confirmed ?Last Taken ?Type atorvastatin 80 mg tablet (Lipitor) 80 mg PO BEDTIME 05/12/20 12/16/20 12/15/20 History bumetanide 1 mg tablet 4 mg PO BID 05/12/20 12/16/20 12/16/20 History calcium 315 mg (as 2 tab PO BID 05/12/20 12/16/20 12/16/20 History citrate)-vitamin D3 5 mcg (200 unit) tablet (Calcium Citrate + D) docusate sodium 100 mg capsule 100 mg PO DAILY 05/12/20 12/16/20 05/12/20 History (Colace) insulin aspart U-100 100 unit/mL 15 unit subcut TID 05/12/20 12/16/20 12/16/20 History (3 mL) subcutaneous pen (Novolog FlexPen U-100 Insulin aspart) insulin glargine 100 unit/mL (3 30 unit subcut BID 05/12/20 12/16/20 10/19/24 History mL) subcutaneous pen (Lantus Solostar U-100 Insulin) multivitamin 1 tab PO DAILY 05/12/20 12/16/20 12/16/20 History pantoprazole 40 mg tablet,delayed 40 mg PO DAILY 05/12/20 12/16/20 12/15/20 History release carvedilol 25 mg tablet 1 tab PO BID 12/16/20 12/16/20 12/16/20 History nifedipine 90 mg tablet,extended 1 tab PO DAILY 12/16/20 12/16/20 12/16/20 History release 24 hr (Procardia XL) Exam Exam Date and Time: 10/19/24 0730 Height,Weight and Vital Signs: Height 6 ft 2 in Weight 95.7 kg Vital Signs Temperature 97.2 F 10/19/24 06:45 Pulse Rate 75 10/19/24 06:45 Respiratory Rate 16 10/19/24 06:45 Blood Pressure 148/75 H 10/19/24 06:45 Pulse Oximetry 96 10/19/24 06:45 Oxygen Delivery Method Room Air 10/19/24 06:45 Temperature 97.2 F 10/19/24 06:45 Pulse Rate 75 10/19/24 06:45 Respiratory Rate 16 10/19/24 06:45 Blood Pressure 148/75 H 10/19/24 06:45 Pulse Oximetry 96 10/19/24 06:45 Oxygen Delivery Method Room Air 10/19/24 06:45 Airway Mallampati Class: III (large neck circumference) TM Dist: >3cm Neck ROM: Limited (history of cervical fusion) Loose/Missing/Broken Teeth: Yes (chipped lower front teeth) Heart: S1S2 Lungs: CTAB Assessment and Plan Assessment Anesthesia Assessment: Anesthesia Plan Discussed and Chart Reviewed Final Anesthetic Review Family History of Problems with Anesthesia: No History of Problems with Anesthesia: No NPO: Yes ASA Class: III Final Preanesthetic Review: No Changes in Pt Med Stat, Meds/Allgs Chart Reviewed, Consent Obtained/Reviewed and Anes Risks/Benef Reviewed Patient Risk: Intermediate Procedure Risk: Intermediate Anesthetic Plan Anesthetic Plan: GA and Agree w/ Assess. and Plan Disposition: Standard PACU
[2024-10-19] MEDS: ceFAZolin Sodium/Dextrose,Iso 2 GM/50 ML PIGGYBACK IV (07:54)
[2024-10-19 08:08] LABS: Glucose, Whole Blood 98 mg/dL (60-115)
[2024-10-19] MEDS: propofoL 1,000 MG/100 ML VIAL 17.23 MG IVCONT ×3 (09:28→19:37)
--- NOTE | 2024-10-19 09:47 | PC.RT ---
Pt brought to ICU from OR post surgery. Pt being bag ventilated by anesthesia. RT placed pt on ventilator support. ACVC+ 16/490/+5/21%. Pt has 7.5 ETT 24 cm @lip secured w/ holister. Pt bethany current settings well. Will continue to monitor.
[2024-10-19 09:48] LABS: Glucose, Whole Blood 177 mg/dL (60-115)
--- NOTE | 2024-10-19 10:00 | P.ENANES_ITS ---
Anesthesia Event Note Date of Service: 10/19/24 Event Note: Mr. Tate is a 54 yo M who was undergoing posterior C4-5 decompression and had a cardiac arrest intraoperatively. Pertinent history includes CHF with EF 40- 50%, CAD s/p CABG, PVD s/p right BKA, ESRD on HD MWF, CVA with residual right sided weakness, and DM. Pertinent labs this morning on day of surgery included K 5.1 and glucose 98. Patient had hemodialysis yesterday (10/18/24). Surgical incision was made at 0803. Patient was intermittently hypotensive during surgery but responded appropriately to boluses of phenylephrine, ephedrine, and vasopressin. Total doses of vasopressive agents given prior to cardiac event included phenylephrine 1480 mcg, ephedrine 50 mg, and vasopressin 4 units. Surgery team reported persistent oozing on the field with a total EBL of 250 mL. At 0833, patient's HR was 64 and previous BP was 69/15 which had been treated with vasopressin and phenylephrine. Cardiac event occurred at 0834, when patient's HR decreased to 35. EKG was sinus bradycardia. He was given epinephrine 500 mcg x 2 doses (at 0834 and 0836) and glycopyrrolate 0.2 mg. ETCO2 progressively decreased into the mid-20s. Surgery team was notified of bradycardia, and anesthesiologist directed surgery team to close quickly and prepare to initiate ACLS. While waiting for surgical closure, patient was given additional doses of epinephrine (1 mg at 0838 and 1 mg at 0840). OR team brought code cart and bed into the room in preparation to turn patient from prone position to supine. Patient then became asystolic with no palpable pulse. Code Blue was called. Total dose of epinephrine given prior to Code Blue was 3 mg. CPR initiated at 0841. ROSC obtained at 0846. Additional medications given during resuscitation efforts included: Calcium carbonate 1 g at 0844 Sodium bicarbonate 50 mL at 0846 Magnesium 1 g at 0847 Esmolol boluses for total of 100 mg After patient was stabilized, he remained intubated and was transferred to the ICU. Care was then handed over to ICU team. Patient's , daughter, and granddaughter was updated by anesthesiologist regarding sequence of events and current critical condition. All of the family's questions were answered. Time Spent With Patient Time: Total time managing care of this patient today ____ minutes.
[2024-10-19] MEDS: Famotidine/PF 20 MG/2 ML VIAL IVPUSH (10:36)
[2024-10-19] MEDS: Chlorhexidine Gluc Oral Rinse 15 ML MOUTHWASH BUCCAL ×2 (10:36→17:41)
[2024-10-19] MEDS: Heparin Sodium,Porcine 5,000 UNIT/ML VIAL 5000 UNIT SUBCUT ×2 (10:38→17:40)
--- NOTE | 2024-10-19 11:32 | PHA.MEDREC ---
Pharmacy Consult ? Medication Reconciliation Pharmacy has completed the medication reconciliation. Spoke with Patient's over the phone. She had a medication list and was able to confirm his home meds. She states he is taking Eliquis 5mg BID, not 2.5mg, this is consistent with pharmacy claims. Also, she confirmed the Bumetanide is 1mg BID, Gabapentin is 600mg BID, insulin aspart is 10 units TIDAC, and Lantus is 20 units BID. He is also taking Zofran 8mg BID.
[2024-10-19 11:34] LABS: Venous Blood Gas Refer to POC result
[2024-10-19 11:36] LABS: VBG Base Excess 4.1 mmol/L; VBG HCO3 26 mmol/L (22-26); VBG pCO2 31 mmHg; VBG pH 7.52 (7.32-7.43); VBG pO2 70 mmHg
[2024-10-19 11:37] LABS: Basophils Percent Auto 0.3 % (0-2); Eosinophils Absolute Auto 0.1 X10*3/uL (0.0-0.4); Eosinophils Percent Auto 0.7 % (0-4); Hematocrit 38.1 % (42.0-52.0); Hemoglobin 12.6 g/dl (14.0-18.0); Imm Gran Abs Auto 0.11 X10*3/uL (0.00-0.03); Imm Gran Pct Auto 0.7 % (0.0-0.4); Lymphocytes Absolute Auto 0.5 X10*3/uL (1.2-4.9); Lymphocytes Percent Auto 3.5 % (20-40); MANUAL DIFF FLAG SCAN; Mean Corpuscular HGB Conc 33.1 g/dl (31.0-36.0); Mean Corpuscular Hemoglobin 32.6 pg (27.0-33.0); Mean Corpuscular Volume 98.7 fL (80.0-98.0); Mean Platelet Volume 10.2 fL (9.4-12.4); Monocytes Absolute Auto 0.2 X10*3/uL (0.1-1.2); Monocytes Percent Auto 1.5 % (2-11); Neutrophils Absolute Auto 13.9 x10*3/uL (2.0-8.3); Neutrophils Percent Auto 93.3 % (45-73); Platelet Count 148 X10*3/uL (160-400); Red Blood Count 3.86 X10*6/uL (4.60-5.80); Red Cell Distribution Width 13.8 % (11.0-16.0); SCAN SMEAR FLAG 1; White Blood Count 14.9 X10*3/uL (4.8-10.8)
--- NOTE | 2024-10-19 12:00 | CA_ITS ---
Transthoracic Echocardiogram Patient (Last, First, Middle): Castro Tate D Gender: Male Date of : 1970 Age: 54 Procedure Date: 10/19/2024 Procedure Type: Transthoracic Echocardiogram Location: ICU Height: 187.96 cm Weight: 95.26 kg BSA: 2.22 m2 Heart Rate: bpm BP: 139 / 68 mmHg Project Designer: SB Referring MD: Carlin Cook MD Supervisor Cell Efficiency: Puneet Garrett MD Symptoms: s/p cardiac arrest Study Quality: Technically Difficult/ On Vent ECG Rhythm: Sinus Conclusions: - 1. Mildly dilated left ventricle with severely reduced LV ejection fraction at 20-25% with multiple regional wall motion abnormality consistent with ischemic cardiomyopathy 2. Mildly to moderately reduced right ventricular systolic function 3. No significant abnormalities of cardiac valvular Dopplers Findings Left Ventricle Mildly increased left ventricular cavity size. There is mildly increased left ventricular wall thickness. The left ventricular systolic function is severely decreased. The visually estimated ejection fraction is between 20 25%. Spectral Doppler is indicative of an impaired relaxation filling pattern. E/E prime ratio is between 8 and 15 consistent with indeterminate filling pressures. Wall Motion Rest Echo Findings The anterolateral wall, the apex, apical inferior, basal anterior, mid anterior, basal inferoseptal, and basal anteroseptal segments are hypokinetic. The apical anterior, basal inferior, mid inferior, apical lateral, apical septum, mid inferoseptal, and mid anteroseptal segments are akinetic. All other scored wall segments showed normal motion. Right Ventricle Mildly increased right ventricular cavity size. There is mild to moderately decreased right ventricular systolic function. Atria The left atrium is normal in size. Interatrial shunt cannot be excluded. The right atrium is normal in size. Aortic Valve The aortic valve structure and function is likely normal. There is no aortic valve stenosis. There is no aortic valve regurgitation. Mitral Valve There is mild anterior and posterior mitral leaflet thickening. There is trace mitral valve regurgitation. There is no mitral valve stenosis. Pulmonic Valve The pulmonic valve was not well visualized. Tricuspid Valve The tricuspid valve was not well visualized. Tricuspid regurgitation envelope is inadequate for calculation of right ventricular systolic pressure. Indeterminate right atrial pressure. Great Vessels The aorta was not well visualized. The pulmonary artery was not well visualized. Venous The inferior vena cava was not well visualized. Pericardium/Pleural The pericardium was not well visualized. Prior Study Comparison Changes noted compared to prior study dated: 12/09/2019. LV systolic function has significantly reduced and multiple regional wall motion abnormality noted. findings discussed with patient's ICU nurse Measurements 2D Linear Measurements IVSd: 1.22 0.6-0.9/0.6-1.0 cm LVIDd: 5.96 3.9-5.3/4.2-5.9 cm LVIDd Index: 2.68 2.4-3.2/2.2-3.1 cm/m2 LVIDs: 4.97 2.0-3.6 cm LVPWd: 1.17 0.7-1.1 cm Ao Root: 4.00 2.1-3.5 cm LA Diam: 4.00 2.7-3.8/3.0-4.0 cm LAIDs Index: 1.80 1.5-2.3 cm/m2 LV Mass: 385.29 67-162/88-224 g LV Mass Index: 173.56 43-95/49-115 g/m2 LVOT Diam: 2.50 3.0+(-)1.3 cm 2D Systolic Function EF 4C: 25.40 >55% EF 2C: 19.10 >55% EF BiP: 20.90 >55% Mitral Valve E'Lateral: 4.70 Aortic Valve AoV Pk Dheeraj: 1.03 AoV Pk Grad: 4.00 LVOT LVOT Pk Dheeraj: 0.86 LVOT Mn Dheeraj: 0.58 LVOT VTI: 0.17 LVOT Pk Grad: 3.00 LVOT Mn Grad: 2.00 LVOT Diam: 2.50 LVOT Area: 4.91 Diastolic Function E' Laterial: 4.70 Right Ventricle TAPSE (mm): 14.00 TVS' Dheeraj: 7.00 Great Vessels Aorta Ao Root-2D: 4.00 2.0-3.7 cm Ao Asc: 3.50 2.1-3.4 cm Pulmonary Valve PV Pk Dheeraj: 0.80 Peak PV Grad: 3.00 Updated in Other Vendor System with Status of Final Puneet Garrett MD electronically signed on 10/19/2024 2:33:59 PM with status of Final
[2024-10-19 12:02] LABS: SLIDE REVIEW VERIFIED
[2024-10-19 12:03] LABS: B Type Natriuretic Peptide 447 pg/mL (<100)
[2024-10-19 12:28] LABS: Troponin-I High Sensitivity 180.9 ng/L (<3.5-35.0)
[2024-10-19 12:29] LABS: Alanine Aminotransferase 457 U/L (0-40); Albumin Level 4.1 g/dL (3.5-5.0); Anion Gap 23 (12-20); Aspartate Amino Transferase 344 U/L (5-37); Bilirubin Total 0.6 mg/dL (0.0-1.0); Blood Urea Nitrogen 55 mg/dL (9-16); Calcium 9.6 mg/dL (8.4-10.2); Carbon Dioxide 24 mmol/L (22-29); Chloride 95 mmol/L (96-108); Creatinine Clr Calc Pharmacy 19.6; Estimated Glomerular Filt Rate 12; Glucose Random 188 mg/dL (60-115); Magnesium 2.8 mg/dL (1.6-2.6); Phosphorus 4.9 mg/dL (2.7-4.5); Potassium 5.4 mmol/L (3.3-5.1); Sodium 137 mmol/L (135-145); Total Protein 6.5 g/dL (6.5-8.0)
--- NOTE | 2024-10-19 12:29 | PM.CCHP ---
History of Present Illness Date of Service: 10/19/24 Chief Complaint: Cardiac arrest 54-year-old gentleman with underlying diabetes mellitus with ESRD on hemodialysis with RTANE CAD, status post three-vessel bypass, systolic heart failure, CVA with residual right-sided weakness, right BKA for PVD, prior PE on Eliquis who had an elective posterior C4/5 decompression had a bradycardia/asystole cardiac arrest intraoperatively of unclear etiology, with return of spontaneous circulation achieved after ?2 rounds of CPR. Patient transferred intubated to intensive care unit. Review of Systems Review of Systems: Yes unobtainable due to endotracheal tube and Unobtainable due to mental condition [facility] Past Medical History Medical History (Updated 10/19/24 @ 12:59 by Carlin Cook MD) Bullous pemphigoid Acute on chronic kidney failure Chronic kidney disease (CKD) stage G5/A2, glomerular filtration rate (GFR) less than or equal to 15 mL/min/1.73 square meter and albuminuria creatinine ratio between 30-299 mg/g Ischemic colitis Orthostatic hypotension CAD (coronary artery disease) Hyperlipidemia HTN (hypertension) Pulmonary emboli PVD (peripheral vascular disease) CHF (congestive heart failure) Kidney disease Diabetes Family History Family History Other Diabetes Surgical History Surgical History Hx of tonsillectomy S/P cholecystectomy H/O Spinal surgery Hx of right BKA S/P triple vessel bypass Social History Social History Household Members: Spouse Housing: House Do you presently have visiting nurse or other home services: Yes ([employer]) Alcohol intake: former Comment: COUNTS CORRECT Patient Tobacco Use Status: Never used Tobacco Use of substances other than those prescribed or required for medical reasons: No Currently Displaying Signs/Symptoms of Drug Intoxication Withdrawal: No Are you DNR?: No Advance Directives: No Advance Directives Information Provided: No Recently lost weight without trying: No Nutrition Risks: No Nutritional Risk Poor oral hygiene: No service: No Current occupational status: retired Meds Allergies Allergy/AdvReac Type Severity Reaction Status Date / Time nitroglycerin [NITROGLYCERIN] Allergy Intermediate VOMITING Verified 10/07/20 07:19 cranberry [Cranberry] Allergy Mild RASH Verified 03/15/20 07:19 Penicillins Allergy Mild RASH Verified 03/15/20 07:19 penicillin V Allergy Unknown Rash/vomitt Verified 02/23/13 00:00 ing furosemide [From Lasix] Allergy Rash Verified 12/16/20 13:52 morphine AdvReac Severe Nausea and Verified 10/19/24 06:25 Vomiting Active Medications: Current Medications Chlorhexidine Gluconate (Chlorhexidine Gluc Oral Rinse 15 Ml Mouthwash) 15 ml BUCCAL Q8H RENU Last Admin: 10/19/24 10:36 Dose: 15 ml Famotidine (Famotidine/Pf 20 Mg/2 Ml Vial) 20 mg IVPUSH DAILY RENU Last Admin: 10/19/24 10:36 Dose: 20 mg Heparin Sodium (Porcine) (Heparin Sodium,Porcine 5,000 Unit/Ml Vial) 5,000 unit SUBCUT Q8H RENU Last Admin: 10/19/24 10:38 Dose: 5,000 unit Fentanyl (Sublimaze/Ns) 1,000 mcg in 100 mls @ 5 mls/hr IVCONT .Q20H RENU; Protocol Last Admin: 10/19/24 10:39 Dose: Not Given Propofol (Diprivan) 1,000 mg in 100 mls @ 0 mls/hr IVCONT .Q0M RENU; Protocol Last Admin: 10/19/24 09:28 Dose: 30 mcg/kg/min, 17.23 mls/hr Naloxone HCl (Naloxone Hcl 0.4 Mg/Ml Vial) 0.04 mg IVPUSH Q5M PRN PRN Reason: Excessive sedation or RR < 8 Naloxone HCl (Naloxone Hcl 0.4 Mg/Ml Vial) 0.2 mg IVPUSH Q2M PRN PRN Reason: Excessive sedation or RR < 8 Nystatin (Nystatin Powder 15 Gm Bottle) 1 appl TOPICAL BID RENU; Protocol Home Medications ?Medication ?Instructions ?Recorded ?Confirmed ?Last Taken ?Type atorvastatin 80 mg tablet (Lipitor) 80 mg PO BEDTIME 05/12/20 10/19/24 10/18/24 History bumetanide 1 mg tablet 1 mg PO BID 05/12/20 10/19/24 10/18/24 History calcium 315 mg (as 2 tab PO BID 05/12/20 10/19/24 10/18/24 History citrate)-vitamin D3 5 mcg (200 unit) tablet (Calcium Citrate + D) docusate sodium 100 mg capsule 100 mg PO DAILY 05/12/20 10/19/24 10/18/24 History (Colace) insulin aspart U-100 100 unit/mL 10 unit subcut TIDAC 05/12/20 10/19/24 10/18/24 History (3 mL) subcutaneous pen (Novolog FlexPen U-100 Insulin aspart) insulin glargine 100 unit/mL (3 20 unit subcut BID 05/12/20 10/19/24 10/19/24 History mL) subcutaneous pen (Lantus Solostar U-100 Insulin) multivitamin 1 tab PO DAILY 05/12/20 10/19/24 10/18/24 History pantoprazole 40 mg tablet,delayed 40 mg PO DAILY 05/12/20 10/19/24 10/18/24 History release carvedilol 25 mg tablet 1 tab PO BID 12/16/20 10/19/24 10/18/24 History albuterol sulfate 90 mcg/actuation 1 inh inhalation Q4H PRN Wheezing 10/19/24 10/19/24 Unknown History aerosol inhaler apixaban 5 mg tablet (Eliquis) 5 mg PO BID 10/19/24 10/19/24 10/14/24 History betamethasone dipropionate 0.05 % 1 appl topical BID PRN Rash 10/19/24 10/19/24 Unknown History topical ointment gabapentin 300 mg capsule 600 mg PO BID 10/19/24 10/19/24 10/19/24 History hydralazine 25 mg tablet 75 mg PO BID 10/19/24 10/19/24 10/18/24 History ondansetron HCl 4 mg tablet 8 mg PO BID PRN Nausea And Vomiting 10/19/24 10/19/24 Unknown History Physical Exam Vital Signs: Vital Signs: Last Vital Signs Temp 97.2 F 10/19/24 06:45 Pulse 83 10/19/24 11:00 Resp 18 10/19/24 11:00 BP 123/65 10/19/24 11:00 Pulse Ox 100 10/19/24 11:00 O2 Del Method Mechanical Ventil ation 10/19/24 11:00 FiO2 21 10/19/24 11:00 BMI result Body Mass Index 27.1 Const: General: no acute distress and other (Sedated on ventilatory support) Eyes: Sclerae: sclerae normal EOM: EOMs intact bilaterally Neck: Neck: Yes no lymphadenopathy, Yes trachea midline and Yes supple Resp: Effort & Inspection: normal respiratory effort and no respiratory distress Auscultation: clear to auscultation bilaterally Cardio: Rate: regular rate Rhythm: regular rhythm Heart sounds: no gallops, no murmurs and no rubs GI: Palpation (GI): Soft to palpation and Other GI palpation findings present ( Nontender) Auscultation: normal bowel sounds Extrem: Other: Right BKA General: No clubbing and No cyanosis Results Labs 10/19/24 11:19 10/19/24 11:19 Labs: Laboratory Results - last 24 hr 10/19/24 10/19/24 10/19/24 06:35 06:59 07:30 MCV MCH MCHC RDW Plt Count MPV Immature Gran % (Auto) Neut % (Auto) Lymph % (Auto) [place] % (Auto) Eos % (Auto) Baso % (Auto) Lymph # (Auto) [place] # (Auto) Eos # (Auto) Baso # (Auto) Abs Immat Gran (auto) Absolute Neuts (auto) Absolute Nucleated RBC Nucleated RBC % (auto) Smear Tech's Comments VBG pH VBG pCO2 VBG pO2 VBG HCO3 VBG O2 Saturation VBG Base Excess Anion Gap 20 POC Glucose 98 B-Natriuretic Peptide Blood Type AB Positive Antibody Screen NEGATIVE 10/19/24 10/19/24 10/19/24 09:44 11:19 11:31 MCV 98.7 H MCH 32.6 MCHC 33.1 RDW 13.8 Plt Count 148 L D MPV 10.2 Immature Gran % (Auto) 0.7 H Neut % (Auto) 93.3 H Lymph % (Auto) 3.5 L [place] % (Auto) 1.5 L Eos % (Auto) 0.7 Baso % (Auto) 0.3 Lymph # (Auto) 0.5 L [place] # (Auto) 0.2 Eos # (Auto) 0.1 Baso # (Auto) 0.0 Abs Immat Gran (auto) 0.11 H Absolute Neuts (auto) 13.9 H Absolute Nucleated RBC 0.000 Nucleated RBC % (auto) 0.0 Smear Tech's Comments VERIFIED VBG pH 7.52 H VBG pCO2 31 VBG pO2 70 VBG HCO3 26 VBG O2 Saturation 94.0 VBG Base Excess 4.1 Anion Gap POC Glucose 177 H B-Natriuretic Peptide 447 H Blood Type Antibody Screen Imaging Radiologist's Impressions: Impressions Guidance Fluoroscopy 10/19/24 07:49 IMPRESSION: Fluoroscopy during procedure. Please see procedure report for additional information. Electronically signed by: Wesley Ingram MD 10/19/2024 09:46 AM EDT Assessment and Plan (1) Cardiac arrest: Status: Acute (2) ESRD on hemodialysis: Status: Acute (3) Diabetes: Status: Acute (4) PVD (peripheral vascular disease): Status: Acute (5) CAD (coronary artery disease): Status: Acute (6) CHF (congestive heart failure): Status: Acute Plan Assessment: Plan: Neuro: No acute issues. Cardiac: Status post cardiac arrest with will ask after 2 rounds of CPR. Underlying PVD/ CAD/CHF. 2D echo is pending. Pulmonary: Remains intubated postprocedure. Continue to titrate off ventilatory support as tolerated. Renal: No acute issues. Underlying ESRD on hemodialysis. Continue with hemodialysis support. Endo: No acute issues. Underlying diabetes mellitus, continue sliding scale protocol. GI: No acute issues. ID: No acute issues Heme/Onc: No acute issues. Psych: No acute issues. Miscellaneous: No acute issues. Prophylaxis: Pneumatic compression, ppi Diet: NPO Critical care time spent: 60 minutes
[2024-10-19 12:30] LABS: Lactic Acid 2.4 mmol/L (0.5-2.0)
--- NOTE | 2024-10-19 12:31 | P.OP_ITS ---
Operative Note Operative Note Date of Service: 10/19/24 Narrative: Preoperative Diagnosis: C4-5 cervical fracture, spinal cord compression and cervical myelopathy Operation: Attempted C4-C5 laminectomy with lateral mass screws. Consent Informed Consent was obtained for this operation. I have explained the nature, purpose and benefits of the operation. I have discussed the risks and benefit of the operation including possible complications or adverse events with patient/family. Alternative(s) were discussed with the patient with their relative benefits and risks as well as the consequences of not accepting the operation were included in obtaining consent. Surgeon: BOBBY DIXON MD, PHD Procedure Assisted By: Castro Deras Description of Procedure This 54-year-old male extensive cardiac, vascular history and renal insufficiency, developed acute neck pain and neurological deficits after a fall from his wheelchair with a flexion-extension injury. Imaging is suspicious for C4-C5 fracture and there is significant spinal cord compression at this level. The patient continues to deteriorate neurologically and therefore we offered him a C4-5 posterior cervical fusion and decompression. The patient discontinued his aspirin and Eliquis 1 week ago. He received dialysis yesterday. The procedure complications were explained. The patient was consented. The patient was brought to the operating room and endotracheally intubated. The patient was turned in prone position on the gel rolls with the head fixated in [place]. Prep and drape was done followed by timeout. A midcervical incision was made. Dissection was carried down the midline to avoid blood loss. The paravertebral muscles were released to expose the C4 and C5 laminae in preparation for the laminectomy. An x-ray confirmed the correct levels. Significant oozing continued to recur while we were dissecting the muscles from the C4-C5 lamina. Eventually, the lateral masses of C4 and C5 were exposed bilaterally. A harbor boat pilot hole was drilled in the lateral mass of C4 on C5 on the right side. With a power drill a trajectory was drilled in preparation for the screw placement. Then anesthesia notified me that the patient was bradycardic and deteriorated rapidly. She advised to abort the surgery immediately. The patient became asystolic. The incision was closed with a running nylon after which the patient was flipped into supine position and resuscitation was started immediately. The heart rate returned and the vital signs stabilized. The patient was transported in a stable condition to the intensive care unit. Anesthesia: General Estimated Blood Loss (ml): 250 mL Duration of Surgery: 35 Minutes Complications: Hemodynamic instability with asystole with termination of surgery. Postoperative Plan: ICU
[2024-10-19 13:11] LABS: Alkaline Phosphatase 101 U/L (39-117)
[2024-10-19 13:26] LABS: Reflex Lactate? Lactic Acid Added
--- NOTE | 2024-10-19 13:42 | MHC.CM.PN ---
Pt transferred to ICU after a cardiac arrest during C4-5 laminectomy surgery. Pt is vented and on cardiac rescusitation protocol. CM to follow for assessment and d/c planning
[2024-10-19 13:59] LABS: ~Lactic Acid-LAB USE ONLY 1.3 mmol/L (0.5-2.0)
--- NOTE | 2024-10-19 14:32 | HO.NEURO.PN ---
Neurosurgery Operative Note Date of Service: 10/19/24 Narrative: Postoperative day 0, attempted C4-5 laminectomy with lateral mass fixation, case aborted during the opening part of the surgery secondary to PEA and cardiac arrest Patient intubated, remains sedated in the ICU, vital signs are stable. Echocardiogram done, results pending. Physical exam: Patient is seen at bedside with Dr. Mejía, he is intubated and sedated, we did not lightening sedation to attempt to neurological exam. His posterior neck dressing is clean and dry with no active signs of oozing. There is some staining on the dressing but does not look like it is actively bleeding. Impression: Postop day 0 from attempted C4-5 laminectomy with lateral mass fixation, case had to be aborted secondary to cardiac arrhythmia and pulseless electrical activity. Patient is currently in ICU, intubated and sedated. His posterior neck dressing looks clean and dry. Patient was seen at bedside with Dr. Mejía. At this point we will defer to the ICU for the medical management and can re-evaluate when they deem it appropriate to lighten the sedation so we can examine him neurologically. He is not does not have any specific restrictions on his neck in terms of needing a collar or spine precautions. Neurosurgery team to follow-up in a.m..
[2024-10-19] MEDS: Nystatin Powder 15 GM BOTTLE 1 APPL TOPICAL ×2 (14:46→20:23)
[2024-10-19 17:25] LABS: Glucose, Whole Blood 176 mg/dL (60-115)
[2024-10-19] MEDS: Insulin Lispro 100 UNIT/ML 3 ML VIAL SUBCUT (17:41)
--- NOTE | 2024-10-19 17:59 | PC.NURSE ---
The patient arrived at the ICU approx. at 0930? s/p cardiac arrest. Neuro/Resp: Sedated/intubated, on? propofol gtt per AUG. Does not open eyes, does not track, does not follow commands, Flaccid extremities. (passive ROM performed).? Resp: ?ACVC vent. support. Clear lung sounds bilaterally? Cardiac: Sinus Rhythm? GI: LBM 5/12, +bowel sounds, OGT in place/clamp, POC Q6hr, on sliding scale insulin per AUG. : Bladder scan for 194ml, external catheter in place. Skin: ?Impaired skin integrity - see skin assessment (repositioning maintained)?Lines: peripheral IVs
[2024-10-19] MEDS: Norepinephrine Bitartrate/D5W 8 MG/250 ML PLAST..BAG 8.97 MG IVCONT (19:37)
[2024-10-19 23:58] LABS: Glucose, Whole Blood 121 mg/dL (60-115)
[2024-10-20] VITALS (42 sets, daily range): BP systolic 72–135; BP diastolic 41–66; PULSE 82–108; RESP 14–97; TEMP 34.9–37.3; O2SAT 94–100; BMI 27.3
[2024-10-20] MEDS: Heparin Sodium,Porcine 5,000 UNIT/ML VIAL 5000 UNIT SUBCUT ×2 (00:37→08:00)
[2024-10-20] MEDS: Chlorhexidine Gluc Oral Rinse 15 ML MOUTHWASH BUCCAL ×3 (00:37→20:08)
[2024-10-20] MEDS: propofoL 1,000 MG/100 ML VIAL 17.23 MG IVCONT ×2 (03:04→08:00)
[2024-10-20 05:31] LABS: VBG Base Excess 2.7 mmol/L; VBG HCO3 24 mmol/L (22-26); VBG pCO2 29 mmHg; VBG pH 7.53 (7.32-7.43); VBG pO2 55 mmHg
[2024-10-20 05:42] LABS: MANUAL DIFF FLAG NO
[2024-10-20 05:43] LABS: Basophils Absolute Auto 0.1 X10*3/uL (0.0-0.2); Basophils Percent Auto 0.6 % (0-2); Eosinophils Absolute Auto 0.1 X10*3/uL (0.0-0.4); Eosinophils Percent Auto 0.6 % (0-4); Hematocrit 34.7 % (42.0-52.0); Hemoglobin 11.8 g/dl (14.0-18.0); Imm Gran Abs Auto 0.07 X10*3/uL (0.00-0.03); Imm Gran Pct Auto 0.6 % (0.0-0.4); Mean Corpuscular Hemoglobin 32.1 pg (27.0-33.0); Mean Corpuscular Volume 94.3 fL (80.0-98.0); Mean Platelet Volume 10.7 fL (9.4-12.4); Monocytes Percent Auto 8.2 % (2-11); Neutrophils Absolute Auto 10.2 x10*3/uL (2.0-8.3); Platelet Count 167 X10*3/uL (160-400); Red Blood Count 3.68 X10*6/uL (4.60-5.80); Red Cell Distribution Width 14.2 % (11.0-16.0); White Blood Count 12.4 X10*3/uL (4.8-10.8)
--- NOTE | 2024-10-20 06:05 | PC.NURSE ---
Patient remains sedated and intubated with no sign of respiratory distress or episode of desaturation overnight. Neuro exam is limited due to sedation status, though the patient had spontaneous eye opening and minimal response to painful stimuli with decreased dose of Propofol. He seems to respond the most on LUE, but did not have any appropriate motor response to any stimuli. Patient did attempt to sit up and became restless before the sedation was increased again. Patient did not follow any commands and did not seem to have any understanding of his conditions or his surroundings. No urine output overnight. Small amount of urine detected on bladder scan. Soft restraints in place bilaterally for safety.
[2024-10-20 06:10] LABS: Alanine Aminotransferase 177 U/L (0-40); Albumin Level 3.6 g/dL (3.5-5.0); Anion Gap 25 (12-20); Aspartate Amino Transferase 212 U/L (5-37); Bilirubin Total 0.5 mg/dL (0.0-1.0); Blood Urea Nitrogen 70 mg/dL (9-16); Calcium 8.7 mg/dL (8.4-10.2); Carbon Dioxide 20 mmol/L (22-29); Chloride 97 mmol/L (96-108); Creatinine Clr Calc Pharmacy 17.5; Estimated Glomerular Filt Rate 11; Glucose Random 113 mg/dL (60-115); Magnesium 2.6 mg/dL (1.6-2.6); Phosphorus 4.8 mg/dL (2.7-4.5); Potassium 5.6 mmol/L (3.3-5.1); Sodium 136 mmol/L (135-145); Total Protein 6.2 g/dL (6.5-8.0)
[2024-10-20 06:11] LABS: Alkaline Phosphatase 82 U/L (39-117)
[2024-10-20 06:12] LABS: Glucose, Whole Blood 119 mg/dL (60-115)
[2024-10-20 06:19] LABS: Venous Blood Gas Refer to POC result
--- NOTE | 2024-10-20 06:59 | HO.NEUROPN_ITS ---
Neurosurgery Operative Note Date of Service: 10/20/24 Narrative: Procedure: Attempted C4-5 laminectomy with lateral mass fixation, case aborted during the opening part of the surgery secondary to PEA and cardiac arrest POD: 1 Castro is a pleasant 54 year old male who was booked for C4-5 laminectomy with lateral mass screws yesterday with Dr. Mejía. Unfortunately he destabilized during the procedure, which ultimately needed to be aborted. The patient was transfered to the ICU after being stabilized in the operating room. See previous neurosurgery progress note for specifics regarding this matter. Today he remains intubated and sedated in the ICU. His echocardiogram results are complete and show severely reduced LV ejection fraction at 20-25% consistent with ischemic cardiomyopathy. His white count is elevated at 12.4, but this appears to generally be around his baseline compared to labs drawn all the way back to May 2024. Most recent vital signs reported by respiratory therapy appear stable, HR: 83, SP02: 98%, Capno: 26, BP: 105/56, T: 97.9. The patient was seen lying in bed in the ICU. He was evaluated alongside the attending neurosurgeon Dr. Mejía. He is sedated and intubated on exam. We did not pause sedation for an examination this morning. His posterior cervical dressing is C/D/I with no evidence of active bleeding or drainage. We will continue to defer to our colleagues in the ICU for medical management of the patient. We were not able to complete his surgical procedure, and really only made an incision and began localizing where we would complete his surgery. We will continue to follow the patient and perform an neurological examination w hen adventure challenge instructor team feels it is appropriate to pause sedation. Please reach out to the neurosurgery team via tiger text with any questions or concerns. Saeed Mejía MD,PhD [facility]
[2024-10-20] MEDS: Famotidine/PF 20 MG/2 ML VIAL IVPUSH (08:00)
--- NOTE | 2024-10-20 08:41 | ECG_ITS ---
Test Reason : follow up Blood Pressure : */* mmHG Vent. Rate : 86 BPM Atrial Rate : 86 BPM P-R Int : 208 ms QRS Dur : 102 ms QT Int : 400 ms P-R-T Axes : 64 -20 191 degrees QTcB Int : 478 ms Sinus rhythm with Premature atrial complexes Deep T wave inversion suggestive of ischemia Abnormal ECG When compared with ECG of 03-Jul-2023 18:21, Premature ventricular complexes are no longer Present Premature atrial complexes are now Present T wave inversion noted suggestive of ischemia T wave inversion now evident in Anterior leads QT has lengthened Referred By: Carlin Cook Electronically Signed By: SHARON MENDIOLA MD
--- NOTE | 2024-10-20 09:10 | HO.POSTANES ---
Post Anesthesia Evaluation Post Anesthesia Evaluation Date of Service: 10/20/24 Vital Signs: Vital Signs Temp Pulse Resp BP Pulse Ox O2 Del Method FiO2 10/20/24 08:03 10/20/24 08:00 98.6 F 84 16 98/54 L 97 Mechanical Ventilation 10/20/24 07:29 98 10/20/24 07:00 86 16 108/60 98 Mechanical Ventilation 10/20/24 06:00 82 72/44 L 10/20/24 06:00 82 16 93/50 L 98 Mechanical Ventilation 10/20/24 05:08 10/20/24 05:00 84 16 110/59 L 98 Mechanical Ventilation 10/20/24 04:00 98 10/20/24 04:00 97.9 F 82 16 106/58 L 98 Mechanical Ventilation 10/20/24 03:02 85 119/62 10/20/24 03:00 85 16 119/62 99 Mechanical Ventilation 10/20/24 02:00 84 16 107/61 98 Mechanical Ventilation 10/20/24 01:00 86 89/50 L 10/20/24 01:00 83 16 91/53 L 98 Mechanical Ventilation 10/20/24 00:05 10/20/24 00:00 98 10/20/24 00:00 98.2 F 84 16 91/52 L 98 Mechanical Ventilation 10/19/24 23:00 85 16 98/54 L 99 Mechanical Ventilation 10/19/24 22:00 83 16 98/52 L 98 Mechanical Ventilation Anesthesia: General Endotracheal-GETA Mental Status: Sedated Comments: intubated, sedatedc, vitals stable in icu, no pressors.
[2024-10-20] MEDS: Nystatin Powder 15 GM BOTTLE 1 APPL TOPICAL ×2 (09:43→20:09)
--- NOTE | 2024-10-20 09:47 | P.PNCC_ITS ---
Subjective Subjective Date of Service: 10/20/24 Interval History: 54-year-old gentleman with underlying diabetes mellitus with ESRD on hemodialysis with RTANE CAD, status post three-vessel bypass, systolic heart failure, CVA with residual right-sided weakness, right BKA for PVD, prior PE on Eliquis who had an elective posterior C4/5 decompression had a bradycardia/asystole cardiac arrest intraoperatively of unclear etiology, with return of spontaneous circulation achieved after ?2 rounds of CPR. Patient transferred intubated to intensive care unit. 2D echocardiogram showed decreased systolic function. Laboratory studies significant for mild transaminitis. No events overnight. Critical Care Time (minutes): 60 Physical Exam 2 Vital Signs: Vital Signs: Last Vital Signs Temp 98.6 F 10/20/24 08:00 Pulse 86 10/20/24 09:00 Resp 16 10/20/24 09:00 BP 118/62 10/20/24 09:00 Pulse Ox 98 10/20/24 09:00 O2 Del Method Mechanical Ventil ation 10/20/24 09:00 FiO2 21 10/20/24 09:00 BMI result Body Mass Index 27.3 Const: General: no acute distress and other (Sedated on ventilatory support) Eyes: Sclerae: sclerae normal EOM: EOMs intact bilaterally Neck: Neck: Yes no lymphadenopathy, Yes trachea midline and Yes supple Resp: Auscultation: clear to auscultation bilaterally Cardio: Rate: regular rate Rhythm: regular rhythm Heart sounds: no gallops, no murmurs and no rubs GI: Palpation (GI): Soft to palpation and Other GI palpation findings present ( Nontender) Auscultation: normal bowel sounds Extrem: Other: Right BKA General: No clubbing and No cyanosis Objective Data Labs 10/20/24 05:11 10/20/24 05:11 Labs: Laboratory Results - last 24 hr 10/19/24 10/19/24 10/19/24 09:44 11:19 11:31 WBC 14.9 H RBC 3.86 L Hgb 12.6 L Hct 38.1 L MCV 98.7 H MCH 32.6 MCHC 33.1 RDW 13.8 Plt Count 148 L D MPV 10.2 Immature Gran % (Auto) 0.7 H Neut % (Auto) 93.3 H Lymph % (Auto) 3.5 L Glenn % (Auto) 1.5 L Eos % (Auto) 0.7 Baso % (Auto) 0.3 Lymph # (Auto) 0.5 L [place] # (Auto) 0.2 Eos # (Auto) 0.1 Baso # (Auto) 0.0 Abs Immat Gran (auto) 0.11 H Absolute Neuts (auto) 13.9 H Absolute Nucleated RBC 0.000 Nucleated RBC % (auto) 0.0 Smear Tech's Comments VERIFIED VBG pH 7.52 H VBG pCO2 31 VBG pO2 70 VBG HCO3 26 VBG O2 Saturation 94.0 VBG Base Excess 4.1 Sodium 137 Potassium 5.4 H Chloride 95 L Carbon Dioxide 24 Anion Gap 23 H BUN 55 H Creatinine 4.88 H* Estim Creat Clear Calc 19.6 Estimated GFR 12 POC Glucose 177 H Random Glucose 188 H Lactic Acid 2.4 H* Lactic Acid F/U @ 2Hr Calcium 9.6 Phosphorus 4.9 H Magnesium 2.8 H Total Bilirubin 0.6 AST 344 H ALT 457 H Alkaline Phosphatase 101 Troponin I High Sens 180.9 H* B-Natriuretic Peptide 447 H Total Protein 6.5 Albumin 4.1 10/19/24 10/19/24 10/19/24 13:38 17:21 23:53 WBC RBC Hgb Hct MCV MCH MCHC RDW Plt Count MPV Immature Gran % (Auto) Neut % (Auto) Lymph % (Auto) Glenn % (Auto) Eos % (Auto) Baso % (Auto) Lymph # (Auto) Glenn # (Auto) Eos # (Auto) Baso # (Auto) Abs Immat Gran (auto) Absolute Neuts (auto) Absolute Nucleated RBC Nucleated RBC % (auto) Smear Tech's Comments VBG pH VBG pCO2 VBG pO2 VBG HCO3 VBG O2 Saturation VBG Base Excess Sodium Potassium Chloride Carbon Dioxide Anion Gap BUN Creatinine Estim Creat Clear Calc Estimated GFR POC Glucose 176 H 121 H Random Glucose Lactic Acid Lactic Acid F/U @ 2Hr 1.3 Calcium Phosphorus Magnesium Total Bilirubin AST ALT Alkaline Phosphatase Troponin I High Sens B-Natriuretic Peptide Total Protein Albumin 10/20/24 10/20/24 10/20/24 05:11 05:27 06:08 WBC 12.4 H RBC 3.68 L Hgb 11.8 L Hct 34.7 L MCV 94.3 MCH 32.1 MCHC 34.0 RDW 14.2 Plt Count 167 MPV 10.7 Immature Gran % (Auto) 0.6 H Neut % (Auto) 82.0 H Lymph % (Auto) 8.0 L Glenn % (Auto) 8.2 Eos % (Auto) 0.6 Baso % (Auto) 0.6 Lymph # (Auto) 1.0 L Glenn # (Auto) 1.0 Eos # (Auto) 0.1 Baso # (Auto) 0.1 Abs Immat Gran (auto) 0.07 H Absolute Neuts (auto) 10.2 H Absolute Nucleated RBC 0.000 Nucleated RBC % (auto) 0.0 Smear Tech's Comments VBG pH 7.53 H VBG pCO2 29 VBG pO2 55 VBG HCO3 24 VBG O2 Saturation 85.0 VBG Base Excess 2.7 Sodium 136 Potassium 5.6 H Chloride 97 Carbon Dioxide 20 L Anion Gap 25 H BUN 70 H Creatinine 5.47 H* Estim Creat Clear Calc 17.5 Estimated GFR 11 POC Glucose 119 H Random Glucose 113 Lactic Acid Lactic Acid F/U @ 2Hr Calcium 8.7 D Phosphorus 4.8 H Magnesium 2.6 Total Bilirubin 0.5 AST 212 H ALT 177 H Alkaline Phosphatase 82 Troponin I High Sens B-Natriuretic Peptide Total Protein 6.2 L Albumin 3.6 Progress Note: A&P Assessment and plan (1) CHF (congestive heart failure): Status: Acute (2) CAD (coronary artery disease): Status: Acute (3) Cardiac arrest: Status: Acute (4) PVD (peripheral vascular disease): Status: Acute (5) Ischemic hepatitis: Status: Acute (6) ESRD on hemodialysis: Status: Acute Plan Assessment: 54-year-old gentleman postoperative day 1 after an elective posterior C4/5 decompression terminated secondary to intraoperative cardiac arrest Plan: Neuro: No acute issues. Cardiac: Status post cardiac arrest with return of spontaneous circulation after 2 rounds of CPR. Underlying PVD/ CAD/CHF. 2D echo with newly noted decreased systolic function. Cardiology evaluation is pending. Pulmonary: Remains intubated postprocedure. Continue to titrate off ventilatory support as tolerated. Renal: No acute issues. Underlying ESRD on hemodialysis. Continue with hemodialysis support. Endo: No acute issues. Underlying diabetes mellitus, continue sliding scale protocol. GI: Post arrest ischemic hepatitis, improving. ID: No acute issues Heme/Onc: No acute issues. Psych: No acute issues. Miscellaneous: No acute issues. Prophylaxis: Pneumatic compression, famotidine Diet: NPO Critical care time spent: 60 minutes Quality Stroke Does the patient have a stroke diagnosis?: No VTE Prior VTE?: No VTE Risk Level:: Surgical - high VTE Device Contraindication: Treatment Not Indicated VTE Drug Contraindication: N/A - Med Ordered
[2024-10-20 10:16] LABS: Troponin-I High Sensitivity 34257.5 ng/L (<3.5-35.0)
--- NOTE | 2024-10-20 10:27 | P.CONCA_ITS ---
History of Present Illness History of Present Illness Date of Service: 10/20/24 Requesting physician: Carlin Cook Consult reason: other (Cardiac arrest) Chief complaint: c4-5 laminectomy/posterior lateral mass fusion Narrative: I was consulted to see Castro in cardiology consultation for evaluation for intraoperative cardiac arrest. History was obtained from the chart as well as prior records as well as from the at bedside. History is somewhat complete as there are some gaps in the history. is saying that Castro is followed by an outside cardiology group in [place] but has not been in the office for couple years due to transportation issues. He usually requires ambulance to go to his dialysis and was having lot of issues with his pain and was not able to see a computer aided drafter in the near past. He said he was evaluated by Cardiology while he was admitted at [facility] few months ago for his dialysis graft issues but no obvious workup was done as per her. Do not know last echocardiogram done at the outside facility. However yesterday he came in for an outpatient for C4- C5 decompression for significant pain related issue and he was put in the prone position and was given general anesthesia by anesthesia team and intubated. During the early part of the surgery patient started decompensating became hypotensive requiring multiple rounds of vasopressors. Subsequently patient also became bradycardic. Patient incision made however the patient continued to deteriorate cardiovascularly became hypotensive subsequently became asystolic. The surgery was aborted and the wound was closed and patient was then given CPR. His total downtime was about 5 minutes while he was continuously being treated by anesthesia team aggressively. Patient was subsequently transferred to intensive care unit very remains intubated today. However it seems like he is on tapering sedation and he is already responding to his . He has hemodynamically remained stable requiring very low-dose of Levophed. His initial troponin was then yesterday morning was 189. No repeat troponins were done. There was no EKG performed. EKG on a monitor shows deep T-wave inversions. EKGs then performed this morning which shows diffuse T-wave inversion multiple leads. Repeat troponin done this morning is 34,000. Echocardiogram done yesterday after cardiac arrest shows marked LV systolic dysfunction which apparently is new compared to the echocardiogram we have in the system here which was post bypass in 2019. However from the notes it appears that he has LV ejection fraction 40-45% although not sure as to where this echocardiogram was performed. Patient's complicated past medical history with diffuse and significant atherosclerotic disease with multiple stents to his coronary artery and 2019 because of continuing chest discomfort he underwent a cardiac catheterization and was told that he will require surgical revascularization he underwent MURO to LAD as well as free radial graft to OM branch and SVG to PLV branch. Subsequently as per the his ongoing significant anginal symptoms resolved RV continued to have some chest discomfort and was told that he has small-vessel disease that can not be revascularization was managed medically. He has history of longstanding diabetes as significant dysautonomia syndrome which limits his medical therapy. He has end-stage renal disease on hemodialysis. He has diffuse and significant vascular disease with right below-knee amputation as well as left redo surgical revascularization being followed by Dr. Camacho at [facility] and is on chronic oral anticoagulation as per the for his vascular disease and to keep his AV fistula patent. This mentioned of history of atrial fibrillation although is not entirely clear. He also has history of heart failure and noted to have heart failure with preserved ejection fraction in 1 of the notes. Prior to his surgery as per the he is very limited in his activity level and uses wheelchair to get around the house. However because of the significant pain from his cervical spine issue has been mostly sedentary. He has not had any active and increasing anginal symptoms as per the recently. No active heart failure symptoms although he is on both bumetanide and hydrochlorothiazide at home but as per the he has had very poor urine output over the last many months. He does get hemodialysis 3 times a week. He has to usually go why an ambulance to his dialysis center. There has been no recent symptoms suggestive of atrial fibrillation. He has not had any syncope at home. He had an EKG last noted in June 2023 in the system here very had comfort bradycardia but was showing sinus rhythm with frequent PVCs in bigeminal pattern possibly causing spurious bradycardia. At that time he did not have significant ST T wave changes suggestive of ischemia. Review of Systems 2 Review of Systems: Yes unobtainable due to endotracheal tube PMFSH Past Medical History Medical History Bullous pemphigoid Acute on chronic kidney failure Chronic kidney disease (CKD) stage G5/A2, glomerular filtration rate (GFR) less than or equal to 15 mL/min/1.73 square meter and albuminuria creatinine ratio between 30-299 mg/g Ischemic colitis Orthostatic hypotension CAD (coronary artery disease) Hyperlipidemia HTN (hypertension) Pulmonary emboli PVD (peripheral vascular disease) CHF (congestive heart failure) Kidney disease Diabetes Family History Family History Other Diabetes Surgical History Surgical History Hx of tonsillectomy S/P cholecystectomy H/O Spinal surgery Hx of right BKA S/P triple vessel bypass Social History Social History Household Members: Spouse Housing: House Do you presently have visiting nurse or other home services: Yes (LITIGATION COORDINATOR services) Alcohol intake: former Comment: COUNTS CORRECT Patient Tobacco Use Status: Never used Tobacco Use of substances other than those prescribed or required for medical reasons: No Currently Displaying Signs/Symptoms of Drug Intoxication Withdrawal: No Are you DNR?: No Advance Directives: No Advance Directives Information Provided: No Recently lost weight without trying: No Nutrition Risks: No Nutritional Risk Poor oral hygiene: No service: No Current occupational status: retired Meds Allergies Allergy/AdvReac Type Severity Reaction Status Date / Time nitroglycerin [NITROGLYCERIN] Allergy Intermediate VOMITING Verified 03/15/20 07:19 cranberry [Cranberry] Allergy Mild RASH Verified 03/15/20 07:19 Penicillins Allergy Mild RASH Verified 03/15/20 07:19 penicillin V Allergy Unknown Rash/vomitt Verified 02/23/13 00:00 ing furosemide [From Lasix] Allergy Rash Verified 12/16/20 13:52 morphine AdvReac Severe Nausea and Verified 10/19/24 06:25 Vomiting Active Medications: Current Medications Chlorhexidine Gluconate (Chlorhexidine Gluc Oral Rinse 15 Ml Mouthwash) 15 ml BUCCAL Q8H RENU Last Admin: 10/20/24 08:01 Dose: 15 ml Famotidine (Famotidine/Pf 20 Mg/2 Ml Vial) 10 mg IVPUSH Q48H RENU Heparin Sodium (Porcine) (Heparin Sodium,Porcine 5,000 Unit/Ml Vial) 5,000 unit SUBCUT Q8H RENU Last Admin: 10/20/24 08:00 Dose: 5,000 unit Fentanyl (Sublimaze/Ns) 1,000 mcg in 100 mls @ 5 mls/hr IVCONT .Q20H RENU; Protocol Last Admin: 10/20/24 07:59 Dose: Not Given Propofol (Diprivan) 1,000 mg in 100 mls @ 0 mls/hr IVCONT .Q0M RENU; Protocol Last Titration: 10/20/24 09:41 Dose: 0 mcg/kg/min, 0 mls/hr Norepinephrine Bitartrate (Levophed) 8 mg in 250 mls @ 0 mls/hr IVCONT .Q0M RENU; Protocol Last Titration: 10/20/24 06:00 Dose: 0.01 mcg/kg/min, 1.79 mls/hr Insulin Human Lispro (Insulin Lispro 100 Unit/Ml 3 Ml Vial) 0 unit SUBCUT Q6H RENU; Protocol Last Admin: 10/20/24 06:19 Dose: Not Given Naloxone HCl (Naloxone Hcl 0.4 Mg/Ml Vial) 0.04 mg IVPUSH Q5M PRN PRN Reason: Excessive sedation or RR < 8 Naloxone HCl (Naloxone Hcl 0.4 Mg/Ml Vial) 0.2 mg IVPUSH Q2M PRN PRN Reason: Excessive sedation or RR < 8 Nystatin (Nystatin Powder 15 Gm Bottle) 1 appl TOPICAL BID [facility]; Protocol Last Admin: 10/20/24 09:43 Dose: 1 appl Home Medications ?Medication ?Instructions ?Recorded ?Confirmed ?Last Taken ?Type atorvastatin 80 mg tablet (Lipitor) 80 mg PO BEDTIME 05/12/20 10/19/24 10/18/24 History bumetanide 1 mg tablet 1 mg PO BID 05/12/20 10/19/24 10/18/24 History calcium 315 mg (as 2 tab PO BID 05/12/20 10/19/24 10/18/24 History citrate)-vitamin D3 5 mcg (200 unit) tablet (Calcium Citrate + D) docusate sodium 100 mg capsule 100 mg PO DAILY 05/12/20 10/19/24 10/18/24 History (Colace) insulin aspart U-100 100 unit/mL 10 unit subcut TIDAC 05/12/20 10/19/24 10/18/24 History (3 mL) subcutaneous pen (Novolog FlexPen U-100 Insulin aspart) insulin glargine 100 unit/mL (3 20 unit subcut BID 05/12/20 10/19/24 10/19/24 History mL) subcutaneous pen (Lantus Solostar U-100 Insulin) multivitamin 1 tab PO DAILY 05/12/20 10/19/24 10/18/24 History pantoprazole 40 mg tablet,delayed 40 mg PO DAILY 05/12/20 10/19/24 10/18/24 History release carvedilol 25 mg tablet 1 tab PO BID 12/16/20 10/19/24 10/18/24 History albuterol sulfate 90 mcg/actuation 1 inh inhalation Q4H PRN Wheezing 10/19/24 10/19/24 Unknown History aerosol inhaler apixaban 5 mg tablet (Eliquis) 5 mg PO BID 10/19/24 10/19/24 10/14/24 History betamethasone dipropionate 0.05 % 1 appl topical BID PRN Rash 10/19/24 10/19/24 Unknown History topical ointment gabapentin 300 mg capsule 600 mg PO BID 10/19/24 10/19/24 10/19/24 History hydralazine 25 mg tablet 75 mg PO BID 10/19/24 10/19/24 10/18/24 History ondansetron HCl 4 mg tablet 8 mg PO BID PRN Nausea And Vomiting 10/19/24 10/19/24 Unknown History Physical Exam 2 Vital Signs: Vital Signs: Last Vital Signs Temp 98.6 F 10/20/24 08:00 Pulse 90 10/20/24 10:00 Resp 15 10/20/24 10:00 BP 111/60 10/20/24 10:00 Pulse Ox 96 10/20/24 10:00 O2 Del Method Mechanical Ventil ation 10/20/24 10:00 FiO2 21 10/20/24 10:08 BMI result Body Mass Index 27.3 Const: General: other (Intubated and sedated but turns his head) N utritional Appearance: average body habitus HEENT: Head: Yes normocephalic and Yes atraumatic Neck: Neck: Yes trachea midline, Yes supple and Yes no JVD Resp: Effort & Inspection: uses accessory muscles (Vented) and symmetric chest movement Cardio: Jugular venous distension: no JVD Palpation: abnormal PMI displaced PMI Rate: regular rate Rhythm: regular rhythm Heart sounds: S1 normal heart sound present, S2 normal heart sound present, no click, Gallop heart sound present S4 gallop, no murmurs and no rubs GI: Auscultation: normal bowel sounds Skin: General skin exam: no rashes or lesions noted Neuro: General: other (Not evaluated) Extrem: General: Yes no clubbing, cyanosis or edema and Yes other (Right below-knee amputation) Objective Labs and Meds 10/20/24 05:11 10/20/24 05:11 Lab results: Laboratory Results - last 24 hr 10/19/24 10/19/24 10/19/24 11:19 11:31 13:38 WBC 14.9 H RBC 3.86 L Hgb 12.6 L Hct 38.1 L MCV 98.7 H MCH 32.6 MCHC 33.1 RDW 13.8 Plt Count 148 L D MPV 10.2 Immature Gran % (Auto) 0.7 H Neut % (Auto) 93.3 H Lymph % (Auto) 3.5 L [place] % (Auto) 1.5 L Eos % (Auto) 0.7 Baso % (Auto) 0.3 Lymph # (Auto) 0.5 L [place] # (Auto) 0.2 Eos # (Auto) 0.1 Baso # (Auto) 0.0 Abs Immat Gran (auto) 0.11 H Absolute Neuts (auto) 13.9 H Absolute Nucleated RBC 0.000 Nucleated RBC % (auto) 0.0 Smear Tech's Comments VERIFIED VBG pH 7.52 H VBG pCO2 31 VBG pO2 70 VBG HCO3 26 VBG O2 Saturation 94.0 VBG Base Excess 4.1 Sodium 137 Potassium 5.4 H Chloride 95 L Carbon Dioxide 24 Anion Gap 23 H BUN 55 H Creatinine 4.88 H* Estim Creat Clear Calc 19.6 Estimated GFR 12 POC Glucose Random Glucose 188 H Lactic Acid 2.4 H* Lactic Acid F/U @ 2Hr 1.3 Calcium 9.6 Phosphorus 4.9 H Magnesium 2.8 H Total Bilirubin 0.6 AST 344 H ALT 457 H Alkaline Phosphatase 101 Troponin I High Sens 180.9 H* B-Natriuretic Peptide 447 H Total Protein 6.5 Albumin 4.1 10/19/24 10/19/24 10/20/24 17:21 23:53 05:11 WBC 12.4 H RBC 3.68 L Hgb 11.8 L Hct 34.7 L MCV 94.3 MCH 32.1 MCHC 34.0 RDW 14.2 Plt Count 167 MPV 10.7 Immature Gran % (Auto) 0.6 H Neut % (Auto) 82.0 H Lymph % (Auto) 8.0 L [place] % (Auto) 8.2 Eos % (Auto) 0.6 Baso % (Auto) 0.6 Lymph # (Auto) 1.0 L [place] # (Auto) 1.0 Eos # (Auto) 0.1 Baso # (Auto) 0.1 Abs Immat Gran (auto) 0.07 H Absolute Neuts (auto) 10.2 H Absolute Nucleated RBC 0.000 Nucleated RBC % (auto) 0.0 Smear Tech's Comments VBG pH VBG pCO2 VBG pO2 VBG HCO3 VBG O2 Saturation VBG Base Excess Sodium 136 Potassium 5.6 H Chloride 97 Carbon Dioxide 20 L Anion Gap 25 H BUN 70 H Creatinine 5.47 H* Estim Creat Clear Calc 17.5 Estimated GFR 11 POC Glucose 176 H 121 H Random Glucose 113 Lactic Acid Lactic Acid F/U @ 2Hr Calcium 8.7 D Phosphorus 4.8 H Magnesium 2.6 Total Bilirubin 0.5 AST 212 H ALT 177 H Alkaline Phosphatase 82 Troponin I High Sens B-Natriuretic Peptide Total Protein 6.2 L Albumin 3.6 10/20/24 10/20/24 10/20/24 05:27 06:08 09:29 WBC RBC Hgb Hct MCV MCH MCHC RDW Plt Count MPV Immature Gran % (Auto) Neut % (Auto) Lymph % (Auto) [place] % (Auto) Eos % (Auto) Baso % (Auto) Lymph # (Auto) [place] # (Auto) Eos # (Auto) Baso # (Auto) Abs Immat Gran (auto) Absolute Neuts (auto) Absolute Nucleated RBC Nucleated RBC % (auto) Smear Tech's Comments VBG pH 7.53 H VBG pCO2 29 VBG pO2 55 VBG HCO3 24 VBG O2 Saturation 85.0 VBG Base Excess 2.7 Sodium Potassium Chloride Carbon Dioxide Anion Gap BUN Creatinine Estim Creat Clear Calc Estimated GFR POC Glucose 119 H Random Glucose Lactic Acid Lactic Acid F/U @ 2Hr Calcium Phosphorus Magnesium Total Bilirubin AST ALT Alkaline Phosphatase Troponin I High Sens 45871.5 H* D B-Natriuretic Peptide Total Protein Albumin Imaging Radiologist's impression: Impressions Chest X-Ray 10/19/24 12:00 IMPRESSION: Satisfactory position of endotracheal tube and enteric tube. Hypoexpanded lungs without acute process. No major change from 07/03/2023 Electronically signed by: Onel Jackson MD 10/19/2024 01:12 PM EDT RP Assessment and Plan (1) Bradycardic cardiac arrest: Status: Acute Patient developing asystolic cardiac arrest in the operating room most likely due to acute myocardial ischemia, see below. This was probably most likely triggered by hypotension and possibly underlying on diagnose ischemic etiology. Patient was supported and treated aggressively and quickly with return of spontaneous circulation after chest compression within 5 minutes. Unsure as to the neurologic outcome at this point in time although it seems like with decreasing sedation patient is responding appropriately to the in terms of verbal cues. Hemodynamically at this point time is more stable and requiring very low-dose of vasopressors. For now I would hold off his carvedilol therapy. Continue supportive care as per the critical Care team and plan for extubation today and will require further workup from cardiac perspective. (2) Acute myocardial infarction: Status: Acute Acute myocardial infarction in this middle-aged man with known prior significant diffuse vascular disease and prior surgical revascularization. With no recent what appears to be ischemic evaluation prior to undergoing the surgery. It is possible that patient had underlying significant ischemia and with intraoperative hypotension developed acute myocardial ischemia and then subsequently infarction leading to his cardiac arrest. His LV systolic function has significantly reduced compared to his prior reported LV ejection fraction and suggest that he might be either having hibernating or stunned myocardium due to acute event on the present transthoracic echocardiogram. He requires once he is stabilized and extubated invasive cardiac evaluation with cardiac catheterization. This will further determine if he has any revascularization able lesions or targets. That will further determine in the need for further intervention including pacer/defibrillator therapy. The whole plan and management was discussed with patient's in detail at bedside. Also discussed with Dr. Cook. If surgically cleared I would start him on IV heparin drip as this could be a primary ischemic event. I would continue if possible aspirin and high-intensity statin therapy. Hold off on carvedilol therapy given his low blood pressure for now. I would be very careful with hemodialysis as that may cause him to become hypotensive and cause him more ischemia. Greater than 1 hour of critical care time was spent in managing his care. Will discuss with his outside cardiology group about further management plan and once stabilized to transfer to [facility] for cardiac catheterization. Thank you for allowing me to partake in his care Procedures Date of Service Date of Service: 10/20/24
--- NOTE | 2024-10-20 10:46 | MHC.CLN ---
PT IS INTUBATED AND SEDATED DISCUSSED AT ROUNDS WITH PT TO REMAIN NPO TODAY IF TF NEEDED; RECOMMEND NEPRO AT MAX GOAL RATE 45ML/HR TO PROVIDE 1944KCALS (23KCALS/KG), 87G PROTEIN (1.0G/KG), 785ML FREE WATER FROM FORMULA FOLLOWING FOR DIET ADVANCEMENT SEE FULL CLINICAL NUTRITION ASSESSMENT
[2024-10-20 11:14] LABS: INTERNATIONAL NORM RATIO 1.1 (0.9-1.1); Prothrombin Time 12.9 SEC (10.9-12.4)
[2024-10-20 11:16] LABS: PTT Heparin Drip 31.5 SEC (53-77.9)
[2024-10-20 11:19] LABS: Glucose, Whole Blood 145 mg/dL (60-115)
--- NOTE | 2024-10-20 11:47 | PM.CCN ---
Critical Care Event Note Summary Date of Service: 10/20/24 Code activated: No Narrative: Patient with neurosurgical procedure on 10/19/2024 in the cervical spine, aborted secondary to cardiac arrest. Now with newly reduced ejection fraction and evidence of cardiac ischemia requiring anticoagulation with heparin drip while balancing risk of bleeding. Discussed with Cardiology attending and we both agree that patient would benefit from standard dose heparin drip anticoagulation with no boluses and only heparin rate adjustment as per protocol to reach goal PTT. Critical Care Time (minutes): 0
[2024-10-20] MEDS: Heparin Sodium,Porcine/1/2NS 25,000 UNIT/250 ML IV.SOLN 13.51 UNIT IVCONT (12:15)
--- NOTE | 2024-10-20 14:12 | P.CONNP_ITS ---
History of Present Illness Reason for Consult Consult date: 10/20/24 Chief Complaint Chief complaint: c4-5 laminectomy/posterior lateral mass fusion History of Present Illness Narrative: EMILE consulted for Dialysis management in PT known to me for many many yerars and gets his routinely HD at [facility] He was adm for elevtive cervical disc surgery cb cardiac arrest and now in ICU on pressors and vent Extensive Cardiac PMH as npted by ICU team Presnetly opens his eyes and seems to blink to commands. Cont on IV sedation. Review of Systems Review of Systems Yes unobtainable due to endotracheal tube and Unobtainable due to mental condition PMFSH Past Medical History Medical History Bullous pemphigoid Acute on chronic kidney failure Chronic kidney disease (CKD) stage G5/A2, glomerular filtration rate (GFR) less than or equal to 15 mL/min/1.73 square meter and albuminuria creatinine ratio between 30-299 mg/g Ischemic colitis Orthostatic hypotension CAD (coronary artery disease) Hyperlipidemia HTN (hypertension) Pulmonary emboli PVD (peripheral vascular disease) CHF (congestive heart failure) Kidney disease Diabetes Family History Family History Other Diabetes Surgical History Surgical History Hx of tonsillectomy S/P cholecystectomy H/O Spinal surgery Hx of right BKA S/P triple vessel bypass Social History Social History Household Members: Spouse Housing: House Do you presently have visiting nurse or other home services: Yes ([employer] services) Alcohol intake: former Comment: COUNTS CORRECT Patient Tobacco Use Status: Never used Tobacco Use of substances other than those prescribed or required for medical reasons: No Currently Displaying Signs/Symptoms of Drug Intoxication Withdrawal: No Are you DNR?: No Advance Directives: No Advance Directives Information Provided: No Recently lost weight without trying: No Nutrition Risks: No Nutritional Risk Poor oral hygiene: No service: No Current occupational status: retired Meds Allergies Allergy/AdvReac Type Severity Reaction Status Date / Time nitroglycerin [NITROGLYCERIN] Allergy Intermediate VOMITING Verified 03/15/20 07:19 cranberry [Cranberry] Allergy Mild RASH Verified 03/15/20 07:19 Penicillins Allergy Mild RASH Verified 03/15/20 07:19 penicillin V Allergy Unknown Rash/vomitt Verified 02/23/13 00:00 ing furosemide [From Lasix] Allergy Rash Verified 12/16/20 13:52 morphine AdvReac Severe Nausea and Verified 10/19/24 06:25 Vomiting Active Medications: Current Medications Chlorhexidine Gluconate (Chlorhexidine Gluc Oral Rinse 15 Ml Mouthwash) 15 ml BUCCAL Q8H RENU Last Admin: 10/20/24 08:01 Dose: 15 ml Famotidine (Famotidine/Pf 20 Mg/2 Ml Vial) 10 mg IVPUSH Q48H RENU Fentanyl (Sublimaze/Ns) 1,000 mcg in 100 mls @ 5 mls/hr IVCONT .Q20H RENU; Protocol Last Admin: 10/20/24 07:59 Dose: Not Given Propofol (Diprivan) 1,000 mg in 100 mls @ 0 mls/hr IVCONT .Q0M RENU; Protocol Last Titration: 10/20/24 09:41 Dose: 0 mcg/kg/min, 0 mls/hr Norepinephrine Bitartrate (Levophed) 8 mg in 250 mls @ 0 mls/hr IVCONT .Q0M RENU; Protocol Last Titration: 10/20/24 13:49 Dose: 0.06 mcg/kg/min, 10.77 mls/hr Heparin Sodium/Sodium Chloride (Heparin Sodium,Porcine/1/2ns) 25,000 unit in 250 mls @ 0 mls/hr IVCONT .Q0M RENU; Protocol Last Admin: 10/20/24 12:15 Dose: 14 units/kg/hr, 13.51 mls/hr Insulin Human Lispro (Insulin Lispro 100 Unit/Ml 3 Ml Vial) 0 unit SUBCUT Q6H RENU; Protocol Last Admin: 10/20/24 11:32 Dose: Not Given Naloxone HCl (Naloxone Hcl 0.4 Mg/Ml Vial) 0.04 mg IVPUSH Q5M PRN PRN Reason: Excessive sedation or RR < 8 Naloxone HCl (Naloxone Hcl 0.4 Mg/Ml Vial) 0.2 mg IVPUSH Q2M PRN PRN Reason: Excessive sedation or RR < 8 Nystatin (Nystatin Powder 15 Gm Bottle) 1 appl TOPICAL BID RENU; Protocol Last Admin: 10/20/24 09:43 Dose: 1 appl Home Medications ?Medication ?Instructions ?Recorded ?Confirmed ?Last Taken ?Type atorvastatin 80 mg tablet (Lipitor) 80 mg PO BEDTIME 05/12/20 10/19/24 10/18/24 History bumetanide 1 mg tablet 1 mg PO BID 05/12/20 10/19/24 10/18/24 History calcium 315 mg (as 2 tab PO BID 05/12/20 10/19/24 10/18/24 History citrate)-vitamin D3 5 mcg (200 unit) tablet (Calcium Citrate + D) docusate sodium 100 mg capsule 100 mg PO DAILY 05/12/20 10/19/24 10/18/24 History (Colace) insulin aspart U-100 100 unit/mL 10 unit subcut TIDAC 05/12/20 10/19/24 10/18/24 History (3 mL) subcutaneous pen (Novolog FlexPen U-100 Insulin aspart) insulin glargine 100 unit/mL (3 20 unit subcut BID 05/12/20 10/19/24 10/19/24 History mL) subcutaneous pen (Lantus Solostar U-100 Insulin) multivitamin 1 tab PO DAILY 05/12/20 10/19/24 10/18/24 History pantoprazole 40 mg tablet,delayed 40 mg PO DAILY 05/12/20 10/19/24 10/18/24 History release carvedilol 25 mg tablet 1 tab PO BID 12/16/20 10/19/24 10/18/24 History albuterol sulfate 90 mcg/actuation 1 inh inhalation Q4H PRN Wheezing 10/19/24 10/19/24 Unknown History aerosol inhaler apixaban 5 mg tablet (Eliquis) 5 mg PO BID 10/19/24 10/19/24 10/14/24 History betamethasone dipropionate 0.05 % 1 appl topical BID PRN Rash 10/19/24 10/19/24 Unknown History topical ointment gabapentin 300 mg capsule 600 mg PO BID 10/19/24 10/19/24 10/19/24 History hydralazine 25 mg tablet 75 mg PO BID 10/19/24 10/19/24 10/18/24 History ondansetron HCl 4 mg tablet 8 mg PO BID PRN Nausea And Vomiting 10/19/24 10/19/24 Unknown History Physical Exam Vital Signs: Last Vital Signs Temp 97.1 F 10/20/24 12:00 Pulse 90 10/20/24 14:00 Resp 18 10/20/24 14:00 BP 100/57 L 10/20/24 14:00 Pulse Ox 100 10/20/24 14:00 O2 Del Method Mechanical Ventilation 10/20/24 14:00 FiO2 40 10/20/24 14:00 BMI result Body Mass Index 27.3 on vent/pressors Const General: no acute distress, alert, awake and other (Intubated and sedated but turns his head) Nutritional Appearance: average body habitus Limitations: No language barrier HEENT Head: Yes normocephalic and Yes atraumatic Eyes Sclerae: sclerae normal EOM: EOMs intact bilaterally Neck Neck: Yes no lymphadenopathy, Yes trachea midline, Yes supple and Yes no JVD Resp Effort & Inspection: normal respiratory effort, no respiratory distress, uses accessory muscles (Vented) and symmetric chest movement Auscultation: clear to auscultation bilaterally Cardio Jugular venous distension: no JVD Palpation: abnormal PMI displaced PMI Rate: regular rate Rhythm: regular rhythm Heart sounds: S1 normal heart sound present, S2 normal heart sound present, no click, Gallop heart sound present S4 gallop, no murmurs and no rubs GI Palpation (GI): Soft to palpation and Other GI palpation findings present ( Nontender) Auscultation: normal bowel sounds Skin General skin exam: no rashes or lesions noted Neuro General: other (Not evaluated) Extrem Other: Right BKA General: Yes no clubbing, cyanosis or edema, Yes no pedal edema, No clubbing, No cyanosis and Yes other (Right below-knee amputation) Results Lab Results 10/20/24 05:11 10/20/24 05:11 Lab results: Chemistry 10/19/24 10/19/24 10/20/24 06:35 11:19 05:11 Sodium 138 137 136 Potassium 5.1 5.4 H 5.6 H Carbon Dioxide 29 24 20 L BUN 55 H 70 H Creatinine 4.88 H* 5.47 H* Calcium 9.6 8.7 D Phosphorus 4.9 H 4.8 H Hematology 10/19/24 10/20/24 11:19 05:11 WBC 14.9 H 12.4 H Hgb 12.6 L 11.8 L Plt Count 148 L D 167 Assessment and Plan (1) Bradycardic cardiac arrest: Status: Acute Patient developing asystolic cardiac arrest in the operating room most likely due to acute myocardial ischemia, see below. This was probably most likely triggered by hypotension and possibly underlying on diagnose ischemic etiology. Patient was supported and treated aggressively and quickly with return of spontaneous circulation after chest compression within 5 minutes. Unsure as to the neurologic outcome at this point in time although it seems like with decreasing sedation patient is responding appropriately to the in terms of verbal cues. Hemodynamically at this point time is more stable and requiring very low-dose of vasopressors. For now I would hold off his carvedilol therapy. Continue supportive care as per the critical Care team and plan for extubation today and will require further workup from cardiac perspective. (2) Acute myocardial infarction: Status: Acute Acute myocardial infarction in this middle-aged man with known prior significant diffuse vascular disease and prior surgical revascularization. With no recent what appears to be ischemic evaluation prior to undergoing the surgery. It is possible that patient had underlying significant ischemia and with intraoperative hypotension developed acute myocardial ischemia and then subsequently infarction leading to his cardiac arrest. His LV systolic function has significantly reduced compared to his prior reported LV ejection fraction and suggest that he might be either having hibernating or stunned myocardium due to acute event on the present transthoracic echocardiogram. He requires once he is stabilized and extubated invasive cardiac evaluation with cardiac catheterization. This will further determine if he has any revascularization able lesions or targets. That will further determine in the need for further intervention including pacer/defibrillator therapy. The whole plan and management was discussed with patient's in detail at bedside. Also discussed with Dr. Cook. If surgically cleared I would start him on IV heparin drip as this could be a primary ischemic event. I would continue if possible aspirin and high-intensity statin therapy. Hold off on carvedilol therapy given his low blood pressure for now. I would be very careful with hemodialysis as that may cause him to become hypotensive and cause him more ischemia. Greater than 1 hour of critical care time was spent in managing his care. Will discuss with his outside cardiology group about further management plan and once stabilized to transfer to [facility] for cardiac catheterization. Thank you for allowing me to partake in his care Plan ESRD PT adm for elective cervical spine surg cb cardiac arrest andnow in ICU on pressors/vent ESRD: HD today and cont mwf Shock: pressors as ntoed by OCU team; needs card eval with ECHO and consultation Resp Failure: maintained on vent Renal anemia: track HB; keep > 8.0 given card history D/W ICU team and I will follow clsoely with team I also was able to speak with his who was at the bedsdie Procedures Date of Service Date of Service: 10/20/24
[2024-10-20 17:29] LABS: Glucose, Whole Blood 112 mg/dL (60-115)
[2024-10-20] MEDS: ondansetron HCL 4 MG/2 ML VIAL IVPUSH (18:51)
--- NOTE | 2024-10-20 19:22 | PC.NURSE ---
Addendum entered by Adal Rivera RN 10/20/24 19:28: Per VITO SAWYER to draw labs from L hand given vascular difficulties Original Note: Assumed care at 0700. Pt intubated on levophed and propofol. Sedation vacation started at approx 0940. At 1000, pt placed on PSV of 8/5 at 21% fio2. Per cardiology, pt started on heparin drip with no bolus doses. Pt received dialysis starting at approx 1200. After two apnic episodes, pt placed back on ACVC by RT.? At 1330, pt rouses to name and stimulation, visually tracking but not following directions or nodding/shaking head to questions. Pt occasionally pulling at restraints and trying to sit up. R hand noted to have increased edema, greater than left. Some redness noted as well. IVs have some blood return. Pt had episode of emesis at approx 1800, mostly bile. OG tube placed on low intermittent wall suction. MD made aware. See assessments and MAR for further details. Pt repositioned q2hr as tolerated. Bed locked and in lowest position. Alarm on.
--- NOTE | 2024-10-20 19:24 | HO.SKINPHOTO ---
Location: Category: Stage: Length: Width: Depth: cm R hand Location: Category: Stage: Length: Width: Depth: cm R forearm Location: Category: Stage: Length: Width: Depth: cm Location: Category: Stage: Length: Width: Depth: cm Location: Category: Stage: Length: Width: Depth: cm Location: Category: Stage: Length: Width: Depth: cm
[2024-10-20] MEDS: fentaNYL citrate/PF 100 MCG/2 ML VIAL 50 MCG IVPUSH (20:08)
[2024-10-20 20:13] LABS: PTT Heparin Drip 54.5 SEC (53-77.9)
[2024-10-20] MEDS: propofoL 1,000 MG/100 ML VIAL 28.71 MG IVCONT (22:46)
[2024-10-21] VITALS (39 sets, daily range): BP systolic 86–161; BP diastolic 44–74; PULSE 81–98; RESP 12–20; TEMP 35–37.2; O2SAT 92–99; BMI 27.3
[2024-10-21 00:04] LABS: Glucose, Whole Blood 134 mg/dL (60-115)
[2024-10-21] MEDS: propofoL 1,000 MG/100 ML VIAL 28.71 MG IVCONT ×3 (02:31→08:17)
[2024-10-21] MEDS: Chlorhexidine Gluc Oral Rinse 15 ML MOUTHWASH BUCCAL ×2 (02:31→08:17)
[2024-10-21 03:15] LABS: PTT Heparin Drip 125.7 SEC (53-77.9)
[2024-10-21 03:42] LABS: Troponin-I High Sensitivity 17921.1 ng/L (<3.5-35.0)
[2024-10-21 05:00] LABS: VBG Base Excess 1.5 mmol/L; VBG HCO3 23 mmol/L (22-26); VBG pCO2 27 mmHg; VBG pH 7.52 (7.32-7.43); VBG pO2 59 mmHg
[2024-10-21 05:23] LABS: MANUAL DIFF FLAG NO
[2024-10-21 05:25] LABS: Basophils Absolute Auto 0.1 X10*3/uL (0.0-0.2); Basophils Percent Auto 0.7 % (0-2); Eosinophils Absolute Auto 0.4 X10*3/uL (0.0-0.4); Eosinophils Percent Auto 2.7 % (0-4); Hematocrit 36.8 % (42.0-52.0); Hemoglobin 12.3 g/dl (14.0-18.0); Imm Gran Abs Auto 0.11 X10*3/uL (0.00-0.03); Imm Gran Pct Auto 0.8 % (0.0-0.4); Lymphocytes Percent Auto 14.5 % (20-40); Mean Corpuscular HGB Conc 33.4 g/dl (31.0-36.0); Mean Corpuscular Hemoglobin 32.5 pg (27.0-33.0); Mean Corpuscular Volume 97.4 fL (80.0-98.0); Mean Platelet Volume 10.6 fL (9.4-12.4); Monocytes Absolute Auto 1.4 X10*3/uL (0.1-1.2); Monocytes Percent Auto 10.3 % (2-11); Neutrophils Absolute Auto 9.6 x10*3/uL (2.0-8.3); Platelet Count 166 X10*3/uL (160-400); Red Blood Count 3.78 X10*6/uL (4.60-5.80); Red Cell Distribution Width 14.5 % (11.0-16.0); White Blood Count 13.5 X10*3/uL (4.8-10.8)
[2024-10-21 05:37] LABS: INTERNATIONAL NORM RATIO 1.2 (0.9-1.1); Prothrombin Time 13.8 SEC (10.9-12.4)
[2024-10-21 05:40] LABS: PTT Heparin Drip 93.5 SEC (53-77.9)
[2024-10-21 05:57] LABS: Alanine Aminotransferase 44 U/L (0-40); Albumin Level 3.9 g/dL (3.5-5.0); Alkaline Phosphatase 95 U/L (39-117); Anion Gap 28 (12-20); Aspartate Amino Transferase 105 U/L (5-37); Bilirubin Total 0.7 mg/dL (0.0-1.0); Blood Urea Nitrogen 46 mg/dL (9-16); Calcium 9.7 mg/dL (8.4-10.2); Carbon Dioxide 21 mmol/L (22-29); Chloride 96 mmol/L (96-108); Creatinine Clr Calc Pharmacy 21.7; Estimated Glomerular Filt Rate 14; Glucose Random 151 mg/dL (60-115); Magnesium 2.6 mg/dL (1.6-2.6); Phosphorus 5.4 mg/dL (2.7-4.5); Potassium 4.5 mmol/L (3.3-5.1); Sodium 140 mmol/L (135-145); Total Protein 6.9 g/dL (6.5-8.0)
[2024-10-21 06:02] LABS: Venous Blood Gas Refer to POC result
[2024-10-21 07:35] LABS: PTT Heparin Drip 53.7 SEC (53-77.9)
[2024-10-21] MEDS: Famotidine/PF 20 MG/2 ML VIAL 10 MG IVPUSH (08:17)
--- NOTE | 2024-10-21 10:02 | PM.CCPN ---
Subjective Subjective Date of Service: 10/21/24 Interval History: 54-year-old gentleman with underlying diabetes mellitus with ESRD on hemodialysis with RTANE CAD, status post three-vessel bypass, systolic heart failure, CVA with residual right-sided weakness, right BKA for PVD, prior PE on Eliquis who had an elective posterior C4/5 decompression had a bradycardia/asystole cardiac arrest intraoperatively of unclear etiology, with return of spontaneous circulation achieved after ?2 rounds of CPR. Patient transferred intubated to intensive care unit. 2D echocardiogram showed decreased systolic function. Evaluated by Cardiology service. No events overnight. Poor arousal with sedation vacation. Critical Care Time (minutes): 60 Physical Exam Vital Signs: Vital Signs: Last Vital Signs Temp 98.6 F 10/21/24 08:00 Pulse 98 10/21/24 09:59 Resp 18 10/21/24 09:00 BP 161/70 H 10/21/24 09:59 Pulse Ox 98 10/21/24 09:00 O2 Del Method Mechanical Ventil ation 10/21/24 09:00 FiO2 21 10/21/24 09:38 BMI result Body Mass Index 27.3 Const: General: no acute distress and other (Sedated on ventilatory support) Eyes: Sclerae: sclerae normal EOM: EOMs intact bilaterally Neck: Neck: Yes no lymphadenopathy, Yes trachea midline and Yes supple Resp: Effort & Inspection: normal respiratory effort and no respiratory distress Auscultation: clear to auscultation bilaterally Cardio: Rate: regular rate Rhythm: regular rhythm Heart sounds: no gallops, no murmurs and no rubs GI: Palpation (GI): Soft to palpation and Other GI palpation findings present ( Nontender) Auscultation: normal bowel sounds Extrem: Other: Right BKA General: No clubbing and No cyanosis Objective Data Labs 10/21/24 04:45 10/21/24 04:45 Labs: Laboratory Results - last 24 hr 10/19/24 10/20/24 10/20/24 07:30 09:29 10:50 WBC RBC Hgb Hct MCV MCH MCHC RDW Plt Count MPV Immature Gran % (Auto) Neut % (Auto) Lymph % (Auto) [place] % (Auto) Eos % (Auto) Baso % (Auto) Lymph # (Auto) [place] # (Auto) Eos # (Auto) Baso # (Auto) Abs Immat Gran (auto) Absolute Neuts (auto) Absolute Nucleated RBC Nucleated RBC % (auto) PT 12.9 H INR 1.1 aPTT Heparin Protocol 31.5 L VBG pH VBG pCO2 VBG pO2 VBG HCO3 VBG O2 Saturation VBG Base Excess Sodium Potassium Chloride Carbon Dioxide Anion Gap BUN Creatinine Estim Creat Clear Calc Estimated GFR POC Glucose Random Glucose Calcium Phosphorus Magnesium Total Bilirubin AST ALT Alkaline Phosphatase Troponin I High Sens 39767.5 H* D Total Protein Albumin Blood Type AB Positive Antibody Screen NEGATIVE Crossmatch See Detail 10/20/24 10/20/24 10/20/24 11:14 17:23 19:47 WBC RBC Hgb Hct MCV MCH MCHC RDW Plt Count MPV Immature Gran % (Auto) Neut % (Auto) Lymph % (Auto) [place] % (Auto) Eos % (Auto) Baso % (Auto) Lymph # (Auto) [place] # (Auto) Eos # (Auto) Baso # (Auto) Abs Immat Gran (auto) Absolute Neuts (auto) Absolute Nucleated RBC Nucleated RBC % (auto) PT INR aPTT Heparin Protocol 54.5 D VBG pH VBG pCO2 VBG pO2 VBG HCO3 VBG O2 Saturation VBG Base Excess Sodium Potassium Chloride Carbon Dioxide Anion Gap BUN Creatinine Estim Creat Clear Calc Estimated GFR POC Glucose 145 H 112 Random Glucose Calcium Phosphorus Magnesium Total Bilirubin AST ALT Alkaline Phosphatase Troponin I High Sens Total Protein Albumin Blood Type Antibody Screen Crossmatch 10/20/24 10/20/24 10/21/24 20:42 23:52 02:30 WBC RBC Hgb Hct MCV MCH MCHC RDW Plt Count MPV Immature Gran % (Auto) Neut % (Auto) Lymph % (Auto) [place] % (Auto) Eos % (Auto) Baso % (Auto) Lymph # (Auto) [place] # (Auto) Eos # (Auto) Baso # (Auto) Abs Immat Gran (auto) Absolute Neuts (auto) Absolute Nucleated RBC Nucleated RBC % (auto) PT INR aPTT Heparin Protocol 125.7 H* D VBG pH VBG pCO2 VBG pO2 VBG HCO3 VBG O2 Saturation VBG Base Excess Sodium Potassium Chloride Carbon Dioxide Anion Gap BUN Creatinine Estim Creat Clear Calc Estimated GFR POC Glucose 134 H Random Glucose Calcium Phosphorus Magnesium Total Bilirubin AST ALT Alkaline Phosphatase Troponin I High Sens 96080.0 H* 30542.1 H* Total Protein Albumin Blood Type Antibody Screen Crossmatch 10/21/24 10/21/24 10/21/24 04:45 04:54 07:17 WBC 13.5 H RBC 3.78 L Hgb 12.3 L Hct 36.8 L MCV 97.4 MCH 32.5 MCHC 33.4 RDW 14.5 Plt Count 166 MPV 10.6 Immature Gran % (Auto) 0.8 H Neut % (Auto) 71.0 Lymph % (Auto) 14.5 L [place] % (Auto) 10.3 Eos % (Auto) 2.7 Baso % (Auto) 0.7 Lymph # (Auto) 2.0 [place] # (Auto) 1.4 H Eos # (Auto) 0.4 Baso # (Auto) 0.1 Abs Immat Gran (auto) 0.11 H Absolute Neuts (auto) 9.6 H Absolute Nucleated RBC 0.000 Nucleated RBC % (auto) 0.0 PT 13.8 H INR 1.2 H aPTT Heparin Protocol 93.5 H D 53.7 D VBG pH 7.52 H VBG pCO2 27 VBG pO2 59 VBG HCO3 23 VBG O2 Saturation 87.0 VBG Base Excess 1.5 Sodium 140 Potassium 4.5 Chloride 96 Carbon Dioxide 21 L Anion Gap 28 H BUN 46 H Creatinine 4.40 H* Estim Creat Clear Calc 21.7 Estimated GFR 14 POC Glucose Random Glucose 151 H Calcium 9.7 D Phosphorus 5.4 H Magnesium 2.6 Total Bilirubin 0.7 AST 105 H ALT 44 H Alkaline Phosphatase 95 Troponin I High Sens Total Protein 6.9 Albumin 3.9 Blood Type Antibody Screen Crossmatch Progress Note: A&P Assessment and plan (1) CHF (congestive heart failure): Status: Acute (2) CAD (coronary artery disease): Status: Acute (3) Acute myocardial infarction: Status: Acute (4) Cardiac arrest: Status: Acute (5) PVD (peripheral vascular disease): Status: Acute (6) Diabetes: Status: Acute (7) ESRD on hemodialysis: Status: Acute Plan Assessment: 54-year-old gentleman postoperative day 1 after an elective posterior C4/5 decompression terminated secondary to intraoperative cardiac arrest Plan: Neuro: Poor arousal with sedation vacation, if continues, will consider MRI brain. Cardiac: Status post cardiac arrest with return of spontaneous circulation after 2 rounds of CPR. Underlying PVD/ CAD/CHF. 2D echo with newly noted decreased systolic function. Cardiology service care appreciated. Continue heparin drip. May require further ischemic evaluation. Start low-dose beta-elizabet as per Cardiology. Pulmonary: Remains intubated postprocedure. Continue to titrate off ventilatory support as tolerated. Renal: No acute issues. Underlying ESRD on hemodialysis. Continue with hemodialysis support. Endo: No acute issues. Underlying diabetes mellitus, continue sliding scale protocol. GI: Post arrest ischemic hepatitis, improving. ID: No acute issues Heme/Onc: No acute issues. Psych: No acute issues. Miscellaneous: No acute issues. Prophylaxis: Heparin drip, famotidine Diet: NPO Critical care time spent: 60 minutes Quality Stroke Does the patient have a stroke diagnosis?: No VTE Prior VTE?: No VTE Risk Level:: Surgical - high VTE Device Contraindication: Treatment Not Indicated VTE Drug Contraindication: N/A - Med Ordered
--- NOTE | 2024-10-21 10:35 | PM.PNCARD ---
Subjective Subjective Date of Service: 10/21/24 Principal diagnosis: Cardiac arrest, acute myocardial infarction. Interval history: Patient remains sedated and intubated. Was not able to be brought off the ventilator yesterday. Underwent dialysis yesterday and as per the had some complications with vomiting of bilious fluid. Patient is still on sedation and as per the is not as responsive as he was yesterday although this is difficult to assess. Plan for weaning off sedation and hopefully extubate him later today. Hemodynamically today is stable. No overnight arrhythmias noted. Troponins are downtrending. Review of Systems Review of Systems Yes unobtainable due to endotracheal tube Physical Exam Vital Signs: Last Vital Signs Temp 98.6 F 10/21/24 08:00 Pulse 98 10/21/24 10:00 Resp 18 10/21/24 10:00 BP 153/74 H 10/21/24 10:00 Pulse Ox 97 10/21/24 10:00 O2 Del Method Mechanical Ventilation 10/21/24 10:00 FiO2 21 10/21/24 10:00 BMI result Body Mass Index 27.3 Const General: other (Intubated and sedated but turns his head) Nutritional Appearance: average body habitus HEENT Head: Yes normocephalic and Yes atraumatic Neck Neck: Yes trachea midline, Yes supple and Yes no JVD Resp Effort & Inspection: uses accessory muscles (Vented) and symmetric chest movement Cardio Jugular venous distension: no JVD Palpation: abnormal PMI displaced PMI Rate: regular rate Rhythm: regular rhythm Heart sounds: S1 normal heart sound present, S2 normal heart sound present, no click, Gallop heart sound present S4 gallop, no murmurs and no rubs GI Auscultation: normal bowel sounds Skin General skin exam: no rashes or lesions noted Neuro General: other (Not evaluated) Extrem General: Yes no clubbing, cyanosis or edema and Yes other (Right below-knee amputation) Objective Labs and Meds 10/21/24 04:45 10/21/24 04:45 Lab results: Laboratory Results - last 24 hr 10/19/24 10/20/24 10/20/24 07:30 10:50 11:14 WBC RBC Hgb Hct MCV MCH MCHC RDW Plt Count MPV Immature Gran % (Auto) Neut % (Auto) Lymph % (Auto) [place] % (Auto) Eos % (Auto) Baso % (Auto) Lymph # (Auto) [place] # (Auto) Eos # (Auto) Baso # (Auto) Abs Immat Gran (auto) Absolute Neuts (auto) Absolute Nucleated RBC Nucleated RBC % (auto) PT 12.9 H INR 1.1 aPTT Heparin Protocol 31.5 L VBG pH VBG pCO2 VBG pO2 VBG HCO3 VBG O2 Saturation VBG Base Excess Sodium Potassium Chloride Carbon Dioxide Anion Gap BUN Creatinine Estim Creat Clear Calc Estimated GFR POC Glucose 145 H Random Glucose Calcium Phosphorus Magnesium Total Bilirubin AST ALT Alkaline Phosphatase Troponin I High Sens Total Protein Albumin Blood Type AB Positive Antibody Screen NEGATIVE Crossmatch See Detail 10/20/24 10/20/24 10/20/24 17:23 19:47 20:42 WBC RBC Hgb Hct MCV MCH MCHC RDW Plt Count MPV Immature Gran % (Auto) Neut % (Auto) Lymph % (Auto) [place] % (Auto) Eos % (Auto) Baso % (Auto) Lymph # (Auto) [place] # (Auto) Eos # (Auto) Baso # (Auto) Abs Immat Gran (auto) Absolute Neuts (auto) Absolute Nucleated RBC Nucleated RBC % (auto) PT INR aPTT Heparin Protocol 54.5 D VBG pH VBG pCO2 VBG pO2 VBG HCO3 VBG O2 Saturation VBG Base Excess Sodium Potassium Chloride Carbon Dioxide Anion Gap BUN Creatinine Estim Creat Clear Calc Estimated GFR POC Glucose 112 Random Glucose Calcium Phosphorus Magnesium Total Bilirubin AST ALT Alkaline Phosphatase Troponin I High Sens 34353.0 H* Total Protein Albumin Blood Type Antibody Screen Crossmatch 10/20/24 10/21/24 10/21/24 23:52 02:30 04:45 WBC 13.5 H RBC 3.78 L Hgb 12.3 L Hct 36.8 L MCV 97.4 MCH 32.5 MCHC 33.4 RDW 14.5 Plt Count 166 MPV 10.6 Immature Gran % (Auto) 0.8 H Neut % (Auto) 71.0 Lymph % (Auto) 14.[address] [place] % (Auto) 10.3 Eos % (Auto) 2.7 Baso % (Auto) 0.7 Lymph # (Auto) 2.0 [place] # (Auto) 1.4 H Eos # (Auto) 0.4 Baso # (Auto) 0.1 Abs Immat Gran (auto) 0.11 H Absolute Neuts (auto) 9.6 H Absolute Nucleated RBC 0.000 Nucleated RBC % (auto) 0.0 PT 13.8 H INR 1.2 H aPTT Heparin Protocol 125.7 H* D 93.5 H D VBG pH VBG pCO2 VBG pO2 VBG HCO3 VBG O2 Saturation VBG Base Excess Sodium 140 Potassium 4.5 Chloride 96 Carbon Dioxide 21 L Anion Gap 28 H BUN 46 H Creatinine 4.40 H* Estim Creat Clear Calc 21.7 Estimated GFR 14 POC Glucose 134 H Random Glucose 151 H Calcium 9.7 D Phosphorus 5.4 H Magnesium 2.6 Total Bilirubin 0.7 AST 105 H ALT 44 H Alkaline Phosphatase 95 Troponin I High Sens 05607.1 H* Total Protein 6.9 Albumin 3.9 Blood Type Antibody Screen Crossmatch 10/21/24 10/21/24 04:54 07:17 WBC RBC Hgb Hct MCV MCH MCHC RDW Plt Count MPV Immature Gran % (Auto) Neut % (Auto) Lymph % (Auto) [place] % (Auto) Eos % (Auto) Baso % (Auto) Lymph # (Auto) [place] # (Auto) Eos # (Auto) Baso # (Auto) Abs Immat Gran (auto) Absolute Neuts (auto) Absolute Nucleated RBC Nucleated RBC % (auto) PT INR aPTT Heparin Protocol 53.7 D VBG pH 7.52 H VBG pCO2 27 VBG pO2 59 VBG HCO3 23 VBG O2 Saturation 87.0 VBG Base Excess 1.5 Sodium Potassium Chloride Carbon Dioxide Anion Gap BUN Creatinine Estim Creat Clear Calc Estimated GFR POC Glucose Random Glucose Calcium Phosphorus Magnesium Total Bilirubin AST ALT Alkaline Phosphatase Troponin I High Sens Total Protein Albumin Blood Type Antibody Screen Crossmatch Progress Note: A&P Assessment and plan (1) Bradycardic cardiac arrest: Status: Acute Assessment and Plan: Bradycardia cardiac arrest induced by acute myocardial ischemia most likely related to intraoperative hypotension and underlying significant coronary disease. Patient has not had anymore bradycardia. Will need further evaluation for coronary anatomy by cardiac catheterization once extubated and neurologic function appears adequate. Discussed with the about the same. Continue supportive care and vent support as needed. (2) Acute myocardial infarction: Status: Acute Assessment and Plan: Acute myocardial infarction patient will might have had prior significant myocardial ischemia induced by intraoperative hypotension. Patient requires cardiac catheterization as has significant reduction in his overall LV systolic function to assess for graft anatomy as well as tetlin coronary anatomy. This will be performed once patient has been extubated and there is apparent adequate neurologic recovery. Discussed with the about management plan. Will start him on low-dose metoprolol therapy 12.5 mg q.6 hours to see if he would tolerate this as anti ischemic therapy. Continue aspirin, high-intensity statins and IV heparin drip. Overall prognosis remains guarded. Will continue to follow with you Time Spent With Patient Time: Total time managing care of this patient today ____ minutes. Progress Note: Quality Stroke Does the patient have a stroke diagnosis?: No Procedures Date of Service Date of Service: 10/21/24
[2024-10-21 11:15] LABS: Glucose, Whole Blood 182 mg/dL (60-115)
[2024-10-21] MEDS: Heparin Sodium,Porcine/1/2NS 25,000 UNIT/250 ML IV.SOLN 9.65 UNIT IVCONT (11:39)
[2024-10-21] MEDS: Metoprolol Tartrate 5 MG/5 ML VIAL 2.5 MG IVPUSH ×3 (11:39→23:10)
[2024-10-21] MEDS: Insulin Lispro 100 UNIT/ML 3 ML VIAL SUBCUT ×2 (11:39→17:23)
[2024-10-21] MEDS: Nystatin Powder 15 GM BOTTLE 1 APPL TOPICAL ×2 (11:48→20:13)
--- NOTE | 2024-10-21 12:47 | HO.NEURO.PN ---
Neurosurgery Operative Note Date of Service: 10/21/24 Narrative: Postoperative day 2., attempted C4-5 laminectomy with lateral mass screws which was aborted secondary to pulseless electrical activity No events overnight reported by the ICU team. Patient was unable to be extubated yesterday. Afebrile, vital signs stable on mechanical ventilation Patient was weaned off sedation this morning, patient seen at bedside this afternoon with Dr. Mejía. The patient is awake, attends, is able to follow commands by wiggling the toes in the left foot as well as moving both thumbs to verbal command. The patient is able to nod his head appropriately during our interaction. We rolled him to the side, took down his original OR dressing, his wound is clean and dry with sutures in place. New dressing was placed. Impression: Postop day 2. Attempted C4-5 laminectomy lateral mass screws which had to be aborted secondary to pulseless electrical activity. Patient is awake alert today, able to follow commands. Possibility exists he could be extubated per the ICU team. Discussion was had with Dr. Cook who was considering doing a brain MRI for stroke in setting of trouble with mentation and waking up yesterday, but at this point it does not seem that is indicated given the substantial improvement in his neurological exam. We will defer to their judgment about extubation, but certainly that would be a step in the right direction if possible. His wound is clean and dry with sutures intact. No signs of infection. We change the dressing today. Cardiology is following for elevation in troponins, myocardial infarction. He is on IV heparin, statin, beta-elizabet etc. with intent to do cardiac catheterization at some point to assess his grafts and [place] coronaries. Nephrology following as well for the dialysis situation.
[2024-10-21 14:14] LABS: PTT Heparin Drip 67.8 SEC (53-77.9)
[2024-10-21 17:16] LABS: Glucose, Whole Blood 161 mg/dL (60-115)
[2024-10-21] MEDS: Acetaminophen 1,000 MG/100 ML PIGGYBACK 400 MG IV (19:58)
[2024-10-21 20:25] LABS: PTT Heparin Drip 60.6 SEC (53-77.9)
[2024-10-21] MEDS: dexmedeTOMIDine HCL/NS 400 MCG/100 ML PLAST..BAG 24.1 MCG IVCONT (21:58)
[2024-10-21 23:23] LABS: Glucose, Whole Blood 136 mg/dL (60-115)
[2024-10-22] VITALS (18 sets, daily range): BP systolic 99–144; BP diastolic 50–70; PULSE 77–100; RESP 13–20; TEMP 36.1–36.9; O2SAT 95–100; BMI 29.3
--- NOTE | 2024-10-22 03:54 | P.PNNP_ITS ---
Subjective Subjective Date of Service: 10/21/24 Principal diagnosis: Cardiac arrest, acute myocardial infarction. Interval history: Seen and examined, events noted L[facility] HD 10/20 ok Cont on vent Physical Exam 2 Vital Signs: Vital Signs: Last Vital Signs Temp 97.3 F 10/22/24 00:00 Pulse 78 10/22/24 02:00 Resp 15 10/22/24 02:00 BP 99/55 L 10/22/24 02:00 Pulse Ox 100 10/22/24 02:00 O2 Del Method Nasal Cannula 10/22/24 02:00 O2 Flow Rate 2 10/22/24 02:00 FiO2 21 10/21/24 14:39 BMI result Body Mass Index 27.3 Const: General: no acute distress, alert, awake and other (Intubated and sedated but turns his head) Nutritional Appearance: average body habitus L imitations: No language barrier HEENT: Head: Yes normocephalic and Yes atraumatic Eyes: Sclerae: sclerae normal EOM: EOMs intact bilaterally Neck: Neck: Yes no lymphadenopathy, Yes trachea midline, Yes supple and Yes no JVD Resp: Effort & Inspection: normal respiratory effort, no respiratory distress, uses accessory muscles (Vented) and symmetric chest movement Auscultation: c lear to auscultation bilaterally Cardio: Jugular venous distension: no JVD Palpation: abnormal PMI displaced PMI Rate: regular rate Rhythm: regular rhythm Heart sounds: S1 normal heart sound present, S2 normal heart sound present, no click, Gallop heart sound present S4 gallop, no murmurs and no rubs GI: Palpation (GI): Soft to palpation and Other GI palpation findings present ( Nontender) Auscultation: normal bowel sounds Skin: General skin exam: no rashes or lesions noted Neuro: General: other (Not evaluated) Extrem: Other: Right BKA General: Yes no clubbing, cyanosis or edema, Yes no pedal edema, No clubbing, No cyanosis and Yes other (Right below-knee amputation) Objective Data Labs 10/21/24 04:45 10/21/24 04:45 Labs: Laboratory Results - last 24 hr 10/19/24 10/21/24 10/21/24 07:30 04:45 04:54 WBC 13.5 H RBC 3.78 L Hgb 12.3 L Hct 36.8 L MCV 97.4 MCH 32.5 MCHC 33.4 RDW 14.5 Plt Count 166 MPV 10.6 Immature Gran % (Auto) 0.8 H Neut % (Auto) 71.0 Lymph % (Auto) 14.[address] [place] % (Auto) 10.3 Eos % (Auto) 2.7 Baso % (Auto) 0.7 Lymph # (Auto) 2.0 [place] # (Auto) 1.4 H Eos # (Auto) 0.4 Baso # (Auto) 0.1 Abs Immat Gran (auto) 0.11 H Absolute Neuts (auto) 9.6 H Absolute Nucleated RBC 0.000 Nucleated RBC % (auto) 0.0 PT 13.8 H INR 1.2 H aPTT Heparin Protocol 93.5 H D VBG pH 7.52 H VBG pCO2 27 VBG pO2 59 VBG HCO3 23 VBG O2 Saturation 87.0 VBG Base Excess 1.5 Sodium 140 Potassium 4.5 Chloride 96 Carbon Dioxide 21 L Anion Gap 28 H BUN 46 H Creatinine 4.40 H* Estim Creat Clear Calc 21.7 Estimated GFR 14 POC Glucose Random Glucose 151 H Calcium 9.7 D Phosphorus 5.4 H Magnesium 2.6 Total Bilirubin 0.7 AST 105 H ALT 44 H Alkaline Phosphatase 95 Total Protein 6.9 Albumin 3.9 Crossmatch See Detail 10/21/24 10/21/24 10/21/24 07:17 11:13 13:56 WBC RBC Hgb Hct MCV MCH MCHC RDW Plt Count MPV Immature Gran % (Auto) Neut % (Auto) Lymph % (Auto) [place] % (Auto) Eos % (Auto) Baso % (Auto) Lymph # (Auto) [place] # (Auto) Eos # (Auto) Baso # (Auto) Abs Immat Gran (auto) Absolute Neuts (auto) Absolute Nucleated RBC Nucleated RBC % (auto) PT INR aPTT Heparin Protocol 53.7 D 67.8 D VBG pH VBG pCO2 VBG pO2 VBG HCO3 VBG O2 Saturation VBG Base Excess Sodium Potassium Chloride Carbon Dioxide Anion Gap BUN Creatinine Estim Creat Clear Calc Estimated GFR POC Glucose 182 H Random Glucose Calcium Phosphorus Magnesium Total Bilirubin AST ALT Alkaline Phosphatase Total Protein Albumin Crossmatch 10/21/24 10/21/24 10/21/24 17:12 19:54 23:20 WBC RBC Hgb Hct MCV MCH MCHC RDW Plt Count MPV Immature Gran % (Auto) Neut % (Auto) Lymph % (Auto) [place] % (Auto) Eos % (Auto) Baso % (Auto) Lymph # (Auto) [place] # (Auto) Eos # (Auto) Baso # (Auto) Abs Immat Gran (auto) Absolute Neuts (auto) Absolute Nucleated RBC Nucleated RBC % (auto) PT INR aPTT Heparin Protocol 60.6 VBG pH VBG pCO2 VBG pO2 VBG HCO3 VBG O2 Saturation VBG Base Excess Sodium Potassium Chloride Carbon Dioxide Anion Gap BUN Creatinine Estim Creat Clear Calc Estimated GFR POC Glucose 161 H 136 H Random Glucose Calcium Phosphorus Magnesium Total Bilirubin AST ALT Alkaline Phosphatase Total Protein Albumin Crossmatch Procedures Date of Service Date of Service: 10/22/24 Assessment & Plan Assessment and plan (1) Bradycardic cardiac arrest: Status: Acute (2) Acute myocardial infarction: Status: Acute Plan ESRD PT adm for elective cervical spine surg cb cardiac arrest ESRD: Ht mwf Shock:epiosde of pressors requirement now off pressors Resp Failure: maintained on vent Renal anemia: track HB; keep > 8.0 given card history Plan fo rHD 10/22 D/W ICU team and I will follow clsoely with team I also was able to speak with his again who was at the bedsdie Time Spent With Patient Time: Total time managing care of this patient today ____ minutes. Progress Note: Quality Stroke Does the patient have a stroke diagnosis?: No
[2024-10-22 05:12] LABS: VBG Base Excess 1.9 mmol/L; VBG HCO3 24 mmol/L (22-26); VBG pCO2 31 mmHg; VBG pO2 62 mmHg
[2024-10-22 05:14] LABS: MANUAL DIFF FLAG NO
[2024-10-22 05:27] LABS: Basophils Percent Auto 0.4 % (0-2); Eosinophils Absolute Auto 0.3 X10*3/uL (0.0-0.4); Eosinophils Percent Auto 3.2 % (0-4); Hematocrit 29.6 % (42.0-52.0); Imm Gran Abs Auto 0.06 X10*3/uL (0.00-0.03); Imm Gran Pct Auto 0.6 % (0.0-0.4); Lymphocytes Absolute Auto 0.8 X10*3/uL (1.2-4.9); Mean Corpuscular HGB Conc 33.8 g/dl (31.0-36.0); Mean Corpuscular Volume 97.7 fL (80.0-98.0); Mean Platelet Volume 10.5 fL (9.4-12.4); Monocytes Percent Auto 9.7 % (2-11); Neutrophils Percent Auto 78.1 % (45-73); Platelet Count 120 X10*3/uL (160-400); Red Blood Count 3.03 X10*6/uL (4.60-5.80); Red Cell Distribution Width 14.1 % (11.0-16.0); White Blood Count 10.2 X10*3/uL (4.8-10.8)
[2024-10-22] MEDS: Metoprolol Tartrate 5 MG/5 ML VIAL 2.5 MG IVPUSH (05:52)
[2024-10-22 06:04] LABS: Albumin Level 3.4 g/dL (3.5-5.0); Anion Gap 25 (12-20); Blood Urea Nitrogen 68 mg/dL (9-16); Calcium 8.9 mg/dL (8.4-10.2); Carbon Dioxide 21 mmol/L (22-29); Chloride 97 mmol/L (96-108); Creatinine Clr Calc Pharmacy 18.1; Estimated Glomerular Filt Rate 10; Glucose Random 144 mg/dL (60-115); Magnesium 2.6 mg/dL (1.6-2.6); Phosphorus 7.2 mg/dL (2.7-4.5); Potassium 4.8 mmol/L (3.3-5.1); Sodium 138 mmol/L (135-145)
[2024-10-22 06:47] LABS: Venous Blood Gas Refer to POC result
[2024-10-22 06:49] LABS: PTT Heparin Drip 56.7 SEC (53-77.9)
--- NOTE | 2024-10-22 09:34 | P.PNCC_ITS ---
Subjective Subjective Date of Service: 10/22/24 Interval History: 54-year-old gentleman with underlying diabetes mellitus with ESRD on hemodialysis with RTANE CAD, status post three-vessel bypass, systolic heart failure, CVA with residual right-sided weakness, right BKA for PVD, prior PE on Eliquis who had an elective posterior C4/5 decompression had a bradycardia/asystole cardiac arrest intraoperatively of unclear etiology, with return of spontaneous circulation achieved after ?2 rounds of CPR. Patient transferred intubated to intensive care unit. 2D echocardiogram showed decreased systolic function. Evaluated by Cardiology service. Extubated on 10/21/2024. No events overnight. Critical Care Time (minutes): 0 Physical Exam 2 Vital Signs: Vital Signs: Last Vital Signs Temp 98.5 F 10/22/24 08:00 Pulse 86 10/22/24 09:00 Resp 18 10/22/24 09:00 BP 135/65 10/22/24 09:00 Pulse Ox 96 10/22/24 09:00 O2 Del Method Nasal Cannula 10/22/24 09:00 O2 Flow Rate 1 10/22/24 09:00 FiO2 21 10/21/24 14:39 BMI result Body Mass Index 29.3 Const: General: no acute distress, alert and awake Eyes: Sclerae: sclerae normal EOM: EOMs intact bilaterally Neck: Neck: Yes no lymphadenopathy, Yes trachea midline and Yes supple Resp: Effort & Inspection: normal respiratory effort and no respiratory distress Auscultation: clear to auscultation bilaterally Cardio: Rate: regular rate Rhythm: regular rhythm Heart sounds: no gallops, no murmurs and no rubs GI: Palpation (GI): Soft to palpation and Other GI palpation findings present ( Nontender) Auscultation: normal bowel sounds Extrem: Other: Right BKA General: Yes no pedal edema, No clubbing and No cyanosis Objective Data Labs 10/22/24 05:08 10/22/24 05:08 Labs: Laboratory Results - last 24 hr 10/21/24 10/21/24 10/21/24 11:13 13:56 17:12 WBC RBC Hgb Hct MCV MCH MCHC RDW Plt Count MPV Immature Gran % (Auto) Neut % (Auto) Lymph % (Auto) [place] % (Auto) Eos % (Auto) Baso % (Auto) Lymph # (Auto) [place] # (Auto) Eos # (Auto) Baso # (Auto) Abs Immat Gran (auto) Absolute Neuts (auto) Absolute Nucleated RBC Nucleated RBC % (auto) aPTT Heparin Protocol 67.8 D VBG pH VBG pCO2 VBG pO2 VBG HCO3 VBG O2 Saturation VBG Base Excess Sodium Potassium Chloride Carbon Dioxide Anion Gap BUN Creatinine Estim Creat Clear Calc Estimated GFR POC Glucose 182 H 161 H Random Glucose Calcium Phosphorus Magnesium Albumin 10/21/24 10/21/24 10/22/24 19:54 23:20 05:08 WBC 10.2 RBC 3.03 L Hgb 10.0 L Hct 29.6 L MCV 97.7 MCH 33.0 MCHC 33.8 RDW 14.1 Plt Count 120 L D MPV 10.5 Immature Gran % (Auto) 0.6 H Neut % (Auto) 78.1 H Lymph % (Auto) 8.0 L [place] % (Auto) 9.7 Eos % (Auto) 3.2 Baso % (Auto) 0.4 Lymph # (Auto) 0.8 L [place] # (Auto) 1.0 Eos # (Auto) 0.3 Baso # (Auto) 0.0 Abs Immat Gran (auto) 0.06 H Absolute Neuts (auto) 8.0 Absolute Nucleated RBC 0.000 Nucleated RBC % (auto) 0.0 aPTT Heparin Protocol 60.6 VBG pH 7.50 H VBG pCO2 31 VBG pO2 62 VBG HCO3 24 VBG O2 Saturation 89.0 VBG Base Excess 1.9 Sodium 138 Potassium 4.8 Chloride 97 Carbon Dioxide 21 L Anion Gap 25 H BUN 68 H Creatinine 5.82 H* Estim Creat Clear Calc 18.1 Estimated GFR 10 POC Glucose 136 H Random Glucose 144 H Calcium 8.9 D Phosphorus 7.2 H Magnesium 2.6 Albumin 3.4 L 10/22/24 06:32 WBC RBC Hgb Hct MCV MCH MCHC RDW Plt Count MPV Immature Gran % (Auto) Neut % (Auto) Lymph % (Auto) [place] % (Auto) Eos % (Auto) Baso % (Auto) Lymph # (Auto) [place] # (Auto) Eos # (Auto) Baso # (Auto) Abs Immat Gran (auto) Absolute Neuts (auto) Absolute Nucleated RBC Nucleated RBC % (auto) aPTT Heparin Protocol 56.7 VBG pH VBG pCO2 VBG pO2 VBG HCO3 VBG O2 Saturation VBG Base Excess Sodium Potassium Chloride Carbon Dioxide Anion Gap BUN Creatinine Estim Creat Clear Calc Estimated GFR POC Glucose Random Glucose Calcium Phosphorus Magnesium Albumin Progress Note: A&P Assessment and plan (1) CHF (congestive heart failure): Status: Acute (2) CAD (coronary artery disease): Status: Acute (3) Cardiac arrest: Status: Acute (4) PVD (peripheral vascular disease): Status: Acute (5) Diabetes: Status: Acute (6) ESRD on hemodialysis: Status: Acute Plan Assessment: 54-year-old gentleman postoperative day 1 after an elective posterior C4/5 decompression terminated secondary to intraoperative cardiac arrest Plan: Neuro: Poor arousal with sedation vacation, resolved. Cardiac: Status post cardiac arrest with return of spontaneous circulation after 2 rounds of CPR. Underlying PVD/ CAD/CHF. 2D echo with newly noted decreased systolic function. Cardiology service care appreciated. Continue heparin drip. May require further ischemic evaluation. Continue low-dose beta- elizabet as per Cardiology. Pulmonary: Remained intubated postprocedure. Extubated 10/21/2024. Renal: No acute issues. Underlying ESRD on hemodialysis. Continue with hemodialysis support. Endo: No acute issues. Underlying diabetes mellitus, continue sliding scale protocol. GI: Post arrest ischemic hepatitis, improved. ID: No acute issues Heme/Onc: No acute issues. Psych: No acute issues. Miscellaneous: No acute issues. Prophylaxis: Heparin drip Diet: NPO Quality Stroke Does the patient have a stroke diagnosis?: No VTE Prior VTE?: No VTE Risk Level:: Surgical - high VTE Device Contraindication: Treatment Not Indicated VTE Drug Contraindication: N/A - Med Ordered
[2024-10-22] MEDS: Nystatin Powder 15 GM BOTTLE 1 APPL TOPICAL (09:45)
--- NOTE | 2024-10-22 10:04 | P.PNCA_ITS ---
Subjective Subjective Date of Service: 10/22/24 Principal diagnosis: Cardiac arrest, acute myocardial infarction. Interval history: Patient has remained hemodynamically stable. No overnight arrhythmias. No chest pain reported. No significant hypoxemia. Patient is getting dialysis today. There was again a question whether patient should be transferred to [facility]. Patient is still slow to respond by understands after discussing with him the need for cardiac catheterization. The discussion was done in the presence of the dialysis nurse. Review of Systems Constitutional: Reports other (Sleepy) Eyes: Reports no additional eye complaints Cardiovascular: Reports no additional cardiovascular complaints Reports system reviewed and no additional complaints, except as documented Psychiatric: Reports no additional psychiatric complaints Physical Exam Vital Signs: Last Vital Signs Temp 98.5 F 10/22/24 08:00 Pulse 86 10/22/24 09:00 Resp 18 10/22/24 09:00 BP 135/65 10/22/24 09:00 Pulse Ox 96 10/22/24 09:00 O2 Del Method Nasal Cannula 10/22/24 09:00 O2 Flow Rate 1 10/22/24 09:00 FiO2 21 10/21/24 14:39 BMI result Body Mass Index 29.3 Const General: alert, awake and other (Patient responds appropriately what his slow to respond) Nutritional Appearance: average body habitus HEENT Head: Yes normocephalic and Yes atraumatic Neck Neck: Yes trachea midline, Yes supple and Yes no JVD Resp Effort & Inspection: decreased respiratory effort and symmetric chest movement Auscultation: diminished lung sounds Cardio Jugular venous distension: no JVD Palpation: abnormal PMI displaced PMI Rate: regular rate Rhythm: regular rhythm Heart sounds: S1 normal heart sound present, S2 normal heart sound present, no click, Gallop heart sound present S4 gallop, no murmurs and no rubs GI Auscultation: normal bowel sounds Skin General skin exam: no rashes or lesions noted Neuro General: other (Not evaluated) Extrem General: Yes no clubbing, cyanosis or edema and Yes other (Right below-knee amputation) Objective Labs and Meds 10/22/24 05:08 10/22/24 05:08 Lab results: Laboratory Results - last 24 hr 10/21/24 10/21/24 10/21/24 11:13 13:56 17:12 WBC RBC Hgb Hct MCV MCH MCHC RDW Plt Count MPV Immature Gran % (Auto) Neut % (Auto) Lymph % (Auto) [place] % (Auto) Eos % (Auto) Baso % (Auto) Lymph # (Auto) [place] # (Auto) Eos # (Auto) Baso # (Auto) Abs Immat Gran (auto) Absolute Neuts (auto) Absolute Nucleated RBC Nucleated RBC % (auto) aPTT Heparin Protocol 67.8 D VBG pH VBG pCO2 VBG pO2 VBG HCO3 VBG O2 Saturation VBG Base Excess Sodium Potassium Chloride Carbon Dioxide Anion Gap BUN Creatinine Estim Creat Clear Calc Estimated GFR POC Glucose 182 H 161 H Random Glucose Calcium Phosphorus Magnesium Albumin 10/21/24 10/21/24 10/22/24 19:54 23:20 05:08 WBC 10.2 RBC 3.03 L Hgb 10.0 L Hct 29.6 L MCV 97.7 MCH 33.0 MCHC 33.8 RDW 14.1 Plt Count 120 L D MPV 10.5 Immature Gran % (Auto) 0.6 H Neut % (Auto) 78.1 H Lymph % (Auto) 8.0 L [place] % (Auto) 9.7 Eos % (Auto) 3.2 Baso % (Auto) 0.4 Lymph # (Auto) 0.8 L [place] # (Auto) 1.0 Eos # (Auto) 0.3 Baso # (Auto) 0.0 Abs Immat Gran (auto) 0.06 H Absolute Neuts (auto) 8.0 Absolute Nucleated RBC 0.000 Nucleated RBC % (auto) 0.0 aPTT Heparin Protocol 60.6 VBG pH 7.50 H VBG pCO2 31 VBG pO2 62 VBG HCO3 24 VBG O2 Saturation 89.0 VBG Base Excess 1.9 Sodium 138 Potassium 4.8 Chloride 97 Carbon Dioxide 21 L Anion Gap 25 H BUN 68 H Creatinine 5.82 H* Estim Creat Clear Calc 18.1 Estimated GFR 10 POC Glucose 136 H Random Glucose 144 H Calcium 8.9 D Phosphorus 7.2 H Magnesium 2.6 Albumin 3.4 L 10/22/24 06:32 WBC RBC Hgb Hct MCV MCH MCHC RDW Plt Count MPV Immature Gran % (Auto) Neut % (Auto) Lymph % (Auto) [place] % (Auto) Eos % (Auto) Baso % (Auto) Lymph # (Auto) [place] # (Auto) Eos # (Auto) Baso # (Auto) Abs Immat Gran (auto) Absolute Neuts (auto) Absolute Nucleated RBC Nucleated RBC % (auto) aPTT Heparin Protocol 56.7 VBG pH VBG pCO2 VBG pO2 VBG HCO3 VBG O2 Saturation VBG Base Excess Sodium Potassium Chloride Carbon Dioxide Anion Gap BUN Creatinine Estim Creat Clear Calc Estimated GFR POC Glucose Random Glucose Calcium Phosphorus Magnesium Albumin Progress Note: A&P Assessment and plan (1) Bradycardic cardiac arrest: Status: Acute Assessment and Plan: Cardiac arrest with asystole requiring CPR and resuscitation and support related to acute myocardial ischemia most likely induced by intraoperative hypotension in his setting of known prior coronary disease. Unknown ischemic burden prior to the surgery which was deemed to be urgent given his spinal cord compression. He had a myocardial perfusion imaging last year which did not show any significant ischemia. However currently he was very limited in activity level. See below for further management. Patient currently has bounced back after the cardiac arrest and that has remained hemodynamically stable off vasopressors. Heart rate is stable. No overnight arrhythmias. (2) Acute myocardial infarction: Status: Acute Assessment and Plan: Patient with a acute myocardial infarction with markedly diminished LV ejection fraction significant wall motion abnormality suggestive of myocardial infarction probably in the LAD territory and/or progressive coronary disease. He needs cardiac catheterization to evaluate coronary anatomy to plan future cardiac management which may include revascularization. Although it is possible that his myocardial infarction is completed and he will need further workup with viability scan. This was discussed in details. The need for cardiac catheterization was discussed with the while patient was intubated in yesterday in presence of patient being awake and again today I discussed with patient again that he needs cardiac catheterization. This also discussed with the primary cardiology team outside. Agreement for cardiac catheterization. Discussed the risks and benefits and potential outcomes. Further treatment based on the findings of cardiac catheterization. Arrangements were made yesterday for the patient to be transferred, although waiting for bed. Continue IV heparin. Continue aspirin, statins and metoprolol therapy as tolerated. Will sign of the case in anticipation that patient will be transferred to [facility]. Time Spent With Patient Time: Total time managing care of this patient today ____ minutes. Progress Note: Quality Stroke Does the patient have a stroke diagnosis?: No Procedures Date of Service Date of Service: 10/22/24
--- NOTE | 2024-10-22 10:05 | MHC.CLN ---
F/U PT EXTUBATED YESTERDAY DISCUSSED AT ROUNDS WITH MD PLAN FOR HD TODAY AND POSSIBLE TRANSFER TO [facility] NOTED STAGE 1 COCCYX IF DIET TO RESUME, RECOMMEND 2000DM 2GM NA LOW K+, LOW PHOS DIET FOLLOWING FOR DIET ADVANCEMENT RD CAN BE REACHED VIA [facility] DURING OFF HOURS IF NEEDED
--- NOTE | 2024-10-22 11:06 | MHC.CM.PN ---
PT REMAINS IN ICU, WAS EXTUBATED 10/21 SUCCESSFULLY. PLAN FOR POSSIBLE DC TO [facility] FOR CARDIAC CATH, CM WILL CONTINUE TO FOLLOW.
[2024-10-22 11:21] LABS: Glucose, Whole Blood 116 mg/dL (60-115)
[2024-10-22 11:53] LABS: Glucose, Whole Blood 127 mg/dL (60-115)
[2024-10-22] MEDS: Heparin Sodium,Porcine/1/2NS 25,000 UNIT/250 ML IV.SOLN 9.65 UNIT IVCONT (13:11)
--- NOTE | 2024-10-22 14:47 | PM.DS ---
DS: Providers Provider Date of Service: 10/22/24 Date of admission: 10/19/24 07:13 Date of discharge: 10/22/24 Primary care physician: Shun Jarvis MD Consults: 10/19/24 13:04 Consult to Nephrology Routine Consulting Provider: [facility] Reason for consultation: ESRD on HD Has provider been notified: Yes 10/19/24 15:51 Consult to Cardiology Routine Consulting Provider: [facility] Reason for consultation: New cardiomyopathy Has provider been notified: No 10/21/24 10:59 Consult to Wound Care Routine Reason for consultation: New unblanchable redness bilat buttocks DS: Transfer Hospital Acceptance Reason for Transfer: Ischemic heart disease evaluation Name of Facility: [facility] DS: Diagnosis Discharge Diagnosis (1) Bradycardic cardiac arrest: Status: Acute (2) Acute myocardial infarction: Status: Acute (3) CAD (coronary artery disease): Status: Acute (4) ESRD on hemodialysis: Status: Acute (5) Diabetes: Status: Acute DS: Summary Hospital Course Hospital Course: 54-year-old gentleman with underlying diabetes mellitus with ESRD on hemodialysis with RTANE CAD, status post three-vessel bypass, systolic heart failure, CVA with residual right-sided weakness, right BKA for PVD, prior PE on Eliquis who had an elective posterior C4/5 decompression had a bradycardia/asystole cardiac arrest intraoperatively of unclear etiology, with return of spontaneous circulation achieved after ?2 rounds of CPR. Patient transferred intubated to intensive care unit. 2D echocardiogram showed decreased systolic function. Evaluated by Cardiology service. Extubated on 10/21/2024. Transfer for acute evaluation of ischemic heart disease with likely left heart catheterization requested at [facility] and granted. Time Attestation Discharge Coordination Time (in mins): 30 Quality: Safe Use of Opioids Does Pt have an Active Cancer Diagnosis on the Problem List?: No Quality: Stroke Does the patient have a stroke diagnosis?: No Physical Exam Vital Signs: Vital Signs: Last Vital Signs Temp 98.5 F 10/22/24 08:00 Pulse 91 10/22/24 14:00 Resp 18 10/22/24 14:00 BP 137/59 L 10/22/24 14:00 Pulse Ox 97 10/22/24 14:00 O2 Del Method Nasal Cannula 10/22/24 14:00 O2 Flow Rate 1 05/16/25 14:00 FiO2 21 10/21/24 14:39 BMI result Body Mass Index 29.3 Const: General: no acute distress, alert (vague) and awake Eyes: Sclerae: sclerae normal EOM: EOMs intact bilaterally Neck: Neck: Yes no lymphadenopathy, Yes trachea midline and Yes supple Resp: Effort & Inspection: normal respiratory effort and no respiratory distress Auscultation: clear to auscultation bilaterally Cardio: Rate: regular rate Rhythm: regular rhythm Heart sounds: no gallops, no murmurs and no rubs GI: Palpation (GI): Soft to palpation and Other GI palpation findings present ( Nontender) Auscultation: normal bowel sounds Extrem: Other: Right BKA General: Yes no pedal edema, No clubbing and No cyanosis DS: Data Data Completed and Pending Labs on day of discharge: Laboratory Results - last 24 hr 10/21/24 10/21/24 10/21/24 17:12 19:54 23:20 WBC RBC Hgb Hct MCV MCH MCHC RDW Plt Count MPV Immature Gran % (Auto) Neut % (Auto) Lymph % (Auto) [place] % (Auto) Eos % (Auto) Baso % (Auto) Lymph # (Auto) [place] # (Auto) Eos # (Auto) Baso # (Auto) Abs Immat Gran (auto) Absolute Neuts (auto) Absolute Nucleated RBC Nucleated RBC % (auto) aPTT Heparin Protocol 60.6 VBG pH VBG pCO2 VBG pO2 VBG HCO3 VBG O2 Saturation VBG Base Excess Sodium Potassium Chloride Carbon Dioxide Anion Gap BUN Creatinine Estim Creat Clear Calc Estimated GFR POC Glucose 161 H 136 H Random Glucose Calcium Phosphorus Magnesium Albumin 10/22/24 10/22/24 10/22/24 05:08 06:32 11:12 WBC 10.2 RBC 3.03 L Hgb 10.0 L Hct 29.6 L MCV 97.7 MCH 33.0 MCHC 33.8 RDW 14.1 Plt Count 120 L D MPV 10.5 Immature Gran % (Auto) 0.6 H Neut % (Auto) 78.1 H Lymph % (Auto) 8.0 L [place] % (Auto) 9.7 Eos % (Auto) 3.2 Baso % (Auto) 0.4 Lymph # (Auto) 0.8 L [place] # (Auto) 1.0 Eos # (Auto) 0.3 Baso # (Auto) 0.0 Abs Immat Gran (auto) 0.06 H Absolute Neuts (auto) 8.0 Absolute Nucleated RBC 0.000 Nucleated RBC % (auto) 0.0 aPTT Heparin Protocol 56.7 VBG pH 7.50 H VBG pCO2 31 VBG pO2 62 VBG HCO3 24 VBG O2 Saturation 89.0 VBG Base Excess 1.9 Sodium 138 Potassium 4.8 Chloride 97 Carbon Dioxide 21 L Anion Gap 25 H BUN 68 H Creatinine 5.82 H* Estim Creat Clear Calc 18.1 Estimated GFR 10 POC Glucose 116 H Random Glucose 144 H Calcium 8.9 D Phosphorus 7.2 H Magnesium 2.6 Albumin 3.4 L 10/22/24 11:49 WBC RBC Hgb Hct MCV MCH MCHC RDW Plt Count MPV Immature Gran % (Auto) Neut % (Auto) Lymph % (Auto) [place] % (Auto) Eos % (Auto) Baso % (Auto) Lymph # (Auto) [place] # (Auto) Eos # (Auto) Baso # (Auto) Abs Immat Gran (auto) Absolute Neuts (auto) Absolute Nucleated RBC Nucleated RBC % (auto) aPTT Heparin Protocol VBG pH VBG pCO2 VBG pO2 VBG HCO3 VBG O2 Saturation VBG Base Excess Sodium Potassium Chloride Carbon Dioxide Anion Gap BUN Creatinine Estim Creat Clear Calc Estimated GFR POC Glucose 127 H Random Glucose Calcium Phosphorus Magnesium Albumin Discharge Plan Discharge Anticipated Discharge Date/Time: 10/22/24 15:53 Patient Disposition: Xfer Acute Care Hospital Discharge Diagnosis: Intraoperative bradycardic cardiac arrest with newly reduced ejection fraction Referrals: Shun Jarvis MD [Primary Care Provider] - 1 Week Discharge Medications: Discontinued multivitamin Tablet 1 tab PO DAILY atorvastatin [Lipitor] 80 mg Tablet 80 mg PO BEDTIME pantoprazole 40 mg Tablet,Delayed Release (Dr/Ec) 40 mg PO DAILY docusate sodium [Colace] 100 mg Capsule 100 mg PO DAILY bumetanide 1 mg Tablet 1 mg PO BID insulin aspart U-100 [Novolog FlexPen U-100 Insulin] 100 unit/mL (3 mL) Insulin Pen 10 unit SUBCUT TIDAC calcium citrate-vitamin D3 [Calcium Citrate + D] 315 mg-5 mcg (200 unit) Tablet 2 tab PO BID insulin glargine [Lantus Solostar U-100 Insulin] 100 unit/mL (3 mL) Insulin Pen 20 unit SUBCUT BID Rx Instructions: took 10units this am for insulin aspirin 81 mg Tablet,Chewable 81 mg PO DAILY Qty: 30 0RF carvedilol 25 mg tablet 1 tab PO BID hydralazine 25 mg tablet 75 mg PO BID gabapentin 300 mg capsule 600 mg PO BID Eliquis 5 mg tablet 5 mg PO BID ondansetron HCl 4 mg tablet 8 mg PO BID PRN (Reason: Nausea And Vomiting) albuterol sulfate 90 mcg/actuation HFA aerosol inhaler 1 inh inhalation Q4H PRN (Reason: Wheezing) betamethasone dipropionate 0.05 % ointment 1 appl topical BID PRN (Reason: Rash) Discharge Orders: Discharge Order (Routine); Ordered 10/22/24 Ordered By: Carlin Cook Activity on Discharge: Bedrest Stand Alone Forms: Patient Portal Discharge page Print Language: Croatian Care Plan Goals: Acute ischemia evaluation. Health Concerns: Acute ischemia evaluation. Plan of Treatment: Acute ischemia evaluation will likely heart catheterization. Assessment: 54-year-old gentleman postoperative day 2 after an elective posterior C4/5 decompression terminated secondary to intraoperative cardiac arrest with successful resuscitation, 2D echocardiogram with newly reduced ejection fraction and troponin peaked at 34,000
--- NOTE | 2024-10-22 14:58 | MHC.CM.PN ---
DP: PT WILL HAVE AN ACUTE TRANSFER TO [facility] FOR EVAL FOR HEART CATH.
--- NOTE | 2024-10-22 16:18 | HO.NEUROPN_ITS ---
Neurosurgery Operative Note Date of Service: 10/22/24 Narrative: I was at bedside and examined the patient. The patient is extubated. He is following commands with all 4 extremities. Mat were removed from his left temporal. He is scheduled to be transferred to [facility] for a cardiac catheterization. The family and patient are reluctant to be transferred an undergo this procedure. I spoke to contracts specialist and he made it clear that this is the standard of care to see if there is a underlying cause for his cardiac arrest during surgery. I told the family that contracts specialist strongly recommends him to undergo this test larry. They agreed that he will be transferred to [facility].
--- NOTE | 2024-10-22 16:24 | HO.WOUND ---
Wound Consult: Initial 54yr old? admitted to [facility] on 10/19/24- See progress notes and H&P for detailed history.? Wound consult placed for Bilateral Buttock.? Patient agreeable to assessment and photo documentation.? Coccyx area Etiology: Stage 2 PI??Present on Admission Measurements: 4cm x 2cm x 0.2cm Wound Bed: red clean wound bed no slough noted Drainage / Odor: none noted Edges: ? irregular and lifting Adina wound: ? MASD - No Induration, Fluctuance or Warmth noted Pain: pain reported when assessed Goals of Treatment: ? Off load pressure and protect from friction and moisture with Triad Recommendations: 1. Turn and Reposition every 2 hours and as needed for patient comfort.? Use pillows or wedges to support off loading positions. 2. Off Load all bony prominences with use of pillows and heel boots if needed.? Apply Preventative foams where needed. ? 3. Monitor for incontinence and moisture control, use barrier creams when needed for prevention and treatment. 4. Provide adequate and supplemental nutrition.? 5. Continue low air loss mattress. 6. When applicable maintain blood glucose levels per Providers order. Sacrum - Off Load Pressure with Q2 hr turns and use of pillows - Cleanse with PH balance spray or wipes, pat dry. ?Apply thin layer of Triad to wound bed - only pat and dab no scrub and rub when soiling occurs. Reapply thin layer PRN after each episode of incontinence. Re-consult wound care Nurse for wound deterioration or wound changes.
--- NOTE | 2024-10-22 22:59 | P.PNNP_ITS ---
Subjective Subjective Date of Service: 10/22/24 Principal diagnosis: Cardiac arrest, acute myocardial infarction. Interval history: Seen and examied, events noted Physical Exam 2 Vital Signs: Vital Signs: Last Vital Signs Temp 98.5 F 10/22/24 08:00 Pulse 93 10/22/24 15:00 Resp 13 10/22/24 15:00 BP 144/70 H 10/22/24 15:00 Pulse Ox 97 10/22/24 15:00 O2 Del Method Nasal Cannula 10/22/24 15:00 O2 Flow Rate 1 10/22/24 15:00 FiO2 21 10/21/24 14:39 BMI result Body Mass Index 29.3 Const: General: no acute distress, alert, awake and other (Intubated and sedated but turns his head) Nutritional Appearance: average body habitus L imitations: No language barrier HEENT: Head: Yes normocephalic and Yes atraumatic Eyes: Sclerae: sclerae normal EOM: EOMs intact bilaterally Neck: Neck: Yes no lymphadenopathy, Yes trachea midline, Yes supple and Yes no JVD Resp: Effort & Inspection: normal respiratory effort, no respiratory distress, uses accessory muscles (Vented) and symmetric chest movement Auscultation: c lear to auscultation bilaterally Cardio: Jugular venous distension: no JVD Palpation: abnormal PMI displaced PMI Rate: regular rate Rhythm: regular rhythm Heart sounds: S1 normal heart sound present, S2 normal heart sound present, no click, Gallop heart sound present S4 gallop, no murmurs and no rubs GI: Palpation (GI): Soft to palpation and Other GI palpation findings present ( Nontender) Auscultation: normal bowel sounds Skin: General skin exam: no rashes or lesions noted Neuro: General: other (Not evaluated) Extrem: Other: Right BKA General: Yes no clubbing, cyanosis or edema, Yes no pedal edema, No clubbing, No cyanosis and Yes other (Right below-knee amputation) Objective Data Labs 10/22/24 05:08 10/22/24 05:08 Labs: Laboratory Results - last 24 hr 10/21/24 10/22/24 10/22/24 23:20 05:08 06:32 WBC 10.2 RBC 3.03 L Hgb 10.0 L Hct 29.6 L MCV 97.7 MCH 33.0 MCHC 33.8 RDW 14.1 Plt Count 120 L D MPV 10.5 Immature Gran % (Auto) 0.6 H Neut % (Auto) 78.1 H Lymph % (Auto) 8.0 L [place] % (Auto) 9.7 Eos % (Auto) 3.2 Baso % (Auto) 0.4 Lymph # (Auto) 0.8 L [place] # (Auto) 1.0 Eos # (Auto) 0.3 Baso # (Auto) 0.0 Abs Immat Gran (auto) 0.06 H Absolute Neuts (auto) 8.0 Absolute Nucleated RBC 0.000 Nucleated RBC % (auto) 0.0 aPTT Heparin Protocol 56.7 VBG pH 7.50 H VBG pCO2 31 VBG pO2 62 VBG HCO3 24 VBG O2 Saturation 89.0 VBG Base Excess 1.9 Sodium 138 Potassium 4.8 Chloride 97 Carbon Dioxide 21 L Anion Gap 25 H BUN 68 H Creatinine 5.82 H* Estim Creat Clear Calc 18.1 Estimated GFR 10 POC Glucose 136 H Random Glucose 144 H Calcium 8.9 D Phosphorus 7.2 H Magnesium 2.6 Albumin 3.4 L 10/22/24 10/22/24 11:12 11:49 WBC RBC Hgb Hct MCV MCH MCHC RDW Plt Count MPV Immature Gran % (Auto) Neut % (Auto) Lymph % (Auto) [place] % (Auto) Eos % (Auto) Baso % (Auto) Lymph # (Auto) [place] # (Auto) Eos # (Auto) Baso # (Auto) Abs Immat Gran (auto) Absolute Neuts (auto) Absolute Nucleated RBC Nucleated RBC % (auto) aPTT Heparin Protocol VBG pH VBG pCO2 VBG pO2 VBG HCO3 VBG O2 Saturation VBG Base Excess Sodium Potassium Chloride Carbon Dioxide Anion Gap BUN Creatinine Estim Creat Clear Calc Estimated GFR POC Glucose 116 H 127 H Random Glucose Calcium Phosphorus Magnesium Albumin Procedures Date of Service Date of Service: 10/22/24 Assessment & Plan Assessment and plan (1) Bradycardic cardiac arrest: Status: Acute (2) Acute myocardial infarction: Status: Acute Plan ESRD PT adm for elective cervical spine surg cb cardiac arrest ESRD: HD mwf Shock:epiosde of pressors requirement now off pressors Resp Failure: extubated yesterday Renal anemia: track HB; keep > 8.0 given card history Plan: cont HD mwf; card eval in progress D/W ICU team and I will follow clsoely with team Time Spent With Patient Time: Total time managing care of this patient today ____ minutes. Progress Note: Quality Stroke Does the patient have a stroke diagnosis?: No
== END 2024-10-22 16:23 | disposition short-term general hospital (02) | DRG 515 ==
LOC: HO.SSSA 07:14 → HO.ICU 08:57
PROVIDERS: Nurse Practitioner; Nurse Practitioner Family; Admitting Provider Neurological Surgery; PCP Internal Medicine; Visit Provider Internal Medicine Pulmonary Disease
PROC: 0RJ Upper Joints, Inspection (ICD-10-PCS; principal; 2024-10-19 07:30)
DX: M48.02 Spinal stenosis, cervical region (principal); I21.9 Acute myocardial infarction, unspecified; I50.21 Acute systolic (congestive) heart failure; N18.6 End stage renal disease; K72.00 Acute and subacute hepatic failure without coma; I13.2 Hypertensive heart and chronic kidney disease with heart failure and with stage 5 chronic kidney disease, or end stage renal disease; I69.351 Hemiplegia and hemiparesis following cerebral infarction affecting right dominant side; I97.711 Intraoperative cardiac arrest during other surgery; I97.791 Other intraoperative cardiac functional disturbances during other surgery; R57.9 Shock, unspecified; I25.10 Atherosclerotic heart disease of native coronary artery without angina pectoris; Y83.8 Other surgical procedures as the cause of abnormal reaction of the patient, or of later complication, without mention of misadventure at the time of the procedure; E11.22 Type 2 diabetes mellitus with diabetic chronic kidney disease; Z99.2 Dependence on renal dialysis; Z86.711 Personal history of pulmonary embolism; E11.51 Type 2 diabetes mellitus with diabetic peripheral angiopathy without gangrene; Z95.1 Presence of aortocoronary bypass graft; Z89.511 Acquired absence of right leg below knee; Z79.01 Long term (current) use of anticoagulants; Z79.82 Long term (current) use of aspirin
CPT/HCPCS: 36415; 71045; 80048; 80051; 80053; 82040; 82803; 82947; 83605; 83735; 83880; 84100; 84484; 85025; 85610; 85730; 86850; 86900; 86901; 86923; 90999; 92950; 93005; 93306; 94002; 94003; 94799; J0131; J0171; J0665; J0666; J0690; J1100; J1171; J1308; J1644; J1805; J2003; J2250; J2371; J2405; J2598; J2704; J3010; J3475

== ENCOUNTER → 2024-10-19 07:13 | Outpatient (BNV) | payer OTHER, SELFPAY | PROVIDERS: Admitting Provider Neurological Surgery; PCP Internal Medicine; Visit Provider Internal Medicine Pulmonary Disease | DX: I46.9 Cardiac arrest, cause unspecified (principal); E11.22 Type 2 diabetes mellitus with diabetic chronic kidney disease; N18.6 End stage renal disease; Z99.2 Dependence on renal dialysis; I73.9 Peripheral vascular disease, unspecified; I25.10 Atherosclerotic heart disease of native coronary artery without angina pectoris; I50.9 Heart failure, unspecified | CPT/HCPCS: 99291 ==

== ENCOUNTER → 2024-10-19 07:13 | Outpatient (BNV) | payer OTHER, SELFPAY | PROVIDERS: Admitting Provider Neurological Surgery; PCP Internal Medicine; Visit Provider Internal Medicine Cardiovascular Disease | DX: I21.9 Acute myocardial infarction, unspecified (principal); R00.1 Bradycardia, unspecified; I46.2 Cardiac arrest due to underlying cardiac condition | CPT/HCPCS: 99233; 99291 ==

== ENCOUNTER → 2024-10-19 07:13 | Outpatient (BNV) | payer OTHER, SELFPAY | PROVIDERS: Admitting Provider Neurological Surgery; PCP Internal Medicine; Visit Provider Neurological Surgery | DX: M50.021 Cervical disc disorder at C4-C5 level with myelopathy (principal); Z48.89 Encounter for other specified surgical aftercare | CPT/HCPCS: 22600; 99024 ==

== ENCOUNTER 2024-11-02 13:03 | Outpatient (AMB) | payer OTHER, SELFPAY ==
--- NOTE | 2024-11-02 13:07 | HO.SPINEOV ---
Intake Visit Reasons: post op/ follow up Intake Note: Mr. Tate is here for his 1st post op f/u. Global Safety Officer Required: No Allergies nitroglycerin [NITROGLYCERIN] Allergy (Intermediate, Verified 03/15/20 07:19) VOMITING cranberry [Cranberry] Allergy (Mild, Verified 03/15/20 07:19) RASH Penicillins Allergy (Mild, Verified 03/15/20 07:19) RASH penicillin V Allergy (Unknown, Verified 02/23/13 00:00) Rash/vomitting furosemide [From Lasix] Allergy (Verified 12/16/20 13:52) Rash morphine Adverse Reaction (Severe, Verified 10/19/24 06:25) Nausea and Vomiting Assessment & Plan Assessment & Plan (1) H/O cervical spine surgery: Code(s): Z98.890 - Other specified postprocedural states Category: Surgical Plan Operation: Attempted C4-C5 laminectomy with lateral mass screws Mr. Tate is a pleasant 54 year old male who comes in today for suture removal. Dr. Mejía attempted a C4-5 laminectomy with Mr. Tate on 10/19/24. To recap during surgery he had an acute cardiac event that halted surgery. See operative notes for specific regarding this issue. He spent a few days in our ICU here at [facility] before being transferred to [facility]. His incision was closed emergently with a single running suture. Today, he reports that the posterior incision site is a little bit painful, but does not complain of any other complications from the surgery. He is accompanied by his significant other who helps provide the both of his history. On examination his incision has quite a bit of edema that is non erythematous and nonpainful to palpation. This is likely due to the quick nature in which the incision needed to be closed, so that life-saving measures could be performed. Hemostasis could not adequately be achieved. Unfortunately, the patient's suture was fairly imbedded, had scabbing over it, and skin that had grown on top of the suture. After assessing the patient, it was determined that the sutures can not be removed without causing some kind of trauma to the closing incision site. Therefore I discussed the case with the attending neurosurgeon Dr. Mejía, who is able to come over to clinic and remove the suture. Some minimal trauma to the incision site was sustained, with minimal bleeding. All suture material was removed. I would like Castro to follow up with Dr. Mejía again in 6 weeks for subsequent evaluation of his posterior incision site. Saeed Mejía MD,PhD [facility] Coding Level of Care Code Global (27961) Diagnoses H/O cervical spine surgery Z98.890
--- OUTSIDE RECORDS SUMMARY | 2024-11-02 13:07 | XMS_ITS | Encounter Summary ---
Author Organization [facility] Address [address] [address] Phone Care Team Providers Care Welt Wheeler Name Role Phone Rahul Chan MD Primary Care Provider [phone] Encounter Details Date Type Department Care Team (Late st Contact Info) Description 10/29/2024 Treatment [facility]. [address] [address] Darwin Chew MD [address] [address] End stage renal disease; Dependence [...] Dialysis Note - Darwin Chew MD - 10/29/2024 12:00 AM EDT BASIC NOTE Patient: Castro Tate : 1970 Note Author: DARWIN CHEW MD Service Date: 10/29/2024 This patient was personally seen for a basic visit as part of routine monthly dialysis care for end stage renal disease. Attending Second Facing Baster: DARWIN CHEW Dialysis Location: [facility] Schedule: Shift: 1 DIALYSIS PRESCRIPTION Treatment Data Treatment Date: 10/29/2024 started at: 5:20 AM Dialysate / Machine Temp (prescribed): 36.5*C Dialysate / Machine Temp (actual): 36.5*C BFR (prescribed): 450 BFR (average delivered): 450 DFR (prescribed): Manual 800 DFR (average delivered): 800 Prescribed Time: 04:00 Actual Time: 03:55 EDW (kg): 94.0 Dialyzer: 160NRe Optiflux Dialysate: 2.0 K, 3.0 Ca, 1.0 Mg, 100 Dextrose (XM8130) Sodium: 130 Bicarb: 35 Pre Dialysis Vitals Pre BP Sit: 121/48 Pre Wt (kg): 94.3 EDW Deviation (kg): 0.3 Temp: 96.1*F Post Dialysis Vitals Post BP Sit: 134/55 Post Wt (kg): 92.7 TREATMENT MEDICATIONS ORDERS Vitamin D (Calcitriol) Oral 0.25 mcg ORAL Every Treatment 09/03/2024 - 09/02/2025 BP AND FLUID ASSESSMENT Post BP Sit 134/55 - 10/29/2024 132/84 - 10/18/2024 136/57 - 10/15/2024 Post Wt (kg) 92.7 - 10/29/2024 95.5 - 10/18/2024 94.1 - 10/15/2024 EDW (kg) 94.0 - 10/29/2024 94.0 - 10/18/2024 94.0 - 10/15/2024 Deviation (kg) -1.3 - 10/29/2024 1.5 - 10/18/2024 0.1 - 10/15/2024 ADEQUACY ASSESSMENT spKt/V (Daugirdas II) 1.59 (10/13/24) [...] (09/22/24) 137 (08/25/24) 138 (07/28/24) Missed Treatments 4 - Last 30 days 6 - Last 60 days Most recently missed on 10/27/2024 ACCESS ASSESSMENT AVFistula Standard Left Upper Arm Active (In Use) - 12/03/2023 Placed - 10/09/2023 Access Flow 1404 (10/08/24) 1511 (09/13/24) 1021 (08/09/24) ANEMIA ASSESSMENT Hemoglobin 9.4 (10/29/24) 11.2 (10/13/24) 11.3 (10/06/24) Iron Saturation (TSat) 50 (09/22/24) 42 (08/25/24) [...] 48 09/22/24 61 08/25/24 62 07/28/24 PTH 112 10/29/24 257 09/22/24 291 08/25/24 Vitamin D, 25-OH, Total 48.9 06/25/24 Alkaline [...] 10/13/24 stable 10/18/24 neck surg [facility] tomorrow 10/29/24: recent [facility] and [facility] hosp d/t complication after attempted elective neck surgery 05/12/24 c/o cp-- xfer to [facility] [...] stable Signed by: DARWIN CHEW MD on 10/30/2024 at 03:58:33 PM Transcribed by: DARWIN CHEW MD on 10/30/2024 at 03:58:33 PM documented in this encounter Plan of Treatment Not on file documented as of this encounter Visit Diagnoses Diagnosis End stage renal disease Dependence on renal dialysis documented in this encounter Care Teams Welt Wheeler Relationship Specialty Start Date End Date Rahul Chan MD [address] [place] [address] [address] [place], [place] PCP - General 06/19/20 documented as of this encounter
== END 2024-11-02 13:52 | disposition home or self-care (01) ==
LOC: HO.HNS 13:04
PROVIDERS: PCP Internal Medicine; Visit Provider Physician Assistant
DX: Z98.890 Other specified postprocedural states (principal)
CPT/HCPCS: 99024

== ENCOUNTER → 2024-11-02 13:03 | Outpatient (BNVA) | payer OTHER, SELFPAY | PROVIDERS: PCP Internal Medicine; Visit Provider Physician Assistant | DX: Z98.890 Other specified postprocedural states (principal) | CPT/HCPCS: 99212 ==

== ENCOUNTER 2025-03-30 05:09 | Inpatient (IN) | payer OTHER, SELFPAY ==
[2025-03-30] VITALS (14 sets, daily range): BP systolic 89–115; BP diastolic 48–67; PULSE 60–69; RESP 10–20; TEMP 36.5–36.9; O2SAT 94–100; BMI 27.9; BMI 28.1
--- NOTE | 2025-03-30 | ECG_ITS ---
Test Reason : CP Blood Pressure : */* mmHG Vent. Rate : 63 BPM Atrial Rate : 63 BPM P-R Int : 222 ms QRS Dur : 104 ms QT Int : 462 ms P-R-T Axes : 53 -39 190 degrees QTcB Int : 472 ms Sinus rhythm with 1st degree A-V block Left axis deviation Incomplete right bundle branch block Anteroseptal infarct , age undetermined ST & T wave abnormality, consider inferolateral ischemia Abnormal ECG When compared with ECG of 20-Oct-2024 09:35, Premature atrial complexes are no longer Present Incomplete right bundle branch block is now Present Anteroseptal infarct is now Present ST-T waves changes are less marked Referred By: Generic ED Physician Electronically Signed By: SHARON MENDIOLA MD
--- NOTE | ~2025-03-30 | XR_ITS ---
CLINICAL HISTORY: chest pain 1 view chest x-ray. Comparison: CR/SR - XR CHEST 1V - 10/19/24 11:59 EDT Findings: Stable lung volumes. Mild interstitial thickening. No airspace disease. No pneumothorax or pleural effusion. Cardiomegaly.Post median sternotomy. Atrial appendage closure device. No midline shift or tracheal deviation. No acute fracture. Right subclavian stent. Fusion hardware cervical vertebra. Impression: 1. Stable cardiomegaly with interstitial thickening. This document has been electronically signed by: Roe Adam MD on 03/30/2025 06:59:48
--- NOTE | 2025-03-30 05:21 | ED.CHESTPAIN ---
HPI - Chest Pain General Chief Complaint: Chest Pain Stated Complaint: CP Time Seen by Provider: 03/30/25 05:21 Source: patient, family, EMS, RN notes reviewed and old records reviewed Mode of arrival: EMS Limitations: no limitations History of Present Illness ED Provider: Dr. Edith Coles HPI narrative: 53 yo male with PMH of CAD s/p CABG in 2019 MURO to LAD and SVG to RPL and radial graft to OM1, intraoperative cardiac arrest requiring CPR and resuscitation, transferred to [facility] for reperfusion therapy, DM, CKD on HD MWF last dialysis on Friday, missed his Friday dialysis, HTN, PE, CHF, PVD he states he is anticoagulated on eliquis 5mg BID presenting with chest pain that this evening while watching television. Describes substernal chest pressure radiating to his neck ongoing for the last 2 hours straight. Was given aspirin by EMS. He is allergic to nitroglycerin. States he has been feeling ?under the weather? for the last several days so he did not feel like he could go to dialysis on Friday. Last dialysis treatment was Friday. He denies associated shortness of breath, nausea or vomiting, edema or pain in his leg. He has a BKA on the right. Patient reports that he sees Dr. Garrett this is sack filler. Related Data Allergies Allergy/AdvReac Type Severity Reaction Status Date / Time nitroglycerin (NITROGLYCERIN) Allergy Intermediate VOMITING Verified 03/30/25 05:16 cranberry (Cranberry) Allergy Mild RASH Verified 03/30/25 05:16 Penicillins Allergy Mild RASH Verified 03/30/25 05:16 penicillin V Allergy Unknown Rash/vomitt Verified 03/30/25 05:16 ing furosemide (From Lasix) Allergy Rash Verified 03/30/25 05:16 morphine AdvReac Severe Nausea and Verified 03/30/25 05:16 Vomiting Review of Systems Review of Systems: as per HPI, full review of systems performed and negative but for the above mentioned pertinent positives and negatives. FOR[facility]LY [facility], LAT[facility] Past Medical History Medical History Bullous pemphigoid Acute on chronic kidney failure Chronic kidney disease (CKD) stage G5/A2, glomerular filtration rate (GFR) less than or equal to 15 mL/min/1.73 square meter and albuminuria creatinine ratio between 30-299 mg/g Ischemic colitis Orthostatic hypotension CAD (coronary artery disease) Hyperlipidemia HTN (hypertension) Pulmonary emboli PVD (peripheral vascular disease) CHF (congestive heart failure) Kidney disease Diabetes Surgical History Hx of tonsillectomy S/P cholecystectomy H/O Spinal surgery Hx of right BKA S/P triple vessel bypass Family History Family History Other Diabetes Social History Social History Household Members: Spouse Housing: House Do you presently have visiting nurse or other home services: Yes ([facility] services) Alcohol intake: former Comment: Pt located across from nursing station Patient Tobacco Use Status: Never used Tobacco Advance Directives: No Advance Directives Information Provided: Yes service: No Current occupational status: retired Physical Exam Exam: Exam: GENERAL: Ill-Appearing, chronically ill-appearing, appears uncomfortable. SKIN: Normal skin color for ethnicity, warm, dry, no rashes noted. HEENT:? Normocephalic, atraumatic, no stridor, dry mucous membranes, dentition intact, EOMI. NECK: Soft, supple, full ROM, midline structures nontender, no step-offs, no deformities, no lymphadenopathy. CHEST: Heart regular rhythm, no murmurs, symmetric chest rise and fall. PULMONARY: Clear to auscultation bilaterally, diminished at the bases, no labored breathing, no wheezes/rhales/rhonchi. ABDOMINAL: Soft, nondistended, nontender, positive bowel sounds in all quadrants. : Deferred. MUSCULOSKELETAL: Normal tone, full range of motion, right BKA, no peripheral edema. NEURO: Alert and oriented x3, CN II through XII intact, equal strength and sensation bilateral upper and lower extremities, no focal neurologic deficits.? PSYCHIATRIC: Flat affect, fluid speech, good eye contact and appropriate demeanor. Vital Signs: Vital Signs: Last Vital Signs Temp 97.8 F 03/31/25 08:02 Pulse 92 03/31/25 08:02 Resp 12 03/31/25 08:02 BP 120/63 03/31/25 08:02 Pulse Ox 93 03/31/25 08:02 O2 Del Method Room Air 10/23/25 08:02 BMI result Body Mass Index 28.1 Course Course Course Narrative: repeat calls to [facility] per police department secretary still pending call back from Cardiology Mimi Garibay, DO 03/30/25 0922 2:41 AM 03/31/2025 (Dr. Carter Rodriguez): I assumed care at this time as a sign-out from Dr. Payton this patient has been in our emergency department since 05:00 March 30. In brief summary the patient has been diagnosed with presumed NSTEMI he is on heparin drip has a history of CABG. Prior intraoperative cardiac arrest. ESRD missed dialysis several sessions. Not severely overloaded or in respiratory distress. Most recent potassium 5.3 was treated medically for this. We will continue to monitor. Reevaluation(s) Reevaluation #1: accepted to [facility] when they have a bed per Dr. Lindsey Garibay, DO 03/30/25 0953 Reevaluation #2: Santo Brantley MD: The patient was signed out to me at noon today at change of shift. The patient is a 54-year-old male with a history of significant coronary disease who is also a dialysis patient. The patient had presented at 05:00 this morning complaining of palpitations and chest pain that has been going on for 2 hours. He additionally noted that he had missed his dialysis on Friday (last dialysis on Friday). The patient had an EKG this morning that shows numerous changes most of which I think her chronic. I think his EKG today looks less ischemic than his EKG from October of 2024. The patient had 2 troponins sent this morning. His 1st troponin was 775. His 2nd troponin was 704. These are values which are difficult to interpret in the setting of a dialysis patient, especially a dialysis patient who has not had dialysis for several days. The patient is potassium was 5.2. The patient has chest x-ray showed no new findings. The patient had previously been discussed with the cardiology. Given the patient has complex cardiac history (history of CABG, history of NSTEMI, history of intraoperative cardiac arrest in October of 2024 during spinal surgery at this hospital) cardiology recommended that the patient be transferred to [facility]. The patient was started on heparin. [facility] was consulted and the patient was accepted in transfer by Dr. Portillo although there has been some delay in getting a bed. During the day today the patient has been stable and we are still waiting for a bed to be available at [facility]. 702am 03/31/25 LUCITA currently asleep, maintains on drip and PRN pain medications, trop downtrending, chem labs pending. admit here given needs for HD LUCITA 851am 03/31/25 Time: 18:50 Time: 00:56 Additional Reevaluation(s): Review patient case. Patient has missed Friday and Friday dialysis. He will need dialysis. Repeat chemistry shows a potassium of 5.3. Discuss case with Dr. Boyle nephrology chapter relations administrator. Patient can wait until morning for dialysis. Attempted to admit patient to hospital service for dialysis. Informed by Dr. Morgan patient does not need to be admitted at this time. Patient is currently awaiting bed for transfer to [facility]. Accepted by Dr Portillo. We have reach out to [facility] and unfortunately they do not have a bed tonight. Medications Administered Generic Name Dose Route Start Last Admin Trade Name Freq PRN Reason Stop Dose Admin Fentanyl 50 mcg 03/30/25 09:54 03/31/25 07:50 Fentanyl Citrate/Pf 100 Mcg/2 Ml Vial IVPUSH 50 mcg Q2H PRN Administration Chest Pain Protocol Heparin Sodium (Porcine) 4,000 unit 03/30/25 07:15 03/31/25 06:44 Heparin Sodium,Porcine 5,000 Unit/Ml Vial 40 unit/kg (4000 unit) 4,000 unit IVPUSH Administration PROTOCOL BOLUS PRN 40 unit/kg - Heparin Protocol Protocol Heparin Sodium/Sodium Chloride 25,000 unit in 250 mls @ 0 mls/hr 03/30/25 07:15 03/31/25 06:45 Heparin Sodium,Porcine/1/2ns IVCONT 10.06 units/kg/hr .Q0M RENU 10 mls/hr Protocol Titration Per Protocol Ondansetron HCl 4 mg 03/30/25 11:05 03/31/25 07:52 Ondansetron Hcl 4 Mg/2 Ml Vial IVPUSH 4 mg TID PRN Administration Nausea and Vomiting Discontinued Medications Generic Name Dose Route Start Last Admin Trade Name Freq PRN Reason Stop Dose Admin Fentanyl 100 mcg 03/30/25 05:36 03/30/25 05:40 Fentanyl Citrate/Pf 100 Mcg/2 Ml Vial IVPUSH 03/30/25 05:37 100 mcg ONCE ONE Administration Protocol Fentanyl 100 mcg 03/30/25 07:12 03/30/25 07:35 Fentanyl Citrate/Pf 100 Mcg/2 Ml Vial IVPUSH 03/30/25 07:13 100 mcg ONCE ONE Administration Protocol Heparin Sodium (Porcine) 4,000 unit 03/30/25 06:59 03/30/25 07:35 Heparin Sodium,Porcine 5,000 Unit/Ml Vial IVPUSH 03/30/25 07:00 4,000 unit ONCE ONE Administration Medical Decision Making Medical Decision Making MDM Narrative: Patient presents today with a chief complaint of chest pain. Differential diagnosis includes, but is not limited to, acute coronary syndrome, musculoskeletal pain, pneumothorax, GERD, pleurisy, pulmonary embolism, dissection, among others. I will order EKG, chest x-ray, the laboratory workup including cardiac enzymes to further evaluate for etiology. Patient has an extensive cardiac history including cardiac arrest with ROSC, CKD on hemodialysis Friday. His EKG is rather concerning with some ST depressions diffusely, ST elevations in V1 and AVR . I have reviewed his previous EKG from October 20, 2024 when he had his cardiac arrest intraoperatively. There are significantly inverted T-waves without any real ST-elevations seen on that EKG. In that regard, his EKG is slightly improved today however, given his new chest pains I reviewed the case with the sack filler on-call, Dr. Garrett, who recommends starting a heparin drip and repeating cardiac enzymes in 3 hours. He reports that the patient is not truly his patient. States that he has not accepted him as a patient and that the case is very complicated. 7:33 AM 03/30/2025 (Dr. Edith Coles, D.O.) patient's blood pressure is now dropping. Latest is 91/50, concern for developing cardiogenic shock in the setting of unstable angina/NSTEMI. I discussed again the concept of transfer for treatment of the patient's chest pain today and he would be better suited for care at [facility] given his complex case. He is now agreeable to transfer. We will contact the transfer center. Differential Diagnosis Differential Diagnoses: The differential diagnosis associated with the presentation includes (As above) Admission/Observation Consideration of admission/observation: Escalation of care including admission/observation considered Consult Healthcare Provider Management of the patient was discussed with: Vice President Financial (Cardiology, Dr. Garrett) Lab Data MDM Lab Attestation statement: I reviewed the patient's lab results. 03/31/25 06:04 03/31/25 06:04 Labs: Lab Results 03/30/25 03/30/25 03/30/25 Range/Units 05:36 05:54 07:31 WBC 6.1 (4.8-10.8) X10*3/uL RBC 3.40 L (4.60-5.80) X10*6/uL Hgb 10.3 L (14.0-18.0) g/dl Hct 32.0 L (42.0-52.0) % MCV 94.1 (80.0-98.0) fL MCH 30.3 (27.0-33.0) pg MCHC 32.2 (31.0-36.0) g/dl RDW 16.2 H (11.0-16.0) % Plt Count 102 L (160-400) X10*3/uL MPV 12.2 (9.4-12.4) fL Immature Gran % (Auto) 0.3 (0.0-0.4) % Neut % (Auto) 64.6 (45-73) % Lymph % (Auto) 16.8 L (20-40) % [place] % (Auto) 7.4 (2-11) % Eos % (Auto) 9.6 H (0-4) % Baso % (Auto) 1.3 (0-2) % Lymph # (Auto) 1.0 L (1.2-4.9) X10*3/uL [place] # (Auto) 0.5 (0.1-1.2) X10*3/uL Eos # (Auto) 0.6 H (0.0-0.4) X10*3/uL Baso # (Auto) 0.1 (0.0-0.2) X10*3/uL Abs Immat Gran (auto) 0.02 (0.00-0.03) X10*3/uL Absolute Neuts (auto) 3.9 (2.0-8.3) x10*3/uL Absolute Nucleated RBC 0.000 (0.0-0.012) X10*3/uL Nucleated RBC % (auto) 0.0 (0.0-0.2) /100WBC PT 23.4 H D (10.9-12.4) SEC INR 2.0 H (0.9-1.1) aPTT Heparin Protocol 40.5 L D (53-77.9) SEC Sodium 138 (135-145) mmol/L Potassium 5.2 H (3.3-5.1) mmol/L Chloride 99 (96-108) mmol/L Carbon Dioxide 20 L (22-29) mmol/L Anion Gap 24 H (12-20) BUN 74 H (9-16) mg/dL Creatinine 8.53 H* (0.5-1.4) mg/dL Estim Creat Clear Calc 11.2 Estimated GFR 7 Random Glucose 167 H (60-115) mg/dL Calcium 8.5 (8.4-10.2) mg/dL Total Bilirubin 0.7 (0.0-1.0) mg/dL AST 16 (5-37) U/L ALT 9 (0-40) U/L Alkaline Phosphatase 131 H (39-117) U/L Troponin I High Sens 775.7 H* D 704.1 H* (<3.5-35.0) ng/L NT-Pro-B Natriuret Pep 70820.7 H (<300) pg/mL Total Protein 6.7 (6.5-8.0) g/dL Albumin 4.4 (3.5-5.0) g/dL COVID-19 (AMILCAR) Negative (Negative) COVID-19 Clin Com See Note Influenza Type A ([facility]PSON) Negative (Negative) Influenza Type B ([facility]ON) Negative (Negative) Influenza A & B Note See Note 03/30/25 03/30/25 03/30/25 Range/Units 14:08 20:31 23:46 WBC (4.8-10.8) X10*3/uL RBC (4.60-5.80) X10*6/uL Hgb (14.0-18.0) g/dl Hct (42.0-52.0) % MCV (80.0-98.0) fL MCH (27.0-33.0) pg MCHC (31.0-36.0) g/dl RDW (11.0-16.0) % Plt Count (160-400) X10*3/uL MPV (9.4-12.4) fL Immature Gran % (Auto) (0.0-0.4) % Neut % (Auto) (45-73) % Lymph % (Auto) (20-40) % [place] % (Auto) (2-11) % Eos % (Auto) (0-4) % Baso % (Auto) (0-2) % Lymph # (Auto) (1.2-4.9) X10*3/uL [place] # (Auto) (0.1-1.2) X10*3/uL Eos # (Auto) (0.0-0.4) X10*3/uL Baso # (Auto) (0.0-0.2) X10*3/uL Abs Immat Gran (auto) (0.00-0.03) X10*3/uL Absolute Neuts (auto) (2.0-8.3) x10*3/uL Absolute Nucleated RBC (0.0-0.012) X10*3/uL Nucleated RBC % (auto) (0.0-0.2) /100WBC PT (10.9-12.4) SEC INR (0.9-1.1) aPTT Heparin Protocol 84.7 H D 60.1 D (53-77.9) SEC Sodium 139 (135-145) mmol/L Potassium 5.3 H (3.3-5.1) mmol/L Chloride 98 (96-108) mmol/L Carbon Dioxide 21 L (22-29) mmol/L Anion Gap 25 H (12-20) BUN 75 H (9-16) mg/dL Creatinine 8.96 H* (0.5-1.4) mg/dL Estim Creat Clear Calc 11.5 Estimated GFR 6 Random Glucose 112 (60-115) mg/dL Calcium 8.4 (8.4-10.2) mg/dL Total Bilirubin (0.0-1.0) mg/dL AST (5-37) U/L ALT (0-40) U/L Alkaline Phosphatase (39-117) U/L Troponin I High Sens (<3.5-35.0) ng/L NT-Pro-B Natriuret Pep (<300) pg/mL Total Protein (6.5-8.0) g/dL Albumin (3.5-5.0) g/dL COVID-19 (AMILCAR) (Negative) COVID-19 Clin Com Influenza Type A ([facility]PSON) (Negative) Influenza Type B ([facility]PSON) (Negative) Influenza A & B Note 03/31/25 03/31/25 Range/Units 02:30 06:04 WBC 5.3 (4.8-10.8) X10*3/uL RBC 3.22 L (4.60-5.80) X10*6/uL Hgb 9.9 L (14.0-18.0) g/dl Hct 30.8 L (42.0-52.0) % MCV 95.7 (80.0-98.0) fL MCH 30.7 (27.0-33.0) pg MCHC 32.1 (31.0-36.0) g/dl RDW 16.2 H (11.0-16.0) % Plt Count 96 L (160-400) X10*3/uL MPV 12.1 (9.4-12.4) fL Immature Gran % (Auto) 0.2 (0.0-0.4) % Neut % (Auto) 55.4 (45-73) % Lymph % (Auto) 23.6 (20-40) % [place] % (Auto) 8.4 (2-11) % Eos % (Auto) 10.9 H (0-4) % Baso % (Auto) 1.5 (0-2) % Lymph # (Auto) 1.2 (1.2-4.9) X10*3/uL [place] # (Auto) 0.4 (0.1-1.2) X10*3/uL Eos # (Auto) 0.6 H (0.0-0.4) X10*3/uL Baso # (Auto) 0.1 (0.0-0.2) X10*3/uL Abs Immat Gran (auto) 0.01 (0.00-0.03) X10*3/uL Absolute Neuts (auto) 2.9 (2.0-8.3) x10*3/uL Absolute Nucleated RBC 0.000 (0.0-0.012) X10*3/uL Nucleated RBC % (auto) 0.0 (0.0-0.2) /100WBC PT 21.2 H (10.9-12.4) SEC INR 1.8 H (0.9-1.1) aPTT Heparin Protocol 55.9 45.1 L (53-77.9) SEC Sodium 138 (135-145) mmol/L Potassium 5.5 H (3.3-5.1) mmol/L Chloride 99 (96-108) mmol/L Carbon Dioxide 20 L (22-29) mmol/L Anion Gap 25 H (12-20) BUN 74 H (9-16) mg/dL Creatinine 9.30 H* (0.5-1.4) mg/dL Estim Creat Clear Calc 11.1 Estimated GFR 6 Random Glucose 144 H (60-115) mg/dL Calcium 8.3 L (8.4-10.2) mg/dL Total Bilirubin (0.0-1.0) mg/dL AST (5-37) U/L ALT (0-40) U/L Alkaline Phosphatase (39-117) U/L Troponin I High Sens 670.3 H* (<3.5-35.0) ng/L NT-Pro-B Natriuret Pep 36041.6 H (<300) pg/mL Total Protein (6.5-8.0) g/dL Albumin (3.5-5.0) g/dL COVID-19 (AMILCAR) (Negative) COVID-19 Clin Com Influenza Type A ([facility]PSON) (Negative) Influenza Type B ([facility]) (Negative) Influenza A & B Note Independent Interpretation I performed an independent interpretation of an: EKG and Plain X-Ray Interpretation: Cardiomegaly, mild edema, no infiltrates, status post open heart surgery with sternotomy wires present My independent interpretation of the ECG reveals normal sinus rhythm with rate of 63, left axis deviation, QRS 104, FL interval 222 first-degree AV block, ST depressions diffusely, sub [address] elevations in V1 and AVR, ST depressions are improved from previous on 10/20/2024 Radiology Impression Discussion of test interpretation with radiology: I have reviewed the radiologist's reading. Independent Historian Clinical information obtained from an independent historian. History obtained from or confirmed by: Spouse and EMS External Record Review External record reviewed: Inpatient record Chronic Conditions Patient?s care impacted by: Diabetes, Hypertension and Other (ESRD on dialysis, CKD, PVD) Critical Care Time Critical Care Time Critical Care Time: Yes Total Critical Care Time: 60 Attestation: CRITICAL CARE TIME: 60 minutes of critical care time was spent in direct patient care at the bedside or in the immediate area with this patient. Critical care was necessary to treat or prevent imminent or life-threatening deterioration of the following conditions NSTEMI, cardiogenic shock due to CKD, CAD, CHF, ischemic cardiomyopathy. This patient is high risk for decompensation and/or . This time was spent assessing and managing the patient, interpreting labs and imaging, coordinating care with other medical providers, gathering history from either the patient, their representatives, EMS or chart review, and discussing management with cardiology, transfer center [facility]. Discharge Plan Discharge Clinical Impression: NSTEMI (non-ST elevated myocardial infarction), Acute non-ST elevation myocardial infarction (NSTEMI), Acute chest pain, Ischemic cardiomyopathy, Cardiogenic shock, ESRD on dialysis, Non-compliance with renal dialysis Patient Disposition: Admitted As Inpatient Print Language: Hungarian
[2025-03-30 05:41] LABS: Hematocrit 32.0 % (42.0-52.0); Hemoglobin 10.3 g/dl (14.0-18.0); Imm Gran Abs Auto 0.02 X10*3/uL (0.00-0.03); Imm Gran Pct Auto 0.3 % (0.0-0.4); Lymphocytes Absolute Auto 1.0 X10*3/uL (1.2-4.9); MANUAL DIFF FLAG NO; Mean Corpuscular HGB Conc 32.2 g/dl (31.0-36.0); Mean Corpuscular Hemoglobin 30.3 pg (27.0-33.0); Mean Corpuscular Volume 94.1 fL (80.0-98.0); NRBC Abs Auto 0.000 X10*3/uL (0.0-0.012); NRBC Pct Auto 0.0 /100WBC (0.0-0.2); Platelet Count 102 X10*3/uL (160-400); Red Blood Count 3.40 X10*6/uL (4.60-5.80); White Blood Count 6.1 X10*3/uL (4.8-10.8)
--- OUTSIDE RECORDS SUMMARY | 2025-03-30 05:42 | XMS_ITS | Patient Health Record ---
Author Organization [facility] [place] Address [address] [facility] [place] [address] Care Team Providers Care Drain Tiler Name Role Phone Arturo Sauer MD Primary Care Provider Susan Daley Unavailable [phone] Allergies Allergen (clinical drug ingredient) Drug/Non Drug Allergy documented on EMR Reaction Allergy Type Onset Date Status Cranberry Unknown Drug Allergy Active nitroglycerin Nitroglycerin Unknown Drug Allergy Active sulfa Unknown Drug Allergy Active Penicillin Unknown Drug Allergy Active Reason For Referral No Information Medications Medication SIG (Take, Route, Frequency, Duration) Notes Start Date End Date Status Levaquin 750 MG as directed Orally Once a day 10/13/2013 Active Aspirin 325mg Active Zithromax Z-Quincy 250 MG 2 tablet on the irst day, then 1 tablet daily for 4 days Orally Once a day; Duration: 5 day(s) 10/31/2011 Not-Taking Work Note . . . .; Duration: . 10/31/2011 Active Lopressor 50 MG Orally Not- Taking Lantus 55 twice a day Active Lasix 20mg Not-Takin g HumaLOG 20 units Act margy Acetaminophen-Codeine #3 300-30 MG 1 tablet as needed Orally every 6 hrs; Duration: as needed 10/31/2011 Not-Taking Colace 100 MG 1 capsule as needed Orally Four times a day Active Nitroglycerin .4mg N ot-Taking Gabapentin 900 1 capsule Orally twi ce a day Active Lisinopril 20mg Not- Taking Plavix 75 MG 1 tablet Orally Once a day Active Norvasc 5 MG 1 tablet Orally Once a day; Duration: 30 day(s) Not-Taking Lipitor 40 MG 1 tablet Orally Once a day Active Zocor 40mg Not-Takin g Captopril 25 MG 1 tablet Orally once a day Active Midodrine HCl 7.5 1 tablet Orally twic e a day Active Tricor 145 MG 1 tablet Orally Once a day; Duration: 30 day(s) Not-Taking Problems Problem Type SNOMED Code ICD Code Onset Dates Problem Status W/U Status Risk Notes Problem Information temporarily unavailable Diabetic - IDDM/Neuropath y (250.61) Active confirmed Problem Information temporarily unavailable Celluitis - Toes (681.10) Active confirmed Problem Information temporarily unavailable Ulcer of Other Part of Foot (707.15) Active confirmed Problem Information temporarily unavailable Diabetic - IDDM/Neuropath y (250.61) Active confirmed Plan Of Treatment Pending Test Test Name Order Date X ray : Foot, right 3V 06/01/2014 [id number] NAIL, 6 OR MORE 10/13/2013 [id number] Plate 10/13/2013 [id number] 10/13/2013 [id number] SKIN/TISSUE 10/31/2011 [id number] SKIN/TISSUE 10/27/2013 [id number] SKIN/TISSUE 05/24/2014 [id number] SKIN/TISSUE 06/01/2014 [id number] SKIN LESIONS, 2 TO 4 10/14/19 14 Insurance Providers Payer Name Payer Address Payer Phone Subscriber Number Group Number Insured Name Patient Relationship to Insured Coverage Start Date Coverage End Date [facility] [address] [place] [address] [phone] [id number] Jo Tate Spouse - patient is the spouse of the insured Medical (General) History Medical History History ICD Code congestive heart failure hypertension heart attack diabetic Cholesterol Surgical History Surgery Date(Month/Year) cholecystectomy 2006 foot surgery stent insertion 2006 5 cevical spine surgeries [id number] 2 stent insertion in heart 2012 Hospitalization History Reason Date(Month/Year) Wing Bhatti-heart issue 10/19/2011
--- OUTSIDE RECORDS SUMMARY | 2025-03-30 05:42 | XMS_ITS | Clinical Summary ---
Author Organization [facility] Address [address] [address] Phone Care Team Providers Care Vice President For Instruction Name Role Phone Rahul Chan MD Primary Care Provide r Allergies Active Allergy Reactions Criticality Noted Date Comments Penicillins Unknown 05/16/2007 Social History Tobacco Use Types Packs/Day Years Used Date Smoking Tobacco: Never Assessed Education Answer Date Recorded Are you interested in more education? Not on venus e 10/04/2022 Are you concerned about learning? Not on file 10/04/2022 No 10/04/2022 No 10/04/2022 Digital Access Answer Date Recorded No 11/04/2022 No 11/04/2022 No 11/04/2022 Reliable internet access at home? Not on file 11/04/2022 Device with a working camera? Not on file Sex and Gender Information Value Date Recorded Sex Assigned at Not on file Legal Sex Male 10:32 PM EDT Gender Identity Not on file Sexual Orientation Not on file Plan of Treatment Not on file Medical Devices Not on file Insurance [facility] ONE CARE MEDICARE RE[place]AC[place] & B [facility] ONE CARE MEDIC[facility] RE[facility] B [facility] ONE CARE MEDICARE REPLACEMENT MEDICARE PART A & B [facility] ONE CARE MEDICARE [place] [address] [address] [place] [address] MEDICARE PART A & B [facility] MEDICARE REPLAC[place] MED[place] A & [place] [address] [address] [address] ONE CARE MEDICARE REPLACEMENT [place] MEDICARE PART A & B [facility] ONE CARE MEDICARE [facility]PLACEMENT [facility] MED[facility] PART A & B [facility] ONE CARE MEDICARE [facility]PLAC[facility] A & B [facility] MEDICARE [facility] MEDIC[facility] PART A & B Care Teams Vice President For Instruction Relationship Specialty Start Date End Date Rahul Chan MD [address] [place] [id number] PCP - General Internal Medicine 07/26/20 Additional Source Comments The information contained in this document represents components of the legal health record. It is not the complete legal health record.[facility]
--- OUTSIDE RECORDS SUMMARY | 2025-03-30 05:42 | XMS_ITS | Clinical Summary ---
Author Organization [facility] Address [address] [place] [address] Care Team Providers Care Java Architect Name Role Phone Unavailable Primary Care Provider [...] of 2) 2018 COVID-19 Vaccine ( - season) 2025 RSV Vaccine 50 years and old er and Patients (1 - 1-dose 75+ series) 2043
--- OUTSIDE RECORDS SUMMARY | 2025-03-30 05:42 | XMS_ITS | Patient Health Record ---
Author Organization [facility] Address [address] [place] [address] Care Team Providers Care Extrusion Die Repair Manager Name Role Phone Arturo Sauer MD Primary Care Provider Wesley Borrero Unavailable [phone] Natalie SAWYER, Alberto Unavailable Unavailable Allergies Allergen (clinical drug ingredient) Drug/Non Drug Allergy documented on EMR Reaction Allergy Type Onset Date Status penicillamine Penicillamine Unknown Drug Allergy Active Reason For Referral No Information Plan Of Treatment No Information Insurance Providers Payer Name Payer Address Payer Phone Subscriber Number Group Number Insured Name Patient Relationship to Insured Coverage Start Date Coverage End Date [facility] [address] [place] [address] [id number] JOLEEN CHANDRA Self - patient is the insured Medical (General) History Medical History History ICD Code colonoscopy 4-25-14 ischemic colitis insulin dependent diabetes mellitus diabetic neuropathy coronary artery disease with previous M. I. He denies the history of stroke although thinks he may have had a TIA depression Surgical History Surgery Date(Month/Year) cholecystectomy coronary artery stent placement
--- OUTSIDE RECORDS SUMMARY | 2025-03-30 05:43 | XMS_ITS | Clinical Summary ---
Author Organization [facility] [place] [facility] Address [address] [place] [address] Phone Care Team Providers Care Health Unit Supervisor Name Role Phone Shun Jarvis MD Primary Care Provider [phone] Allergies Active Allergy Reactions Criticality Noted Date Comments Cephalexin 03/27/2021 Cranberry 03/27/2021 Furosemide 03/27/2021 Morphine 2024 Nitroglycerin Nausea And Vomiting 03/27/2021 Penicillins 03/27/2021 Other Reaction(s): Hives/Urticaria Medications apixaban (Eliquis) 5 mg tablet TAKE 1 TABLET BY MOUTH TWICE DAILY 180 tablet Active acetaminophen (TYLENOL) 500 mg tablet Take 2 Tablets by mouth 4 times daily as needed. Active betamethasone dipropionate (DIPROSONE) 0.05 % ointment Apply topically 2 times daily. Active MULTIVITAMIN ORAL Take 1 tablet by mouth 1 (one) time each day. Active ondansetron (ZOFRAN) 4 mg tablet Take 2 tablets (8 mg total) by mouth 2 (two) times a day. Active insulin glargine,hum.rec. anlog (LANTUS U-100 INSULIN SUBQ) 20 Units 2 (two) times a day. Active UNABLE TO FIND Insulin Aspart (NOVOLOG SC), Inject 10 Units into the skin 3 times daily. Active albuterol sulfate (ProAir RespiClick) [...] Capsule by mouth. Friday, Friday, Friday Active gabapentin (NEURONTIN) 300 mg capsule Take 1 capsule (300 mg total) by mouth 2 (two) times a day. Active IPRATROPIUM BROMIDE INHL Inhale 2.5 mL into the lungs. Active pantoprazole (PROTONIX) 40 mg EC tablet Take 1 tablet (40 mg total) by mouth 1 (one) time each day. Active bumetanide (BUMEX) 1 mg tablet Take 1 tablet (1 mg total) by mouth 2 (two) times a day. Active amLODIPine (NORVASC) 2.5 mg tabletIndications :ASHD (arteriosclerotic heart disease) Take 1 tablet (2.5 mg total) by mouth 1 (one) time each day. 30 each 11 5 11/24/19 26 Active hydrALAZINE (APRESOLINE) 25 mg tablet TAKE 3 TABLETS BY MOUTH TWICE DAILY 540 tablet 1 5 Active carvediloL (COREG) 25 mg tablet Take 1 tablet (25 mg total) by mouth 2 (two) times a day with meals. 180 tablet 5 Active Active Problems Problem Noted Date Diagnosed Date PVD (peripheral vascular disease) ([facility] V24) 11/19/2024 Cardiac arrest ([facility] V24, [facility] V28) 2024 RSV infection 08/30/2024 Chest pain 08/30/2024 Cardiomyopathy ([facility] V24, [facility] V28) 2023 CAD (coronary artery disease) 06/17/2023 Assessment & Plan (11/23/2024 5:06 PM EDT): Patient has known coronary artery disease. I reviewed the cardiac catheterization films from October all 3 bypasses are open and are perfusing its territory well. The proximal LAD and circumflex are totally occluded and are not amenable to angioplasty or surgery. He may be having small vessel disease. If that is the case there would add amlodipine since he cannot take nitrates because he says he is allergic to them not exactly sure what that allergy is but we will add 2.5 mg of amlodipine to his medical therapy and bring him back and see how it is doing it may be enough to help quell some of his angina but I did explain to him that he may have chest pain we may need to add ranolazine at some point Chronic stable angina ([facility] V24) 06/17/2023 ESRD (end stage renal diseas e) on dialysis ([facility] V24, [facility] V28) 01/22/2022 CHF (congestive heart failure) ([facility] V24, [facility] V28) 12/27/2021 Overview (05/20/2024): Pef 55-60% Moderate pulmonary arterial systolic hypertension ([facility] V24, [facility] V28) 12/27/2021 Orthostatic hypotension 12/27/2021 Diabetes type 1, controlled ([facility] V24, [facility] V28) 03/27/2021 Elevated troponin 03/27/2021 Hyperlipidemia 03/27/2021 Hypertension 03/27/2021 NSTEMI (non-ST elevated myoc ardial infarction) ([facility] V24, [facility] V28) 03/27/2021 Paroxysmal atrial fibrillation ([facility] V24, [facility] V28) 03/27/2021 Overview (05/20/2024): [id number] ASHD (arteriosclerotic heart disease) 05/09/2019 Overview (05/20/2024): CABG X3 Assessment & Plan (11/23/2024 2:28 PM EDT): Orders: amLODIPine (NORVASC) 2.5 mg tablet; Take 1 tablet (2.5 mg total) by mouth 1 (one) time each day. Resolved Problems Problem Noted Date Diagnosed Date Resolved Date Chest pain 06/17/2023 06/03/2024 Encounters Date Type Department Care Team Description 01/19/2025 Telephone [facility] [address] [place] [address] Dale Walton MD from Last 3 Months Surgical History Surgery [...] Chest X-ray nad OTHER SURGICAL HISTORY PROCEDURE: RI ECHO TRANSTHORAC R-T 2D W/WO M-MODE REC [...] left circ OTHER SURGICAL HISTORY 10/06/2018 PROCEDURE: RI ECHO TRANSTHORAC R-T 2D W/WO M-MODE REC COMP OTHER SURGICAL HISTORY 09/24/2018 PROCEDURE: HISTORY OTHER; COMMENT: CT angiography of thorax OTHER SURGICAL HISTORY 08/23/2018 PROCEDURE: OUTSIDE EKG OTHER SURGICAL HISTORY 08/13/2018 PROCEDURE: OUTSIDE EKG OTHER SURGICAL HISTORY 08/07/2018 PROCEDURE: RADIOLOGIC EXAM CHEST SINGLE VIEW OTHER SURGICAL HISTORY 08/07/2018 PROCEDURE: CAT SCAN OF HEAD/BRAIN NO CONTRAST CARDIOVASCULAR STRESS TEST 06/24/2018 PROCEDURE: RI CV STRS TST XERS&/OR RX CONT ECG W/O I&R OTHER SURGICAL HISTORY 05/08/2018 PROCEDURE: BINA DOCUMENTED; COMMENT: BINA - Arterial pressure index OTHER SURGICAL HISTORY 12/17/2017 PROCEDURE: RI ECHO TRANSTHORAC R-T 2D W/WO M-MODE REC COMP OTHER SURGICAL HISTORY 11/09/2017 PROCEDURE: OUTSIDE CT; COMMENT: CT of abdomen and pelvis CARDIAC CATHETERIZATION 07/18/2017 PROCEDURE: HISTORICAL CARDIAC CATH OTHER SURGICAL HISTORY 06/19/2017 PROCEDURE: CAT SCAN OF CHEST NO CONTRAST OTHER SURGICAL HISTORY 03/06/2017 PROCEDURE: RI DOPPLER ECHOCARD PULSE WAVE W/SPECTRAL DISPLAY; COMMENT: of renal artery OTHER SURGICAL HISTORY 08/27/2016 PROCEDURE: RI INCISION & DRAINAGE ABSCESS SIMPLE/SINGLE; COMMENT: left dorsal foot OTHER SURGICAL HISTORY 12/31/2015 PROCEDURE: OUTSIDE CT; COMMENT: CT of lower leg OTHER SURGICAL HISTORY 05/24/2015 PROCEDURE: HISTORY OTHER; COMMENT: Ultrasound scan of upper arm: OTHER SURGICAL HISTORY 11/21/2014 PROCEDURE: CONTRAST CAT SCAN OF LEG OTHER SURGICAL HISTORY 08/26/2014 PROCEDURE: RI AMPUTATION FOOT TRANSMETARSAL; COMMENT: R2, R3 Transmetatarsal [...] of right lower ex tremity below knee ([facility] V24, [facility] V28) DX: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) Anemia due to stage 3 chroni c kidney disease ([facility] V24, [facility] V28) DX:Anemia due to st age 1 chronic kidney disease (HCC) Asthma, mild intermittent DX:Ast hma, mild intermittent Atherosclerosis DX:Atheroscleros is Bullous pemphigoid ([facility] V28) DX:Bullous pemphigoid; COMMENT: gx forearm Bullous pemphigus ([facility] V28) DX:Bullous pemphigus CHF (congestive heart failur e) ([facility]24, [facility] V28) DX:CHF (congestive heart zaheer lure) ([facility]); COMMENT: Pef 55-60% Chronic cervical pain DX:Chronic cervical pain ESRD (end stage renal diseas e) ([facility] V24, [facility] V28) DX:ESRD (end stage renal dis ease) ([facility]) GERD (gastroesophageal reflux disease) DX:GERD (gastroesophageal reflux disease) Groin pain DX:Groin pain Hernia, hiatal DX:Hernia, hiata l History of bacteremia DX:History of bacteremia History of ischemic colitis DX:H istory of ischemic colitis History of OK (myocardial infarction) DX:History of OK (myocardial infarction) 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 systemic steroid user; COMMENT: pemphigus Moderate pulmonary arterial systolic hypertension ([facility] V24, [facility] V28) DX:Moderate pu lmonary arterial systolic hypertension ([facility]) Obesity (BMI 30-39.9) DX:Obesity (BMI 30-39.9) Orthostatic hypotension DX:Ortho static hypotension Peripheral vascular disease ([facility] V24) 2015 DX:Peripheral vascular disease ([facility]); COMMENT: RT BKA 2015 left lie bypass 2016 Pulmonary nodule DX:Pulmonary no dule Venous embolism DX:Venous emboli sm Chest pain DX:Chest pain Covid-19 DX:COVID-19 Diabetes type 1, controlled ([facility] V24, [facility] V28) DX:Diabetes type 1, controll ed ([facility]) Acute chest pain DX:Acute chest pain Chronic kidney disease (CKD) , stage V ([facility] V24, [facility] V28) DX:Chronic kidney disease ( CKD), stage V ([facility]) Foot pain, right DX:Foot pain, r ight Hyperglycemia due to diabete s mellitus ([facility] V24, [facility] V28) DX:Hyperglycemia due to laverne betes mellitus ([facility]) Soft tissue infection of foot DX :Soft tissue infection of foot Stage 4 chronic kidney disea se ([facility] V24, [facility] V28) DX:Stage 4 chronic kidney di sease ([facility]) Ischemic cardiomyopathy Paroxysmal A-fib ([facility] V2 4, [facility] V28) Hypertension Hyperlipidemia Diabetic neuropathy ([facility] V24, [facility] V28) Family History Medical History Relation Name Comments [...] Date Smoking Tobacco: Never Smokeless Tobacco: Never Tobacco Cessation:Counseling Given: Not Answered Alcohol Use Standard Drinks/Week Comments Not Currently [...] for your loved ones. For example, childcare provider or elderly care for an older adult? [...] Date Recorded What is your living situation? Unrecognized valu e 2024 Interpersonal Safety Answer Date Record ed Physical Abuse Unrecognized value 2024 Verbal Abuse Unrecognized value 2024 Sex and Gender Information Value Date Recorded Sex Assigned at Male 2024 4:22 AM EST Legal Sex Male 12:47 PM EST Gender Identity Male 2024 4:22 AM EST Sexual Orientation Straight 2024 1: 27 PM EST Obstetrics History Last Filed Vital Signs Vital Sign Reading Time Taken Comments Blood Pressure 148/80 11/23/2024 1:17 PM EDT Pulse 76 11/23/2024 1:17 PM EDT Temperature 36.8 C (98.2 F) 06/03/2024 3:45 PM EST Respiratory Rate 16 06/03/2024 3:45 PM EST Oxygen Saturation 95% 11/23/2024 1:17 PM EDT Inhaled Oxygen Concentration - - Weight 94 kg (207 lb 3.7 oz) 2024 2:44 AM EST Height 188 cm (6' 2 ) 2024 2:44 AM EST Body Mass Index 26.61 2024 2:44 AM EST Plan of Treatment Health Maintenance Due Date Last Done Comments Colorectal Cancer Screening: Colonoscopy 1968 Diabetes: Annual Foot Exam 1978 Diabetes: Annual Retina Eye Exam 1978 Zoster Vaccines (1 of 2) 1987 RSV Immunization Adult Patients (1 - Risk 50-74 years 1-dose series) 2018 COVID-19 Vaccine (2 - Henok risk series) 11/06/2020 10/09/2020 Cholesterol Screening (Lipid Panel) 05/18/2022 HIV Screening 05/18/2022 Hepatitis C Screening 05/18/2022 Medicare Annual Wellness Visit 05/18/2022 Diabetes: Annual Urine Albumin-Creatinine Ratio (uACR) 05/25/2022 Diabetes: Blood Sugar Control Test (HGBA1C) 05/25/2022 Depression Screening 06/09/2024 Influenza Vaccine (#1) 2025 , 03/26/2023, 03/22/2022, Additional history exists Social Influencers of Health Screening 2025 2024 Diabetes: Annual GFR (Glomerular Filtration Rate) 06/03/2025 06/03/2024, 2024 Hypertension/CHF/CAD Annual BMP Blood Test 06/03/2025 06/03/2024, 2024 Pneumococcal Vaccine: 50+ Years (3 of 3 - PCV20 or PCV21) 06/25/2026 06/25/2021, 04/29/2021, 06/09/2014, Additional history exists DTaP,Tdap,and Td Vaccines (2 - Td or Tdap) 08/24/2034 08/24/2024 Hepatitis B Vaccines Completed 08/24/2021, 05/23/2021, 04/25/2021, Additional history exists HIB Vaccines Aged Out [...] mmol/L LAB CHEMISTRY METHOD 06/03/2024 7:53 AM [facility] Potassium 4.8 3.5 - 5.5 mmol/L LAB CHEMISTRY METHOD 06/03/2024 7:53 AM [facility] Chloride 92(L) 96 - 110 mmol/L LAB CHEMISTRY METHOD 06/03/2024 7:53 AM [facility] CO2 26 21 - 32 mmol/L LAB CHEMISTRY METHOD 06/03/2024 7:53 AM [facility] Anion Gap 12(H) 3 - 11 LAB CHEMISTRY METHOD 06/03/2024 7:53 AM [facility] Glucose 71 70 - 100 mg/dL LAB CHEMISTRY METHOD 06/03/2024 7:53 AM [facility] BUN 58(H) 5 - 25 mg/dL LAB CHEMISTRY METHOD 06/03/2024 7:53 AM [facility] Creatinine 6.37(H) 0.70 - 1.30 mg/dL LAB CHEMISTRY METHOD 06/03/2024 7:53 AM [facility] eGFR 10(L) >=60 mL/min/1. 73m2 LAB CHEMISTRY METHOD 06/03/2024 7:53 AM [facility] Comment:Calculation based on the Chronic Kidney Disease Epidemiology Collaboration (CKD-EPI) equation refit without adjustment for race. BUN/Creatinine Ratio 9.1 LAB CHEMISTRY METHOD 06/03/2024 7:53 AM [facility] Calcium 8.9 8.5 - 10.5 mg/dL LAB CHEMISTRY METHOD 06/03/2024 7:53 AM [facility] AST (SGOT) 20 10 - 42 unit/L LAB CHEMISTRY METHOD 06/03/2024 7:53 AM [facility] ALT (SGPT) 28 10 - 60 unit/L LAB CHEMISTRY METHOD 06/03/2024 7:53 AM [facility] Alkaline Phosphatase 143(H) 42 - 121 unit/L LAB CHEMISTRY METHOD 06/03/2024 7:53 AM [facility] Total Protein 6.4 6.0 - 8.0 g/dL LAB CHEMISTRY METHOD 06/03/2024 7:53 AM [facility] Albumin 3.7 3.2 - 5.0 g/dL LAB CHEMISTRY METHOD 06/03/2024 7:53 AM [facility] Total Bilirubin 0.9 0.0 - 1.4 mg/dL LAB CHEMISTRY METHOD 06/03/2024 7:53 AM [facility] Blood Venous blood specimen / Unknown Venipuncture / Unknown 06/03/2024 6:13 AM EST 06/03/2024 6:57 AM EST us Sakshi Pompa MD LAB BLOOD ORDERABLES Final Res ult [facility] [address] [place] [address], from Last 3 Months or Most Recently Relevant to Health Maintenance Insurance [facility] MEDIC[facility] Member Subscriber Plan / Payer (Ef fective 2018-Present) Name:CASTRO TATE Relation to Subscriber:Self Name:Castro Tate Payer ID:[id number] Group ID:[id number] Type:Not on file Address: [place] [address] [id number] Advance Directives Documents on File Type Date Recorded Patient Process Trainer Expl anation Health Care Decision (hx) 08/25/2020 [...] Agents on File Name Relationship Healthcare Agent [facility] Communication Jo Tate Spouse Health Care Agent Care Teams Health Unit Supervisor Relationship Specialty Start Date End Date Shun Jarvis MD [address] [place] [address] PCP - General Internal Medicine 11/23/24
[2025-03-30 06:06] LABS: Alanine Aminotransferase 9 U/L (0-40); Albumin Level 4.4 g/dL (3.5-5.0); Alkaline Phosphatase 131 U/L (39-117); Anion Gap 24 (12-20); Aspartate Amino Transferase 16 U/L (5-37); Blood Urea Nitrogen 74 mg/dL (9-16); Calcium 8.5 mg/dL (8.4-10.2); Carbon Dioxide 20 mmol/L (22-29); Chloride 99 mmol/L (96-108); Creatinine Clr Calc Pharmacy 11.2; Estimated Glomerular Filt Rate 7; Potassium 5.2 mmol/L (3.3-5.1); Sodium 138 mmol/L (135-145); Total Protein 6.7 g/dL (6.5-8.0); Troponin-I High Sensitivity 775.7 ng/L (<3.5-35.0)
[2025-03-30 06:23] LABS: COVID-19 Test Negative (Negative); IDNOW Serial# 55D5AD1C; IDNOW Serial# 58CA691E; Influenza B2 Negative (Negative)
[2025-03-30 06:24] LABS: NT Pro B Type Natriuretic Pept 43137.7 pg/mL (<300)
[2025-03-30] MEDS: Heparin Sodium,Porcine/1/2NS 25,000 UNIT/250 ML IV.SOLN 10 UNIT IVCONT (07:49)
[2025-03-30 07:51] LABS: INTERNATIONAL NORM RATIO 2.0 (0.9-1.1); Prothrombin Time 23.4 SEC (10.9-12.4)
[2025-03-30 07:54] LABS: PTT Heparin Drip 40.5 SEC (53-77.9)
[2025-03-30 08:10] LABS: Troponin-I High Sensitivity 704.1 ng/L (<3.5-35.0)
--- NOTE | 2025-03-30 10:45 | PC.NURSE ---
assumed care of patient at 0700, patient is awake alert and oriented, heparin gtt started per AUG at 10ml/hr, accurate weight checked with bed scale and pharmacy was notified. patient has 2 working IV in the right arm. patient goes to dialysis MWF and missed friday due to not feeling well. patient has working fistula on the left side, pink band placed on the left arm for no bp/IV. patient medicated per AUG for pain, has prn fentanyl, states he feels nauseas ED provider made aware. patient is at bedside, patient is on tele monitor awaiting tx details to [facility]
[2025-03-30 14:21] LABS: PTT Heparin Drip 84.7 SEC (53-77.9)
--- NOTE | 2025-03-30 17:34 | PC.NURSE ---
patient remains in ED 2 awaiting bed assignment at [facility]. patient is alert and oriented and remains at baseline, is at bedside. heparin gtt titrated per MAR
[2025-03-30 20:46] LABS: PTT Heparin Drip 60.1 SEC (53-77.9)
[2025-03-31 00:05] LABS: Anion Gap 25 (12-20); Blood Urea Nitrogen 75 mg/dL (9-16); Calcium 8.4 mg/dL (8.4-10.2); Carbon Dioxide 21 mmol/L (22-29); Chloride 98 mmol/L (96-108); Creatinine Clr Calc Pharmacy 11.5; Estimated Glomerular Filt Rate 6; Potassium 5.3 mmol/L (3.3-5.1); Sodium 139 mmol/L (135-145)
[2025-03-31 02:35] VITALS: BP 102/51; PULSE 60; RESP 12; TEMP 36.6; O2SAT 98
[2025-03-31 02:42] VITALS: RESP 12
[2025-03-31 02:46] LABS: PTT Heparin Drip 55.9 SEC (53-77.9)
--- NOTE | 2025-03-31 03:09 | PC.NURSE ---
consulted with drawing supervisor and CC, next PTT regarding heparin drip to be drawn at 0600 per policy.
[2025-03-31 05:14] VITALS: BP 123/63; PULSE 62; RESP 14; TEMP 36.6; O2SAT 96
[2025-03-31 06:11] LABS: MANUAL DIFF FLAG NO
[2025-03-31 06:12] LABS: Hematocrit 30.8 % (42.0-52.0); Hemoglobin 9.9 g/dl (14.0-18.0); Imm Gran Abs Auto 0.01 X10*3/uL (0.00-0.03); Imm Gran Pct Auto 0.2 % (0.0-0.4); Lymphocytes Absolute Auto 1.2 X10*3/uL (1.2-4.9); Mean Corpuscular HGB Conc 32.1 g/dl (31.0-36.0); Mean Corpuscular Hemoglobin 30.7 pg (27.0-33.0); Mean Corpuscular Volume 95.7 fL (80.0-98.0); NRBC Abs Auto 0.000 X10*3/uL (0.0-0.012); NRBC Pct Auto 0.0 /100WBC (0.0-0.2); Red Blood Count 3.22 X10*6/uL (4.60-5.80); White Blood Count 5.3 X10*3/uL (4.8-10.8)
[2025-03-31 06:14] LABS: Platelet Count 96 X10*3/uL (160-400)
[2025-03-31 06:26] LABS: INTERNATIONAL NORM RATIO 1.8 (0.9-1.1); Prothrombin Time 21.2 SEC (10.9-12.4)
[2025-03-31 06:29] LABS: PTT Heparin Drip 45.1 SEC (53-77.9)
[2025-03-31 06:34] LABS: Anion Gap 25 (12-20); Blood Urea Nitrogen 74 mg/dL (9-16); Calcium 8.3 mg/dL (8.4-10.2); Carbon Dioxide 20 mmol/L (22-29); Chloride 99 mmol/L (96-108); Creatinine Clr Calc Pharmacy 11.1; Estimated Glomerular Filt Rate 6; Potassium 5.5 mmol/L (3.3-5.1); Sodium 138 mmol/L (135-145)
[2025-03-31 06:41] LABS: Troponin-I High Sensitivity 670.3 ng/L (<3.5-35.0)
[2025-03-31 07:45] LABS: NT Pro B Type Natriuretic Pept 43789.6 pg/mL (<300)
[2025-03-31 08:02] VITALS: BP 120/63; PULSE 92; RESP 12; TEMP 36.6; O2SAT 93
--- NOTE | 2025-03-31 08:34 | PC.NURSE ---
spoke with pharmacy regarding heparin gtt, states to go ahead with 1245 ptthd and follow the protocol from there.
[2025-03-31] MEDS: Heparin Sodium,Porcine/1/2NS 25,000 UNIT/250 ML IV.SOLN 10 UNIT IVCONT (09:13)
--- NOTE | 2025-03-31 09:35 | PHA.MEDREC ---
Addendum entered by Tristen Garsia PharmD 03/31/25 09:49: reviewed Original Note: Pharmacy Consult ? Medication Reconciliation Pharmacy has completed the medication reconciliation. Patient had a list of his medications on his phone. Patient confirmed Novolog 10 units TID, Lantus 20 units daily. patient states Gabapentin dose has been increased to 600 mg BID, however claims has Gabapentin 300 mg BID. Left on what claims has and will notify the provider. Patient states he last had his medications 2 days ago.
--- NOTE | 2025-03-31 10:23 | PC.NURSE ---
patient taken to dialysis 1000.
--- NOTE | 2025-03-31 11:13 | P.HPHOSP_ITS ---
History of Present Illness Date of Service: 03/31/25 Chief Complaint: Chest pain 53 yo male with PMH of CAD s/p CABG in 2019 MURO to LAD and SVG to RPL and radial graft to OM1, intraoperative cardiac arrest requiring CPR and resuscitation in 11/2024, transferred to [facility] for reperfusion therapy, DM, CKD on HD MWF last dialysis on Friday( missed his Friday dialysis), HTN, PE, CHF, PVD he states he is anticoagulated on eliquis 5mg BID, S/P RBKA presented with chest pain that this evening at rest (while watching television). Describes substernal heavy chest pressure radiating to his neck ongoing for the last 2 hours straight, not associated nausea vomiting, diaphoresis, lightheadedness. Was given aspirin by EMS. He is allergic to nitroglycerin. States he has been feeling ?under the weather? for the last several days so he did not feel like he could go to dialysis on Friday. Last dialysis treatment was Friday. He denies associated shortness of breath, nausea or vomiting, edema or pain in his leg. He has a BKA on the right. Patient has an extensive cardiac history including cardiac arrest with ROSC, CKD on hemodialysis Friday. His EKG is rather concerning with some ST depressions diffusely, ST elevations in V1 and AVR Per ED note : previous EKG from October 20, 2024 when he had his cardiac arrest intraoperatively. There are significantly inverted T-waves without any real ST- elevations seen on that EKG. In that regard, his EKG is slightly improved today however, given his new chest pains I reviewed the case with the ham pumper on- call, Dr. Garrett, who recommends starting a heparin drip and repeating cardiac enzymes in 3 hours. He reports that the patient is not truly his patient. States that he has not accepted him as a patient and that the case is very complicated. Patient then became hypotensive to the SBP in the 90s, reconsulted Cardiology by ED physician and given his concern for extensive cardiac history and potential cardiogenic shock, he was accepted at [facility] is without any beds. He is to get dialysis today since he missed his dialysis Friday and creatinine appears to be worse than his usual baseline around 7-8. Hence to do dialysis, he is being admitted to Medicine floors, we are currently awaiting a bed at [facility]. I have consulted Cardiology Dr. Garrett, we will likely see the patient tomorrow, patient is on heparin drip receiving hemodialysis at the time of my examining him. CXR-stable cardiomegaly with interstitial thickening BNP-K 5.3, bicarb 21, anion gap 25, BUN 75, creatinine 9.30, troponins downtrending 775, 704, 670, pro BNP appears to be elevated 43,789 (no prior to quantify his baseline), hemoglobin 9.9 (unclear baseline as it appears to fluctuate between 9 and 12 based on prior admissions) Patient is being admitted to medical floors for dialysis, while awaiting a bed at [facility] given his extensive cardiac history as resources are limited at our facility for the level of his care needed at this presentation. Review of Systems 2 Review of Systems: Yes all other systems are reviewed and are negative FORMERLY [facility], 1928–1983 Medical History Bullous pemphigoid Acute on chronic kidney failure Chronic kidney disease (CKD) stage G5/A2, glomerular filtration rate (GFR) less than or equal to 15 mL/min/1.73 square meter and albuminuria creatinine ratio between 30-299 mg/g Ischemic colitis Orthostatic hypotension CAD (coronary artery disease) Hyperlipidemia HTN (hypertension) Pulmonary emboli PVD (peripheral vascular disease) CHF (congestive heart failure) Kidney disease Diabetes Family History Other Diabetes Surgical History Hx of tonsillectomy S/P cholecystectomy H/O Spinal surgery Hx of right BKA S/P triple vessel bypass Social History Household Members: Spouse Housing: House Do you presently have visiting nurse or other home services: Yes ([employer]) Alcohol intake: former Comment: Pt located across from nursing station Patient Tobacco Use Status: Never used Tobacco Advance Directives: No Advance Directives Information Provided: Yes service: No Current occupational status: retired Meds Allergies Allergy/AdvReac Type Severity Reaction Status Date / Time nitroglycerin (NITROGLYCERIN) Allergy Intermediate VOMITING Verified 03/30/25 05:16 cranberry (Cranberry) Allergy Mild RASH Verified 03/30/25 05:16 Penicillins Allergy Mild RASH Verified 03/30/25 05:16 penicillin V Allergy Unknown Rash/vomitt Verified 03/30/25 05:16 ing furosemide (From Lasix) Allergy Rash Verified 03/30/25 05:16 morphine AdvReac Severe Nausea and Verified 03/30/25 05:16 Vomiting Active Medications: Current Medications Fentanyl (Fentanyl Citrate/Pf 100 Mcg/2 Ml Vial) 50 mcg IVPUSH Q2H PRN; Protocol PRN Reason: Chest Pain Last Admin: 03/31/25 11:03 Dose: 50 mcg Heparin Sodium (Porcine) (Heparin Sodium,Porcine 5,000 Unit/Ml Vial) 4,000 unit 40 unit/kg (4000 unit) IVPUSH PROTOCOL BOLUS PRN; Protocol PRN Reason: 40 unit/kg - Heparin Protocol Last Admin: 03/31/25 06:44 Dose: 4,000 unit Heparin Sodium (Porcine) (Heparin Sodium,Porcine 5,000 Unit/Ml Vial) 8,000 unit 80 unit/kg (8000 unit) IVPUSH PROTOCOL BOLUS PRN; Protocol PRN Reason: 80 unit/kg - Heparin Protocol Heparin Sodium/Sodium Chloride (Heparin Sodium,Porcine/1/2ns) 25,000 unit in 250 mls @ 0 mls/hr IVCONT .Q0M RENU; Protocol Last Admin: 03/31/25 09:13 Dose: 10.06 units/kg/hr, 10 mls/hr Ondansetron HCl (Ondansetron Hcl 4 Mg/2 Ml Vial) 4 mg IVPUSH TID PRN PRN Reason: Nausea and Vomiting Last Admin: 03/31/25 07:52 Dose: 4 mg Home Medications ?Medication ?Instructions ?Recorded ?Confirmed ?Last Taken ?Type albuterol sulfate 90 mcg/actuation 2 puff inhalation Q 4H PRN 03/31/25 03/31/25 03/29/25 History aerosol inhaler Shortness Of Breath Or [place] ing apixaban 5 mg tablet (Eliquis) 5 mg PO BID 03/31/2503/29/25 History aspirin 81 mg tablet,delayed 81 mg PO DAILY 03/31/25 1 03/29/25 History release atorvastatin 80 mg tablet 80 mg PO DAILY 03/31/2503/1003/29/25 History betamethasone dipropionate 0.05 % 1 appl topical DAILY PRN Rash 03/31/25 03/31/25 03/29/25 History topical ointment bumetanide 1 mg tablet 1 mg PO BID 03/31/25 5 03/29/25 History carvedilol 25 mg tablet 25 mg PO BID 03/31/2503/29/25 History gabapentin 300 mg capsule 300 mg PO BID 03/31/2503/3103/29/25 History hydralazine 25 mg tablet 75 mg PO BID 03/31/2503/29/25 History insulin aspart U-100 100 unit/mL 10 unit subcut TID 03/31/25 03/29/25 History (3 mL) subcutaneous pen (Novolog FlexPen U-100 Insulin aspart) insulin glargine 100 unit/mL (3 20 unit subcut DAILY 1 03/31/25 03/29/25 History mL) subcutaneous pen (Lantus Solostar U-100 Insulin) multivitamin 1 tab PO DAILY 03/31/25/08/3103/29/25 History ondansetron HCl 4 mg tablet 8 mg PO Q8H PRN nausea 03/31/25 03/29/25 History pantoprazole 40 mg tablet,delayed 40 mg PO DAILY@0630 03/31/25 03/31/25 03/29/25 History release Physical Exam 2 Vital Signs and Narrative: Vital Signs: Last Vital Signs Temp 97.8 F 03/31/25 08:02 Pulse 92 03/31/25 08:02 Resp 12 03/31/25 08:02 BP 120/63 03/31/25 08:02 Pulse Ox 93 03/31/25 08:02 O2 Del Method Room Air 03/31/25 08:02 BMI result Body Mass Index 28.1 Const: General: no acute distress, alert, awake and Cushingoid facies N utritional Appearance: well nourished Orientation/consciousness: patient oriented x3 HEENT: Head: Yes normocephalic and Yes atraumatic Eyes: Sclerae: sclerae normal Pupils: Equal, round and reactive pupils present Chest: Other: port present Chest palpation & inspection: normal inspection of the chest Resp: Effort & Inspection: normal respiratory effort and no respiratory distress Cardio: Rate: regular rate Rhythm: regular rhythm GI: Palpation (GI): Soft to palpation and nontender Skin: General skin exam: no rashes or lesions noted Neuro: Other: hemiparesis left side General: patient oriented x3 Cranial nerves: Yes CN's II-XII intact bilaterally, Yes Equal, round and reactive pupils present and Yes Bilaterally intact EOM present Extrem: Other: s/p Right BKA; left lower extremity edema; skin breakdown -stump right leg; RUE fistula with palpable thrill Results Labs 03/31/25 06:04 03/31/25 06:04 Labs: Laboratory Results - last 24 hr 03/30/25 03/30/25 03/30/25 14:08 20:31 23:46 MCV MCH MCHC RDW Plt Count MPV Immature Gran % (Auto) Neut % (Auto) Lymph % (Auto) [place] % (Auto) Eos % (Auto) Baso % (Auto) Lymph # (Auto) [place] # (Auto) Eos # (Auto) Baso # (Auto) Abs Immat Gran (auto) Absolute Neuts (auto) Absolute Nucleated RBC Nucleated RBC % (auto) PT INR aPTT Heparin Protocol 84.7 H D 60.1 D Anion Gap 25 H Estim Creat Clear Calc 11.5 Estimated GFR 6 Random Glucose 112 Calcium 8.4 Troponin I High Sens NT-Pro-B Natriuret Pep 03/31/25 03/31/25 02:30 06:04 MCV 95.7 MCH 30.7 MCHC 32.1 RDW 16.2 H Plt Count 96 L MPV 12.1 Immature Gran % (Auto) 0.2 Neut % (Auto) 55.4 Lymph % (Auto) 23.6 [place] % (Auto) 8.4 Eos % (Auto) 10.9 H Baso % (Auto) 1.5 Lymph # (Auto) 1.2 [place] # (Auto) 0.4 Eos # (Auto) 0.6 H Baso # (Auto) 0.1 Abs Immat Gran (auto) 0.01 Absolute Neuts (auto) 2.9 Absolute Nucleated RBC 0.000 Nucleated RBC % (auto) 0.0 PT 21.2 H INR 1.8 H aPTT Heparin Protocol 55.9 45.1 L Anion Gap 25 H Estim Creat Clear Calc 11.1 Estimated GFR 6 Random Glucose 144 H Calcium 8.3 L Troponin I High Sens 670.3 H* NT-Pro-B Natriuret Pep 47390.6 H Assessment and Plan (1) Acute chest pain: Status: Acute Pt is a 53 yo male with PMH of CAD s/p CABG in 2019 MURO to LAD and SVG to RPL and radial graft to OM1, intraoperative cardiac arrest requiring CPR and resuscitation in 11/2024, transferred to [facility] for reperfusion therapy, DM, CKD on HD MWF last dialysis on Friday( missed his Friday dialysis), HFrEF (20- 25%) ,HTN, PE, CHF, PVD he states he is anticoagulated on eliquis 5mg BID, S/P RBKA presented with chest pain that this evening at rest and was noted to have troponenemia 2/2 possible missing HD on Friday, and getting HD today to catch him up on his schedule while awaiting a bed at [facility] given his complicated cardiac history might necessitate another cath to evaluate his cardiac anatomy. #Chest pain - troponenemia possible type 2 [place] 2/2 possible missing HD on Friday, and getting HD today to catch him up on his schedule while awaiting a bed at [facility] given his complicated cardiac history might necessitate another cath to evaluate his cardiac anatomy. #Prior asystole cardiac arrest 11/2024, acute [place], #HFrEF 20-25% done in 11/2024 #HTN #PE on Eliquis #PVD , s/p R BKA #Cardiomyopathy/car with interstitial cardiac thickening Patient has extensive cardiac history, and presents today with chest pain with elevated troponins although it could be in the setting of missing his hemodialysis session on Friday. Given his typical features of chest pain concerning for cardiac etiology we can not completely rule out NSTEMI. Paleologist consulted by ED and by me. Patient started on heparin drip. Patient accepted at [facility]. Currently awaiting bed. Needs a hemodialysis session today to catch up on his missed dialysis session on Friday. Patient is on heparin drip we will continue till he goes to [facility], we will hold Eliquis, continue aspirin We will continue to monitor on telemetry, no need to trend troponin as it has already peaked-likely type 2 Cardiogenic shock can not be ruled out as the patient developed hypotension to the SBP in the 90s We will order repeat echo if he continues to stay here to re-evaluate his cardiac functions He will need GDMT apart from possible defibrillator /PCM -deferring to [facility] where he got his care previously We will carefully titrate medications to maintain hemodynamic status We will check electrolytes and replete to goal Given unclear timing of transferred to [facility], currently we will place him NPO Paleologist consulted-we will likely evaluate him if he is still inpatient tomorrow Awaiting bed at [facility] to undergo cardiac catheterization to evaluate the cardiac anatomy #[facility] HD MWF-currently undergoing dialysis to catch up on his missed session on Friday [facility] nephrology consulted Patient taken up for hemodialysis session today Based on results, we will likely get another session tomorrow per his schedule (Friday) We will renally dose medications #CVA with residual right-sided weakness -right base line weakness present Continue aspirin, neuro checks daily # Prior PE on Eliquis-patient is on heparin drip # PVD status post right BKA-fall precautions, PTOT, rehab placement, wound care # s/p C4-5 laminectomy with Mr. Tate on 10/19/24 - during which he had PEA CA - wound care # S UD - Addiction Medicine consulted # type 2 diabetes mellitus-insulin sliding scale, hypoglycemia protocol, insulin will be adjusted daily to maintain euglycemia DVT prophylaxis with heparin drip This note is constructed using voice recognition software. While every effort has been made to ensure accuracy, concierge receptionist errors may have been included. This patient requires inpatient hospitalization at a high level of care due to multiple acute and chronic life-threatening conditions requiring continuous monitoring and complex management. He presented with chest pain and elevated troponins in the setting of missed hemodialysis, raising concern for acute coronary syndrome (cannot rule out NSTEMI) and type 2 [place]. He has a history of severe coronary artery disease with prior CABG, HFrEF (EF 20-25%), prior cardiac arrest, and is at high risk for cardiogenic shock, as evidenced by hypotension during this admission. He is currently on a heparin drip for anticoagulation, requires ongoing telemetry, and is awaiting transfer for possible urgent cardiac catheterization. Additionally, he has end-stage renal disease on hemodialysis, which was missed, necessitating urgent catch-up dialysis and close electrolyte management. His care is further complicated by a history of prior PE, CVA with residual deficits, PVD with right BKA, and multiple recent hospitalizations for critical events. The complexity of his cardiac, renal, and neurologic comorbidities, need for IV anticoagulation, frequent reassessment, and risk of rapid decompensation all necessitate inpatient hospitalization at a high billing code. Total time managing care of this patient today: 66 minutes. Quality Stroke Does the patient have a stroke diagnosis?: Yes Reason for No Anti-thrombotic by Day Two: N/A - Med Ordered VTE Prior VTE?: Yes VTE Risk Level:: Medical - moderate - high VTE Device Contraindication: N/A - Device Ordered VTE Drug Contraindication: N/A - Med Ordered
--- NOTE | 2025-03-31 11:38 | MHC.EDTECH ---
Additional EKG ordered by Hospitalist. Pt remains in dialysis at this time. It will be performed when he returns to the ED.
[2025-03-31 13:02] LABS: Magnesium 2.3 mg/dL (1.6-2.6)
[2025-03-31 13:14] LABS: Thyroid Stimulating Hormone 3.62 uIU/mL (0.32-4.0)
[2025-03-31 13:23] LABS: PTT Heparin Drip 92.6 SEC (53-77.9)
[2025-03-31 13:51] LABS: Hemoglobin A1C 175.3104 umol/L; Total Hemoglobin (HGBA1C) 3103.2399 umol/L
--- NOTE | 2025-03-31 14:44 | PM.DS ---
DS: Providers Provider Date of Service: 03/31/25 Date of admission: 03/31/25 09:33 Date of discharge: 03/31/25 Primary care physician: Shun Jarvis MD Consults: 03/31/25 11:09 Consult to Nephrology Stat Consulting Provider: [facility] Reason for consultation: esrd 03/31/25 11:21 Consult to Cardiology Routine Consulting Provider[place] [facility] [place] [facility] Reason for consultation: possible NSTEMI in a pt with extensive cardiac history 03/31/25 12:22 Addiction Medicine Provider Routine Consulting Provider: Addiction Covering Reason for consultation: AB , AUD, requesting dialudid frequently 03/31/25 12:43 Consult to Wound Care Routine Consulting Provider[place] [facility] [place] [facility] Reason for consultation: h/p R BKA , s/p cervical laminectomy DS: Diagnosis Discharge Diagnosis (1) Acute chest pain: Status: Acute DS: Summary Hospital Course Hospital Course: HPI :53 yo male with PMH of CAD s/p CABG in 2018 MURO to LAD and SVG to RPL and radial graft to OM1, intraoperative cardiac arrest requiring CPR and resuscitation in 11/2024, transferred to [facility] for reperfusion therapy, DM, CKD on HD MWF last dialysis on Friday( missed his Friday dialysis), HTN, PE, CHF, PVD he states he is anticoagulated on eliquis 5mg BID, S/P RBKA presented with chest pain that this evening at rest (while watching television). Describes substernal heavy chest pressure radiating to his neck ongoing for the last 2 hours straight, not associated nausea vomiting, diaphoresis, lightheadedness. Was given aspirin by EMS. He is allergic to nitroglycerin. States he has been feeling ?under the weather? for the last several days so he did not feel like he could go to dialysis on Friday. Last dialysis treatment was Friday. He denies associated shortness of breath, nausea or vomiting, edema or pain in his leg. He has a BKA on the right. Patient has an extensive cardiac history including cardiac arrest with ROSC, CKD on hemodialysis Friday. His EKG is rather concerning with some ST depressions diffusely, ST elevations in V1 and AVR Per ED note : previous EKG from October 20, 2024 when he had his cardiac arrest intraoperatively. There are significantly inverted T-waves without any real ST-elevations seen on that EKG. In that regard, his EKG is slightly improved today however, given his new chest pains I reviewed the case with the cable assembler on-call, Dr. Garrett, who recommends starting a heparin drip and repeating cardiac enzymes in 3 hours. He reports that the patient is not truly his patient. States that he has not accepted him as a patient and that the case is very complicated. Patient then became hypotensive to the SBP in the 90s, reconsulted Cardiology by ED physician and given his concern for extensive cardiac history and potential cardiogenic shock, he was accepted at [facility] is without any beds. He is to get dialysis today since he missed his dialysis Friday and creatinine appears to be worse than his usual baseline around 7-8. Hence to do dialysis, he is being admitted to Medicine floors, we are currently awaiting a bed at [facility]. I have consulted Cardiology Dr. Garrett, we will likely see the patient tomorrow, patient is on heparin drip receiving hemodialysis at the time of my examining him. CXR-stable cardiomegaly with interstitial thickening BNP-K 5.3, bicarb 21, anion gap 25, BUN 75, creatinine 9.30, troponins downtrending 775, 704, 670, pro BNP appears to be elevated 43,789 (no prior to quantify his baseline), hemoglobin 9.9 (unclear baseline as it appears to fluctuate between 9 and 12 based on prior admissions) Patient is being admitted to medical floors for dialysis, while awaiting a bed at [facility] given his extensive cardiac history as resources are limited at our facility for the level of his care needed at this presentation. Patient is being transferred on heparin drip, we are holding his Eliquis. Other than that no new medication changes were made during this hospitalization. Patient and family aware of the transfer. Hospital course-patient got a hemodialysis today as he missed his schedule on Friday, tolerated it well, hemodynamically stable post hemodialysis. and he has a bed at [facility] as was anticipated. Accepting physician Dr. Guzman. [facility] 5 ROOM 10A. Time spent discussing smoking cessation with patient: more than 10 minutes Status at Discharge Overall status at discharge: patient is not back to baseline Time Attestation Discharge Coordination Time (in mins): 65 Quality: Safe Use of Opioids Does Pt have an Active Cancer Diagnosis on the Problem List?: No Quality: Stroke Does the patient have a stroke diagnosis?: Yes Reason for No Anti-thrombotic at DC: N/A - Med Ordered Reason for No Anticoagulant at DC: N/A - Med Ordered Reason Not Initiating IV-Tpa: N/A - Med Ordered Reason for No Anti-thrombotic by Day Two: N/A - Med Ordered Reason for No Statin at DC: N/A - Med Ordered Physical Exam Exam: Exam: GENERAL: Ill-Appearing, chronically ill-appearing, appears uncomfortable. CHEST: Heart regular rhythm, no murmurs, symmetric chest rise and fall. PULMONARY: Clear to auscultation bilaterally, diminished at the bases, no labored breathing, no wheezes/rhales/rhonchi. ABDOMINAL: Soft, nondistended, nontender, positive bowel sounds in all quadrants. : Deferred. MUSCULOSKELETAL: Normal tone, full range of motion, right BKA, no peripheral edema. PSYCHIATRIC: Flat affect, fluid speech, mild irritability/anxiety. Vital Signs: Vital Signs: Last Vital Signs Temp 97.8 F 03/31/25 08:02 Pulse 92 03/31/25 08:02 Resp 12 03/31/25 08:02 BP 120/63 03/31/25 08:02 Pulse Ox 93 03/31/25 08:02 O2 Del Method Room Air 03/31/25 08:02 BMI result Body Mass Index 28.1 DS: Data Data Completed and Pending Completed studies during hospitalization [Text1]: Procedures Inspection of Cervical Vertebral Disc, Open Approach (10/19/24) Introduction of Vasopressor into Peripheral Vein, Percutaneous Approach (10/19/24) Performance of Cardiac Output, Single, Manual (10/19/24) Performance of Urinary Filtration, Intermittent, Less than 6 Hours Per Day (10/19/24) Respiratory Ventilation, 24-96 Consecutive Hours (10/19/24) Labs on day of discharge: Laboratory Results - last 24 hr 03/30/25 03/30/25 03/31/25 20:31 23:46 02:30 WBC RBC Hgb Hct MCV MCH MCHC RDW Plt Count MPV Immature Gran % (Auto) Neut % (Auto) Lymph % (Auto) [place] % (Auto) Eos % (Auto) Baso % (Auto) Lymph # (Auto) [place] # (Auto) Eos # (Auto) Baso # (Auto) Abs Immat Gran (auto) Absolute Neuts (auto) Absolute Nucleated RBC Nucleated RBC % (auto) PT INR aPTT Heparin Protocol 60.1 D 55.9 Sodium 139 Potassium 5.3 H Chloride 98 Carbon Dioxide 21 L Anion Gap 25 H BUN 75 H Creatinine 8.96 H* Estim Creat Clear Calc 11.5 Estimated GFR 6 Random Glucose 112 Estimat Average Glucose Hemoglobin A1c % Calcium 8.4 Magnesium Troponin I High Sens NT-Pro-B Natriuret Pep TSH 03/31/25 03/31/25 03/31/25 06:04 08:00 12:54 WBC 5.3 RBC 3.22 L Hgb 9.9 L Hct 30.8 L MCV 95.7 MCH 30.7 MCHC 32.1 RDW 16.2 H Plt Count 96 L MPV 12.1 Immature Gran % (Auto) 0.2 Neut % (Auto) 55.4 Lymph % (Auto) 23.6 [place] % (Auto) 8.4 Eos % (Auto) 10.9 H Baso % (Auto) 1.5 Lymph # (Auto) 1.2 [place] # (Auto) 0.4 Eos # (Auto) 0.6 H Baso # (Auto) 0.1 Abs Immat Gran (auto) 0.01 Absolute Neuts (auto) 2.9 Absolute Nucleated RBC 0.000 Nucleated RBC % (auto) 0.0 PT 21.2 H INR 1.8 H aPTT Heparin Protocol 45.1 L 92.6 H D Sodium 138 Cancelled Potassium 5.5 H Cancelled Chloride 99 Cancelled Carbon Dioxide 20 L Cancelled Anion Gap 25 H Cancelled BUN 74 H Cancelled Creatinine 9.30 H* Cancelled Estim Creat Clear Calc 11.1 Cancelled Estimated GFR 6 Cancelled Random Glucose 144 H Cancelled Estimat Average Glucose 163 Hemoglobin A1c % 7.3 H Calcium 8.3 L Cancelled Magnesium 2.3 Troponin I High Sens 670.3 H* NT-Pro-B Natriuret Pep 06390.6 H TSH 3.62 Discharge Plan Discharge Anticipated Discharge Date/Time: 03/31/25 14:38 Patient Disposition: Xfer Other Discharge Diagnosis: Troponinemia 2/2 missing dialysis on Friday and NSTEMI on heparin drip in a patient with extensive complicated cardiac history Referrals: Shun Jarvis MD [Primary Care Provider, Medical] Discharge Medications: New heparin(porcine) in 0.45% NaCl 25,000 unit/250 mL Parenteral Solution 25,000 unit continuous IV infusion .Q0M Qty: 6000 0RF heparin (porcine) 5,000 unit/mL Solution 4,000 unit IVPUSH PROTOCOL BOLUS PRN (Reason: 40 Unit/Kg - Heparin Protocol) Qty: 25 0RF heparin (porcine) 5,000 unit/mL Solution 8,000 unit continuous IV infusion PROTOCOL BOLUS PRN (Reason: 80 Unit/Kg - Heparin Protocol) Qty: 25 0RF nitroglycerin [Nitrostat] 0.4 mg Tablet, Sublingual 0.4 mg sublingual Q5MX3 PRN (Reason: Chest Pain) 10 Days Qty: 10 0RF Continued atorvastatin 80 mg tablet 80 mg PO DAILY carvedilol 25 mg tablet 25 mg PO BID ondansetron HCl 4 mg tablet 8 mg PO Q8H PRN (Reason: nausea) hydralazine 25 mg tablet 75 mg PO BID pantoprazole 40 mg tablet,delayed release (DR/EC) 40 mg PO DAILY@0630 gabapentin 300 mg capsule 300 mg PO BID bumetanide 1 mg tablet 1 mg PO BID albuterol sulfate 90 mcg/actuation HFA aerosol inhaler 2 puff inhalation Q4H PRN (Reason: Shortness Of Breath Or Wheezing) betamethasone dipropionate 0.05 % ointment 1 appl topical DAILY PRN (Reason: Rash) multivitamin Tablet 1 tab PO DAILY aspirin 81 mg Tablet,Delayed Release (Dr/Ec) 81 mg PO DAILY insulin aspart U-100 [Novolog FlexPen U-100 Insulin] 100 unit/mL (3 mL) Insulin Pen 10 unit SUBCUT TID insulin glargine [Lantus Solostar U-100 Insulin] 100 unit/mL (3 mL) insulin pen 20 unit subcut DAILY Held Eliquis 5 mg tablet 5 mg PO BID Hold Instructions: Resume on 04/05/25. Patient is on heparin drip for NSTEMI Discharge Orders: Discharge Order (Routine); Ordered 03/31/25 Ordered By: Stormy James Diet: ESRD diet, low phos, K lw Activity on Discharge: As tolerated Stand Alone Forms: Patient Portal Discharge page Print Language: Icelandic Care Plan Goals: Follow-up with cardiology Continue care per outpatient Cardiology You are being transferred so that you can get appropriate cardiac care at [facility] as limited resources at our [facility] Continue dialysis per usual session Health Concerns: See above Plan of Treatment: See above Assessment: See above
[2025-03-31 15:38] VITALS: BP 113/59; PULSE 76; RESP 14; TEMP 36.6; O2SAT 98
[2025-03-31 16:00] VITALS: BP 127/54; PULSE 73; RESP 14; TEMP 37.1; O2SAT 98
--- NOTE | 2025-03-31 16:52 | PC.NURSE ---
report given to [facility]. per machine operator assistant 3.4kg fluid removed w/out incident.
--- NOTE | 2025-03-31 18:36 | PM.CNNEP ---
History of Present Illness Reason for Consult Consult date: 03/31/25 Reason for consult: ESRD and HD Chief Complaint Chief complaint: NSTEMI, ESRD, hyperK History of Present Illness Narrative: RTANE consulted for ESRD and HD management in setting of adm with CP and NSTEMI In summary a 53 yo M ESRD MWF at [facility] ( [id number]) and missed HD Rx on Friday and Fri of this week. PMH of CAD s/p CABG in 2018 MURO to LAD and SVG to RPL and radial graft to OM1, intraoperative cardiac arrest requiring CPR and resuscitation in 11/2024, transferred to [facility] for reperfusion therapy, DM, , HFrEF (20-25%) ,HTN, PE, CHF, PVD he states he is anticoagulated on eliquis 5mg BID, S/P RBKA presented with chest pain and given his complicated cardiac history might necessitate another cath to evaluate his cardiac anatomy and [facility] wants to xfer him to [facility] Review of Systems Review of Systems as per HPI, full review of systems performed and negative but for the above mentioned pertinent positives and negatives. Yes all other systems are reviewed and are negative PMFSH Past Medical History Medical History Bullous pemphigoid Acute on chronic kidney failure Chronic kidney disease (CKD) stage G5/A2, glomerular filtration rate (GFR) less than or equal to 15 mL/min/1.73 square meter and albuminuria creatinine ratio between 30-299 mg/g Ischemic colitis Orthostatic hypotension CAD (coronary artery disease) Hyperlipidemia HTN (hypertension) Pulmonary emboli PVD (peripheral vascular disease) CHF (congestive heart failure) Kidney disease Diabetes Family History Family History Other Diabetes Surgical History Surgical History Hx of tonsillectomy S/P cholecystectomy H/O Spinal surgery Hx of right BKA S/P triple vessel bypass Social History Social History Household Members: Spouse Housing: House Do you presently have visiting nurse or other home services: Yes ([employer]) Alcohol intake: former Comment: Pt located across from nursing station Patient Tobacco Use Status: Never used Tobacco service: No Current occupational status: retired Meds Allergies Allergy/AdvReac Type Severity Reaction Status Date / Time nitroglycerin (NITROGLYCERIN) Allergy Intermediate VOMITING Verified 03/30/25 05:16 cranberry (Cranberry) Allergy Mild RASH Verified 03/30/25 05:16 Penicillins Allergy Mild RASH Verified 03/30/25 05:16 penicillin V Allergy Unknown Rash/vomitt Verified 03/30/25 05:16 ing furosemide (From Lasix) Allergy Rash Verified 03/30/25 05:16 morphine AdvReac Severe Nausea and Verified 03/30/25 05:16 Vomiting Home Medications ?Medication ?Instructions ?Recorded ?Confirmed ?Last Taken ?Type albuterol sulfate 90 mcg/actuation 2 puff inhalation Q4H PRN 03/31/25 03/31/25 03/29/25 History aerosol inhaler Shortness Of Breath Or Wheezing apixaban 5 mg tablet (Eliquis) 5 mg PO BID 03/31/25 03/31/25 03/29/25 History Held on 03/31/25. Instructions: Resume on 04/05/25. Patient is on heparin drip for NSTEMI aspirin 81 mg tablet,delayed 81 mg PO DAILY 03/31/25 03/31/25 03/29/25 History release atorvastatin 80 mg tablet 80 mg PO DAILY 03/31/25 03/31/25 03/29/25 History betamethasone dipropionate 0.05 % 1 appl topical DAILY PRN Rash 03/31/25 03/31/25 03/29/25 History topical ointment bumetanide 1 mg tablet 1 mg PO BID 03/31/25 03/31/25 03/29/25 History carvedilol 25 mg tablet 25 mg PO BID 03/31/25 03/31/25 03/29/25 History gabapentin 300 mg capsule 300 mg PO BID 03/31/25 03/31/25 03/29/25 History hydralazine 25 mg tablet 75 mg PO BID 03/31/25 03/31/25 03/29/25 History insulin aspart U-100 100 unit/mL 10 unit subcut TID 03/31/25 03/31/25 03/29/25 History (3 mL) subcutaneous pen (Novolog FlexPen U-100 Insulin aspart) insulin glargine 100 unit/mL (3 20 unit subcut DAILY 03/31/25 03/31/25 03/29/25 History mL) subcutaneous pen (Lantus Solostar U-100 Insulin) multivitamin 1 tab PO DAILY 03/31/25 03/31/25 03/29/25 History ondansetron HCl 4 mg tablet 8 mg PO Q8H PRN nausea 03/31/25 03/31/25 03/29/25 History pantoprazole 40 mg tablet,delayed 40 mg PO DAILY@0630 03/31/25 03/31/25 03/29/25 History release Physical Exam Vital Signs: Last Vital Signs Temp 98.7 F 03/31/25 16:00 Pulse 73 03/31/25 16:00 Resp 14 03/31/25 16:00 BP 127/54 L 03/31/25 16:00 Pulse Ox 98 03/31/25 16:00 O2 Del Method Room Air 03/31/25 16:00 BMI result Body Mass Index 28.1 Const General: no acute distress, alert, awake and Cushingoid facies Nutritional Appearance: well nourished Orientation/consciousness: patient oriented x3 HEENT Head: Yes normocephalic and Yes atraumatic Eyes Sclerae: sclerae normal Pupils: Equal, round and reactive pupils present Chest Other: port present Chest palpation & inspection: normal inspection of the chest Resp Effort & Inspection: normal respiratory effort and no respiratory distress Cardio Rate: regular rate Rhythm: regular rhythm GI Palpation (GI): Soft to palpation and nontender Skin General skin exam: no rashes or lesions noted Neuro Other: hemiparesis left side General: patient oriented x3 Cranial nerves: Yes CN's II-XII intact bilaterally, Yes Equal, round and reactive pupils present and Yes Bilaterally intact EOM present Extrem Other: s/p Right BKA; left lower extremity edema; skin breakdown -stump right leg; RUE fistula with palpable thrill Results Lab Results 03/31/25 06:04 03/31/25 06:04 Lab results: Chemistry 03/30/25 03/30/25 03/31/25 05:36 23:46 06:04 Sodium 138 139 138 Potassium 5.2 H 5.3 H 5.5 H Carbon Dioxide 20 L 21 L 20 L BUN 74 H 75 H 74 H Creatinine 8.53 H* 8.96 H* 9.30 H* Calcium 8.5 8.4 8.3 L 03/31/25 08:00 Sodium Cancelled Potassium Cancelled Carbon Dioxide Cancelled BUN Cancelled Creatinine Cancelled Calcium Cancelled Hematology 03/30/25 03/31/25 05:36 06:04 WBC 6.1 5.3 Hgb 10.3 L 9.9 L Plt Count 102 L 96 L Assessment and Plan (1) Acute chest pain: Status: Acute ESRD: usu MWF and missed last two HD Rx CAD: NSTEMI and IV hep started and plan to xfer to [facility] [place] as needs CCath Anemia MBD REC: HD today, card racheal as noted, plan to go ahead with HD again tomorrow to get him back on mwf schedule Procedures Date of Service Date of Service: 03/31/25
== END 2025-03-31 16:54 | disposition other institution (70) | DRG 280 ==
LOC: HO.ED 03-31 08:51 → HO.EDOVER 03-31 09:37 → HO.IMC 03-31 14:15 → HO.EDOVER 03-31 15:02
PROVIDERS: Emergency Medicine; Student in an Organized Health Care Education/Training Program; Admitting Provider Family Medicine; Emergency Provider Emergency Medicine; PCP Internal Medicine; Visit Provider Family Medicine
DX: I21.4 Non-ST elevation (NSTEMI) myocardial infarction (principal); N18.6 End stage renal disease; R57.0 Cardiogenic shock; I13.2 Hypertensive heart and chronic kidney disease with heart failure and with stage 5 chronic kidney disease, or end stage renal disease; I50.22 Chronic systolic (congestive) heart failure; I69.351 Hemiplegia and hemiparesis following cerebral infarction affecting right dominant side; E11.22 Type 2 diabetes mellitus with diabetic chronic kidney disease; Z99.2 Dependence on renal dialysis; I25.10 Atherosclerotic heart disease of native coronary artery without angina pectoris; Z20.822 Contact with and (suspected) exposure to COVID-19; E11.51 Type 2 diabetes mellitus with diabetic peripheral angiopathy without gangrene; Z89.511 Acquired absence of right leg below knee; Z95.1 Presence of aortocoronary bypass graft; Z91.158 Patient's noncompliance with renal dialysis for other reason; Z86.711 Personal history of pulmonary embolism; Z86.74 Personal history of sudden cardiac arrest; Z79.4 Long term (current) use of insulin; Z79.01 Long term (current) use of anticoagulants; Z79.82 Long term (current) use of aspirin; Z79.899 Other long term (current) drug therapy
CPT/HCPCS: 36415; 71045; 80048; 80053; 83036; 83735; 83880; 84443; 84484; 85025; 85610; 85730; 87502; 87635; 93005; 99285; J1644; J2405; J3010; Q9957

== ENCOUNTER → 2025-03-30 05:28 | Outpatient (BNV) | payer OTHER, SELFPAY | PROVIDERS: Emergency Provider Emergency Medicine; PCP Internal Medicine; Visit Provider Internal Medicine Cardiovascular Disease | DX: I44.0 Atrioventricular block, first degree (principal); I45.10 Unspecified right bundle-branch block | CPT/HCPCS: 93010 ==

== ENCOUNTER → 2025-03-30 05:38 | Outpatient (BNV) | payer OTHER, SELFPAY | PROVIDERS: Emergency Provider Emergency Medicine; PCP Internal Medicine; Visit Provider Radiology Diagnostic Radiology | DX: I51.7 Cardiomegaly (principal); J84.9 Interstitial pulmonary disease, unspecified | CPT/HCPCS: 71045 ==

== ENCOUNTER → 2025-03-31 09:33 | Outpatient (BNV) | payer OTHER, SELFPAY | PROVIDERS: Admitting Provider Family Medicine; Emergency Provider Emergency Medicine; PCP Internal Medicine; Visit Provider Student in an Organized Health Care Education/Training Program | DX: R07.9 Chest pain, unspecified (principal) | CPT/HCPCS: 99222; 99499 ==